=== PATIENT | female | born 1940 | race Caucasian/White ===

== ENCOUNTER → 2016-11-04 | Outpatient (CLI) | payer BC ==
[~2016-11-04] MED LIST: ACET-1138 PO; ASPEC81 PO; CARB1TAB29 PO; CHOL100010 PO; CLOP1TAB15 PO; FRS/40 PO; HMLIS SC; INSDGI SC; IPRA1AER2 INH; KETO2CRE14 TOP; LABE1TAB28 PO; LEVO88TA PO; LOSA1TAB PO; MAGN400T6 PO; METR0.754 TOP; MULT-190 PO; OMEG10007 PO; POTA10CA28 PO; SIMV10TA2 PO
[2016-11-04 14:54] LABS: HEMATOCRIT 35.7 % (37-47); MEAN CELL VOLUME 93.9 fL (80-100); MEAN CORPUSCULAR HEMOGLOBIN 29.5 pg (25-34); MEAN CORPUSCULAR HGB CONC 31.4 g/dl (32-36); PLATELET COUNT 194 K/uL (130-400); WHITE BLOOD COUNT 5.94 K/uL (4.8-10.8)
[2016-11-04 15:01] LABS: ESTIMATED AVERAGE GLUCOSE 137 mg/dl; HA1C FLAG Normal (Normal)
[2016-11-04 15:11] LABS: URINE APPEARANCE CLEAR (CLEAR); URINE BILIRUBIN NEG (NEG); URINE COLOR YELLOW; URINE EPITHELIAL CELL AUTO 20-30 /lpf (0-5); URINE NITRITE NEG (NEG); URINE PH 6.5 (4.5-7.5); URINE SPECIFIC GRAVITY 1.012 (1.000-1.030); UROBILINOGEN NEG (NEG)
[2016-11-04 15:23] LABS: MANUAL MICROSCOPIC REQUIRED? NO; REVIEW REQ? NO
[2016-11-04 15:48] LABS: URINE PROTIEN/CREAT RATIO 0.2 (0-0.2); URINE TOTAL PROTEIN 6.2 mg/dl (0-11.9)
[2016-11-04 15:50] LABS: ALT/SGPT 27 U/L (12-78); AST/SGOT 16 U/L (15-37); BLOOD UREA NITROGEN 55 mg/dl (7-18); BUN/CREATININE RATIO 32.1 (10-20); CALCIUM 8.9 mg/dl (8.5-10.1); CARBON DIOXIDE 29 mmol/L (21-32); CHLORIDE 103 mmol/L (98-107); GLUCOSE 119 mg/dl (70-99); MAGNESIUM 2.3 mg/dl (1.8-2.4); POTASSIUM 4.2 mmol/L (3.5-5.1); SODIUM 139 mmol/L (136-145)
[2016-11-04 15:54] LABS: FERRITIN 123.2 ng/ml (8.0-388.0); TOTAL IRON BINDING CAPACITY 321 mcg/dl (250-450)
== END | disposition home or self-care (01) ==
LOC: C.LABBC 10:27
PROVIDERS: ATTEND Internal Medicine Nephrology
DX: I10 Essential (primary) hypertension (principal); N18.3 Chronic kidney disease, stage 3 (moderate); R80.9 Proteinuria, unspecified; E21.3 Hyperparathyroidism, unspecified; E55.9 Vitamin D deficiency, unspecified; D64.9 Anemia, unspecified; E83.42 Hypomagnesemia; E78.5 Hyperlipidemia, unspecified; E11.9 Type 2 diabetes mellitus without complications

== ENCOUNTER → 2017-03-16 | Outpatient (CLI) | payer BC | END | disposition home or self-care (01) | LOC: C.LAB1850 15:22 | PROVIDERS: ATTEND Nurse Practitioner Adult Health | DX: I12.9 Hypertensive chronic kidney disease with stage 1 through stage 4 chronic kidney disease, or unspecified chronic kidney disease (principal); R80.9 Proteinuria, unspecified; E21.3 Hyperparathyroidism, unspecified; E55.9 Vitamin D deficiency, unspecified; D64.9 Anemia, unspecified; E83.42 Hypomagnesemia; N18.2 Chronic kidney disease, stage 2 (mild); E03.9 Hypothyroidism, unspecified ==

== ENCOUNTER → 2017-05-14 | Outpatient (CLI) | payer BC ==
[2017-05-14 10:54] LABS: HEMATOCRIT 34.6 % (37-47); MEAN CORPUSCULAR HGB CONC 31.5 g/dl (32-36); MEAN PLATELET VOLUME 9.8 fL (7.4-10.4); PLATELET COUNT 196 K/uL (130-400); RED BLOOD COUNT 3.76 M/uL (4.2-5.4); WHITE BLOOD COUNT 7.02 K/uL (4.8-10.8)
[2017-05-14 11:10] LABS: URINE APPEARANCE CLEAR (CLEAR); URINE BILIRUBIN NEG (NEG); URINE COLOR YELLOW; URINE EPITHELIAL CELL AUTO >30 /lpf (0-5); URINE NITRITE NEG (NEG); URINE PH 5.5 (4.5-7.5); URINE SPECIFIC GRAVITY 1.014 (1.000-1.030); UROBILINOGEN NEG (NEG)
[2017-05-14 11:13] LABS: MANUAL MICROSCOPIC REQUIRED? NO; REVIEW REQ? NO
[2017-05-14 11:19] LABS: BLOOD UREA NITROGEN 36 mg/dl (7-18); BUN/CREATININE RATIO 24.7 (10-20); CALCIUM 7.9 mg/dl (8.5-10.1); CARBON DIOXIDE 31 mmol/L (21-32); CHLORIDE 105 mmol/L (98-107); CREATININE 1.44 mg/dl (0.60-1.20); GLUCOSE 91 mg/dl (70-99); POTASSIUM 3.4 mmol/L (3.5-5.1); SODIUM 142 mmol/L (136-145)
[2017-05-14 11:23] LABS: PHOSPHORUS 2.6 mg/dl (2.5-4.9)
[2017-05-14 11:25] LABS: URINE PROTIEN/CREAT RATIO 0.1 (0-0.2)
== END | disposition home or self-care (01) ==
LOC: C.LABBC 08:05
PROVIDERS: ATTEND Internal Medicine Nephrology
DX: I10 Essential (primary) hypertension (principal); R80.9 Proteinuria, unspecified; D64.9 Anemia, unspecified; E21.3 Hyperparathyroidism, unspecified; E55.9 Vitamin D deficiency, unspecified; E83.42 Hypomagnesemia; N18.2 Chronic kidney disease, stage 2 (mild)

== ENCOUNTER → 2017-10-13 | Outpatient (CLI) | payer BC ==
[2017-10-13 11:00] LABS: HEMOGLOBIN 11.2 g/dL (12.0-16.0)
[2017-10-13 11:59] LABS: HEMOGLOBIN A1C 6.6 % (4.5-5.6)
== END | disposition home or self-care (01) ==
LOC: C.LABBC 07:59
PROVIDERS: ATTEND Internal Medicine
DX: E03.9 Hypothyroidism, unspecified (principal); E11.49 Type 2 diabetes mellitus with other diabetic neurological complication; E78.5 Hyperlipidemia, unspecified; I50.32 Chronic diastolic (congestive) heart failure

== ENCOUNTER → 2017-11-11 | Outpatient (CLI) | payer BC ==
[2017-11-11 11:21] LABS: HEMATOCRIT 33.6 % (37-47); HEMOGLOBIN 10.9 g/dL (12.0-16.0); MEAN CELL VOLUME 88.2 fL (80-100); MEAN CORPUSCULAR HEMOGLOBIN 28.6 pg (25-34); MEAN CORPUSCULAR HGB CONC 32.4 g/dl (32-36); MEAN PLATELET VOLUME 9.7 fL (7.4-10.4); PLATELET COUNT 202 K/uL (130-400); RED CELL DISTRIBUTION WIDTH CV 14.5 % (11.5-14.5); RED CELL DISTRIBUTION WIDTH SD 46.8 fL (36.4-46.3)
[2017-11-11 11:43] LABS: ALBUMIN 3.6 gm/dl (3.4-5.0); BLOOD UREA NITROGEN 43 mg/dl (7-18); CALCIUM 8.1 mg/dl (8.5-10.1); CARBON DIOXIDE 31 mmol/L (21-32); GLUCOSE 83 mg/dl (70-99); PHOSPHORUS 3.4 mg/dl (2.5-4.9); POTASSIUM 3.3 mmol/L (3.5-5.1); SODIUM 140 mmol/L (136-145); TRANSFERRIN 216 mg/dl (200-360)
== END | disposition home or self-care (01) ==
LOC: C.LABBC 07:38
PROVIDERS: ATTEND Internal Medicine Nephrology
DX: E83.52 Hypercalcemia (principal); I12.9 Hypertensive chronic kidney disease with stage 1 through stage 4 chronic kidney disease, or unspecified chronic kidney disease; D64.9 Anemia, unspecified; R80.9 Proteinuria, unspecified; E55.9 Vitamin D deficiency, unspecified; N18.2 Chronic kidney disease, stage 2 (mild)

== ENCOUNTER 2019-12-02 11:25 | Inpatient (IN) ==
[2019-12-02] MEDS ORDERED: NITROGLYCERIN 2% OINTMENT 30GM TUBE EXT STA (11:40)
[2019-12-02] MEDS ORDERED: ALBUT/IPRATROP 3MG/0.5MG NEB 3 ML VIAL NEB STA (11:40)
--- NOTE | 2019-12-02 11:54 | Emergency Department Note ---
Impression & Plan Respiratory distress, CHF (congestive heart failure), Tachycardia, Fever, Acute UTI ED Provider Note NAME: AARTI HUYNH AGE: 79 SEX: F : 1940 ARRIVES VIA: Ambulance INFORMANT: [Patient][ems, nurses] ED PROVIDER(S): [Nathan Scott MD] CHIEF COMPLAINT: Short of breath HISTORY OF PRESENT ILLNESS: The patient is an 79-year-old female who presents to the ER with shortness of breath. She presents by EMS. The patient was recently at her doctor's office and diagnosed with a UTI. She is on Macrobid. She has noticed an increased cough and some shortness of breath with a low-grade fever for the last few days. Today, she was quite short of breath. She does have underlying lung disease. No chest pain The patient has had no known coronavirus exposures. She was felt to be in respiratory distress by EMS and the nursing staff, I was called emergently into the room. No further history obtainable given her dyspnea. REVIEW OF SYSTEMS: Obtainable given her shortness of breath/dyspnea. PMHx/PSHx: See Below SOCIAL HISTORY: See Below. PHYSICAL EXAM: GENERAL: Patient is in moderate respiratory distress HEENT: No acute trauma, normocephalic atraumatic, mucous membranes moist, no nasal congestion, no scleral icterus. NECK: No stridor, no adenopathy, no meningismus, trachea is midline. LUNGS: Diminished breath sounds bilaterally, increased respiratory rate, equal breath sounds bilaterally, crackles bilaterally. No wheezing. HEART: Mildly tachycardic, no obvious murmurs, regular rhythm. ABDOMEN: Soft, nontender, bowel sounds positive, no hernias, no peritonitis. EXTREMITIES: No cyanosis, moderate bilateral pedal edema, full range of motion of all the joints without pain or difficulty, no signs for acute trauma. NEUROLOGIC: Oriented x 3, no acute motor or sensory deficits, no focal weakness. SKIN: No rash, no jaundice, no diaphoresis. DIFFERENTIAL DIAGNOSIS: Reactive airway disease, pneumonia, pneumothorax, COPD, CHF, coronavirus, bronchitis, infections, cardiac ischemia, pulmonary embolism, musculoskeletal, gastrointestinal, as well as other pathologies. EMERGENCY DEPARTMENT COURSE/PROCEDURES: ECG: Shortness of breath was the indication. The EKG shows a sinus tachycardia with a left bundle branch block. The rate is 105. The QTc is 539. There is no ST elevation, no PVCs. Compared to an ECG from 24 February 2016, the rate has increased. Continuous Cardiac Monitoring: An order was placed for continuous cardiac monitoring. The monitor shows a rate of 91 with normal sinus rhythm. Critical Care Note: I have personally spent greater than 54 minutes of critical care time in the direct management of this patient. This includes bedside care, interpretation of diagnostic studies, and testing, discussion with consultants, patient, and family members, and other required patient management activities. This 54 minutes is in excess of all separately billable procedures. MEDICAL DECISION MAKING: There is a mild leukocytosis, this could be consistent with infection. The p atient is anemic but this appears baseline looking back at previous testing. No coagulopathy. There was some renal insufficiency noted but this appears to be baseline looking back at previous testing. No concerning electrolyte abnormality. Lactic acid level was not elevated making sepsis less likely. There was no worrisome liver enzyme elevation. Urinalysis is suggestive of infection, culture is pending. EKG showed a sinus tachycardia, no acute ischemic change. Cardiac enzyme testing x1 does show a slight elevation, this could be consistent with cardiac injury and/or mismatch secondary to her respiratory difficulty. Chest film appears to show some CHF. I did not see any obvious pneumonia, no pneumothorax. BNP was elevated consistent with CHF/fluid overload. Coronavirus testing returned negative. The patient presents short of breath and in respiratory distress. She was aggre ssively managed. The patient was immediately placed on BiPAP with a DuoNeb. She was given nitroglycerin paste and IV Lasix. She received IV cefepime as empiric antibiotic coverage. With the above treatment, the patient has made significant improvement. Her tachycardia has resolved, her increased respiratory rate has resolved, she is much more comfortable. She no longer appears in distress. The patient requires a hospital stay. She appears to have CHF as a cause for her dyspnea. She may have a UTI as well. I do not find evidence for sepsis. Hospitalization is clearly warranted. I spoke to the patient and case management. The on-call hospitalist was consulted. Past Med/Surg History Medical History Acute kidney injury (Inactive) COPD with acute exacerbation (Inactive) Dyspnea Hypokalemia (Inactive) Hypomagnesemia (Inactive) Hypoxia (Inactive) Pneumonia (Inactive) Septicemia (Inactive) Spondylisthesis (Inactive) Surgical History H/O oral surgery S/P aortic valve replacement (Inactive) S/P bunionectomy S/P cataract surgery S/P dilation and curettage S/P tonsillectomy S/P total knee arthroplasty Status post hysteroscopic polypectomy Family History Father Hypertension Stroke Grandmother (Maternal) Diabetes Mother Diabetes Other COPD (chronic obstructive pulmonary disease) Social History Preferred Language: [place] Communication Ability: Effective Visual Impairment: No Limitations Hearing Ability: Normal Beliefs That Will Affect Care: Synagogue Synagogue Beliefs: RESTORATIONISM marital status: Current Living Situation: Spouse current occupational status: retired Other Information That Helps Us Care for You: No Feels Safe at Home: Yes Safety Concerns: Feels Safe At This Time Smoking Status: Former smoker Hx Alcohol Use: No Hx Substance Use: No Seatbelt Use: always Sunscreen Use: No Allergies Allergies Allergy/AdvReac Type Severity Reaction Status Date / Time Horse/Equine Containing Allergy Unknown LOCKED Verified 12/02/19 13:22 Products JOINTS codeine AdvReac Unknown REVERSED Verified 12/02/19 13:22 REACTION Home Meds Home Medications Medication Instructions Recorded Confirmed aspirin 81 mg tablet 81 mg PO PM tab 02/01/19 12/02/19 iron, carbonyl 45 mg tablet 45 mg PO DAILY tab 02/01/19 12/02/19 blood sugar diagnostic #10 ea 02/06/19 12/01/19 insulin syringe-needle U-100 1 mL #10 ea 02/06/19 12/01/19 31 gauge x 5/16" ketoconazole 2 % topical cream 1 appln TOP BID PRN 02/06/19 12/02/19 vitamin B complex 1 cap PO QAM 02/06/19 12/02/19 insulin glargine 100 unit/mL 45 units SQ PM ml 08/14/19 12/02/19 subcutaneous solution insulin lispro 100 unit/mL See Rx Instructions SQ TID ml 08/14/19 12/02/19 subcutaneous pen acetaminophen [Tylenol Extra 1,000 mg PO BID PRN 12/02/19 12/02/19 Strength] ergocalciferol (vitamin D2) 50,000 units PO MONTHLY 12/02/19 12/02/19 furosemide 20 mg PO BID PRN 12/02/19 12/02/19 furosemide 40 mg PO BID 12/02/19 12/02/19 ibuprofen [Advil Liqui-Gel] 400 mg PO BID PRN 12/02/19 12/02/19 levothyroxine [Synthroid] 88 mcg PO DAILY@0400 12/02/19 12/02/19 omega-3 fatty acids-fish oil [Fish 1 cap PO PM 12/02/19 12/02/19 Oil] simvastatin 10 mg PO PM 12/02/19 12/02/19 vit C,E-Za-sphpm-lutein-zeaxan 1 tab PO BID 12/02/19 12/02/19 [PreserVision AREDS-2] Previous Rx's Medication Instructions Recorded ipratropium 20 mcg-albuterol 100 1 puffs INH QID #12 gm 04/17/19 mcg/actuation mist for inhalation OneTouch Delica Lancets 33 gauge #300 ea NS 07/27/19 losartan 25 mg tablet See Rx Instructions .ROUTE 08/15/19 .COMPLEX #0 tab labetalol 200 mg tablet 600 mg PO BID #540 tab 09/05/19 pen needle, diabetic 32 gauge x #360 ea 10/03/19 5/32" nitrofurantoin 100 mg PO BID 7 Days #14 cap 12/01/19 monohydrate/macrocrystals 100 mg capsule Results & Data (ED) Vital Signs Vital Signs - 24 hr 12/02/19 11:35 12/02/19 11:50 12/02/19 11:53 Temperature 36.7 C Temperature Source Oral Pulse Rate 109 H 94 H Pulse Rate [Right Finger] 94 H Pulse Rhythm Regular Pulse Rhythm [Right Finger] Pulse Strength Normal Pulse Strength [Right Finger] Respiratory Rate 50 H 35 H 35 H Respiratory Effort / Characteristics Accessory Muscle Use Labored Retracting Short of Breath Spontaneous Short of Breath Spontaneous Short of Breath Respiratory Depth Deep Respiratory Pattern Rapid/Deep Tachypnea Tachypnea Blood Pressure 136/88 Blood Pressure [Right Arm] Blood Pressure Mean 104 Blood Pressure Mean [Right Arm] Blood Pressure Position Sitting Blood Pressure Position [Right Arm] Pulse Oximetry 99 98 98 Oxygen Delivery Method Non-rebreather BiPAP Oxygen Flow Rate 15 Fraction of Inspired Oxygen 40 40 SaO2/FiO2 Ratio Sepsis Recent Fever Within 48 Hours Yes Sepsis New/Unexplained Change in Mental Status No Sepsis Action Taken by Nursing Physician Notified 12/02/19 12:30 12/02/19 13:30 Temperature Temperature Source Pulse Rate Pulse Rate [Right Finger] 82 72 Pulse Rhythm Pulse Rhythm [Right Finger] Regular Regular Pulse Strength Pulse Strength [Right Finger] Normal Normal Respiratory Rate 36 H 24 Respiratory Effort / Characteristics Accessory Muscle Use Labored Short of Breath Non-Labored Spontaneous Respiratory Depth Deep Normal Respiratory Pattern Tachypnea Regular Blood Pressure Blood Pressure [Right Arm] 101/72 128/61 Blood Pressure Mean Blood Pressure Mean [Right Arm] 81 83 Blood Pressure Position Blood Pressure Position [Right Arm] Sitting Sitting Pulse Oximetry 95 96 Oxygen Delivery Method BiPAP BiPAP Oxygen Flow Rate Fraction of Inspired Oxygen 40 40 SaO2/FiO2 Ratio 237 240 Sepsis Recent Fever Within 48 Hours Sepsis New/Unexplained Change in Mental Status Sepsis Action Taken by Long Term Medications Current Medication List: was personally reviewed by me Laboratory Data Attestation: I reviewed the patient's lab results. Result diagrams: 12/02/19 11:42 12/02/19 11:42 Lab Results 12/02/19 12/02/19 12/02/19 Range/Units 11:42 11:42 11:42 WBC 11.44 H (4.8-10.8) K/uL RBC 3.79 L (4.2-5.4) M/uL Hgb 10.5 L (12.0-16.0) g/dL Hct 33.4 L (37-47) % MCV 88.1 (80-100) fL MCH 27.7 (25-34) pg MCHC 31.4 L (32-36) g/dL RDW Std Deviation 47.1 H (36.4-46.3) fL RDW Coeff of Nella 14.6 H (11.5-14.5) % Plt Count 187 (130-400) K/uL MPV 10.1 (7.4-10.4) fL Immature Gran % (Auto) 0.4 % Neut % (Auto) 85.0 % Lymph % (Auto) 5.8 % Powell % (Auto) 8.5 % Eos % (Auto) 0.2 % Baso % (Auto) 0.1 % Immature Gran # (Auto) 0.05 H (0.00-0.02) K/uL Neut # (Auto) 9.73 H (1.4-6.5) K/uL Lymph # (Auto) 0.66 L (1.2-3.4) K/uL Powell # (Auto) 0.97 H (0.11-0.59) K/uL Eos # (Auto) 0.02 (0-0.5) K/uL Baso # (Auto) 0.01 (0-0.2) K/uL PT 11.5 (9.0-12.0) Seconds INR 1.1 (0.9-1.1) APTT 30.3 (21.0-31.0) Seconds PTT Ratio 1.1 Sodium 137 (136-145) mmol/L Potassium 3.8 (3.5-5.1) mmol/L Chloride 101 (98-107) mmol/L Carbon Dioxide 29 (21-32) mmol/L Anion Gap 7.0 (3-11) BUN 37 H (7-18) mg/dl Creatinine 1.64 H (0.6-1.2) mg/dl Est Cr Clr Drug Dosing 30.8 ml/min Est GFR ( Amer) 33.9 Est GFR (Non-Af Amer) 29.2 BUN/Creatinine Ratio 22.7 H (10-20) Glucose 178 H (70-99) mg/dl Lactate (0.4-2.0) mmol/L Calcium 8.2 L (8.5-10.1) mg/dl Total Bilirubin 0.8 (0.2-1) mg/dl AST 21 (15-37) U/L ALT 25 (12-78) U/L Alkaline Phosphatase 107 (45-117) U/L Troponin I 0.069 H* (0-0.045) ng/ml NT-Pro-B Natriuret Pep 7402 H (0-1800) pg/ml Total Protein 7.4 (6.4-8.2) gm/dl Albumin 3.3 L (3.4-5.0) gm/dl Globulin 4.1 H (2.5-4.0) gm/dl Albumin/Globulin Ratio 0.8 L (0.9-2) TSH 1.030 (0.300-4.500) uIu/ml Urine Color Urine Appearance (Clear) Urine pH (4.5-7.5) Ur Specific [place] (1.000-1.030) Urine Protein (Negative) Urine Glucose (UA) (Negative) Urine Ketones (Negative) Urine Blood (Negative) Urine Nitrite (Negative) Urine Bilirubin (Negative) Urine Urobilinogen (Negative) Ur Leukocyte Esterase (Negative) Urine WBC (Auto) (0-5) /hpf Urine RBC (Auto) (0-4) /hpf U Hyaline Cast (Auto) (0-5) /lpf U Epithel Cells (Auto) (0-5) /lpf Urine Bacteria (Auto) (Negative) COVID-19 PCR (Negative) SARS-CoV-2 RNA (RT-PCR) 12/02/19 12/02/19 12/02/19 Range/Units 11:42 12:01 12:07 WBC (4.8-10.8) K/uL RBC (4.2-5.4) M/uL Hgb (12.0-16.0) g/dL Hct (37-47) % MCV (80-100) fL MCH (25-34) pg MCHC (32-36) g/dL RDW Std Deviation (36.4-46.3) fL RDW Coeff of Nella (11.5-14.5) % Plt Count (130-400) K/uL MPV (7.4-10.4) fL Immature Gran % (Auto) % Neut % (Auto) % Lymph % (Auto) % Powell % (Auto) % Eos % (Auto) % Baso % (Auto) % Immature Gran # (Auto) (0.00-0.02) K/uL Neut # (Auto) (1.4-6.5) K/uL Lymph # (Auto) (1.2-3.4) K/uL Powell # (Auto) (0.11-0.59) K/uL Eos # (Auto) (0-0.5) K/uL Baso # (Auto) (0-0.2) K/uL PT (9.0-12.0) Seconds INR (0.9-1.1) APTT (21.0-31.0) Seconds PTT Ratio Sodium (136-145) mmol/L Potassium (3.5-5.1) mmol/L Chloride (98-107) mmol/L Carbon Dioxide (21-32) mmol/L Anion Gap (3-11) BUN (7-18) mg/dl Creatinine (0.6-1.2) mg/dl Est Cr Clr Drug Dosing ml/min Est GFR ( Amer) Est GFR (Non-Af Amer) BUN/Creatinine Ratio (10-20) Glucose (70-99) mg/dl Lactate 0.9 (0.4-2.0) mmol/L Calcium (8.5-10.1) mg/dl Total Bilirubin (0.2-1) mg/dl AST (15-37) U/L ALT (12-78) U/L Alkaline Phosphatase (45-117) U/L Troponin I (0-0.045) ng/ml NT-Pro-B Natriuret Pep (0-1800) pg/ml Total Protein (6.4-8.2) gm/dl Albumin (3.4-5.0) gm/dl Globulin (2.5-4.0) gm/dl Albumin/Globulin Ratio (0.9-2) TSH (0.300-4.500) uIu/ml Urine Color Yellow Urine Appearance Cloudy A (Clear) Urine pH 5.0 (4.5-7.5) Ur Specific [place] 1.014 (1.000-1.030) Urine Protein 1+ H (Negative) Urine Glucose (UA) Negative (Negative) Urine Ketones Negative (Negative) Urine Blood Trace H (Negative) Urine Nitrite Negative (Negative) Urine Bilirubin Negative (Negative) Urine Urobilinogen Negative (Negative) Ur Leukocyte Esterase 2+ H (Negative) Urine WBC (Auto) >30 H (0-5) /hpf Urine RBC (Auto) 0-4 (0-4) /hpf U Hyaline Cast (Auto) 5-10 H (0-5) /lpf U Epithel Cells (Auto) 5-10 H (0-5) /lpf Urine Bacteria (Auto) Negative (Negative) COVID-19 PCR (Negative) SARS-CoV-2 RNA (RT-PCR) Cancelled 12/02/19 Range/Units 12:15 WBC (4.8-10.8) K/uL RBC (4.2-5.4) M/uL Hgb (12.0-16.0) g/dL Hct (37-47) % MCV (80-100) fL MCH (25-34) pg MCHC (32-36) g/dL RDW Std Deviation (36.4-46.3) fL RDW Coeff of Nella (11.5-14.5) % Plt Count (130-400) K/uL MPV (7.4-10.4) fL Immature Gran % (Auto) % Neut % (Auto) % Lymph % (Auto) % Powell % (Auto) % Eos % (Auto) % Baso % (Auto) % Immature Gran # (Auto) (0.00-0.02) K/uL Neut # (Auto) (1.4-6.5) K/uL Lymph # (Auto) (1.2-3.4) K/uL Powell # (Auto) (0.11-0.59) K/uL Eos # (Auto) (0-0.5) K/uL Baso # (Auto) (0-0.2) K/uL PT (9.0-12.0) Seconds INR (0.9-1.1) APTT (21.0-31.0) Seconds PTT Ratio Sodium (136-145) mmol/L Potassium (3.5-5.1) mmol/L Chloride (98-107) mmol/L Carbon Dioxide (21-32) mmol/L Anion Gap (3-11) BUN (7-18) mg/dl Creatinine (0.6-1.2) mg/dl Est Cr Clr Drug Dosing ml/min Est GFR ( Amer) Est GFR (Non-Af Amer) BUN/Creatinine Ratio (10-20) Glucose (70-99) mg/dl Lactate (0.4-2.0) mmol/L Calcium (8.5-10.1) mg/dl Total Bilirubin (0.2-1) mg/dl AST (15-37) U/L ALT (12-78) U/L Alkaline Phosphatase (45-117) U/L Troponin I (0-0.045) ng/ml NT-Pro-B Natriuret Pep (0-1800) pg/ml Total Protein (6.4-8.2) gm/dl Albumin (3.4-5.0) gm/dl Globulin (2.5-4.0) gm/dl Albumin/Globulin Ratio (0.9-2) TSH (0.300-4.500) uIu/ml Urine Color Urine Appearance (Clear) Urine pH (4.5-7.5) Ur Specific [place] (1.000-1.030) Urine Protein (Negative) Urine Glucose (UA) (Negative) Urine Ketones (Negative) Urine Blood (Negative) Urine Nitrite (Negative) Urine Bilirubin (Negative) Urine Urobilinogen (Negative) Ur Leukocyte Esterase (Negative) Urine WBC (Auto) (0-5) /hpf Urine RBC (Auto) (0-4) /hpf U Hyaline Cast (Auto) (0-5) /lpf U Epithel Cells (Auto) (0-5) /lpf Urine Bacteria (Auto) (Negative) COVID-19 PCR NEGATIVE (Negative) SARS-CoV-2 RNA (RT-PCR) Administered Medications Furosemide (Lasix) 40 mg PO [id number] JIMBO Stop: 01/01/20 16:59 Last Admin: 12/02/19 17:41 Dose: 40 mg Documented by: [id number] Insulin Aspart (Novolog Flexpen) 0 units SC ACHS JIMBO Stop: 01/01/20 16:29 Last Admin: 12/02/19 17:40 Dose: 7 units Documented by: [id number] Cosigned by: [id number] Discontinued Medications Albuterol (Duoneb) 3 ml NEB NOW STA Stop: 12/02/19 11:41 Last Admin: 12/02/19 11:49 Dose: 3 ml Documented by: [id number] Furosemide (Lasix) 40 mg IV NOW STA Stop: 12/02/19 12:27 Last Admin: 12/02/19 13:34 Dose: 40 mg Documented by: [id number] Cefepime HCl (Maxipime) 2,000 mg in 20 mls @ 5 mls/min IV NOW STA; Protocol Stop: 12/02/19 12:45 Last Admin: 12/02/19 13:35 Dose: 5 mls/min Documented by: [id number] Nitroglycerin (Nitro-Bid 2%) 1 inch EXT NOW STA Stop: 12/02/19 11:41 Last Admin: 12/02/19 11:53 Dose: 1 inch Documented by: [id number] Imaging Data Radiologist's Impression: SINGLE VIEW CHEST CLINICAL HISTORY: Dyspnea. FINDINGS: An AP, portable, upright chest radiograph is compared to study dated 02/22/2016. Correlation is made with chest CT dated 12/28/2014. The examination is degraded by portable technique and patient rotation. The heart is enlarged noting atherosclerotic calcification of the thoracic aorta. There is pulmonary vascular congestion. Volume loss in the right lung is similar to previous. Dependent airspace opacities are seen at the lung bases. Suspect trace pleural effusions. No pneumothorax is seen. The skeletal structures are osteopenic. The bony thorax is grossly intact. IMPRESSION: 1. Cardiomegaly with evidence of congestive failure. 2. Suspect trace pleural effusions. 3. Airspace opacities are present both lung bases and likely represent atelectasis. Correlate clinically for evidence of a superimposed infectious/inflammatory pneumonitis Blood Pressure Blood Pressure Findings: Elevated blood pressure Blood Pressure Disposition: further management by hospitalist Discharge Plan Visit Data *Final* Discharge Date/Time: 12/02/19 15:52 Chief Complaint: Respiratory Distress Stated Complaint: respiratory distress ED Provider: Nathan Scott Discharge Problem: Respiratory distress, CHF (congestive heart failure), Tachycardia, Fever, Acute UTI Patient Disposition: Admitted As Inpatient Condition: Fair Discharge Instructions Interventions: ED Discharge Assessment Last Done: 12/02/19 15:52 Discharge Problem: CHF (congestive heart failure) Qualifiers: Heart failure type: unspecified Heart failure chronicity: acute Qualified Code(s): I50.9 - Heart failure, unspecified Fever Qualifiers: Fever type: unspecified Qualified Code(s): R50.9 - Fever, unspecified
[2019-12-02 12:16] LABS: Basophils # (auto) 0.01 K/uL (0-0.2); Basophils % (auto) 0.1 %; Eosinophils # (auto) 0.02 K/uL (0-0.5); Eosinophils % (auto) 0.2 %; Hematocrit (blood only) 33.4 % (37-47); Hemoglobin 10.5 g/dL (12.0-16.0); Immature Granulocytes # (auto) 0.05 K/uL (0.00-0.02); Immature Granulocytes % (auto) 0.4 %; Lymphocytes # (auto) 0.66 K/uL (1.2-3.4); Lymphocytes % (auto) 5.8 %; Mean Corpuscular Hemoglobin 27.7 pg (25-34); Mean Corpuscular Hgb Conc 31.4 g/dL (32-36); Mean Corpuscular Volume 88.1 fL (80-100); Mean Platelet Volume 10.1 fL (7.4-10.4); Monocytes # (auto) 0.97 K/uL (0.11-0.59); Monocytes % (auto) 8.5 %; Neutrophils # (auto) 9.73 K/uL (1.4-6.5); Platelet Count 187 K/uL (130-400); RDW Coefficient of Variation 14.6 % (11.5-14.5); RDW Standard Deviation 47.1 fL (36.4-46.3); Red Blood Count 3.79 M/uL (4.2-5.4); White Blood Count 11.44 K/uL (4.8-10.8)
[2019-12-02] MEDS ORDERED: FUROSEMIDE 40 MG/4 ML VIAL IV STA (12:26)
[2019-12-02 12:36] LABS: INR 1.1 (0.9-1.1); Partial Thromboplastin Ratio 1.1; Partial Thromboplastin Time 30.3 Seconds (21.0-31.0); Prothrombin Time 11.5 Seconds (9.0-12.0)
[2019-12-02] MEDS ORDERED: CEFEPIME 2,000 MG/20 ML VIAL IV STA (12:42)
--- NOTE | 2019-12-02 12:51 | XRay Report ---
SINGLE VIEW CHEST CLINICAL HISTORY: Dyspnea. FINDINGS: An AP, portable, upright chest radiograph is compared to study dated 02/22/2016. Correlation is made with chest CT dated 12/28/2014. The examination is degraded by portable technique and patient rotation. The heart is enlarged noting atherosclerotic calcification of the thoracic aorta. There is pulmonary vascular congestion. Volume loss in the right lung is similar to previous. Dependent airspa ce opacities are seen at the lung bases. Suspect trace pleural effusions. No pneumothorax is seen. Th e skeletal structures are osteopenic. The bony thorax is grossly intact. IMPRESSION: 1. Cardiomegaly with evidence of congestive failure. 2. Suspect trace pleural effusions. 3. Airspace opacities are present both lung bases and likely represent atelectasis. Correlate clinica lly for evidence of a superimposed infectious/inflammatory pneumonitis ACT 112: Negative or not required by law. Electronically signed by: Nathan Mittal M.D. 12/02/2019 12:50 PM
[2019-12-02 12:59] LABS: Albumin Level 3.3 gm/dl (3.4-5.0); BUN Creatinine Ratio 22.7 (10-20); Calcium 8.2 mg/dl (8.5-10.1); Creatinine Clr Calc Pharmacy 30.8 ml/min; Est GFR (African American) 33.9; Est GFR (Non-African American) 29.2; Potassium 3.8 mmol/L (3.5-5.1)
[2019-12-02 13:06] LABS: Albumin Globulin Ratio 0.8 (0.9-2); Bilirubin,Total 0.8 mg/dl (0.2-1); Globulin 4.1 gm/dl (2.5-4.0); Total Protein 7.4 gm/dl (6.4-8.2); Troponin I 0.069 ng/ml (0-0.045)
[2019-12-02 13:46] LABS: Appearance Urine Cloudy (Clear); Bacteria Urine Automated Negative (Negative); Bilirubin Urine Negative (Negative); Blood Urine Trace (Negative); Color Urine Yellow; Glucose Urine UA Negative (Negative); Ketones Urine Negative (Negative); Leukocyte Esterase Urine 2+ (Negative); Nitrite Urine Negative (Negative); Protein Urine 1+ (Negative); RBC Urine Automated 0-4 /hpf (0-4); Specific Gravity Urine 1.014 (1.000-1.030); Urobilinogen Urine Negative (Negative); WBC Urine Automated >30 /hpf (0-5)
[2019-12-02] MEDS ORDERED: ONDANSETRON INJ 2 MG/ML 2 ML VIAL IV PRN (14:12)
[2019-12-02] MEDS ORDERED: DEXTROSE 50% 50 ML SYRINGE IV PRN (14:12)
[2019-12-02] MEDS ORDERED: GLUCOSE 40% GEL 15 GM TUBE PO PRN (14:12)
[2019-12-02] MEDS ORDERED: GLUCAGON FOR INJ 1 MG VIAL SQ PRN (14:12)
[2019-12-02] MEDS ORDERED: GLUCOSE 10 TABS/TUBE PO PRN (14:12)
--- NOTE | 2019-12-02 14:12 | History & Physical Report ---
Date of Service December 02, 2019 Assessment & Plan (1) Acute respiratory failure with hypoxia: - Admit to PCU - Hypoxic with O2 sat of 73% on room air, work of breathing, use of accessory muscles in the ER, requiring placement on BIPAP. - Does not appear to have had an ABG drawn at that time -- will check one now - CXR reviewed showing pulmonary edema, exacerbation of CHF - Continue Bipap for now, intermittent breaks, wait 30 min after food to replace it. (2) Acute on chronic diastolic (congestive) heart failure: -Acute exacerbation, worsening the above. -Consult cardiology, follows with Dr. Wolf as an outpatient -Daily weights, strict I's and O's, dry weight of 248 per patient 's report -Continue ASA 81 mg every afternoon, -Troponin mildly elevated, 0.069, trends x2 more sets, no chest pain, EKG showing RBBB, no ST wave changes or signs of ischemia, unlikely ACS -Pro NT BNP = 7402, continued aggressive diuresis -Continue IV Lasix 40 mg twice daily -at home takes 40 mg p.o. BID with an additional 20 to 40 mg twice daily for weight. -Check 2D echo -Heart healthy/DM diet, fluid restriction of 1500 mL daily -Delaney catheter placed in the ER (3) Hypertension: -BP well controlled currently, continue labetalol 600 mg twice daily, losartan 25 mg, aggressive diuresis as above (4) Dyslipidemia: -Continue simvastatin 10 mg daily (5) Arteriosclerosis of coronary artery: -Continue medication as above (6) S/P AVR (aortic valve replacement): -History of such in 2015, last echo revealed well functioning AV valve in June 2019, follow repeat echo (7) Controlled type 2 diabetes mellitus with neurologic complication, with long- term current use of insulin: -Continue Lantus 45 units QPM -ISS with Accu-Cheks AC at bedtime -A1c was last 6.7 on 06/15/2019, recheck with a.m. labs (8) Diabetic peripheral neuropathy: -Stable (9) Hypothyroidism: -Continue levothyroxine 88 mcg daily - Recheck TSH and T4 (10) Chronic kidney disease, stage 3: -BUN = 37, Cr=1.64, appears that her baseline is closer to 1.4-1.5 -Follow a.m. BMP -Follows with Dr. Grace as an outpatient, nephrology consulted at request the patient (11) Obstructive sleep apnea: -Wears CPAP at night routinely (12) Vitamin D deficiency: -Continue monthly supplementation (13) Secondary hyperparathyroidism: -Noted, checking TSH and free T4 as above (14) Obesity: -BMI = 47.4, diet and exercise to be encouraged upon discharge (15) Iron deficiency anemia: -History of such, continue iron daily (16) DVT prophylaxis: - teds, heparin subcu CODE: Full code Dispo: From home, likely to remain in the hospital x 1-2 days History of Present Illness Primary Care Provider: Raheem Butcher MD This is an 79-year-old female with past medical history of nonobstructive CAD, chronic diastolic CHF, HTN, HLD, history of aortic valve replacement,-(s/p TAVR June 2015), DM type II, CKD stage III, hyperparathyroidism, vitamin D deficiency, anemia, history of UTI, morbid obesity with BMI of 47.4. She presents with worsening shortness of breath times a few days, found to have respiratory rate 40-50 and was placed on BiPAP in the ER. Patient was given Nitropaste for an elevated troponin of 0.069, DuoNeb treatment, IV Lasix, IV cefepime for possible urinary tract infection. The patient was tested for COVID-19 which is negative. She denies any chest pain, palpitations, flutter, but admits to a dry cough. Per her her weight is normally around 238- 243, and has been there fore the past 3 days. Per cardiology note pt was instructed to take Lasix 60 mg PO in morning, then an additional 40 to 60 mg in the afternoon for weight gain as needed, however has only been taking 40 mg PO in morning and afternoon, last dose yesterday. Last echo was completed in Jun, normal LV function and properly functioning bioprosthetic aortic valve, getting a repeat without contrast. She denies any changes in diet, maintaining low-sodium intake, not drinking excess fluids, unable to tell me what her weight has been recently. She does not typically require supplemental O2, but does use a CPAP at night. She lives at home with her which helps to take care of her. Allergies Allergy/AdvReac Type Severity Reaction Status Date / Time Horse/Equine Containing Allergy Unknown LOCKED Verified 12/02/19 13:22 Products JOINTS codeine AdvReac Unknown REVERSED Verified 12/02/19 13:22 REACTION Home Medications Home Medications Medication Instructions Recorded Confirmed Type aspirin 81 mg tablet 81 mg PO PM tab 02/01/19 12/02/19 History iron, carbonyl 45 mg tablet 45 mg PO DAILY tab 02/01/19 12/02/19 History blood sugar diagnostic #10 ea 02/06/19 12/01/19 History insulin syringe-needle U-100 1 mL #10 ea 02/06/19 12/01/19 History 31 gauge x 5/16" ketoconazole 2 % topical cream 1 appln TOP BID PRN 02/06/19 12/02/19 History vitamin B complex 1 cap PO QAM 02/06/19 12/02/19 History ipratropium 20 mcg-albuterol 100 1 puffs INH QID #12 gm 04/17/19 12/02/19 Rx mcg/actuation mist for inhalation OneTouch Delica Lancets 33 gauge #300 ea NS 07/27/19 12/01/19 Rx insulin glargine 100 unit/mL 45 units SQ PM ml 08/14/19 12/02/19 History subcutaneous solution insulin lispro 100 unit/mL See Rx Instructions SQ TID ml 08/14/19 12/02/19 History subcutaneous pen losartan 25 mg tablet See Rx Instructions .ROUTE 08/15/19 12/02/19 Rx .COMPLEX #0 tab labetalol 200 mg tablet 600 mg PO BID #540 tab 09/05/19 12/02/19 Rx pen needle, diabetic 32 gauge x #360 ea 10/03/19 12/01/19 Rx 5/32" nitrofurantoin 100 mg PO BID 7 Days #14 cap 12/01/19 12/02/19 Rx monohydrate/macrocrystals 100 mg capsule acetaminophen [Tylenol Extra 1,000 mg PO BID PRN 12/02/19 12/02/19 History Strength] ergocalciferol (vitamin D2) 50,000 units PO MONTHLY 12/02/19 12/02/19 History furosemide 20 mg PO BID PRN 12/02/19 12/02/19 History furosemide 40 mg PO BID 12/02/19 12/02/19 History ibuprofen [Advil Liqui-Gel] 400 mg PO BID PRN 12/02/19 12/02/19 History levothyroxine [Synthroid] 88 mcg PO DAILY@0400 12/02/19 12/02/19 History omega-3 fatty acids-fish oil [Fish 1 cap PO PM 12/02/19 12/02/19 History Oil] simvastatin 10 mg PO PM 12/02/19 12/02/19 History vit C,G-Ab-eirfs-lutein-zeaxan 1 tab PO BID 12/02/19 12/02/19 History [PreserVision AREDS-2] Past Med/Surg History Medical History (Updated 12/02/19 @ 15:03 by Michaela Ferreira PA-C) Acute kidney injury (Inactive) COPD with acute exacerbation (Inactive) Dyspnea Hypokalemia (Inactive) Hypomagnesemia (Inactive) Hypoxia (Inactive) Pneumonia (Inactive) Septicemia (Inactive) Spondylisthesis (Inactive) Surgical History (Updated 12/02/19 @ 15:03 by Michaela Ferreira PA-C) H/O oral surgery S/P aortic valve replacement (Inactive) S/P bunionectomy S/P cataract surgery S/P dilation and curettage S/P tonsillectomy S/P total knee arthroplasty Status post hysteroscopic polypectomy Social History Preferred Language: Ukrainian Communication Ability: Effective Visual Impairment: No Limitations Hearing Ability: Normal Beliefs That Will Affect Care: Caodaism Caodaism Beliefs: HINDU marital status: Current Living Situation: Spouse current occupational status: retired Other Information That Helps Us Care for You: No Feels Safe at Home: Yes Safety Concerns: Feels Safe At This Time Smoking Status: Former smoker Hx Alcohol Use: No Hx Substance Use: No Seatbelt Use: always Sunscreen Use: No Review of Systems Review of Systems: Constitutional: No fever, sweats or chills Eyes: No diplopia, no worsening or blurred vision ENT: normal hearing, no trouble swallowing Respiratory: + Shortness of breath, + dry cough, no sputum Cardiovascular: No chest pain, tightness or palpitations Abdomen: No pain, nausea, vomiting, diarrhea or constipation Musculoskeletal: No joint pain, calf pain, swelling Neurologic: No weakness, numbness/tingling, or balance problems Psychiatric: No anxiety or depression Skin: No rash or itch Physical Exam Physical Exam: General: awake, alert, no apparent distress Head: Normocephalic, atraumatic ENT: PERRL, EOMI, pharynx not examined due to being on bipap, mucous membranes moist Chest: + on Bipap, + crackles at bases bilaterally Cardiac: Regular rate and rhythm, unable to assess JVD due to body habitus, normal peripheral pulses, good capillary refill Abdominal: NABS x 4 quadrants, soft, nondistended, nontender to palpation, no rebound, guarding or tenderness Extremities: Normal inspection, + trace edema BLE, no erythema, calfs nontender to palpation Psych: Normal mood and affect Neuro: AAO x 3, no gross motor deficits, speech is clear, no peripheral sensory deficits Results & Data Results & Data ([facility]) Vital Signs (Past 12 Hours) Vital Signs Temp Pulse Pulse Resp BP BP Pulse Ox 12/02/19 13:30 72 24 128/61 96 12/02/19 12:30 82 36 H 101/72 95 12/02/19 11:53 94 H 35 H 98 12/02/19 11:50 94 H 35 H 98 12/02/19 11:35 36.7 C 109 H 50 H 136/88 99 Diagnostic Findings SINGLE VIEW CHEST CLINICAL HISTORY: Dyspnea. FINDINGS: An AP, portable, upright chest radiograph is compared to study dated 02/22/2016. Correlation is made with chest CT dated 12/28/2014. The examination is degraded by portable technique and patient rotation. The heart is enlarged noting atherosclerotic calcification of the thoracic aorta. There is pulmonary vascular congestion. Volume loss in the right lung is similar to previous. Dependent airspace opacities are seen at the lung bases. Suspect trace pleural effusions. No pneumothorax is seen. The skeletal structures are osteopenic. The bony thorax is grossly intact. IMPRESSION: 1. Cardiomegaly with evidence of congestive failure. 2. Suspect trace pleural effusions. 3. Airspace opacities are present both lung bases and likely represent atelectasis. Correlate clinically for evidence of a superimposed in fectious/inflammatory pneumonitis ECG Additional Comments: 02-DEC-2019 11:36:54 [facility]-EDSTAT ROUTINE RETRIEVAL Sinus tachycardia Left axis deviation Left bundle branch block Abnormal ECG When compared with ECG of 24-FEB-2016 06:50, Vent. rate has increased BY 36 BPM 25mm/s 10mm/mV 150Hz 9.0.9 12SL 241 SHARRI: 3 Referred by: SELF Unconfirmed Vent. rate 105 BPM WV interval 152 ms QRS duration 160 ms QT/QTc 408/539 ms P-R-T axes * -30 110 Code Status & VTE Plan Code Status Full code- discussed with the pt at bedside and her over the phone Supervising Physician Co-Signing Physician Notes Patient was seen and examined independently I discussed the case with No Nayak PAC I reviewed pertinent past medical social family history and also the plan of care and agree with the plan of care. Any exceptions will be noted below no exceptions Pt with a known history of HFpEF and TAVR presentes with respiratory distress and findings of heart failure on CXR, rescued with NIPPV in ER given lasix and nitro paste improved by when I saw her, denies dietary and medical indiscretion car is regular with murmur, lungs with rales B/L continue diuresis , NTP check Echo, taper NIPPV when able PG Care Time/CCT Total # of Minutes Spent Total Time Spent with Patient: Total time spent is greater than 50% in coordination of care (as documented) at patient's floor/unit and/or counseling patient: Coding Level of Care Code 22251 Initial Inpt Care Lvl 3 Diagnoses Acute respiratory failure with hypoxia J96.01 Acute on chronic diastolic (congestive) heart failure I50.33 Hypertension I10 Dyslipidemia E78.5 Arteriosclerosis of coronary artery I25.10 S/P AVR (aortic valve replacement) Z95.2 Controlled type 2 diabetes mellitus with neurologic complication, with long-term current use of insulin E11.49; Z79.4 Diabetic peripheral neuropathy E11.42 Hypothyroidism E03.9 Chronic kidney disease, stage 3 N18.3 Obstructive sleep apnea G47.33 Vitamin D deficiency E55.9 Secondary hyperparathyroidism N25.81 Obesity E66.9 Iron deficiency anemia D50.9 DVT prophylaxis Z29.9
[2019-12-02 15:36] LABS: Base Excess ABG 4.6 mEq/L (-9-1.8); HCO3 ABG 30 mmol/L (19-24); Oxygen Saturation ABG 98.8 % (90-95); PCO2 ABG 48 mmHg (35-46); PO2 ABG 136 mmHg (80-95); pH ABG 7.41 (7.35-7.45)
[2019-12-02 15:39] LABS: Allen Test POS (Pos)
[2019-12-02 15:58] LABS: Thyroid Stimulating Hormone 1.03 uIu/ml (0.300-4.500)
[2019-12-02] MEDS ORDERED: KETOCONAZOLE 2% CR 15 GM TUBE EXT PRN (16:23)
[2019-12-02] MEDS: INSULIN ASPART 100 UNITS/ML 3 ML PEN SC SCH ×2 (17:40→20:39)
[2019-12-02] MEDS: FUROSEMIDE 40 MG TAB PO SCH (17:41)
[2019-12-02] MEDS: ALBUTEROL HFA 8 GM INHALER INH SCH ×2 (19:48)
[2019-12-02] MEDS: IPRATROPIUM BROMIDE HFA INHALER INH SCH (20:09)
[2019-12-02] MEDS: SIMVASTATIN 10 MG TAB PO SCH (20:21)
[2019-12-02] MEDS: LABETALOL HCL 300 MG TAB PO SCH (20:21)
[2019-12-02] MEDS: ASPIRIN 81 MG ECTAB PO SCH (20:22)
[2019-12-02] MEDS: HEPARIN SOD 5,000 UNIT/0.5 ML VIAL SQ SCH (20:23)
[2019-12-02] MEDS: LOSARTAN POTASSIUM 25 MG TAB PO SCH (20:23)
[2019-12-02] MEDS: INSULIN GLARGINE SOLOSTAR 100 UNITS/ML 3 ML PEN SC SCH (20:39)
--- NOTE | 2019-12-02 23:03 | Electrocardiogram Report ---
Test Reason : Blood Pressure : / mmHG Vent. Rate : 105 BPM Atrial Rate : 105 BPM P-R Int : 152 ms QRS Dur : 160 ms QT Int : 408 ms P-R-T Axes : 000 -30 110 degrees QTc Int : 539 ms Sinus tachycardia Left axis deviation Left bundle branch block Abnormal ECG When compared with ECG of 24-FEB-2016 06:50, Vent. rate has increased BY 36 BPM Confirmed by Perez Valdivia ([id number]) on 12/02/2019 11:03:17 PM Referred By: SELF Confirmed By:Perez Valdivia
[2019-12-03] MEDS: LEVOTHYROXINE SODIUM 88 MCG TABLET PO SCH (03:52)
[2019-12-03] MEDS: ACETAMINOPHEN 325 MG TAB PO PRN (03:54)
[2019-12-03] MEDS ORDERED: ALBUT/IPRATROP 3MG/0.5MG NEB 3 ML VIAL NEB STA (04:14)
[2019-12-03 04:54] LABS: Hematocrit (blood only) 28.1 % (37-47); Hemoglobin 8.8 g/dL (12.0-16.0); Mean Corpuscular Hemoglobin 27.4 pg (25-34); Mean Corpuscular Hgb Conc 31.3 g/dL (32-36); Mean Corpuscular Volume 87.5 fL (80-100); Mean Platelet Volume 9.5 fL (7.4-10.4); Platelet Count 168 K/uL (130-400); RDW Coefficient of Variation 14.5 % (11.5-14.5); RDW Standard Deviation 46.5 fL (36.4-46.3); Red Blood Count 3.21 M/uL (4.2-5.4); White Blood Count 9.49 K/uL (4.8-10.8)
[2019-12-03 05:19] LABS: Albumin Level 2.8 gm/dl (3.4-5.0); BUN Creatinine Ratio 25.3 (10-20); Calcium 7.4 mg/dl (8.5-10.1); Creatinine Clr Calc Pharmacy 30.8 ml/min; Est GFR (African American) 33.9; Est GFR (Non-African American) 29.2; Potassium 3.2 mmol/L (3.5-5.1)
[2019-12-03] MEDS: HEPARIN SOD 5,000 UNIT/0.5 ML VIAL SQ SCH ×3 (05:21→21:18)
[2019-12-03 05:30] LABS: Albumin Globulin Ratio 0.7 (0.9-2); Bilirubin,Total 0.7 mg/dl (0.2-1); Globulin 3.8 gm/dl (2.5-4.0); Total Protein 6.6 gm/dl (6.4-8.2); Troponin I 0.188 ng/ml (0-0.045)
[2019-12-03] MEDS: IPRATROPIUM BROMIDE HFA INHALER INH SCH ×4 (07:09→19:04)
[2019-12-03] MEDS: ALBUTEROL HFA 8 GM INHALER INH SCH ×4 (07:10→19:04)
[2019-12-03] MEDS ORDERED: POTASSIUM CHLORIDE 20 MEQ TABCR PO STA ×2 (08:07→09:03)
[2019-12-03] MEDS: LABETALOL HCL 300 MG TAB PO SCH ×2 (08:37→20:14)
[2019-12-03] MEDS: FERROUS SULFATE 325 MG TAB PO SCH (08:38)
[2019-12-03] MEDS: INSULIN ASPART 100 UNITS/ML 3 ML PEN SC SCH ×4 (08:42→21:19)
--- NOTE | 2019-12-03 08:51 | XCELERA ---
[id number]
[2019-12-03] MEDS: cefTRIAXone SODIUM 2,000 MG in DEXTROSE 5% 50 ML IV SCH (09:12)
[2019-12-03] MEDS: LOSARTAN POTASSIUM 50 MG TAB PO SCH (09:13)
[2019-12-03] MEDS: FUROSEMIDE 40 MG TAB PO SCH (09:13)
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
[2019-12-03] MEDS: ALBUTEROL 0.083% NEBU SOLN 3 ML VIAL NEB PRN (12:47)
--- NOTE | 2019-12-03 12:54 | Nephrology Consultation ---
Date of Consultation December 03, 2019 Assessment & Plan (1) Acute on chronic diastolic (congestive) heart failure: Agree with continued diuresis. Diuretics per cardiology. Overall there seems to be significant improvement within the past 24 hours. Currently maintained on furosemide 40 mg twice daily which appears to be working well. Tolerating an adequate dose of losartan. (2) Chronic kidney disease, stage 3: Creatinine stable at baseline. Electrolytes acceptable. Volume status improving. Good response to diuretics. Document I/O's. Repeat metabolic profile tomorrow AM. (3) Secondary hyperparathyroidism: May ultimately benefit for increased vitamin D therapy. Defer any additional treatment pending outpatient follow up. (4) Iron deficiency anemia: Chronic, stable. No current need for RAMU therapy. History of Present Illness Reason for Consultation: CKD Requesting Physician: Ar Currie MD Attending Physician: Ar Currie MD History of Present Illness Mrs. Cinthya Summers is an 79-year-old female with CKD III A1. Baseline creatinine 1.6. Cinthya follows in the outpatient nephrology clinic with Dr. Grace. CKD attributed to diabetic nephropathy and microvascular disease. Medical history is notable for coronary artery disease, diabetes mellitus II, hypertension, obesity, as well as a history of TAVR in 2016. Complications of CKD include secondary hyperparathyroidism as well as mild chronic anemia not requiring RAMU therapy. Cinthya presented to the ER at [facility] yesterday with shortness of breath. On , she was diagnosed with a urinary tract infection and started on treatment with nitrofurantoin. She notes that difficulty breathing started after she started taking the medication. Symptoms of the UTI included frequency and discomfort. These symptoms improved. She has not had fevers or chills. She had one other UTI in the past and it was severe associated with sepsis requiring hospitalization. This scares her. She was found to be in notable respiratory distress requiring BIPAP on presentation to the ER yesterday. Evaluation suggestive of acute on chronic HFpEF. Treatment has included diuretics. Cinthya had reportedly been taking furosemide 40 mg daily at home (though Rx had been for twice daily). She has received furosemide 40 mg x 2 since admission and been in a negative fluid balance ~1 L. Dyspnea has significantly improved. She denies chest pain, palpitations, or shortness of breath. TTE quality not ideal but suggestive of possible reduction in LV systolic function. No evidence to support ACS. No significant valvular pathology. CXR supportive of interstitial edema with notable pulmonary vascular congestion. Allergies Allergy/AdvReac Type Severity Reaction Status Date / Time Horse/Equine Containing Allergy Unknown LOCKED Verified 12/02/19 13:22 Products JOINTS codeine AdvReac Unknown REVERSED Verified 12/02/19 13:22 REACTION Home Medications Home Medications Medication Instructions Recorded Confirmed Type aspirin 81 mg tablet 81 mg PO PM tab 02/01/19 12/02/19 History iron, carbonyl 45 mg tablet 45 mg PO DAILY tab 02/01/19 12/02/19 History blood sugar diagnostic #10 ea 02/06/19 12/01/19 History insulin syringe-needle U-100 1 mL #10 ea 02/06/19 12/01/19 History 31 gauge x 5/16" ketoconazole 2 % topical cream 1 appln TOP BID PRN 02/06/19 12/02/19 History vitamin B complex 1 cap PO QAM 02/06/19 12/02/19 History ipratropium 20 mcg-albuterol 100 1 puffs INH QID #12 gm 04/17/19 12/02/19 Rx mcg/actuation mist for inhalation OneTouch Delica Lancets 33 gauge #300 ea NS 07/27/19 12/01/19 Rx insulin glargine 100 unit/mL 45 units SQ PM ml 08/14/19 12/02/19 History subcutaneous solution insulin lispro 100 unit/mL See Rx Instructions SQ TID ml 08/14/19 12/02/19 History subcutaneous pen losartan 25 mg tablet See Rx Instructions .ROUTE 08/15/19 12/02/19 Rx .COMPLEX #0 tab labetalol 200 mg tablet 600 mg PO BID #540 tab 09/05/19 12/02/19 Rx pen needle, diabetic 32 gauge x #360 ea 10/03/19 12/01/19 Rx 5/32" nitrofurantoin 100 mg PO BID 7 Days #14 cap 12/01/19 12/02/19 Rx monohydrate/macrocrystals 100 mg capsule acetaminophen [Tylenol Extra 1,000 mg PO BID PRN 12/02/19 12/02/19 History Strength] ergocalciferol (vitamin D2) 50,000 units PO MONTHLY 12/02/19 12/02/19 History furosemide 20 mg PO BID PRN 12/02/19 12/02/19 History furosemide 40 mg PO BID 12/02/19 12/02/19 History ibuprofen [Advil Liqui-Gel] 400 mg PO BID PRN 12/02/19 12/02/19 History levothyroxine [Synthroid] 88 mcg PO DAILY@0400 12/02/19 12/02/19 History omega-3 fatty acids-fish oil [Fish 1 cap PO PM 12/02/19 12/02/19 History Oil] simvastatin 10 mg PO PM 12/02/19 12/02/19 History vit C,W-Xr-oywtb-lutein-zeaxan 1 tab PO BID 12/02/19 12/02/19 History [PreserVision AREDS-2] Patient History Medical History Acute kidney injury (Inactive) COPD with acute exacerbation (Inactive) Dyspnea Hypokalemia (Inactive) Hypomagnesemia (Inactive) Hypoxia (Inactive) Pneumonia (Inactive) Septicemia (Inactive) Spondylisthesis (Inactive) Surgical History H/O oral surgery S/P aortic valve replacement (Inactive) S/P bunionectomy S/P cataract surgery S/P dilation and curettage S/P tonsillectomy S/P total knee arthroplasty Status post hysteroscopic polypectomy Family History Father Hypertension Stroke Grandmother (Maternal) Diabetes Mother Diabetes Other COPD (chronic obstructive pulmonary disease) Social History Preferred Language: [place] Communication Ability: Effective Visual Impairment: No Limitations Hearing Ability: Normal Beliefs That Will Affect Care: L[employer] L[employer] Day Beliefs: [employer] marital status: Current Living Situation: Spouse current occupational status: retired Other Information That Helps Us Care for You: No Feels Safe at Home: Yes Safety Concerns: Feels Safe At This Time Smoking Status: Former smoker Hx Alcohol Use: No Hx Substance Use: No Seatbelt Use: always Sunscreen Use: No Review of Systems Review of Systems: All systems reviewed & are unremarkable except as noted in HPI & below Physical Exam Constitutional: well developed and + obese; no acute distress Eyes: no scleral abnormality and no corneal abnormality ENMT: Mouth: no oral mucosal abnormality and oral mucous membranes not dry Neck: normal visual inspection, trachea midline and + thick neck Respiratory: normal respiratory effort Auscultation: + diminished lung sounds and + rales (few at the right base) Cardiovascular: Rate/Rhythm: regular rate Heart Sounds: normal S1 and normal S2 Extremities: normal capillary refill and + edema Musculoskeletal: Extremities: no cyanosis and no clubbing Skin: normal turgor; no lesions Neurologic: Motor/Sensory: no tremor and no asterixis Psychiatric: Orientation: alert and oriented x 3 Results & Data Vital Signs (Past 12 Hours) Vital Signs Temp Pulse Pulse Resp BP BP Pulse Ox 12/03/19 12:47 91 H 20 89 L 12/03/19 11:47 36.8 C 84 18 121/71 96 12/03/19 11:05 72 18 96 12/03/19 07:59 36.4 C L 65 18 135/60 93 12/03/19 07:10 72 18 96 12/03/19 04:53 88 22 94 12/03/19 04:14 36.9 C 83 24 150/68 H 96 12/03/19 03:04 86 31 H 94 Laboratory Results Laboratory Results - last 24 hr 12/02/19 12/02/19 12/02/19 11:42 12:01 12:15 WBC RBC Hgb Hct MCV MCH MCHC RDW Std Deviation RDW Coeff of Nella Plt Count MPV ABG pH ABG pCO2 ABG pO2 ABG HCO3 ABG O2 Saturation ABG Base Excess [place] Test Barometric Pressure Oxygen Given Sodium Potassium Chloride Carbon Dioxide Anion Gap BUN Creatinine Est Cr Clr Drug Dosing Est GFR ( Amer) Est GFR (Non-Af Amer) BUN/Creatinine Ratio Glucose POC Glucose Estimat Average Glucose Hemoglobin A1c Calcium Magnesium Total Bilirubin AST ALT Alkaline Phosphatase Troponin I Total Protein Albumin Globulin Albumin/Globulin Ratio Triglycerides Cholesterol LDL Cholesterol, Calc VLDL Cholesterol, Calc HDL Cholesterol Cholesterol/HDL Ratio TSH 1.030 Urine Color Yellow Urine Appearance Cloudy A Urine pH 5.0 Ur Specific [place] 1.014 Urine Protein 1+ H Urine Glucose (UA) Negative Urine Ketones Negative Urine Blood Trace H Urine Nitrite Negative Urine Bilirubin Negative Urine Urobilinogen Negative Ur Leukocyte Esterase 2+ H Urine WBC (Auto) >30 H Urine RBC (Auto) 0-4 U Hyaline Cast (Auto) 5-10 H U Epithel Cells (Auto) 5-10 H Urine Bacteria (Auto) Negative COVID-19 PCR NEGATIVE 12/02/19 12/02/19 12/02/19 15:16 16:23 19:56 WBC RBC Hgb Hct MCV MCH MCHC RDW Std Deviation RDW Coeff of Nella Plt Count MPV ABG pH 7.41 ABG pCO2 48 H ABG pO2 136 H ABG HCO3 30 H ABG O2 Saturation 98.8 H ABG Base Excess 4.6 H [place] Test POS Barometric Pressure 728.3 Oxygen Given Oxygen Flow Rate 15 Sodium Potassium Chloride Carbon Dioxide Anion Gap BUN Creatinine Est Cr Clr Drug Dosing Est GFR ( Amer) Est GFR (Non-Af Amer) BUN/Creatinine Ratio Glucose POC Glucose 168 H Estimat Average Glucose Hemoglobin A1c Calcium Magnesium Total Bilirubin AST ALT Alkaline Phosphatase Troponin I 0.258 H* Total Protein Albumin Globulin Albumin/Globulin Ratio Triglycerides Cholesterol LDL Cholesterol, Calc VLDL Cholesterol, Calc HDL Cholesterol Cholesterol/HDL Ratio TSH Urine Color Urine Appearance Urine pH Ur Specific [place] Urine Protein Urine Glucose (UA) Urine Ketones Urine Blood Urine Nitrite Urine Bilirubin Urine Urobilinogen Ur Leukocyte Esterase Urine WBC (Auto) Urine RBC (Auto) U Hyaline Cast (Auto) U Epithel Cells (Auto) Urine Bacteria (Auto) COVID-19 PCR 12/02/19 12/03/19 12/03/19 20:35 04:24 04:24 WBC 9.49 RBC 3.21 L Hgb 8.8 L Hct 28.1 L MCV 87.5 MCH 27.4 MCHC 31.3 L RDW Std Deviation 46.5 H RDW Coeff of Nella 14.5 Plt Count 168 MPV 9.5 ABG pH ABG pCO2 ABG pO2 ABG HCO3 ABG O2 Saturation ABG Base Excess [place] Test Barometric Pressure Oxygen Given Sodium 139 Potassium 3.2 L D Chloride 101 Carbon Dioxide 32 Anion Gap 6.0 BUN 42 H Creatinine 1.64 H Est Cr Clr Drug Dosing 30.8 Est GFR ( Amer) 33.9 Est GFR (Non-Af Amer) 29.2 BUN/Creatinine Ratio 25.3 H Glucose 104 H POC Glucose 192 H Estimat Average Glucose Hemoglobin A1c Calcium 7.4 L Magnesium Total Bilirubin 0.7 AST 12 L ALT 22 Alkaline Phosphatase 84 Troponin I 0.188 H* Total Protein 6.6 Albumin 2.8 L Globulin 3.8 Albumin/Globulin Ratio 0.7 L Triglycerides 93 Cholesterol 89 LDL Cholesterol, Calc 34 VLDL Cholesterol, Calc 19 HDL Cholesterol 36 Cholesterol/HDL Ratio 3 TSH Urine Color Urine Appearance Urine pH Ur Specific [place] Urine Protein Urine Glucose (UA) Urine Ketones Urine Blood Urine Nitrite Urine Bilirubin Urine Urobilinogen Ur Leukocyte Esterase Urine WBC (Auto) Urine RBC (Auto) U Hyaline Cast (Auto) U Epithel Cells (Auto) Urine Bacteria (Auto) COVID-19 PCR 12/03/19 12/03/19 12/03/19 04:24 07:11 08:07 WBC RBC Hgb Hct MCV MCH MCHC RDW Std Deviation RDW Coeff of Nella Plt Count MPV ABG pH ABG pCO2 ABG pO2 ABG HCO3 ABG O2 Saturation ABG Base Excess [place] Test Barometric Pressure Oxygen Given Sodium Potassium Chloride Carbon Dioxide Anion Gap BUN Creatinine Est Cr Clr Drug Dosing Est GFR ( Amer) Est GFR (Non-Af Amer) BUN/Creatinine Ratio Glucose POC Glucose 96 Estimat Average Glucose Pending Hemoglobin A1c Pending Calcium Magnesium 2.0 Total Bilirubin AST ALT Alkaline Phosphatase Troponin I Total Protein Albumin Globulin Albumin/Globulin Ratio Triglycerides Cholesterol LDL Cholesterol, Calc VLDL Cholesterol, Calc HDL Cholesterol Cholesterol/HDL Ratio TSH Urine Color Urine Appearance Urine pH Ur Specific [place] Urine Protein Urine Glucose (UA) Urine Ketones Urine Blood Urine Nitrite Urine Bilirubin Urine Urobilinogen Ur Leukocyte Esterase Urine WBC (Auto) Urine RBC (Auto) U Hyaline Cast (Auto) U Epithel Cells (Auto) Urine Bacteria (Auto) COVID-19 PCR 12/03/19 11:01 WBC RBC Hgb Hct MCV MCH MCHC RDW Std Deviation RDW Coeff of Nella Plt Count MPV ABG pH ABG pCO2 ABG pO2 ABG HCO3 ABG O2 Saturation ABG Base Excess [place] Test Barometric Pressure Oxygen Given Sodium Potassium Chloride Carbon Dioxide Anion Gap BUN Creatinine Est Cr Clr Drug Dosing Est GFR ( Amer) Est GFR (Non-Af Amer) BUN/Creatinine Ratio Glucose POC Glucose 195 H Estimat Average Glucose Hemoglobin A1c Calcium Magnesium Total Bilirubin AST ALT Alkaline Phosphatase Troponin I Total Protein Albumin Globulin Albumin/Globulin Ratio Triglycerides Cholesterol LDL Cholesterol, Calc VLDL Cholesterol, Calc HDL Cholesterol Cholesterol/HDL Ratio TSH Urine Color Urine Appearance Urine pH Ur Specific [place] Urine Protein Urine Glucose (UA) Urine Ketones Urine Blood Urine Nitrite Urine Bilirubin Urine Urobilinogen Ur Leukocyte Esterase Urine WBC (Auto) Urine RBC (Auto) U Hyaline Cast (Auto) U Epithel Cells (Auto) Urine Bacteria (Auto) COVID-19 PCR PG Care Time/CCT Total # of Minutes Spent Total Time Spent with Patient: Total time spent is greater than 50% in coordination of care (as documented) at patient's floor/unit and/or counseling patient: Coding Level of Care Code 91956 Inpt Consult Level 4 Diagnoses Acute on chronic diastolic (congestive) heart failure I50.33 Chronic kidney disease, stage 3 N18.3 Secondary hyperparathyroidism N25.81 Iron deficiency anemia D50.9
--- NOTE | 2019-12-03 13:33 | Cardiology Consultation ---
Date of Consultation December 03, 2019 Assessment & Plan (1) Acute on chronic diastolic (congestive) heart failure: (2) Hypertension: (3) S/P AVR (aortic valve replacement): (4) Fever: ASSESSMENT/PLAN: 1. Acute on chronic systolic CHF: EF greater than 40% estimated however poor image quality. She appears hypervolemic but much improved based on description on presentation. Continue diuresis. If she is not diuresing approximately 1 L negative today, would recommend another dose of intravenous diuretic such as Lasix 40 mg IV. Low-sodium diet. Strict I&Os. Daily weights. Heart failure program recommended. 2. Reduced EF: Poor image quality. Would recommend repeating echo in the future when she is able to be positioned appropriate as she was in distress when checked and sitting upright. 3. Hypertension: Blood pressure mostly normotensive. Continue current regimen. 4. s/p TAVR: Acceptable transvalvular gradient/velocity on echo. SBE prophylaxis for dental procedures. 5. Mitral annular calcification with possible mild stenosis: Can be followed over time. 6. Fever: As per primary service. 7. Anemia: Hemoglobin has significantly dropped from 10.5 to 8.8. No obvious bleeding. Will defer to primary hospitalist service. Patient care discussed with Dr. Geronimo of Nephrology and Dr. Currie of the primary hospitalist service. 8. Disposition: Cardiology will continue to follow. Her primary dipper fish, Dr. Wolf, will resume her cardiology care tomorrow. Thank you for allowing me to participate in the care of your patient. Please call for any other questions or concerns. Sincerely, Roque Valdivia M.D. History of Present Illness Reason for Consultation: CHF Requesting Physician: Renetta Ferreira Attending Physician: Ar Currie MD History of Present Illness Ms. Summers is a pleasant 79-year-old female with a history significant for diastolic CHF, aortic stenosis s/p TAVR (June 2015), type 2 diabetes, CKD, hypertension, anemia, and dyslipidemia. Dr. Wolf is her primary dipper fish. She typically takes Lasix 40 mg p.o. twice daily and then additional Lasix as needed for weight gain or shortness of breath/edema. She has not taking any additional dose but has been compliant with her usual dose. She admits that she adds salt to her food and does not maintain a low-sodium diet because she craves salt. She has been more short of breath since 09/04/2019, when her had a stroke. She reports recently having a low-grade temperature of 100.4 F over the past couple of days and became more tired/fatigued. With this, she also noted worsening shortness of breath and orthopnea. She had noted increased edema left greater than right. She was unable to weigh herself as she was unable to stand safely on the scale due to the worsening weakness. Up until that point however she reports that her weight has been stable. While here, she was placed on BiPAP and given diuretics. She diuresed approximately 875 mL negative and has since been weaned from BiPAP. Her breathing has improved and she denies shortness of breath while in the room however she was wearing supplemental oxygen. She admits that she remains tired but overall feels better. Labs have demonstrated a drop in her hemoglobin from 10.5-8.8. She did have elevated troponin, peaking at 0.25 a but denies any chest discomfort. She denies syncope, near-syncope, palpitations, or bleeding such as melena, hematochezia, or hematuria. Review of systems: As above review of systems otherwise negative/unremarkable. Family history: She states that her parents had heart disease. Social history: She quit smoking greater than 50 years ago. No alcohol. No drugs. She is lives at home with her . They have 7 children. She is unaccompanied today. Allergies Allergy/AdvReac Type Severity Reaction Status Date / Time Horse/Equine Containing Allergy Unknown LOCKED Verified 12/02/19 13:22 Products JOINTS codeine AdvReac Unknown REVERSED Verified 12/02/19 13:22 REACTION Home Medications Home Medications Medication Instructions Recorded Confirmed Type aspirin 81 mg tablet 81 mg PO PM tab 02/01/19 12/02/19 History iron, carbonyl 45 mg tablet 45 mg PO DAILY tab 02/01/19 12/02/19 History blood sugar diagnostic #10 ea 02/06/19 12/01/19 History insulin syringe-needle U-100 1 mL #10 ea 02/06/19 12/01/19 History 31 gauge x 5/16" ketoconazole 2 % topical cream 1 appln TOP BID PRN 02/06/19 12/02/19 History vitamin B complex 1 cap PO QAM 02/06/19 12/02/19 History ipratropium 20 mcg-albuterol 100 1 puffs INH QID #12 gm 04/17/19 12/02/19 Rx mcg/actuation mist for inhalation OneTouch Delica Lancets 33 gauge #300 ea NS 07/27/19 12/01/19 Rx insulin glargine 100 unit/mL 45 units SQ PM ml 08/14/19 12/02/19 History subcutaneous solution insulin lispro 100 unit/mL See Rx Instructions SQ TID ml 08/14/19 12/02/19 History subcutaneous pen losartan 25 mg tablet See Rx Instructions .ROUTE 08/15/19 12/02/19 Rx .COMPLEX #0 tab labetalol 200 mg tablet 600 mg PO BID #540 tab 09/05/19 12/02/19 Rx pen needle, diabetic 32 gauge x #360 ea 10/03/19 12/01/19 Rx 532" nitrofurantoin 100 mg PO BID 7 Days #14 cap 12/01/19 12/02/19 Rx monohydrate/macrocrystals 100 mg capsule acetaminophen [Tylenol Extra 1,000 mg PO BID PRN 12/02/19 12/02/19 History Strength] ergocalciferol (vitamin D2) 50,000 units PO MONTHLY 12/02/19 12/02/19 History furosemide 20 mg PO BID PRN 12/02/19 12/02/19 History furosemide 40 mg PO BID 12/02/19 12/02/19 History ibuprofen [Advil Liqui-Gel] 400 mg PO BID PRN 12/02/19 12/02/19 History levothyroxine [Synthroid] 88 mcg PO DAILY@0400 12/02/19 12/02/19 History omega-3 fatty acids-fish oil [Fish 1 cap PO PM 12/02/19 12/02/19 History Oil] simvastatin 10 mg PO PM 12/02/19 12/02/19 History vit C,N-Sh-zpegc-lutein-zeaxan 1 tab PO BID 12/02/19 12/02/19 History [PreserVision AREDS-2] Patient History Medical History Acute kidney injury (Inactive) Chronic diastolic CHF (congestive heart failure) COPD with acute exacerbation (Inactive) Dyspnea Hypokalemia (Inactive) Hypomagnesemia (Inactive) Hypoxia (Inactive) Pneumonia (Inactive) Septicemia (Inactive) Spondylisthesis (Inactive) Surgical History H/O oral surgery S/P aortic valve replacement (Inactive) S/P bunionectomy S/P cataract surgery S/P dilation and curettage S/P tonsillectomy S/P total knee arthroplasty Status post hysteroscopic polypectomy Family History Father Hypertension Stroke Grandmother (Maternal) Diabetes Mother Diabetes Other COPD (chronic obstructive pulmonary disease) Social History Preferred Language: Tunisian Communication Ability: Effective Visual Impairment: No Limitations Hearing Ability: Normal Beliefs That Will Affect Care: Yarsanism Yarsanism Beliefs: JEWISH marital status: Current Living Situation: Spouse current occupational status: retired Other Information That Helps Us Care for You: No Feels Safe at Home: Yes Safety Concerns: Feels Safe At This Time Smoking Status: Former smoker Hx Alcohol Use: No Hx Substance Use: No Seatbelt Use: always Sunscreen Use: No Physical Exam Physical Exam: Gen.: No acute distress. Alert and oriented. HEENT: Anicteric sclera. Neck: Mild JVD and hepatic jugular reflux. No bruits. Normal carotid upstrokes bilaterally. Cardiac: PMI was nonpalpable. No ventricular heave. Regular rate and rhythm. Normal S1-S2. 1/6 systolic murmur. No rubs or gallops. Pulmonary: Decreased breath sounds bilaterally with mild expiratory wheezing. No rales. Abdomen: Soft, nontender, nondistended, with normoactive bowel sounds. No bruits noted. Extremities: 2+ radial pulses bilaterally. 2+ posterior tibialis pulses bilaterally. No cyanosis. Psychiatric: Affect appears appropriate. Results & Data ([facility]) Vital Signs (Past 12 Hours) Vital Signs Temp Pulse Pulse Resp BP BP Pulse Ox 12/03/19 12:47 91 H 20 89 L 12/03/19 11:47 36.8 C 84 18 121/71 96 12/03/19 11:05 72 18 96 12/03/19 07:59 36.4 C L 65 18 135/60 93 12/03/19 07:10 72 18 96 12/03/19 04:53 88 22 94 12/03/19 04:14 36.9 C 83 24 150/68 H 96 12/03/19 03:04 86 31 H 94 Intake & Output 12/01/19 12/02/19 12/03/19 12/04/19 06:59 06:59 06:59 06:59 Intake Total 200 / 200 70 / 70 Output Total 1075 / 1075 Balance -875 / -875 70 / 70 Weight 112.1 kg Laboratory Results Laboratory Results - last 24 hr 12/02/19 12/02/19 12/02/19 11:42 12:01 15:16 WBC RBC Hgb Hct MCV MCH MCHC RDW Std Deviation RDW Coeff of Nella Plt Count MPV ABG pH 7.41 ABG pCO2 48 H ABG pO2 136 H ABG HCO3 30 H ABG O2 Saturation 98.8 H ABG Base Excess 4.6 H Celestine Test POS Barometric Pressure 728.3 Oxygen Given Oxygen Flow Rate 15 Sodium Potassium Chloride Carbon Dioxide Anion Gap BUN Creatinine Est Cr Clr Drug Dosing Est GFR ( Amer) Est GFR (Non-Af Amer) BUN/Creatinine Ratio Glucose POC Glucose Estimat Average Glucose Hemoglobin A1c Calcium Magnesium Total Bilirubin AST ALT Alkaline Phosphatase Troponin I Total Protein Albumin Globulin Albumin/Globulin Ratio Triglycerides Cholesterol LDL Cholesterol, Calc VLDL Cholesterol, Calc HDL Cholesterol Cholesterol/HDL Ratio TSH 1.030 Urine Color Yellow Urine Appearance Cloudy A Urine pH 5.0 Ur Specific [place] 1.014 Urine Protein 1+ H Urine Glucose (UA) Negative Urine Ketones Negative Urine Blood Trace H Urine Nitrite Negative Urine Bilirubin Negative Urine Urobilinogen Negative Ur Leukocyte Esterase 2+ H Urine WBC (Auto) >30 H Urine RBC (Auto) 0-4 U Hyaline Cast (Auto) 5-10 H U Epithel Cells (Auto) 5-10 H Urine Bacteria (Auto) Negative 12/02/19 12/02/19 12/02/19 16:23 19:56 20:35 WBC RBC Hgb Hct MCV MCH MCHC RDW Std Deviation RDW Coeff of Nella Plt Count MPV ABG pH ABG pCO2 ABG pO2 ABG HCO3 ABG O2 Saturation ABG Base Excess [place] Test Barometric Pressure Oxygen Given Sodium Potassium Chloride Carbon Dioxide Anion Gap BUN Creatinine Est Cr Clr Drug Dosing Est GFR ( Amer) Est GFR (Non-Af Amer) BUN/Creatinine Ratio Glucose POC Glucose 168 H 192 H Estimat Average Glucose Hemoglobin A1c Calcium Magnesium Total Bilirubin AST ALT Alkaline Phosphatase Troponin I 0.258 H* Total Protein Albumin Globulin Albumin/Globulin Ratio Triglycerides Cholesterol LDL Cholesterol, Calc VLDL Cholesterol, Calc HDL Cholesterol Cholesterol/HDL Ratio TSH Urine Color Urine Appearance Urine pH Ur Specific [place] Urine Protein Urine Glucose (UA) Urine Ketones Urine Blood Urine Nitrite Urine Bilirubin Urine Urobilinogen Ur Leukocyte Esterase Urine WBC (Auto) Urine RBC (Auto) U Hyaline Cast (Auto) U Epithel Cells (Auto) Urine Bacteria (Auto) 12/03/19 12/03/19 12/03/19 04:24 04:24 04:24 WBC 9.49 RBC 3.21 L Hgb 8.8 L Hct 28.1 L MCV 87.5 MCH 27.4 MCHC 31.3 L RDW Std Deviation 46.5 H RDW Coeff of Nella 14.5 Plt Count 168 MPV 9.5 ABG pH ABG pCO2 ABG pO2 ABG HCO3 ABG O2 Saturation ABG Base Excess Celestine Test Barometric Pressure Oxygen Given Sodium 139 Potassium 3.2 L D Chloride 101 Carbon Dioxide 32 Anion Gap 6.0 BUN 42 H Creatinine 1.64 H Est Cr Clr Drug Dosing 30.8 Est GFR ( Amer) 33.9 Est GFR (Non-Af Amer) 29.2 BUN/Creatinine Ratio 25.3 H Glucose 104 H POC Glucose Estimat Average Glucose Pending Hemoglobin A1c Pending Calcium 7.4 L Magnesium Total Bilirubin 0.7 AST 12 L ALT 22 Alkaline Phosphatase 84 Troponin I 0.188 H* Total Protein 6.6 Albumin 2.8 L Globulin 3.8 Albumin/Globulin Ratio 0.7 L Triglycerides 93 Cholesterol 89 LDL Cholesterol, Calc 34 VLDL Cholesterol, Calc 19 HDL Cholesterol 36 Cholesterol/HDL Ratio 3 TSH Urine Color Urine Appearance Urine pH Ur Specific [place] Urine Protein Urine Glucose (UA) Urine Ketones Urine Blood Urine Nitrite Urine Bilirubin Urine Urobilinogen Ur Leukocyte Esterase Urine WBC (Auto) Urine RBC (Auto) U Hyaline Cast (Auto) U Epithel Cells (Auto) Urine Bacteria (Auto) 12/03/19 12/03/19 12/03/19 07:11 08:07 11:01 WBC RBC Hgb Hct MCV MCH MCHC RDW Std Deviation RDW Coeff of Nella Plt Count MPV ABG pH ABG pCO2 ABG pO2 ABG HCO3 ABG O2 Saturation ABG Base Excess [place] Test Barometric Pressure Oxygen Given Sodium Potassium Chloride Carbon Dioxide Anion Gap BUN Creatinine Est Cr Clr Drug Dosing Est GFR ( Amer) Est GFR (Non-Af Amer) BUN/Creatinine Ratio Glucose POC Glucose 96 195 H Estimat Average Glucose Hemoglobin A1c Calcium Magnesium 2.0 Total Bilirubin AST ALT Alkaline Phosphatase Troponin I Total Protein Albumin Globulin Albumin/Globulin Ratio Triglycerides Cholesterol LDL Cholesterol, Calc VLDL Cholesterol, Calc HDL Cholesterol Cholesterol/HDL Ratio TSH Urine Color Urine Appearance Urine pH Ur Specific [place] Urine Protein Urine Glucose (UA) Urine Ketones Urine Blood Urine Nitrite Urine Bilirubin Urine Urobilinogen Ur Leukocyte Esterase Urine WBC (Auto) Urine RBC (Auto) U Hyaline Cast (Auto) U Epithel Cells (Auto) Urine Bacteria (Auto) Diagnostic Findings ECG personally reviewed: ECG 12/02/2019: Sinus tachycardia at 105 bpm. LBBB (old). Telemetry personally reviewed: Sinus rhythm. No arrhythmia. Echo personally reviewed from 12/03/2019: Poor image quality as patient had echo done while sitting upright on BiPAP. LV systolic function appeared to be mildly reduced with estimated EF 45-50%. Global hypokinesis. Septal motion consistent with bundle-branch block. Mild left atrial dilation. Monitor severe MAC with mild stenosis. Acceptable transvalvular aortic gradient/velocity. Chest x-ray 12/02/2019: Increased vascular markings. PG Care Time/CCT Total # of Minutes Spent Total Time Spent with Patient: Total time spent is greater than 50% in coordination of care (as documented) at patient's floor/unit and/or counseling patient: Coding Level of Care Code 55938 Initial Inpt Care Lvl 3 Diagnoses Acute on chronic diastolic (congestive) heart failure I50.33 Hypertension I10 S/P AVR (aortic valve replacement) Z95.2 Fever R50.9 Fever type: unspecified (1) Fever Fever type: unspecified Qualified Code(s): R50.9 - Fever, unspecified
[2019-12-03 14:36] LABS: BUN Creatinine Ratio 24.7 (10-20); Calcium 7.6 mg/dl (8.5-10.1); Creatinine Clr Calc Pharmacy 27.3 ml/min; Est GFR (African American) 28.9; Est GFR (Non-African American) 24.9; Potassium 3.9 mmol/L (3.5-5.1)
[2019-12-03 15:38] LABS: Reticulocyte % 1.3 % (0.5-2.0); Reticulocytes # 0.04 10^6/uL (0.02-0.10)
[2019-12-03] MEDS: FUROSEMIDE 40 MG in SYRINGE 0 ML IV SCH (15:50)
[2019-12-03] MEDS ORDERED: IBUPROFEN 200 MG/10 ML UDC PO STA (19:42)
[2019-12-03] MEDS ORDERED: IBUPROFEN 200 MG TAB PO STA (20:05)
[2019-12-03] MEDS: ASPIRIN 81 MG ECTAB PO SCH (20:15)
[2019-12-03] MEDS: LOSARTAN POTASSIUM 25 MG TAB PO SCH (20:15)
[2019-12-03] MEDS: SIMVASTATIN 10 MG TAB PO SCH (20:15)
[2019-12-03] MEDS: INSULIN GLARGINE SOLOSTAR 100 UNITS/ML 3 ML PEN SC SCH (21:19)
[2019-12-04] MEDS: ACETAMINOPHEN 325 MG TAB PO PRN (00:59)
[2019-12-04] MEDS: LEVOTHYROXINE SODIUM 88 MCG TABLET PO SCH (03:04)
[2019-12-04] MEDS: HEPARIN SOD 5,000 UNIT/0.5 ML VIAL SQ SCH ×3 (05:08→21:06)
[2019-12-04 06:58] LABS: Estimated Average Glucose 143 mg/dl; Hemoglobin A1C 6.6 % (4.5-5.6)
[2019-12-04 06:59] LABS: Hematocrit (blood only) 27.8 % (37-47); Hemoglobin 8.7 g/dL (12.0-16.0); Mean Corpuscular Hemoglobin 27.2 pg (25-34); Mean Corpuscular Hgb Conc 31.3 g/dL (32-36); Mean Corpuscular Volume 86.9 fL (80-100); Platelet Count 168 K/uL (130-400); RDW Coefficient of Variation 14.4 % (11.5-14.5); RDW Standard Deviation 45.9 fL (36.4-46.3); White Blood Count 9.52 K/uL (4.8-10.8)
[2019-12-04] MEDS: IPRATROPIUM BROMIDE HFA INHALER INH SCH ×4 (07:28→18:59)
[2019-12-04] MEDS: ALBUTEROL HFA 8 GM INHALER INH SCH ×4 (07:28→19:00)
[2019-12-04 07:38] LABS: Albumin Level 2.6 gm/dl (3.4-5.0); Calcium 7.7 mg/dl (8.5-10.1); Creatinine Clr Calc Pharmacy 30.8 ml/min; Est GFR (African American) 34.9; Est GFR (Non-African American) 30.1; Potassium 3.7 mmol/L (3.5-5.1)
[2019-12-04 07:41] LABS: Albumin Globulin Ratio 0.6 (0.9-2); Bilirubin,Total 0.7 mg/dl (0.2-1); Ferritin 146.8 ng/ml (8-388); Globulin 4.2 gm/dl (2.5-4.0); Total Protein 6.8 gm/dl (6.4-8.2)
[2019-12-04] MEDS: INSULIN ASPART 100 UNITS/ML 3 ML PEN SC SCH ×4 (08:02→21:07)
[2019-12-04] MEDS ORDERED: IRON SUCROSE 200 MG in 0.9 % SODIUM CHLORIDE 100 ML IV ONE (08:30)
[2019-12-04] MEDS: IBUPROFEN 200 MG TAB PO SCH ×2 (09:07→20:00)
[2019-12-04] MEDS: FERROUS SULFATE 325 MG TAB PO SCH (09:08)
[2019-12-04] MEDS: LOSARTAN POTASSIUM 50 MG TAB PO SCH (09:08)
[2019-12-04] MEDS: LABETALOL HCL 300 MG TAB PO SCH ×2 (09:09→20:00)
[2019-12-04] MEDS: FUROSEMIDE 40 MG in SYRINGE 0 ML IV SCH ×2 (09:09→16:57)
[2019-12-04] MEDS: cefTRIAXone SODIUM 2,000 MG in DEXTROSE 5% 50 ML IV SCH (10:19)
--- NOTE | 2019-12-04 10:21 | Nephrology Progress Note ---
Date of Service December 04, 2019 Assessment & Plan (1) Acute on chronic diastolic (congestive) heart failure: Plan of care discussed with cardiology this AM. (2) Chronic kidney disease, stage 3: Creatinine stable at baseline. Electrolytes acceptable. Adequate response to diuretics. Document I/O's. Repeat metabolic profile tomorrow AM. I will follow peripherally. Please call with questions or concerns and monitor daily labs. (3) Secondary hyperparathyroidism: Defer any additional treatment pending outpatient follow up. (4) Iron deficiency anemia: NISHA noted. Venofer 200 mg provided today and may be repeated daily to complete a goal of 1000 mg total dose. Admission and Anticipated Discharge Date Admission Date: December 02, 2019 Subjective No acute events overnight. Cinthya was experiencing acute/chronic pain in her feet. 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 She is not interested in stopping. Risks of NSAID use were discussed. She states that unless there is an alternative medication she does not want to change. Overall, she remains slightly dyspneic but feels well. Difficulty breathing is improving. No chest pain. No fevers or chills. Review of Systems Review of Systems: All systems reviewed & are unremarkable except as noted in HPI & below Physical Exam Constitutional: well developed and + obese; no acute distress Eyes: no scleral abnormality and no corneal abnormality ENMT: Mouth: no oral mucosal abnormality and oral mucous membranes not dry Neck: normal visual inspection, trachea midline and + thick neck Respiratory: normal respiratory effort Auscultation: + rales Cardiovascular: Rate/Rhythm: regular rate Heart Sounds: normal S1 and normal S2 Extremities: normal capillary refill and + edema Musculoskeletal: Extremities: no cyanosis and no clubbing Skin: normal turgor; no lesions Neurologic: Motor/Sensory: no tremor and no asterixis Psychiatric: Orientation: alert and oriented x 3 Results & Data ([facility]) Vital Signs (Past 12 Hours) Vital Signs Temp Pulse Pulse Resp BP Pulse Ox 12/04/19 08:11 36.8 C 83 20 162/83 H 97 12/04/19 05:03 36.9 C 81 20 128/72 93 12/03/19 23:47 36.7 C 77 20 126/74 95 12/03/19 23:00 77 Laboratory Results Laboratory Results - last 24 hr 12/03/19 12/03/19 12/03/19 04:24 11:01 13:59 WBC RBC Hgb Hct MCV MCH MCHC RDW Std Deviation RDW Coeff of Nella Plt Count MPV Reticulocyte % (Auto) Reticulocyte # Haptoglobin Sodium 137 Potassium 3.9 D Chloride 100 Carbon Dioxide 31 Anion Gap 6.0 BUN 46 H Creatinine 1.87 H Est Cr Clr Drug Dosing 27.3 Est GFR ( Amer) 28.9 Est GFR (Non-Af Amer) 24.9 BUN/Creatinine Ratio 24.7 H Glucose 213 H POC Glucose 195 H Estimat Average Glucose 143 Hemoglobin A1c 6.6 H Calcium 7.6 L Iron Transferrin Transferrin % Sat Ferritin Total Bilirubin AST ALT Alkaline Phosphatase Lactate Dehydrogenase Total Protein Albumin Globulin Albumin/Globulin Ratio 12/03/19 12/03/19 12/03/19 13:59 15:13 15:13 WBC RBC Hgb Hct MCV MCH MCHC RDW Std Deviation RDW Coeff of Nella Plt Count MPV Reticulocyte % (Auto) 1.3 Reticulocyte # 0.04 Haptoglobin Pending Sodium Potassium Chloride Carbon Dioxide Anion Gap BUN Creatinine Est Cr Clr Drug Dosing Est GFR ( Amer) Est GFR (Non-Af Amer) BUN/Creatinine Ratio Glucose POC Glucose Estimat Average Glucose Hemoglobin A1c Calcium Iron Transferrin Transferrin % Sat Ferritin Total Bilirubin AST ALT Alkaline Phosphatase Lactate Dehydrogenase 218 Total Protein Albumin Globulin Albumin/Globulin Ratio 12/03/19 12/03/19 12/04/19 16:10 21:01 06:26 WBC 9.52 RBC 3.20 L Hgb 8.7 L Hct 27.8 L MCV 86.9 MCH 27.2 MCHC 31.3 L RDW Std Deviation 45.9 RDW Coeff of Nella 14.4 Plt Count 168 MPV 10.0 Reticulocyte % (Auto) Reticulocyte # Haptoglobin Sodium Potassium Chloride Carbon Dioxide Anion Gap BUN Creatinine Est Cr Clr Drug Dosing Est GFR ( Amer) Est GFR (Non-Af Amer) BUN/Creatinine Ratio Glucose POC Glucose 161 H 179 H Estimat Average Glucose Hemoglobin A1c Calcium Iron Transferrin Transferrin % Sat Ferritin Total Bilirubin AST ALT Alkaline Phosphatase Lactate Dehydrogenase Total Protein Albumin Globulin Albumin/Globulin Ratio 12/04/19 12/04/19 06:26 07:01 WBC RBC Hgb Hct MCV MCH MCHC RDW Std Deviation RDW Coeff of Nella Plt Count MPV Reticulocyte % (Auto) Reticulocyte # Haptoglobin Sodium 139 Potassium 3.7 Chloride 103 Carbon Dioxide 32 Anion Gap 4.0 BUN 43 H Creatinine 1.60 H Est Cr Clr Drug Dosing 30.8 Est GFR ( Amer) 34.9 Est GFR (Non-Af Amer) 30.1 BUN/Creatinine Ratio 27.0 H Glucose 124 H POC Glucose 141 H Estimat Average Glucose Hemoglobin A1c Calcium 7.7 L Iron 11 L Transferrin 161 L Transferrin % Sat 5 L Ferritin 146.8 Total Bilirubin 0.7 AST 13 L ALT 22 Alkaline Phosphatase 93 Lactate Dehydrogenase Total Protein 6.8 Albumin 2.6 L Globulin 4.2 H Albumin/Globulin Ratio 0.6 L PG Care Time/CCT Total # of Minutes Spent Total Time Spent with Patient: Total time spent is greater than 50% in coordination of care (as documented) at patient's floor/unit and/or counseling patient: Coding Level of Care Code 29062 Subseq Hosp Care Lvl 3 Diagnoses Acute on chronic diastolic (congestive) heart failure I50.33 Chronic kidney disease, stage 3 N18.3 Secondary hyperparathyroidism N25.81 Iron deficiency anemia D50.9
--- NOTE | 2019-12-04 14:32 | Hospitalist Progress Note ---
Date of Service December 04, 2019 Assessment & Plan (1) Acute respiratory failure with hypoxia: 79 female presented with worsening shortness of breath, hypoxic with O2 sat of 73% on RA and work of breathing/use of accessory muscles in ER requiring BiPAP. Likely secondary to acute chf exacerbation. BNP elevated at 7022. * quickly titrated to nasal canula, stable on 2-3L today * CXR with pulmonary edema, exacerbation of CHF * ECHO with mildly dilated LV with mildly reduced systolic function, EF 45--50% (Jun 2019 with EF 55-60%) and mod-severe mitral annular calcification with mildly elevated transvalvular gradient suggesting mild MS. Per cardiology, patient on BiPAP and study may not be entirely accurate. repeat limited echo on 12/05/19 to re-evaluate EF now that she is off BIPAP and not in distress * continue Lasix 40mg IV BID, will give a dose of Zaroxolyn 5mg tomorrow AM to try to improve diuresis * check BMP in the morning (2) Acute on chronic diastolic (congestive) heart failure: * Acute exacerbation, worsening the above. BNP 7402 on admission * CXR with cardiomegaly with evidence of congestive failure, trace pleural effusions, airspace opacities lung bases, likely atelectassis repeat CXR on 12/05/19 to evaluate atelectasis after diuresis * Consult cardiology, follows with Dr. Wolf as an outpatient -- appreciate assistance Gloria ANGELES following now as well with the CHF clinic * Troponin mildly elevated with peak 0.25, trending down. No chest pain, EKG showing RBBB, no ST wave changes or signs of ischemia, unlikely ACS * AHA diet. Fluid restriction -- 1500mL/day * negative 2 liters, weight trending down but likely not accurate as it is a bed weight, try to get her standing, see below * check BMP in the morning (3) UTI (urinary tract infection): * Previously seen by PCP 11/30 with UA c/w infection and reported fevers, chills and was initiated on Macrobid * UA on admission with trace blood, 2+ leuk est, >30WBC, 5-10 epi * no growth on culture, stop Rocephin (4) Hypertension: * BP well controlled currently, continue labetalol 600 mg twice daily, losartan 25 mg, aggressive diuresis as above (5) Iron deficiency anemia: * History of such, continue iron daily. * H/h low today at 8.8/28.1 on admission * MCV 87.5 * Hemoccult all stools * No s/sx overt bleeding. INR 1.1 * will give Venofer as Iron saturation low (6) Dyslipidemia: * Continue simvastatin 10 mg daily (7) Arteriosclerosis of coronary artery: * Continue medication as above, ASA, simvastatin 10mg (8) S/P AVR (aortic valve replacement): * History of such in 2015, last echo revealed well functioning AV valve in June 2019. ECHO as above (9) Controlled type 2 diabetes mellitus with neurologic complication, with long- term current use of insulin: * With neuropathy * Continue Lantus 45 units QPM * ISS with Accu-Cheks AC at bedtime * A1c was last 6.7 on 06/15/2019, recheck with a.m. labs * monitor for hypoglycemia (10) Hypothyroidism: * Continue levothyroxine 88 mcg daily. TSH 1.03 (11) Chronic kidney disease, stage 3: * BUN = 37, Cr=1.64, appears that her baseline is closer to 1.4-1.5 * Continue diuresis as above * Nephrology consult -- appreciate assistance (requested per patient) * Cr remains stable with diuresis, repeat BMP in the morning (12) Obstructive sleep apnea: * Wears CPAP at night routinely (13) Vitamin D deficiency: * Continue monthly supplementation (14) Secondary hyperparathyroidism: * Noted. May benefit from increased Vit D therapy. (15) Obesity: * BMI = 47.4, diet and exercise to be encouraged upon discharge (16) DVT prophylaxis: * teds, heparin subcu CODE: Full code Dispo: consult PT/OT, ask family to bring in her shoes from home as she has difficult time standing without them Admission and Anticipated Discharge Date Admission Date: December 02, 2019 Subjective patient is breathing better her main complaint is her feet hurt, she said this has been ongoing for 2 years she does better when she has her shoes she is eating fairly well long update provided to her two daughters and over the phone they said that the food pain is definitely better with shoes, they will bring them into the front office attendant her says that she usually gets short of breath after walking about 30-40 feet but breathing was worse recently they try to check her weight every day, he thinks it has been fairly stable I talked with Gloria ANGELES with CHF clinic, she will follow the patient closely on discharge Review of Systems Review of Systems: All systems reviewed & are unremarkable except as noted in HPI & below Constitutional: + fatigue and + weakness; no fever, no chills and no sweats Respiratory: + cough (dry), + dyspnea, + dyspnea on exertion and + wheezing Cardiovascular: + edema; no chest pain Gastrointestinal: no abdominal pain, no nausea, no vomiting, no constipation and no diarrhea/loose stools Musculoskeletal: + joint pain (bilateral foot and ankle pain) Physical Exam Constitutional: well developed, + overweight and + edematous; no acute distress Eyes: PERRL, conjunctivae normal, anicteric sclerae ENMT: external ear and nose normal, oropharynx normal Neck: trachea midline, no thyromegaly Respiratory: + labored breathing, + uses accessory muscles, + cough and + audible wheezes Auscultation: + diminished lung sounds and + rales (bases); no wheezes Cardiovascular: Rate/Rhythm: regular rate and regular rhythm Heart Sounds: normal S1 and normal S2; no murmur Extremities: normal capillary refill and + edema Gastrointestinal (Abdomen): normal bowel sounds, soft, nontender, no hepatosplenomegaly Musculoskeletal: no cyanosis or clubbing, extremities motor strength 5/5 Skin: no rashes, warm and dry Neurologic: patellar DTR's 2+ bilat, sensation intact and PERRL, EOMI, accommodation nl, no face palsy, no dysarthria Psychiatric: A+Ox3, euthymic affect Lymphatic: no cervical or axillary lymphadenopathy Results & Data Results & Data ([facility]) Vital Signs (Past 12 Hours) Vital Signs Temp Pulse Pulse Resp BP Pulse Ox 12/04/19 11:21 80 20 94 12/04/19 08:11 36.8 C 83 20 162/83 H 97 12/04/19 08:00 87 12/04/19 05:03 36.9 C 81 20 128/72 93 Laboratory Results Laboratory Results - last 24 hr 12/03/19 12/03/19 12/03/19 04:24 13:59 13:59 WBC RBC Hgb Hct MCV MCH MCHC RDW Std Deviation RDW Coeff of Nella Plt Count MPV Reticulocyte % (Auto) Reticulocyte # Haptoglobin Sodium 137 Potassium 3.9 D Chloride 100 Carbon Dioxide 31 Anion Gap 6.0 BUN 46 H Creatinine 1.87 H Est Cr Clr Drug Dosing 27.3 Est GFR ( Amer) 28.9 Est GFR (Non-Af Amer) 24.9 BUN/Creatinine Ratio 24.7 H Glucose 213 H POC Glucose Estimat Average Glucose 143 Hemoglobin A1c 6.6 H Calcium 7.6 L Iron Transferrin Transferrin % Sat Ferritin Total Bilirubin AST ALT Alkaline Phosphatase Lactate Dehydrogenase 218 Total Protein Albumin Globulin Albumin/Globulin Ratio 12/03/19 12/03/19 12/03/19 15:13 15:13 16:10 WBC RBC Hgb Hct MCV MCH MCHC RDW Std Deviation RDW Coeff of Nella Plt Count MPV Reticulocyte % (Auto) 1.3 Reticulocyte # 0.04 Haptoglobin Pending Sodium Potassium Chloride Carbon Dioxide Anion Gap BUN Creatinine Est Cr Clr Drug Dosing Est GFR ( Amer) Est GFR (Non-Af Amer) BUN/Creatinine Ratio Glucose POC Glucose 161 H Estimat Average Glucose Hemoglobin A1c Calcium Iron Transferrin Transferrin % Sat Ferritin Total Bilirubin AST ALT Alkaline Phosphatase Lactate Dehydrogenase Total Protein Albumin Globulin Albumin/Globulin Ratio 12/03/19 12/04/19 12/04/19 21:01 06:26 06:26 WBC 9.52 RBC 3.20 L Hgb 8.7 L Hct 27.8 L MCV 86.9 MCH 27.2 MCHC 31.3 L RDW Std Deviation 45.9 RDW Coeff of Nella 14.4 Plt Count 168 MPV 10.0 Reticulocyte % (Auto) Reticulocyte # Haptoglobin Sodium 139 Potassium 3.7 Chloride 103 Carbon Dioxide 32 Anion Gap 4.0 BUN 43 H Creatinine 1.60 H Est Cr Clr Drug Dosing 30.8 Est GFR ( Amer) 34.9 Est GFR (Non-Af Amer) 30.1 BUN/Creatinine Ratio 27.0 H Glucose 124 H POC Glucose 179 H Estimat Average Glucose Hemoglobin A1c Calcium 7.7 L Iron 11 L Transferrin 161 L Transferrin % Sat 5 L Ferritin 146.8 Total Bilirubin 0.7 AST 13 L ALT 22 Alkaline Phosphatase 93 Lactate Dehydrogenase Total Protein 6.8 Albumin 2.6 L Globulin 4.2 H Albumin/Globulin Ratio 0.6 L 12/04/19 12/04/19 07:01 11:14 WBC RBC Hgb Hct MCV MCH MCHC RDW Std Deviation RDW Coeff of Nella Plt Count MPV Reticulocyte % (Auto) Reticulocyte # Haptoglobin Sodium Potassium Chloride Carbon Dioxide Anion Gap BUN Creatinine Est Cr Clr Drug Dosing Est GFR ( Amer) Est GFR (Non-Af Amer) BUN/Creatinine Ratio Glucose POC Glucose 141 H 284 H Estimat Average Glucose Hemoglobin A1c Calcium Iron Transferrin Transferrin % Sat Ferritin Total Bilirubin AST ALT Alkaline Phosphatase Lactate Dehydrogenase Total Protein Albumin Globulin Albumin/Globulin Ratio Medications Administered Current Inpatient Medications Acetaminophen (Tylenol) 1,000 mg PO BID@0400,1600 [facility] Stop: 01/03/20 15:59 Albuterol (Ventolin Hfa) 1 puffs INH QIDR JIMBO Stop: 01/01/20 16:59 Last Admin: 12/04/19 11:13 Dose: 1 puffs Documented by: Albuterol (Ventolin 0.083% 2.5mg/3ml) 2.5 mg NEB Q6R PRN PRN Reason: Wheezing Stop: 01/02/20 10:24 Last Admin: 12/03/19 12:47 Dose: 2.5 mg Documented by: Aspirin (Ecotrin Ectab) 81 mg PO PM JIMBO Stop: 01/01/20 20:59 Last Admin: 12/03/19 20:15 Dose: 81 mg Documented by: Dextrose (Dextrose 50%) 25 - 50 ml IV UD PRN; Protocol PRN Reason: Hypoglycemia Protocol Stop: 01/01/20 14:11 Ferrous Sulfate (Feosol) 325 mg PO DAILY JIMBO Stop: 01/02/20 08:59 Last Admin: 12/04/19 09:08 Dose: 325 mg Documented by: Glucagon (Glucagen) 1 mg SQ UD PRN; Protocol PRN Reason: Hypoglycemia Protocol Stop: 01/01/20 14:11 Glucose (Dex4 Glucose) 4 - 8 tabs PO UD PRN; Protocol PRN Reason: Hypoglycemia Protocol Stop: 01/01/20 14:11 Glucose (Glucose 40%) 15 - 30 gm PO UD PRN; Protocol PRN Reason: Hypoglycemia Protocol Stop: 01/01/20 14:11 Heparin Sodium (Porcine) (Heparin Sodium (Porcine)) 5,000 units SQ Q8 JIMBO Stop: 01/01/20 21:59 Last Admin: 12/04/19 05:08 Dose: 5,000 units Documented by: Ceftriaxone Sodium 2,000 mg/ (Dextrose) 70 mls @ 100 mls/hr IV DAILY JIMBO; Pro tocol Stop: 12/08/19 08:59 Last Infusion: 12/04/19 11:05 Dose: Infused Documented by: Furosemide 40 mg/ Syringe 4 mls @ 4 mls/min IV BID17 [facility] Stop: 01/02/20 15:09 Last Admin: 12/04/19 09:09 Dose: 4 mls/min Documented by: Ibuprofen (Advil) 400 mg PO BID [facility] Stop: 01/03/20 08:59 Last Admin: 12/04/19 09:07 Dose: 400 mg Documented by: Insulin Aspart (Novolog Flexpen) 0 units SC ACHS [facility] Stop: 01/01/20 16:29 Last Admin: 12/04/19 12:00 Dose: 9 units Documented by: Insulin Glargine (Lantus Solostar Pen) 45 units SC PM [facility] Stop: 01/01/20 20:59 Last Admin: 12/03/19 21:19 Dose: 45 units Documented by: Ipratropium Agra (Atrovent Hfa) 1 puffs INH QIDR [facility] Stop: 01/01/20 18:59 Last Admin: 12/04/19 11:13 Dose: 1 puffs Documented by: Ketoconazole (Nizoral 2%) 1 appln EXT BID PRN PRN Reason: antifungal Stop: 12/12/19 16:22 Labetalol HCl (Normodyne) 600 mg PO BID [facility] Stop: 01/01/20 20:59 Last Admin: 12/04/19 09:09 Dose: 600 mg Documented by: Levothyroxine Sodium (Synthroid) 88 mcg PO DAILY@0400 [facility] Stop: 01/02/20 03:59 Last Admin: 12/04/19 03:04 Dose: 88 mcg Documented by: Losartan Potassium (Cozaar) 25 mg PO QPM [facility] Stop: 01/01/20 20:59 Last Admin: 12/03/19 20:15 Dose: 25 mg Documented by: Losartan Potassium (Cozaar) 50 mg PO QAM [facility] Stop: 01/02/20 08:59 Last Admin: 12/04/19 09:08 Dose: 50 mg Documented by: Miscellaneous (Carbohydrates For Hypoglycemia) 15 - 30 gm PO UD PRN PRN Reason: Hypoglycemia Protocol Stop: 01/01/20 14:11 Ondansetron HCl (Zofran) 4 mg IV Q4H PRN PRN Reason: Nausea And Vomiting Stop: 01/01/20 14:11 Simvastatin (Zocor) 10 mg PO PM JIMBO Stop: 01/01/20 20:59 Last Admin: 12/03/19 20:15 Dose: 10 mg Documented by: PG Care Time/CCT Total # of Minutes Spent Total Time Spent with Patient: Total time spent is greater than 50% in coordination of care (as documented) at patient's floor/unit and/or counseling patient: Coding Level of Care Code 32944 Subseq Hosp Care Lvl 3 Diagnoses Acute respiratory failure with hypoxia J96.01 Acute on chronic diastolic (congestive) heart failure I50.33 UTI (urinary tract infection) N39.0 Hypertension I10 Iron deficiency anemia D50.9 Dyslipidemia E78.5 Arteriosclerosis of coronary artery I25.10 S/P AVR (aortic valve replacement) Z95.2 Controlled type 2 diabetes mellitus with neurologic complication, with long-term current use of insulin E11.49; Z79.4 Hypothyroidism E03.9 Chronic kidney disease, stage 3 N18.3 Obstructive sleep apnea G47.33 Vitamin D deficiency E55.9 Secondary hyperparathyroidism N25.81 Obesity E66.9 DVT prophylaxis Z29.9
[2019-12-04] MEDS: ACETAMINOPHEN 500 MG TAB PO SCH (15:46)
--- NOTE | 2019-12-04 17:05 | Cardiology Progress Note ---
Date of Service December 04, 2019 Assessment & Plan (1) Acute on chronic diastolic (congestive) heart failure: -improving on Lasix 40 mg IV b.i.d.. -current echocardiogram technically limited. -study performed in June noted normal left ventricular systolic function at properly functioning bioprosthetic aortic valve. (2) Hypertension: -adequate control on current regimen. (3) S/P AVR (aortic valve replacement): -acceptable gradients across the prosthetic valve on current study. Admission and Anticipated Discharge Date Admission Date: December 02, 2019 Subjective The patient is resting comfortably in bed without complaints of chest pain or dyspnea. Physical Exam Physical Exam: In general this is a well-developed well-nourished white female in no acute distress. HEENT exam is negative. Neck is supple with full carotid upstrokes. There are no carotid bruits. No JVD. There is no thyromegaly. Cardiovascular exam reveals a regular rhythm with distant heart sounds. S1 and S2 were normal. A 1/6 basal systolic ejection murmur is noted. Lungs are clear without rales, rhonchi, or wheezes. Abdomen is obese without bruits. Extremities reveal intact radial artery pulses bilaterally. Trace pretibial edema is noted. Right knee shows a well-healed scar. Results & Data ([facility]) Vital Signs (Past 12 Hours) Vital Signs Temp Pulse Pulse Resp BP BP Pulse Ox 12/04/19 15:36 36.8 C 82 21 122/76 93 12/04/19 15:15 94 H 20 94 12/04/19 14:20 71 12/04/19 11:21 80 20 94 12/04/19 08:11 36.8 C 83 20 162/83 H 97 12/04/19 08:00 87 12/04/19 05:03 36.9 C 81 20 128/72 93 PG Care Time/CCT Total # of Minutes Spent Total Time Spent with Patient: Total time spent is greater than 50% in coordination of care (as documented) at patient's floor/unit and/or counseling patient: Coding Level of Care Code 39838 Subseq Hosp Care Lvl 3 Diagnoses Acute on chronic diastolic (congestive) heart failure I50.33 Hypertension I10 S/P AVR (aortic valve replacement) Z95.2
[2019-12-04] MEDS: ASPIRIN 81 MG ECTAB PO SCH (20:00)
[2019-12-04] MEDS: LOSARTAN POTASSIUM 25 MG TAB PO SCH (20:00)
[2019-12-04] MEDS: SIMVASTATIN 10 MG TAB PO SCH (20:01)
[2019-12-04] MEDS: INSULIN GLARGINE SOLOSTAR 100 UNITS/ML 3 ML PEN SC SCH (21:06)
[2019-12-05] MEDS: LEVOTHYROXINE SODIUM 88 MCG TABLET PO SCH (03:16)
[2019-12-05] MEDS: ACETAMINOPHEN 500 MG TAB PO SCH ×2 (03:16→15:54)
[2019-12-05] MEDS: HEPARIN SOD 5,000 UNIT/0.5 ML VIAL SQ SCH ×3 (05:53→20:33)
[2019-12-05] MEDS: IPRATROPIUM BROMIDE HFA INHALER INH SCH ×4 (07:00→19:09)
[2019-12-05] MEDS: ALBUTEROL HFA 8 GM INHALER INH SCH ×4 (07:00→19:09)
[2019-12-05 07:15] LABS: Hematocrit (blood only) 26.6 % (37-47); Hemoglobin 8.3 g/dL (12.0-16.0); Mean Corpuscular Hemoglobin 27.5 pg (25-34); Mean Corpuscular Hgb Conc 31.2 g/dL (32-36); Mean Corpuscular Volume 88.1 fL (80-100); Platelet Count 205 K/uL (130-400); RDW Coefficient of Variation 14.6 % (11.5-14.5); RDW Standard Deviation 47.3 fL (36.4-46.3); Red Blood Count 3.02 M/uL (4.2-5.4); White Blood Count 10.28 K/uL (4.8-10.8)
[2019-12-05 07:41] LABS: Albumin Level 2.4 gm/dl (3.4-5.0); BUN Creatinine Ratio 27.4 (10-20); Calcium 7.8 mg/dl (8.5-10.1); Creatinine Clr Calc Pharmacy 24.5 ml/min; Est GFR (African American) 27.7; Est GFR (Non-African American) 23.9; Potassium 3.7 mmol/L (3.5-5.1)
[2019-12-05 07:44] LABS: Albumin Globulin Ratio 0.6 (0.9-2); Bilirubin,Total 0.4 mg/dl (0.2-1); Globulin 4.1 gm/dl (2.5-4.0); Total Protein 6.5 gm/dl (6.4-8.2)
[2019-12-05] MEDS: FERROUS SULFATE 325 MG TAB PO SCH (08:23)
[2019-12-05] MEDS: LABETALOL HCL 300 MG TAB PO SCH ×2 (08:24→20:33)
[2019-12-05] MEDS: LOSARTAN POTASSIUM 50 MG TAB PO SCH (08:24)
[2019-12-05] MEDS ORDERED: metOLazone 5 MG TABLET PO SCH (08:30)
[2019-12-05] MEDS: INSULIN ASPART 100 UNITS/ML 3 ML PEN SC SCH ×4 (08:32→20:36)
[2019-12-05] MEDS: FUROSEMIDE 40 MG in SYRINGE 0 ML IV SCH ×2 (08:51→16:53)
[2019-12-05] MEDS: ALBUTEROL 0.083% NEBU SOLN 3 ML VIAL NEB PRN (08:54)
--- NOTE | 2019-12-05 09:20 | Nephrology Progress Note ---
Date of Service December 05, 2019 Assessment & Plan (1) Acute on chronic diastolic (congestive) heart failure: Plan of care discussed with Dr. Wolf this AM. Volume status improving. I expect that combination diuretic therapy could be weaned in the near future. (2) Chronic kidney disease, stage 3: Creatinine slightly elevated today at 1.9 mg/dL. I strongly advised Cinthya to stop Ibuprofen and she expressed understanding. Losartan continued. Electrolytes acceptable. Adequate response to diuretics. Document I/O's. Repeat metabolic profile tomorrow AM. (3) Iron deficiency anemia: Venofer 200 mg daily started 12/04/19 Admission and Anticipated Discharge Date Admission Date: December 02, 2019 Subjective No acute events overnight. Resting comfortably in bed. Denies significant pain. Dyspnea improved. Denies significant dyspnea at this time. No chest pain. Review of Systems Review of Systems: All systems reviewed & are unremarkable except as noted in HPI & below Physical Exam Constitutional: well developed and + obese Eyes: no scleral abnormality and no corneal abnormality ENMT: Mouth: no oral mucosal abnormality and oral mucous membranes not dry Neck: normal visual inspection, trachea midline and + thick neck Respiratory: + tachypneic Auscultation: + wheezes Cardiovascular: Rate/Rhythm: regular rate Heart Sounds: normal S1 and normal S2 Extremities: normal capillary refill and + edema Musculoskeletal: Extremities: no cyanosis and no clubbing Skin: normal turgor; no lesions Neurologic: Motor/Sensory: no tremor and no asterixis Psychiatric: Orientation: alert and oriented x 3 Results & Data ([facility]) Vital Signs (Past 12 Hours) Vital Signs Temp Pulse Resp BP Pulse Ox 12/05/19 08:56 76 18 93 12/05/19 07:04 71 18 95 12/05/19 07:02 36.7 C 68 22 131/76 93 12/05/19 04:25 36.6 C 75 20 126/75 97 12/04/19 23:27 70 20 119/69 92 Laboratory Results Laboratory Results - last 24 hr 12/04/19 12/04/19 12/04/19 11:14 16:12 20:16 WBC RBC Hgb Hct MCV MCH MCHC RDW Std Deviation RDW Coeff of Nella Plt Count MPV Sodium Potassium Chloride Carbon Dioxide Anion Gap BUN Creatinine Est Cr Clr Drug Dosing Est GFR ( Amer) Est GFR (Non-Af Amer) BUN/Creatinine Ratio Glucose POC Glucose 284 H 179 H 183 H Calcium Total Bilirubin AST ALT Alkaline Phosphatase Total Protein Albumin Globulin Albumin/Globulin Ratio 12/05/19 12/05/19 12/05/19 06:21 06:21 07:09 WBC 10.28 RBC 3.02 L Hgb 8.3 L Hct 26.6 L MCV 88.1 MCH 27.5 MCHC 31.2 L RDW Std Deviation 47.3 H RDW Coeff of Nella 14.6 H Plt Count 205 MPV 10.0 Sodium 138 Potassium 3.7 Chloride 102 Carbon Dioxide 29 Anion Gap 7.0 BUN 53 H Creatinine 1.94 H D Est Cr Clr Drug Dosing 24.5 Est GFR ( Amer) 27.7 Est GFR (Non-Af Amer) 23.9 BUN/Creatinine Ratio 27.4 H Glucose 107 H POC Glucose 117 H Calcium 7.8 L Total Bilirubin 0.4 AST 11 L ALT 24 Alkaline Phosphatase 104 Total Protein 6.5 Albumin 2.4 L Globulin 4.1 H Albumin/Globulin Ratio 0.6 L PG Care Time/CCT Total # of Minutes Spent Total Time Spent with Patient: Total time spent is greater than 50% in coordination of care (as documented) at patient's floor/unit and/or counseling patient: Coding Level of Care Code 37216 Subseq Hosp Care Lvl 3 Diagnoses Acute on chronic diastolic (congestive) heart failure I50.33 Chronic kidney disease, stage 3 N18.3 Iron deficiency anemia D50.9
--- NOTE | 2019-12-05 10:09 | Cardiology Progress Note ---
Date of Service December 05, 2019 Assessment & Plan (1) Acute on chronic diastolic (congestive) heart failure: -continues on Lasix 40 mg IV b.i.d.. -current echocardiogram technically limited. -study performed in June noted normal left ventricular systolic function and a properly functioning bioprosthetic aortic valve. (2) Hypertension: -adequate control on current medical regimen. (3) S/P AVR (aortic valve replacement): -acceptable gradients across the prosthetic valve on current echocardiogram. Admission and Anticipated Discharge Date Admission Date: December 02, 2019 Subjective Resting comfortably in bed without complaints of chest pain. Currently taking a nebulizer treatment. Physical Exam Physical Exam: In general this is a well-developed well-nourished white female in no acute distress. HEENT exam is negative. Neck is supple with full carotid upstrokes. There are no carotid bruits. No JVD. There is no thyromegaly. Cardiovascular exam reveals a regular rhythm with distant heart sounds. S1 and S2 were normal. A 1/6 basal systolic ejection murmur is noted. Lungs are clear without rales, rhonchi, or wheezes. Abdomen is obese without bruits. Extremities reveal intact radial artery pulses bilaterally. Trace pretibial edema is noted. Right knee shows a well-healed scar. Results & Data ([facility]) Vital Signs (Past 12 Hours) Vital Signs Temp Pulse Resp BP Pulse Ox 12/05/19 08:56 76 18 93 12/05/19 07:04 71 18 95 12/05/19 07:02 36.7 C 68 22 131/76 93 12/05/19 04:25 36.6 C 75 20 126/75 97 12/04/19 23:27 70 20 119/69 92 PG Care Time/CCT Total # of Minutes Spent Total Time Spent with Patient: Total time spent is greater than 50% in coordination of care (as documented) at patient's floor/unit and/or counseling patient: Coding Level of Care Code 54637 Subseq Hosp Care Lvl 3 Diagnoses Acute on chronic diastolic (congestive) heart failure I50.33 Hypertension I10 S/P AVR (aortic valve replacement) Z95.2
--- NOTE | 2019-12-05 13:44 | XCELERA ---
[id number]
--- NOTE | 2019-12-05 16:34 | Hospitalist Progress Note ---
Date of Service December 05, 2019 Assessment & Plan (1) Acute respiratory failure with hypoxia: 79 female presented with worsening shortness of breath, hypoxic with O2 sat of 73% on RA and work of breathing/use of accessory muscles in ER requiring BiPAP. Likely secondary to acute chf exacerbation. BNP elevated at 7022. * quickly titrated to nasal canula, stable on 2L today * CXR with pulmonary edema, exacerbation of CHF * ECHO with mildly dilated LV with mildly reduced systolic function, EF 45--50% (Jun 2019 with EF 55-60%) and mod-severe mitral annular calcification with mildly elevated transvalvular gradient suggesting mild MS. Per cardiology, patient on BiPAP and study may not be entirely accurate. repeat limited echo on 12/05/19: EF is 45-50% * continue Lasix but decrease dose to 40mg IV daily, less UO today * weight going down considerably but it is not accurate * check BMP in the morning (2) Acute on chronic diastolic (congestive) heart failure: * Acute exacerbation, worsening the above. BNP 7402 on admission * CXR with cardiomegaly with evidence of congestive failure, trace pleural effusions, airspace opacities lung bases, likely atelectassis repeat CXR on 12/06/19 to evaluate atelectasis after diuresis * Consult cardiology, follows with Dr. Wolf as an outpatient -- appreciate assistance Gloria ANGELES following now as well with the CHF clinic * Troponin mildly elevated with peak 0.25, trending down. No chest pain, EKG showing RBBB, no ST wave changes or signs of ischemia, unlikely ACS * AHA diet. Fluid restriction -- 1500mL/day * negative 2.8 liters, weight trending down but likely not accurate as it is a bed weight, try to get her standing, see below * check BMP in the morning, hold Lasix until BMP is checked, may decrease dose or frequency tomorrow (3) UTI (urinary tract infection): * Previously seen by PCP 11/30 with UA c/w infection and reported fevers, chills and was initiated on Macrobid * UA on admission with trace blood, 2+ leuk est, >30WBC, 5-10 epi * no growth on culture, stop Rocephin (4) Hypertension: * BP well controlled currently, continue labetalol 600 mg twice daily, losartan 25 mg, aggressive diuresis as above (5) Iron deficiency anemia: * History of such, continue iron daily. * H/h low today at 8.8/28.1 on admission * MCV 87.5 * Hemoccult all stools * No s/sx overt bleeding. INR 1.1 * will give Venofer as Iron saturation low (6) Dyslipidemia: * Continue simvastatin 10 mg daily (7) Arteriosclerosis of coronary artery: * Continue medication as above, ASA, simvastatin 10mg (8) S/P AVR (aortic valve replacement): * History of such in 2015, last echo revealed well functioning AV valve in June 2019. ECHO as above (9) Controlled type 2 diabetes mellitus with neurologic complication, with long- term current use of insulin: * With neuropathy * Continue Lantus 45 units QPM * ISS with Accu-Cheks AC at bedtime * A1c was last 6.7 on 06/15/2019, recheck with a.m. labs * monitor for hypoglycemia (10) Hypothyroidism: * Continue levothyroxine 88 mcg daily. TSH 1.03 (11) Chronic kidney disease, stage 3: * Cr up slightly to 1.9 with Lasix use, this is expected * Continue diuresis as above * Nephrology consult -- appreciate assistance (requested per patient) * repeat BMP in the morning (12) Obstructive sleep apnea: * Wears CPAP at night routinely (13) Vitamin D deficiency: * Continue monthly supplementation (14) Secondary hyperparathyroidism: * Noted. May benefit from increased Vit D therapy. (15) Obesity: * BMI = 47.4, diet and exercise to be encouraged upon discharge (16) Foot pain, bilateral: difficult to determine etiology not much pain on palpation, pain is described as being on the bottom of her feet cannot use NSAIDs due to renal function would not use Prednisone as she is already trending with hyperglycemic episodes does not sound like neuropathic pain but perhaps a trial of Neurontin could benefit as other options limited will start on Neurontin 100mg BID (17) DVT prophylaxis: * teds, heparin subcu CODE: Full code Dispo: consult PT/OT, ask family to bring in her shoes from home as she has difficult time standing without them Admission and Anticipated Discharge Date Admission Date: December 02, 2019 Subjective patient says she feels better today, breathing easier, less cough she did not do well with therapy, extremely weak, could barely sit at the edge of the bed she tried to stand with her shoes on, but she said it hurt her feet too much she is eating well, no fever or chills, no chest pressure reviewed labs, Cr up to 1.9, electrolytes stable Hb down to 8.3, WBC normal discussed with Dr. Geroinmo, appreciate his input she had a BM today Review of Systems Review of Systems: All systems reviewed & are unremarkable except as noted in HPI & below Constitutional: + fatigue and + weakness; no fever Respiratory: + dyspnea on exertion and + wheezing; no cough Cardiovascular: + edema; no chest pain Gastrointestinal: no abdominal pain, no nausea, no vomiting, no constipation and no diarrhea/loose stools Physical Exam Constitutional: well developed, + overweight and + edematous; no acute distres s Eyes: PERRL, conjunctivae normal, anicteric sclerae ENMT: external ear and nose normal, oropharynx normal Neck: trachea midline, no thyromegaly Respiratory: normal respiratory effort, + cough and + audible wheezes Auscultation: + diminished lung sounds and + rales (bases); no wheezes Cardiovascular: Rate/Rhythm: regular rhythm and + tachycardic Heart Sounds: normal S1 and normal S2; no murmur Extremities: normal capillary refill and + edema Gastrointestinal (Abdomen): normal bowel sounds, soft, nontender, no hepatosplenomegaly Musculoskeletal: no cyanosis or clubbing, extremities motor strength 5/5 Skin: no rashes, warm and dry Neurologic: patellar DTR's 2+ bilat, sensation intact and PERRL, EOMI, accommodation nl, no face palsy, no dysarthria Psychiatric: A+Ox3, euthymic affect Lymphatic: no cervical or axillary lymphadenopathy Results & Data Results & Data ([facility]) Vital Signs (Past 12 Hours) Vital Signs Temp Pulse Pulse Resp BP BP Pulse Ox 12/05/19 15:37 107 H 12/05/19 15:35 91 H 20 94 12/05/19 15:30 37.7 C H 112 H 20 169/72 H 91 12/05/19 11:55 36.5 C 91 H 21 156/85 H 93 12/05/19 11:04 88 20 90 12/05/19 08:56 76 18 93 12/05/19 07:04 71 18 95 06/09/20 07:02 36.7 C 68 22 131/76 93 Laboratory Results Laboratory Results - last 24 hr 12/03/19 12/04/19 12/05/19 15:13 20:16 06:21 WBC 10.28 RBC 3.02 L Hgb 8.3 L Hct 26.6 L MCV 88.1 MCH 27.5 MCHC 31.2 L RDW Std Deviation 47.3 H RDW Coeff of Nella 14.6 H Plt Count 205 MPV 10.0 Haptoglobin 328 H Sodium Potassium Chloride Carbon Dioxide Anion Gap BUN Creatinine Est Cr Clr Drug Dosing Est GFR ( Amer) Est GFR (Non-Af Amer) BUN/Creatinine Ratio Glucose POC Glucose 183 H Calcium Total Bilirubin AST ALT Alkaline Phosphatase Total Protein Albumin Globulin Albumin/Globulin Ratio 12/05/19 12/05/19 12/05/19 06:21 07:09 11:30 WBC RBC Hgb Hct MCV MCH MCHC RDW Std Deviation RDW Coeff of Nella Plt Count MPV Haptoglobin Sodium 138 Potassium 3.7 Chloride 102 Carbon Dioxide 29 Anion Gap 7.0 BUN 53 H Creatinine 1.94 H D Est Cr Clr Drug Dosing 24.5 Est GFR ( Amer) 27.7 Est GFR (Non-Af Amer) 23.9 BUN/Creatinine Ratio 27.4 H Glucose 107 H POC Glucose 117 H 233 H Calcium 7.8 L Total Bilirubin 0.4 AST 11 L ALT 24 Alkaline Phosphatase 104 Total Protein 6.5 Albumin 2.4 L Globulin 4.1 H Albumin/Globulin Ratio 0.6 L 12/05/19 16:04 WBC RBC Hgb Hct MCV MCH MCHC RDW Std Deviation RDW Coeff of Nella Plt Count MPV Haptoglobin Sodium Potassium Chloride Carbon Dioxide Anion Gap BUN Creatinine Est Cr Clr Drug Dosing Est GFR ( Amer) Est GFR (Non-Af Amer) BUN/Creatinine Ratio Glucose POC Glucose 197 H Calcium Total Bilirubin AST ALT Alkaline Phosphatase Total Protein Albumin Globulin Albumin/Globulin Ratio Medications Administered Current Inpatient Medications Acetaminophen (Tylenol) 1,000 mg PO BID@0400,1600 [facility] Stop: 01/03/20 15:59 Last Admin: 12/05/19 15:54 Dose: 1,000 mg Documented by: Albuterol (Ventolin Hfa) 1 puffs INH QIDR JIM[facility] Stop: 01/01/20 16:59 Last Admin: 12/05/19 15:28 Dose: 1 puffs Documented by: Albuterol (Ventolin 0.083% 2.5mg/3ml) 2.5 mg NEB Q6R PRN PRN Reason: Wheezing Stop: 01/02/20 10:24 Last Admin: 12/05/19 08:54 Dose: 2.5 mg Documented by: Aspirin (Ecotrin Ectab) 81 mg PO PM JIM[facility] Stop: 01/01/20 20:59 Last Admin: 12/04/19 20:00 Dose: 81 mg Documented by: Dextrose (Dextrose 50%) 25 - 50 ml IV UD PRN; Protocol PRN Reason: Hypoglycemia Protocol Stop: 01/01/20 14:11 Ferrous Sulfate (Feosol) 325 mg PO DAILY JIMBO Stop: 01/02/20 08:59 Last Admin: 12/05/19 08:23 Dose: 325 mg Documented by: Glucagon (Glucagen) 1 mg SQ UD PRN; Protocol PRN Reason: Hypoglycemia Protocol Stop: 01/01/20 14:11 Glucose (Dex4 Glucose) 4 - 8 tabs PO UD PRN; Protocol PRN Reason: Hypoglycemia Protocol Stop: 01/01/20 14:11 Glucose (Glucose 40%) 15 - 30 gm PO UD PRN; Protocol PRN Reason: Hypoglycemia Protocol Stop: 01/01/20 14:11 Heparin Sodium (Porcine) (Heparin Sodium (Porcine)) 5,000 units SQ Q8 [facility] Stop: 01/01/20 21:59 Last Admin: 12/05/19 14:07 Dose: 5,000 units Documented by: Furosemide 40 mg/ Syringe 4 mls @ 4 mls/min IV BID17 JIMBO Stop: 01/02/20 15:09 Last Admin: 12/05/19 08:51 Dose: 4 mls/min Documented by: Insulin Aspart (Novolog Flexpen) 0 units SC ACHS [facility] Stop: 01/01/20 16:29 Last Admin: 12/05/19 12:02 Dose: 7 units Documented by: Insulin Glargine (Lantus Solostar Pen) 45 units SC PM [facility] Stop: 01/01/20 20:59 Last Admin: 12/04/19 21:06 Dose: 45 units Documented by: Ipratropium [place] (Atrovent Hfa) 1 puffs INH QIDR [facility] Stop: 01/01/20 18:59 Last Admin: 12/05/19 15:28 Dose: 1 puffs Documented by: Ketoconazole (Nizoral 2%) 1 appln EXT BID PRN PRN Reason: antifungal Stop: 12/12/19 16:22 Labetalol HCl (Normodyne) 600 mg PO BID [facility] Stop: 01/01/20 20:59 Last Admin: 12/05/19 08:24 Dose: 600 mg Documented by: Levothyroxine Sodium (Synthroid) 88 mcg PO DAILY@0400 [facility] Stop: 01/02/20 03:59 Last Admin: 12/05/19 03:16 Dose: 88 mcg Documented by: Losartan Potassium (Cozaar) 25 mg PO QPM [facility] Stop: 01/01/20 20:59 Last Admin: 12/04/19 20:00 Dose: 25 mg Documented by: Losartan Potassium (Cozaar) 50 mg PO QAM [facility] Stop: 01/02/20 08:59 Last Admin: 12/05/19 08:24 Dose: 50 mg Documented by: Miscellaneous (Carbohydrates For Hypoglycemia) 15 - 30 gm PO UD PRN PRN Reason: Hypoglycemia Protocol Stop: 01/01/20 14:11 Ondansetron HCl (Zofran) 4 mg IV Q4H PRN PRN Reason: Nausea And Vomiting Stop: 01/01/20 14:11 Simvastatin (Zocor) 10 mg PO PM [facility] Stop: 01/01/20 20:59 Last Admin: 12/04/19 20:01 Dose: 10 mg Documented by: PG Care Time/CCT Total # of Minutes Spent Total Time Spent with Patient: Total time spent is greater than 50% in coordination of care (as documented) at patient's floor/unit and/or counseling patient: Coding Level of Care Code 46944 Subseq Hosp Care Lvl 3 Diagnoses Acute respiratory failure with hypoxia J96.01 Acute on chronic diastolic (congestive) heart failure I50.33 UTI (urinary tract infection) N39.0 Hypertension I10 Iron deficiency anemia D50.9 Dyslipidemia E78.5 Arteriosclerosis of coronary artery I25.10 S/P AVR (aortic valve replacement) Z95.2 Controlled type 2 diabetes mellitus with neurologic complication, with long-term current use of insulin E11.49; Z79.4 Hypothyroidism E03.9 Chronic kidney disease, stage 3 N18.3 Obstructive sleep apnea G47.33 Vitamin D deficiency E55.9 Secondary hyperparathyroidism N25.81 Obesity E66.9 Foot pain, bilateral M79.671; M79.672 DVT prophylaxis Z29.9
[2019-12-05] MEDS: INSULIN GLARGINE SOLOSTAR 100 UNITS/ML 3 ML PEN SC SCH (20:32)
[2019-12-05] MEDS: ASPIRIN 81 MG ECTAB PO SCH (20:33)
[2019-12-05] MEDS: LOSARTAN POTASSIUM 25 MG TAB PO SCH (20:34)
[2019-12-05] MEDS: SIMVASTATIN 10 MG TAB PO SCH (20:36)
[2019-12-06] MEDS: ACETAMINOPHEN 500 MG TAB PO SCH ×2 (03:49→16:41)
[2019-12-06] MEDS: LEVOTHYROXINE SODIUM 88 MCG TABLET PO SCH (03:49)
[2019-12-06] MEDS: HEPARIN SOD 5,000 UNIT/0.5 ML VIAL SQ SCH ×3 (05:06→21:06)
[2019-12-06] MEDS: ALBUTEROL HFA 8 GM INHALER INH SCH ×4 (07:01→19:30)
[2019-12-06] MEDS: IPRATROPIUM BROMIDE HFA INHALER INH SCH ×4 (07:01→19:30)
[2019-12-06 07:40] LABS: Hematocrit (blood only) 28.4 % (37-47); Hemoglobin 8.5 g/dL (12.0-16.0); Mean Corpuscular Hemoglobin 26.6 pg (25-34); Mean Corpuscular Hgb Conc 29.9 g/dL (32-36); Mean Corpuscular Volume 88.8 fL (80-100); Mean Platelet Volume 9.3 fL (7.4-10.4); Platelet Count 236 K/uL (130-400); RDW Coefficient of Variation 14.6 % (11.5-14.5); RDW Standard Deviation 47.2 fL (36.4-46.3); White Blood Count 9.83 K/uL (4.8-10.8)
[2019-12-06 08:06] LABS: Albumin Level 2.4 gm/dl (3.4-5.0); BUN Creatinine Ratio 32.4 (10-20); Calcium 8.3 mg/dl (8.5-10.1); Creatinine Clr Calc Pharmacy 33.2 ml/min; Est GFR (African American) 39.7; Est GFR (Non-African American) 34.2; Potassium 3.4 mmol/L (3.5-5.1)
[2019-12-06 08:07] LABS: Phosphorus 3.8 mg/dl (2.5-4.9)
[2019-12-06] MEDS: IRON SUCROSE 200 MG in 0.9 % SODIUM CHLORIDE 100 ML IV SCH (08:22)
[2019-12-06] MEDS: GABAPENTIN 100 MG CAP PO SCH ×2 (08:23→21:09)
[2019-12-06] MEDS: LOSARTAN POTASSIUM 50 MG TAB PO SCH (08:23)
[2019-12-06] MEDS: LABETALOL HCL 300 MG TAB PO SCH ×2 (08:23→21:09)
--- NOTE | 2019-12-06 09:22 | Nephrology Progress Note ---
Date of Service December 06, 2019 Assessment & Plan (1) Acute on chronic diastolic (congestive) heart failure: Diuretics per cardiology. Combination diuretic therapy held yesterday. (2) Chronic kidney disease, stage 3: Creatinine at baseline. Adequate urine output. Hold NSAIDS as tolerated. Document I/O's. Will follow peripherally. Please call with questions or concerns. (3) Iron deficiency anemia: Venofer 200 mg daily while inpatient, started 12/04/19 Admission and Anticipated Discharge Date Admission Date: December 02, 2019 Subjective No acute events overnight. Weakness and decreased activity tolerance persist but Cinthya states that she is feeling significantly improved. Notable discomfort in both legs but she feels that she is tolerating holding ibuprofen. Requesting discharge home today. No fevers. Review of Systems Review of Systems: All systems reviewed & are unremarkable except as noted in HPI & below Physical Exam Constitutional: well developed and + obese Eyes: no scleral abnormality and no corneal abnormality ENMT: Mouth: no oral mucosal abnormality and oral mucous membranes not dry Neck: normal visual inspection, trachea midline and + thick neck Respiratory: + tachypneic Auscultation: + wheezes Cardiovascular: Rate/Rhythm: regular rate Heart Sounds: normal S1 and normal S2 Extremities: normal capillary refill and + edema Musculoskeletal: Extremities: no cyanosis and no clubbing Skin: normal turgor; no lesions Neurologic: Motor/Sensory: no tremor and no asterixis Psychiatric: Orientation: alert and oriented x 3 Results & Data ([facility]) Vital Signs (Past 12 Hours) Vital Signs Temp Pulse Pulse Resp BP BP Pulse Ox 12/06/19 08:16 36.8 C 93 H 21 163/84 H 91 12/06/19 07:03 74 18 95 12/06/19 03:51 36.6 C 86 24 159/76 H 96 12/06/19 00:00 36.6 C 88 79 22 134/45 L 95 Laboratory Results Laboratory Results - last 24 hr 12/03/19 12/05/19 12/05/19 15:13 11:30 16:04 WBC RBC Hgb Hct MCV MCH MCHC RDW Std Deviation RDW Coeff of Nella Plt Count MPV Haptoglobin 328 H Sodium Potassium Chloride Carbon Dioxide Anion Gap BUN Creatinine Est Cr Clr Drug Dosing Est GFR ( Amer) Est GFR (Non-Af Amer) BUN/Creatinine Ratio Glucose POC Glucose 233 H 197 H Calcium Phosphorus Albumin 12/05/19 12/06/19 12/06/19 20:27 07:14 07:14 WBC 9.83 RBC 3.20 L Hgb 8.5 L Hct 28.4 L MCV 88.8 MCH 26.6 MCHC 29.9 L RDW Std Deviation 47.2 H RDW Coeff of Nella 14.6 H Plt Count 236 MPV 9.3 Haptoglobin Sodium 139 Potassium 3.4 L Chloride 102 Carbon Dioxide 31 Anion Gap 7.0 BUN 47 H Creatinine 1.44 H D Est Cr Clr Drug Dosing 33.2 Est GFR ( Amer) 39.7 Est GFR (Non-Af Amer) 34.2 BUN/Creatinine Ratio 32.4 H Glucose 59 L POC Glucose 86 Calcium 8.3 L Phosphorus 3.8 Albumin 2.4 L 12/06/19 12/06/19 07:30 07:31 WBC RBC Hgb Hct MCV MCH MCHC RDW Std Deviation RDW Coeff of Nella Plt Count MPV Haptoglobin Sodium Potassium Chloride Carbon Dioxide Anion Gap BUN Creatinine Est Cr Clr Drug Dosing Est GFR ( Amer) Est GFR (Non-Af Amer) BUN/Creatinine Ratio Glucose POC Glucose 67 L* 73 Calcium Phosphorus Albumin PG Care Time/CCT Total # of Minutes Spent Total Time Spent with Patient: Total time spent is greater than 50% in coordination of care (as documented) at patient's floor/unit and/or counseling patient: Coding Level of Care Code 82933 Subseq Hosp Care Lvl 3 Diagnoses Acute on chronic diastolic (congestive) heart failure I50.33 Chronic kidney disease, stage 3 N18.3 Iron deficiency anemia D50.9
[2019-12-06] MEDS ORDERED: FUROSEMIDE 40 MG TAB PO ONE (10:45)
--- NOTE | 2019-12-06 11:11 | Hospitalist Progress Note ---
Date of Service December 06, 2019 Assessment & Plan (1) Acute respiratory failure with hypoxia: 79 female presented with worsening shortness of breath, hypoxic with O2 sat of 73% on RA and work of breathing/use of accessory muscles in ER requiring BiPAP. Likely secondary to acute chf exacerbation. BNP elevated at 7022. * quickly titrated to nasal canula, stable on 2L today, tried her on room air, saturations 80% * cannot perform two step yet as she is not walking * CXR with pulmonary edema, exacerbation of CHF on admission repeat CXR today * ECHO with mildly dilated LV with mildly reduced systolic function, EF 45--50% (Jun 2019 with EF 55-60%) and mod-severe mitral annular calcification with mildly elevated transvalvular gradient suggesting mild MS. Per cardiology, patient on BiPAP and study may not be entirely accurate. repeat limited echo on 12/05/19: EF is 45-50% * weight going down, less edema * Cr is 1.4, resume Lasix 40mg PO BID (2) Acute on chronic diastolic (congestive) heart failure: * Acute exacerbation, worsening the above. BNP 7402 on admission * CXR with cardiomegaly with evidence of congestive failure, trace pleural effusions, airspace opacities lung bases, likely atelectassis repeat CXR on 12/06/19 to evaluate atelectasis after diuresis * Consult cardiology, follows with Dr. Wolf as an outpatient -- appreciate assistance Gloria ANGELES following now as well with the CHF clinic * Troponin mildly elevated with peak 0.25, trending down. No chest pain, EKG showing RBBB, no ST wave changes or signs of ischemia, unlikely ACS * AHA diet. Fluid restriction -- 1500mL/day * negative 3.7 liters, weight trending down but likely not accurate as it is a bed weight, still cannot stand for weight * Cr is 1.4, will change Lasix to 40mg PO BID, follow UO and renal function * K is low at 3.3, will start on Potassium 20 BID, repeat BMP in the morning (3) UTI (urinary tract infection): * Previously seen by PCP 11/30 with UA c/w infection and reported fevers, chills and was initiated on Macrobid * UA on admission with trace blood, 2+ leuk est, >30WBC, 5-10 epi * no growth on culture, stop Rocephin, no fever (4) Hypertension: * BP well controlled currently, continue labetalol 600 mg twice daily, losartan 25 and 50 mg, aggressive diuresis as above\ * Lasix 40mg PO BID (5) Iron deficiency anemia: * History of such, continue iron daily. * H/h low today at 8.5 but stable * MCV 87.5 * Hemoccult all stools * No s/sx overt bleeding. INR 1.1 * will give Venofer as Iron saturation low (6) Dyslipidemia: * Continue simvastatin 10 mg daily (7) Arteriosclerosis of coronary artery: * Continue medication as above, ASA, simvastatin 10mg (8) S/P AVR (aortic valve replacement): * History of such in 2015, last echo revealed well functioning AV valve in June 2019. ECHO as above (9) Controlled type 2 diabetes mellitus with neurologic complication, with long- term current use of insulin: * With neuropathy * Continue Lantus 45 units QPM * ISS with Accu-Cheks AC at bedtime * A1c was last 6.7 on 06/15/2019, recheck with a.m. labs * monitor for hypoglycemia, no episodes (10) Hypothyroidism: * Continue levothyroxine 88 mcg daily. TSH 1.03 (11) Chronic kidney disease, stage 3: * Cr stable at 1.4 * Continue diuresis as above * Nephrology consult -- appreciate assistance (requested per patient) * repeat BMP in the morning (12) Obstructive sleep apnea: * Wears CPAP at night routinely, she is refusing to wear out mask here (13) Vitamin D deficiency: * Continue monthly supplementation (14) Secondary hyperparathyroidism: * Noted. May benefit from increased Vit D therapy. (15) Obesity: * BMI = 47.4, diet and exercise to be encouraged upon discharge (16) Foot pain, bilateral: difficult to determine etiology not much pain on palpation, pain is described as being on the bottom of her feet cannot use NSAIDs due to renal function would not use Prednisone as she is already trending with hyperglycemic episodes does not sound like neuropathic pain but perhaps a trial of Neurontin could benefit as other options limited will start on Neurontin 100mg BID, will increase this to TID tomorrow check foot x-ray, will attempt to reach out to podiatry to see if they want to see her in hospital or in office on follow up (17) DVT prophylaxis: * teds, heparin subcu CODE: Full code Dispo: consult PT/OT, ask family to bring in her shoes from home as she has difficult time standing without them Admission and Anticipated Discharge Date Admission Date: December 02, 2019 Subjective patient breathing well, feels like she is at baseline tried to remove oxygen, saturations down to low 80's off of oxygen sats up to 90% immediately with 2L NC again, urged patient to participate with therapy, told her she needs to prove that she is safe to return home she reluctantly said that she would comply updated family over the phone, discussed getting foot x-ray of both feet as she has not had them before, this issue is 2 years old she was seeing a covering machine operator but she left the area, unsure of what the working diagnosis was at that time reviewed labs, Cr down to 1.4, K is a little low, will replace Hb is 8.5 today, up slightly, WBC is normal Review of Systems Review of Systems: All systems reviewed & are unremarkable except as noted in HPI & below Respiratory: + dyspnea on exertion and + wheezing Musculoskeletal: + joint pain (bilateral foot pain, with standing) Physical Exam Constitutional: well developed, + overweight and + edematous; no acute distress Eyes: PERRL, conjunctivae normal, anicteric sclerae ENMT: external ear and nose normal, oropharynx normal Neck: trachea midline, no thyromegaly Respiratory: normal respiratory effort, + cough and + audible wheezes Auscultation: + diminished lung sounds; no wheezes Cardiovascular: Rate/Rhythm: regular rhythm and + tachycardic Heart Sounds: normal S1 and normal S2; no murmur Extremities: normal capillary refill and + edema Gastrointestinal (Abdomen): normal bowel sounds, soft, nontender, no hepatosplenomegaly Musculoskeletal: no cyanosis or clubbing, extremities motor strength 5/5 (no pain in feet with palpation) Skin: no rashes, warm and dry Neurologic: patellar DTR's 2+ bilat, sensation intact and PERRL, EOMI, accommodation nl, no face palsy, no dysarthria Psychiatric: A+Ox3, euthymic affect Lymphatic: no cervical or axillary lymphadenopathy Results & Data Results & Data ([facility]) Vital Signs (Past 12 Hours) Vital Signs Temp Pulse Pulse Resp BP BP Pulse Ox 12/06/19 08:16 36.8 C 93 H 21 163/84 H 91 12/06/19 07:03 74 18 95 12/06/19 03:51 36.6 C 86 24 159/76 H 96 12/06/19 00:00 36.6 C 88 79 22 134/45 L 95 Laboratory Results Laboratory Results - last 24 hr 12/03/19 12/05/19 12/05/19 15:13 11:30 16:04 WBC RBC Hgb Hct MCV MCH MCHC RDW Std Deviation RDW Coeff of Nella Plt Count MPV Haptoglobin 328 H Sodium Potassium Chloride Carbon Dioxide Anion Gap BUN Creatinine Est Cr Clr Drug Dosing Est GFR ( Amer) Est GFR (Non-Af Amer) BUN/Creatinine Ratio Glucose POC Glucose 233 H 197 H Calcium Phosphorus Albumin 12/05/19 12/06/19 12/06/19 20:27 07:14 07:14 WBC 9.83 RBC 3.20 L Hgb 8.5 L Hct 28.4 L MCV 88.8 MCH 26.6 MCHC 29.9 L RDW Std Deviation 47.2 H RDW Coeff of Nella 14.6 H Plt Count 236 MPV 9.3 Haptoglobin Sodium 139 Potassium 3.4 L Chloride 102 Carbon Dioxide 31 Anion Gap 7.0 BUN 47 H Creatinine 1.44 H D Est Cr Clr Drug Dosing 33.2 Est GFR ( Amer) 39.7 Est GFR (Non-Af Amer) 34.2 BUN/Creatinine Ratio 32.4 H Glucose 59 L POC Glucose 86 Calcium 8.3 L Phosphorus 3.8 Albumin 2.4 L 12/06/19 12/06/19 07:30 07:31 WBC RBC Hgb Hct MCV MCH MCHC RDW Std Deviation RDW Coeff of Nella Plt Count MPV Haptoglobin Sodium Potassium Chloride Carbon Dioxide Anion Gap BUN Creatinine Est Cr Clr Drug Dosing Est GFR ( Amer) Est GFR (Non-Af Amer) BUN/Creatinine Ratio Glucose POC Glucose 67 L* 73 Calcium Phosphorus Albumin Medications Administered Current Inpatient Medications Acetaminophen (Tylenol) 1,000 mg PO BID@0400,1600 JIMBO Stop: 01/03/20 15:59 Last Admin: 12/06/19 03:49 Dose: 1,000 mg Documented by: Albuterol (Ventolin Hfa) 1 puffs INH QIDR JIMBO Stop: 01/01/20 16:59 Last Admin: 12/06/19 07:01 Dose: 1 puffs Documented by: Albuterol (Ventolin 0.083% 2.5mg/3ml) 2.5 mg NEB Q6R PRN PRN Reason: Wheezing Stop: 01/02/20 10:24 Last Admin: 12/05/19 08:54 Dose: 2.5 mg Documented by: Aspirin (Ecotrin Ectab) 81 mg PO PM JIMBO Stop: 01/01/20 20:59 Last Admin: 12/05/19 20:33 Dose: 81 mg Documented by: Dextrose (Dextrose 50%) 25 - 50 ml IV UD PRN; Protocol PRN Reason: Hypoglycemia Protocol Stop: 01/01/20 14:11 Ferrous Sulfate (Feosol) 325 mg PO DAILY JIMBO Stop: 01/02/20 08:59 Last Admin: 12/05/19 08:23 Dose: 325 mg Documented by: Furosemide (Lasix) 40 mg PO BID17 JIMBO Stop: 01/05/20 16:59 Gabapentin (Neurontin) 100 mg PO BID JIMBO Stop: 01/05/20 08:59 Last Admin: 12/06/19 08:23 Dose: 100 mg Documented by: Glucagon (Glucagen) 1 mg SQ UD PRN; Protocol PRN Reason: Hypoglycemia Protocol Stop: 01/01/20 14:11 Glucose (Dex4 Glucose) 4 - 8 tabs PO UD PRN; Protocol PRN Reason: Hypoglycemia Protocol Stop: 01/01/20 14:11 Glucose (Glucose 40%) 15 - 30 gm PO UD PRN; Protocol PRN Reason: Hypoglycemia Protocol Stop: 01/01/20 14:11 Heparin Sodium (Porcine) (Heparin Sodium (Porcine)) 5,000 units SQ Q8 JIMBO Stop: 01/01/20 21:59 Last Admin: 12/06/19 05:06 Dose: 5,000 units Documented by: Furosemide 40 mg/ Syringe 4 mls @ 4 mls/min IV BID17 [facility] Stop: 01/02/20 15:09 Last Admin: 12/05/19 16:53 Dose: 4 mls/min Documented by: Iron Sucrose 200 mg/ Sodium (Chloride) 110 mls @ 220 mls/hr IV DAILY JIMBO Stop: 12/09/19 09:29 Last Infusion: 12/06/19 08:52 Dose: Infused Documented by: Insulin Aspart (Novolog Flexpen) 0 units SC ACHS [facility] Stop: 01/01/20 16:29 Last Admin: 12/05/19 20:36 Dose: Not Given Documented by: Insulin Glargine (Lantus Solostar Pen) 45 units SC PM [facility] Stop: 01/01/20 20:59 Last Admin: 12/05/19 20:32 Dose: 45 units Documented by: Ipratropium [place] (Atrovent Hfa) 1 puffs INH QIDR [facility] Stop: 01/01/20 18:59 Last Admin: 12/06/19 07:01 Dose: 1 puffs Documented by: Ketoconazole (Nizoral 2%) 1 appln EXT BID PRN PRN Reason: antifungal Stop: 12/12/19 16:22 Labetalol HCl (Normodyne) 600 mg PO BID [facility] Stop: 01/01/20 20:59 Last Admin: 12/06/19 08:23 Dose: 600 mg Documented by: Levothyroxine Sodium (Synthroid) 88 mcg PO DAILY@0400 [facility] Stop: 01/02/20 03:59 Last Admin: 12/06/19 03:49 Dose: 88 mcg Documented by: Losartan Potassium (Cozaar) 25 mg PO QPM [facility] Stop: 01/01/20 20:59 Last Admin: 12/05/19 20:34 Dose: 25 mg Documented by: Losartan Potassium (Cozaar) 50 mg PO QAM [facility] Stop: 01/02/20 08:59 Last Admin: 12/06/19 08:23 Dose: 50 mg Documented by: Miscellaneous (Carbohydrates For Hypoglycemia) 15 - 30 gm PO UD PRN PRN Reason: Hypoglycemia Protocol Stop: 01/01/20 14:11 Ondansetron HCl (Zofran) 4 mg IV Q4H PRN PRN Reason: Nausea And Vomiting Stop: 01/01/20 14:11 Simvastatin (Zocor) 10 mg PO PM [facility] Stop: 01/01/20 20:59 Last Admin: 12/05/19 20:36 Dose: 10 mg Documented by: PG Care Time/CCT Total # of Minutes Spent Total Time Spent with Patient: Total time spent is greater than 50% in coordination of care (as documented) at patient's floor/unit and/or counseling patient: Coding Level of Care Code 03270 Subseq Hosp Care Lvl 3 Diagnoses Acute respiratory failure with hypoxia J96.01 Acute on chronic diastolic (congestive) heart failure I50.33 UTI (urinary tract infection) N39.0 Hypertension I10 Iron deficiency anemia D50.9 Dyslipidemia E78.5 Arteriosclerosis of coronary artery I25.10 S/P AVR (aortic valve replacement) Z95.2 Controlled type 2 diabetes mellitus with neurologic complication, with long-term current use of insulin E11.49; Z79.4 Hypothyroidism E03.9 Chronic kidney disease, stage 3 N18.3 Obstructive sleep apnea G47.33 Vitamin D deficiency E55.9 Secondary hyperparathyroidism N25.81 Obesity E66.9 Foot pain, bilateral M79.671; M79.672 DVT prophylaxis Z29.9
[2019-12-06] MEDS: INSULIN ASPART 100 UNITS/ML 3 ML PEN SC SCH ×4 (11:51→21:06)
[2019-12-06] MEDS: FUROSEMIDE 40 MG TAB PO SCH (16:41)
--- NOTE | 2019-12-06 17:29 | XRay Report ---
XR chest 1V portable CLINICAL HISTORY: follow up CHF, atelectasis COMPARISON STUDY: 12/02/2019 FINDINGS: The heart remains enlarged. There is no focal pulmonary consolidation. There is improving c ongestive failure. There is improving aeration at the lung bases. There is no lobar consolidation. Tr vineet pleural effusions cannot be excluded. IMPRESSION: Cardiomegaly and resolving congestive failure. No evidence of lobar consolidation ACT 112: Negative or not required by law. Electronically signed by: Andrae Clements M.D. 12/06/2019 5:27 PM
--- NOTE | 2019-12-06 17:30 | XRay Report ---
XR foot LT 2V CLINICAL HISTORY: severe pain when standing COMPARISON: None. DISCUSSION: The examination is limited from a positioning standpoint secondary to the toes being in f lexion and the metacarpal phalangeal joints being in extension. There are postsurgical changes involv ing the first metatarsal. There are no acute fractures. There are moderate arthritic changes within t he midfoot as well as within the tibiotalar joint. IMPRESSION: 1. 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 No acute fractures identified. ACT 112: Negative or not required by law. Electronically signed by: Andrae Clements M.D. 12/06/2019 5:29 PM
--- NOTE | 2019-12-06 17:31 | XRay Report ---
XR foot RT 2V CLINICAL HISTORY: severe pain when standing COMPARISON: None. DISCUSSION: The study is limited from positioning standpoint. The toes are in flexion the Viroprotech ta rsal phalangeal joints are in extension. There are moderate arthritic changes present within the midf oot. There are mild degenerative changes within the tibiotalar joint. There is a small plantar calcan eal spur. No acute fractures are visualized. IMPRESSION: 1. No acute fractures 2. Moderate arthritic change ACT 112: Negative or not required by law. Electronically signed by: Andrae Clements M.D. 12/06/2019 5:30 PM
[2019-12-06] MEDS: INSULIN GLARGINE SOLOSTAR 100 UNITS/ML 3 ML PEN SC SCH (21:05)
[2019-12-06] MEDS: POTASSIUM CHLORIDE 20 MEQ TABCR PO SCH (21:09)
[2019-12-06] MEDS: SIMVASTATIN 10 MG TAB PO SCH (21:09)
[2019-12-06] MEDS: ASPIRIN 81 MG ECTAB PO SCH (21:11)
[2019-12-06] MEDS: LOSARTAN POTASSIUM 25 MG TAB PO SCH (21:11)
[2019-12-07] MEDS: LEVOTHYROXINE SODIUM 88 MCG TABLET PO SCH (03:21)
[2019-12-07] MEDS: ACETAMINOPHEN 500 MG TAB PO SCH ×2 (03:21→15:48)
[2019-12-07] MEDS: HEPARIN SOD 5,000 UNIT/0.5 ML VIAL SQ SCH ×3 (05:01→21:22)
[2019-12-07] MEDS: IPRATROPIUM BROMIDE HFA INHALER INH SCH ×4 (07:02→19:06)
[2019-12-07] MEDS: ALBUTEROL HFA 8 GM INHALER INH SCH ×4 (07:02→19:06)
[2019-12-07 07:45] LABS: Hematocrit (blood only) 27.8 % (37-47); Hemoglobin 8.2 g/dL (12.0-16.0); Mean Corpuscular Hemoglobin 26.8 pg (25-34); Mean Corpuscular Hgb Conc 29.5 g/dL (32-36); Mean Corpuscular Volume 90.8 fL (80-100); Mean Platelet Volume 9.7 fL (7.4-10.4); Platelet Count 244 K/uL (130-400); RDW Coefficient of Variation 14.9 % (11.5-14.5); RDW Standard Deviation 49.5 fL (36.4-46.3); Red Blood Count 3.06 M/uL (4.2-5.4); White Blood Count 8.79 K/uL (4.8-10.8)
[2019-12-07 08:24] LABS: Albumin Level 2.2 gm/dl (3.4-5.0); BUN Creatinine Ratio 32.5 (10-20); Calcium 8.4 mg/dl (8.5-10.1); Creatinine Clr Calc Pharmacy 31.9 ml/min; Est GFR (African American) 37.7; Est GFR (Non-African American) 32.6; Phosphorus 4.7 mg/dl (2.5-4.9); Potassium 4.2 mmol/L (3.5-5.1)
[2019-12-07] MEDS: INSULIN ASPART 100 UNITS/ML 3 ML PEN SC SCH ×4 (09:22→21:25)
[2019-12-07] MEDS: IRON SUCROSE 200 MG in 0.9 % SODIUM CHLORIDE 100 ML IV SCH (09:25)
[2019-12-07] MEDS: GABAPENTIN 100 MG CAP PO SCH ×4 (09:25→21:15)
[2019-12-07] MEDS: FUROSEMIDE 40 MG TAB PO SCH ×2 (09:25→17:15)
[2019-12-07] MEDS: POTASSIUM CHLORIDE 20 MEQ TABCR PO SCH ×2 (09:25→21:15)
[2019-12-07] MEDS: LOSARTAN POTASSIUM 50 MG TAB PO SCH (09:25)
[2019-12-07] MEDS: LABETALOL HCL 300 MG TAB PO SCH ×2 (09:25→21:16)
--- NOTE | 2019-12-07 11:31 | Nephrology Progress Note ---
Date of Service December 07, 2019 Assessment & Plan (1) Acute on chronic diastolic (congestive) heart failure: Diuretics per cardiology. Clinically improving. (2) Chronic kidney disease, stage 3: Creatinine at baseline. Adequate urine output. Hold NSAIDS as tolerated. Document I/O's. Will follow peripherally. Please call with questions or concerns. (3) Iron deficiency anemia: Venofer 200 mg daily while inpatient, started 12/04/19 Admission and Anticipated Discharge Date Admission Date: December 02, 2019 Subjective No acute events overnight. No fevers or chills. Breathing reasonably comfortably. Foot and ankle pain persist but reasonable control with ibuprofen. Frustrated with fluid restriction.l Review of Systems Review of Systems: All systems reviewed & are unremarkable except as noted in HPI & below Physical Exam Constitutional: well developed and + obese Eyes: no scleral abnormality and no corneal abnormality ENMT: Mouth: no oral mucosal abnormality and oral mucous membranes not dry Neck: normal visual inspection, trachea midline and + thick neck Respiratory: + tachypneic Auscultation: + wheezes Cardiovascular: Rate/Rhythm: regular rate Heart Sounds: normal S1 and normal S2 Extremities: normal capillary refill and + edema Musculoskeletal: Extremities: no cyanosis and no clubbing Skin: normal turgor; no lesions Neurologic: Motor/Sensory: no tremor and no asterixis Psychiatric: Orientation: alert and oriented x 3 Results & Data ([facility]) Vital Signs (Past 12 Hours) Vital Signs Temp Pulse Resp BP BP Pulse Ox 12/07/19 11:10 79 18 95 12/07/19 10:14 36.5 C 72 18 147/74 H 95 12/07/19 09:33 36.4 C L 80 18 153/77 H 96 12/07/19 07:09 68 20 95 12/07/19 07:05 36.3 C L 65 20 138/73 95 12/07/19 06:43 36.5 C 68 20 122/70 95 PG Care Time/CCT Total # of Minutes Spent Total Time Spent with Patient: Total time spent is greater than 50% in coordination of care (as documented) at patient's floor/unit and/or counseling patient: Coding Level of Care Code 55179 Subseq Hosp Care Lvl 3 Diagnoses Acute on chronic diastolic (congestive) heart failure I50.33 Chronic kidney disease, stage 3 N18.3 Iron deficiency anemia D50.9
--- NOTE | 2019-12-07 13:03 | Cardiology Progress Note ---
Date of Service December 07, 2019 Assessment & Plan (1) Acute on chronic diastolic (congestive) heart failure: -now on Lasix 40 mg po b.i.d.. -current echocardiogram limited. -study in June noted normal left ventricular systolic function and a properly functioning bioprosthetic aortic valve. (2) Hypertension: -adequate control. (3) S/P AVR (aortic valve replacement): -acceptable gradient across the prosthetic valve on current echocardiogram. Admission and Anticipated Discharge Date Admission Date: December 02, 2019 Subjective The patient is resting comfortably in bed without complaints of chest pain or dyspnea. Physical Exam Physical Exam: In general this is a well-developed well-nourished white female in no acute distress. HEENT exam is negative. Neck is supple with full carotid upstrokes. There are no carotid bruits. No JVD. There is no thyromegaly. Cardiovascular exam reveals a regular rhythm with distant heart sounds. S1 and S2 were normal. A 1/6 basal systolic ejection murmur is noted. Lungs are clear without rales, rhonchi, or wheezes. Abdomen is obese without bruits. Extremities reveal intact radial artery pulses bilaterally. Trace pretibial edema is noted. Right knee shows a well-healed scar. Results & Data ([facility]) Vital Signs (Past 12 Hours) Vital Signs Temp Pulse Resp BP BP Pulse Ox 12/07/19 11:10 79 18 95 12/07/19 10:14 36.5 C 72 18 147/74 H 95 12/07/19 09:33 36.4 C L 80 18 153/77 H 96 12/07/19 07:09 68 20 95 12/07/19 07:05 36.3 C L 65 20 138/73 95 12/07/19 06:43 36.5 C 68 20 122/70 95 PG Care Time/CCT Total # of Minutes Spent Total Time Spent with Patient: Total time spent is greater than 50% in coordination of care (as documented) at patient's floor/unit and/or counseling patient: Coding Level of Care Code 67460 Subseq Hosp Care Lvl 3 Diagnoses Acute on chronic diastolic (congestive) heart failure I50.33 Hypertension I10 S/P AVR (aortic valve replacement) Z95.2
--- NOTE | 2019-12-07 13:42 | Hospitalist Progress Note ---
Date of Service December 07, 2019 Assessment & Plan (1) Acute respiratory failure with hypoxia: 79 female presented with worsening shortness of breath, hypoxic with O2 sat of 73% on RA and work of breathing/use of accessory muscles in ER requiring BiPAP. Likely secondary to acute chf exacerbation. BNP elevated at 7022. * quickly titrated to nasal canula, stable on 2L today, again tried to titrate down on oxygen, not successful * cannot perform two step yet as she is not walking * CXR with pulmonary edema, exacerbation of CHF on admission repeat CXR on 12/05 with resolving edema, no pneumonia * ECHO with mildly dilated LV with mildly reduced systolic function, EF 45--50% (Jun 2019 with EF 55-60%) and mod-severe mitral annular calcification with mildly elevated transvalvular gradient suggesting mild MS. Per cardiology, patient on BiPAP and study may not be entirely accurate. repeat limited echo on 12/05/19: EF is 45-50% * weight going down, less edema every day * Cr is 1.5, continue Lasix 40mg PO BID (2) Acute on chronic diastolic (congestive) heart failure: * Acute exacerbation * CXR with cardiomegaly with evidence of congestive failure, trace pleural effusions, airspace opacities lung bases, likely atelectassis repeat CXR on 12/06/19 - less edema, no pneumonia * Consult cardiology, follows with Dr. Wolf as an outpatient -- appreciate assistance Gloria ANGELES following now as well with the CHF clinic * Troponin mildly elevated with peak 0.25, trending down. No chest pain, EKG showing RBBB, no ST wave changes or signs of ischemia, unlikely ACS * AHA diet. Fluid restriction -- 1500mL/day * negative 3.9 liters, weight trending down but likely not accurate as it is a bed weight, still cannot stand for weight * Cr is 1.5, will change Lasix to 40mg PO BID, follow UO and renal function * K is normal * will give a one time dose of Zaroxolyn 5mg again tomorrow to see if she has any further diuresis (3) UTI (urinary tract infection): * Previously seen by PCP 11/30 with UA c/w infection and reported fevers, chills and was initiated on Macrobid * UA on admission with trace blood, 2+ leuk est, >30WBC, 5-10 epi * no growth on culture, stop Rocephin, no fever (4) Hypertension: * BP well controlled currently, continue labetalol 600 mg twice daily, losartan 25 and 50 mg, aggressive diuresis as above\ * Lasix 40mg PO BID (5) Iron deficiency anemia: * History of such, continue iron daily. * H/h low today at 8.2 but stable * MCV 87.5 * Hemoccult all stools * No s/sx overt bleeding. INR 1.1 * will give Venofer as Iron saturation low, give daily, started on 12/03, today is 4th dose (6) Dyslipidemia: * Continue simvastatin 10 mg daily (7) Arteriosclerosis of coronary artery: * Continue medication as above, ASA, simvastatin 10mg (8) S/P AVR (aortic valve replacement): * History of such in 2015, last echo revealed well functioning AV valve in June 2019. ECHO as above (9) Controlled type 2 diabetes mellitus with neurologic complication, with long- term current use of insulin: * With neuropathy * Continue Lantus 45 units QPM * ISS with Accu-Cheks AC at bedtime * A1c was last 6.7 on 06/15/2019, recheck with a.m. labs * monitor for hypoglycemia, no episodes (10) Hypothyroidism: * Continue levothyroxine 88 mcg daily. TSH 1.03 (11) Chronic kidney disease, stage 3: * Cr stable at 1.5 * Continue diuresis as above * Nephrology consult -- appreciate assistance (requested per patient) * repeat BMP in the morning (12) Obstructive sleep apnea: * Wears CPAP at night routinely, she is refusing to wear out mask here (13) Vitamin D deficiency: * Continue monthly supplementation (14) Secondary hyperparathyroidism: * Noted. May benefit from increased Vit D therapy. (15) Obesity: * BMI = 47.4, diet and exercise to be encouraged upon discharge (16) Foot pain, bilateral: difficult to determine etiology not much pain on palpation, pain is described as being on the bottom of her feet cannot use NSAIDs due to renal function would not use Prednisone as she is already trending with hyperglycemic episodes does not sound like neuropathic pain but perhaps a trial of Neurontin could benefit as other options limited will start on Neurontin 100mg BID, will increase this to TID today, she says it is helping bilateral foot x-ray show no fractures, mild arthritis, no role for inpatient podiatry consult, will recommend she see them in office (17) DVT prophylaxis: * teds, heparin subcu CODE: Full code Dispo: consult PT/OT, ask family to bring in her shoes from home as she has difficult time standing without them still encouraging her to work more with therapy, working towards getting her home she may need rehab, see how she does today will likely need a two step prior to discharge Admission and Anticipated Discharge Date Admission Date: December 02, 2019 Subjective patient says she is having less pain in her feet, can move them easier today reviewed foot x-ray, no fractures, some mild arthritic changes CXR reviewed, no pneumonia, less congestive changes yesterday breathing is at baseline according to the patient explained that she still needs to get moving better, cannot send her home safely at this point will update her family later today labs show Hb 8.2, Cr stable at 1.5 on the Lasix BID Review of Systems 2 Review of Systems: All systems reviewed & are unremarkable except as noted in HPI & below Respiratory: + dyspnea on exertion and + wheezing (chronic); no cough and no dyspnea Cardiovascular: + edema; no chest pain Musculoskeletal: + joint pain (foot pain, less intense) Physical Exam Constitutional: well developed, + overweight and + edematous; no acute distress Eyes: PERRL, conjunctivae normal, anicteric sclerae ENMT: external ear and nose normal, oropharynx normal Neck: trachea midline, no thyromegaly Respiratory: normal respiratory effort, + cough and + audible wheezes Auscultation: + diminished lung sounds; no wheezes Cardiovascular: Rate/Rhythm: regular rhythm and + tachycardic Heart Sounds: normal S1 and normal S2; no murmur Extremities: normal capillary refill and + edema Gastrointestinal (Abdomen): normal bowel sounds, soft, nontender, no hepatosplenomegaly Musculoskeletal: no cyanosis or clubbing, extremities motor strength 5/5 (no pain in feet with palpation) Skin: no rashes, warm and dry Neurologic: patellar DTR's 2+ bilat, sensation intact and PERRL, EOMI, accommodation nl, no face palsy, no dysarthria Psychiatric: A+Ox3, euthymic affect Lymphatic: no cervical or axillary lymphadenopathy Results & Data Results & Data ([facility]) Vital Signs (Past 12 Hours) Vital Signs Temp Pulse Resp BP BP Pulse Ox 12/07/19 11:10 79 18 95 12/07/19 10:14 36.5 C 72 18 147/74 H 95 12/07/19 09:33 36.4 C L 80 18 153/77 H 96 12/07/19 07:09 68 20 95 12/07/19 07:05 36.3 C L 65 20 138/73 95 12/07/19 06:43 36.5 C 68 20 122/70 95 Laboratory Results Laboratory Results - last 24 hr 12/06/19 12/06/19 12/07/19 16:28 20:12 06:02 WBC RBC Hgb Hct MCV MCH MCHC RDW Std Deviation RDW Coeff of Nella Plt Count MPV Sodium 142 Potassium 4.2 D Chloride 103 Carbon Dioxide 33 H Anion Gap 6.0 BUN 49 H Creatinine 1.50 H Est Cr Clr Drug Dosing 31.9 Est GFR ( Amer) 37.7 Est GFR (Non-Af Amer) 32.6 BUN/Creatinine Ratio 32.5 H Glucose 112 H POC Glucose 141 H 174 H Calcium 8.4 L Phosphorus 4.7 Albumin 2.2 L 12/07/19 12/07/19 12/07/19 06:02 08:18 12:20 WBC 8.79 RBC 3.06 L Hgb 8.2 L Hct 27.8 L MCV 90.8 MCH 26.8 MCHC 29.5 L RDW Std Deviation 49.5 H RDW Coeff of Nella 14.9 H Plt Count 244 MPV 9.7 Sodium Potassium Chloride Carbon Dioxide Anion Gap BUN Creatinine Est Cr Clr Drug Dosing Est GFR ( Amer) Est GFR (Non-Af Amer) BUN/Creatinine Ratio Glucose POC Glucose 128 H 194 H Calcium Phosphorus Albumin Medications Administered Current Inpatient Medications Acetaminophen (Tylenol) 1,000 mg PO BID@0400,1600 [facility] Stop: 01/03/20 15:59 Last Admin: 12/07/19 03:21 Dose: 1,000 mg Documented by: Albuterol (Ventolin Hfa) 1 puffs INH QIDR [facility] Stop: 01/01/20 16:59 Last Admin: 12/07/19 11:08 Dose: 1 puffs Documented by: Albuterol (Ventolin 0.083% 2.5mg/3ml) 2.5 mg NEB Q6R PRN PRN Reason: Wheezing Stop: 01/02/20 10:24 Last Admin: 12/05/19 08:54 Dose: 2.5 mg Documented by: Aspirin (Ecotrin Ectab) 81 mg PO PM JIM[facility] Stop: 01/01/20 20:59 Last Admin: 12/06/19 21:11 Dose: 81 mg Documented by: Dextrose (Dextrose 50%) 25 - 50 ml IV UD PRN; Protocol PRN Reason: Hypoglycemia Protocol Stop: 01/01/20 14:11 Ferrous Sulfate (Feosol) 325 mg PO DAILY JIMBO Stop: 01/02/20 08:59 Last Admin: 12/05/19 08:23 Dose: 325 mg Documented by: Furosemide (Lasix) 40 mg PO BID17 [facility] Stop: 01/05/20 16:59 Last Admin: 12/07/19 09:25 Dose: 40 mg Documented by: Gabapentin (Neurontin) 100 mg PO TID [facility] Stop: 01/06/20 13:59 Glucagon (Glucagen) 1 mg SQ UD PRN; Protocol PRN Reason: Hypoglycemia Protocol Stop: 01/01/20 14:11 Glucose (Dex4 Glucose) 4 - 8 tabs PO UD PRN; Protocol PRN Reason: Hypoglycemia Protocol Stop: 01/01/20 14:11 Glucose (Glucose 40%) 15 - 30 gm PO UD PRN; Protocol PRN Reason: Hypoglycemia Protocol Stop: 01/01/20 14:11 Heparin Sodium (Porcine) (Heparin Sodium (Porcine)) 5,000 units SQ Q8 [facility] Stop: 01/01/20 21:59 Last Admin: 12/07/19 13:28 Dose: 5,000 units Documented by: Iron Sucrose 200 mg/ Sodium (Chloride) 110 mls @ 220 mls/hr IV DAILY JIM[facility] Stop: 12/09/19 09:29 Last Infusion: 12/07/19 10:15 Dose: Infused Documented by: Insulin Aspart (Novolog Flexpen) 0 units SC ACHS JIM[facility] Stop: 01/01/20 16:29 Last Admin: 12/07/19 13:28 Dose: 4 units Documented by: Insulin Glargine (Lantus Solostar Pen) 45 units SC PM [facility] Stop: 01/01/20 20:59 Last Admin: 12/06/19 21:05 Dose: 45 units Documented by: Ipratropium [place] (Atrovent Hfa) 1 puffs INH QIDR [facility] Stop: 01/01/20 18:59 Last Admin: 12/07/19 11:08 Dose: 1 puffs Documented by: Ketoconazole (Nizoral 2%) 1 appln EXT BID PRN PRN Reason: antifungal Stop: 12/12/19 16:22 Labetalol HCl (Normodyne) 600 mg PO BID [facility] Stop: 01/01/20 20:59 Last Admin: 12/07/19 09:25 Dose: 600 mg Documented by: Levothyroxine Sodium (Synthroid) 88 mcg PO DAILY@0400 [facility] Stop: 01/02/20 03:59 Last Admin: 12/07/19 03:21 Dose: 88 mcg Documented by: Losartan Potassium (Cozaar) 25 mg PO QPM [facility] Stop: 01/01/20 20:59 Last Admin: 12/06/19 21:11 Dose: 25 mg Documented by: Losartan Potassium (Cozaar) 50 mg PO QAM [facility] Stop: 01/02/20 08:59 Last Admin: 12/07/19 09:25 Dose: 50 mg Documented by: Metolazone (Zaroxolyn) 5 mg PO QAM [facility] Stop: 01/07/20 08:59 Miscellaneous (Carbohydrates For Hypoglycemia) 15 - 30 gm PO UD PRN PRN Reason: Hypoglycemia Protocol Stop: 01/01/20 14:11 Ondansetron HCl (Zofran) 4 mg IV Q4H PRN PRN Reason: Nausea And Vomiting Stop: 01/01/20 14:11 Potassium Chloride (Klor-Con M20) 20 meq PO BID [facility] Stop: 01/05/20 20:59 Last Admin: 12/07/19 09:25 Dose: 20 meq Documented by: Simvastatin (Zocor) 10 mg PO PM [facility] Stop: 01/01/20 20:59 Last Admin: 12/06/19 21:09 Dose: 10 mg Documented by: PG Care Time/CCT Total # of Minutes Spent Total Time Spent with Patient: Total time spent is greater than 50% in coordination of care (as documented) at patient's floor/unit and/or counseling patient: Coding Level of Care Code 61965 Subseq Hosp Care Lvl 2 Diagnoses Acute respiratory failure with hypoxia J96.01 Acute on chronic diastolic (congestive) heart failure I50.33 UTI (urinary tract infection) N39.0 Hypertension I10 Iron deficiency anemia D50.9 Dyslipidemia E78.5 Arteriosclerosis of coronary artery I25.10 S/P AVR (aortic valve replacement) Z95.2 Controlled type 2 diabetes mellitus with neurologic complication, with long-term current use of insulin E11.49; Z79.4 Hypothyroidism E03.9 Chronic kidney disease, stage 3 N18.3 Obstructive sleep apnea G47.33 Vitamin D deficiency E55.9 Secondary hyperparathyroidism N25.81 Obesity E66.9 Foot pain, bilateral M79.671; M79.672 DVT prophylaxis Z29.9
[2019-12-07] MEDS ORDERED: FLUTICASONE/SALMETEROL 250/50 (ADVAIR) 14 PUFF/1 INHALER INH SCH (21:00)
[2019-12-07] MEDS: LOSARTAN POTASSIUM 25 MG TAB PO SCH (21:14)
[2019-12-07] MEDS: ASPIRIN 81 MG ECTAB PO SCH (21:14)
[2019-12-07] MEDS: SIMVASTATIN 10 MG TAB PO SCH (21:22)
[2019-12-07] MEDS: INSULIN GLARGINE SOLOSTAR 100 UNITS/ML 3 ML PEN SC SCH (21:23)
[2019-12-08] MEDS: HEPARIN SOD 5,000 UNIT/0.5 ML VIAL SQ SCH ×3 (04:25→20:56)
[2019-12-08] MEDS: LEVOTHYROXINE SODIUM 88 MCG TABLET PO SCH (04:26)
[2019-12-08] MEDS: ACETAMINOPHEN 500 MG TAB PO SCH ×2 (04:26→15:46)
[2019-12-08 05:34] LABS: Hematocrit (blood only) 27.4 % (37-47); Hemoglobin 8.3 g/dL (12.0-16.0); Mean Corpuscular Hemoglobin 27.1 pg (25-34); Mean Corpuscular Hgb Conc 30.3 g/dL (32-36); Mean Corpuscular Volume 89.5 fL (80-100); Mean Platelet Volume 9.2 fL (7.4-10.4); Platelet Count 266 K/uL (130-400); RDW Standard Deviation 48.8 fL (36.4-46.3); Red Blood Count 3.06 M/uL (4.2-5.4); White Blood Count 9.09 K/uL (4.8-10.8)
[2019-12-08 06:00] LABS: Albumin Level 2.2 gm/dl (3.4-5.0); BUN Creatinine Ratio 33.2 (10-20); Calcium 8.5 mg/dl (8.5-10.1); Est GFR (African American) 36.6; Est GFR (Non-African American) 31.5; Potassium 4.7 mmol/L (3.5-5.1)
[2019-12-08 06:01] LABS: Phosphorus 3.9 mg/dl (2.5-4.9)
[2019-12-08] MEDS: IPRATROPIUM BROMIDE HFA INHALER INH SCH ×4 (07:11→19:22)
[2019-12-08] MEDS: ALBUTEROL HFA 8 GM INHALER INH SCH ×4 (07:11→19:22)
[2019-12-08] MEDS ORDERED: metOLazone 5 MG TABLET PO SCH (08:30)
[2019-12-08] MEDS: FLUTICASONE/VILANTEROL 100/25MCG 14 PUFFS/INHALER INH SCH (08:53)
[2019-12-08] MEDS: UMECLIDINIUM BROMIDE 62.5MCG/BLISTER 7 PUFFS/INHALER INH SCH (08:53)
[2019-12-08] MEDS: LABETALOL HCL 300 MG TAB PO SCH ×2 (08:53→20:51)
[2019-12-08] MEDS: POTASSIUM CHLORIDE 20 MEQ TABCR PO SCH ×2 (08:54→20:50)
[2019-12-08] MEDS: FUROSEMIDE 40 MG TAB PO SCH ×2 (08:54→17:10)
[2019-12-08] MEDS: LOSARTAN POTASSIUM 50 MG TAB PO SCH (08:54)
[2019-12-08] MEDS ORDERED: TIOTROPIUM BROMIDE 5 PUFF/90 MCG INH INH SCH (09:00)
[2019-12-08] MEDS ORDERED: GABAPENTIN 100 MG CAP PO SCH (09:00)
[2019-12-08] MEDS: INSULIN ASPART 100 UNITS/ML 3 ML PEN SC SCH ×4 (09:01→21:00)
[2019-12-08] MEDS: IRON SUCROSE 200 MG in 0.9 % SODIUM CHLORIDE 100 ML IV SCH (09:32)
--- NOTE | 2019-12-08 09:36 | Nephrology Progress Note ---
Date of Service December 08, 2019 Assessment & Plan (1) Acute on chronic diastolic (congestive) heart failure: Diuretics per cardiology. Clinically improving. (2) Chronic kidney disease, stage 3: Creatinine at baseline. Adequate urine output. Hold NSAIDS as tolerated. Document I/O's. Will follow peripherally. Please call with questions or concerns. (3) Iron deficiency anemia: Venofer 200 mg daily while inpatient, started 12/04/19 Admission and Anticipated Discharge Date Admission Date: December 02, 2019 Subjective No acute events overnight. Resting in bedside chair this morning. Pain in her feet improved with gabapentin. Tolerating the medication well. Overall, she feels well and hopes to be discharged home soon. Feels her breathing is at baseline. Review of Systems Review of Systems: All systems reviewed & are unremarkable except as noted in HPI & below Physical Exam Physical Exam: Deferred due to COVID 19 pandemic Results & Data ([place]) Vital Signs (Past 12 Hours) Vital Signs Temp Pulse Resp BP Pulse Ox 12/08/19 07:20 36.7 C 67 26 H 161/74 H 95 12/08/19 07:12 68 30 H 95 12/07/19 23:11 36.6 C 75 28 H 115/72 97 Laboratory Results Laboratory Results - last 24 hr 12/07/19 12/07/19 12/07/19 12:20 16:54 20:40 WBC RBC Hgb Hct MCV MCH MCHC RDW Std Deviation RDW Coeff of Nella Plt Count MPV Sodium Potassium Chloride Carbon Dioxide Anion Gap BUN Creatinine Est Cr Clr Drug Dosing Est GFR ( Amer) Est GFR (Non-Af Amer) BUN/Creatinine Ratio Glucose POC Glucose 194 H 142 H 409 H* Calcium Phosphorus Albumin 12/07/19 12/07/19 12/08/19 20:41 20:43 04:58 WBC RBC Hgb Hct MCV MCH MCHC RDW Std Deviation RDW Coeff of Nella Plt Count MPV Sodium 141 Potassium 4.7 Chloride 104 Carbon Dioxide 35 H Anion Gap 2.0 L BUN 51 H Creatinine 1.54 H Est Cr Clr Drug Dosing 31.0 Est GFR ( Amer) 36.6 Est GFR (Non-Af Amer) 31.5 BUN/Creatinine Ratio 33.2 H Glucose 106 H POC Glucose 180 H 169 H Calcium 8.5 Phosphorus 3.9 Albumin 2.2 L 12/08/19 12/08/19 04:58 08:20 WBC 9.09 RBC 3.06 L Hgb 8.3 L Hct 27.4 L MCV 89.5 MCH 27.1 MCHC 30.3 L RDW Std Deviation 48.8 H RDW Coeff of Nella 15.0 H Plt Count 266 MPV 9.2 Sodium Potassium Chloride Carbon Dioxide Anion Gap BUN Creatinine Est Cr Clr Drug Dosing Est GFR ( Amer) Est GFR (Non-Af Amer) BUN/Creatinine Ratio Glucose POC Glucose 124 H Calcium Phosphorus Albumin PG Care Time/CCT Total # of Minutes Spent Total Time Spent with Patient: Total time spent is greater than 50% in coordination of care (as documented) at patient's floor/unit and/or counseling patient: Coding Level of Care Code 32257 Subseq Hosp Care Lvl 3 Diagnoses Acute on chronic diastolic (congestive) heart failure I50.33 Chronic kidney disease, stage 3 N18.3 Iron deficiency anemia D50.9
--- NOTE | 2019-12-08 16:04 | Hospitalist Progress Note ---
Date of Service December 08, 2019 Assessment & Plan (1) Acute respiratory failure with hypoxia: 79 female presented with worsening shortness of breath, hypoxic with O2 sat of 73% on RA and work of breathing/use of accessory muscles in ER requiring BiPAP. Likely secondary to acute chf exacerbation. BNP elevated at 7022. * quickly titrated to nasal canula, stable on 2L today * cannot perform two step yet as she is not walking, benefit of going to rehab is that she would have oxygen, try to titrate off as she is more mobilie * suspect that she may have been requiring oxygen at baseline as she was not in distress with saturation in low 80's * if she goes to rehab then keep oxygen, if no rehab then will need a two step and get qualified for home oxygen * CXR with pulmonary edema, exacerbation of CHF on admission repeat CXR on 12/05 with resolving edema, no pneumonia * ECHO with mildly dilated LV with mildly reduced systolic function, EF 45--50% (Jun 2019 with EF 55-60%) and mod-severe mitral annular calcification with mildly elevated transvalvular gradient suggesting mild MS. Per cardiology, patient on BiPAP and study may not be entirely accurate. repeat limited echo on 12/05/19: EF is 45-50% * weight going down, less edema every day * Cr is 1.54, continue Lasix 40mg PO BID (2) Acute on chronic diastolic (congestive) heart failure: * Acute exacerbation * CXR with cardiomegaly with evidence of congestive failure, trace pleural effusions, airspace opacities lung bases, likely atelectassis repeat CXR on 12/06/19 - less edema, no pneumonia * Consult cardiology, follows with Dr. Wolf as an outpatient -- appreciate assistance Gloria ANGELES following now as well with the CHF clinic * Troponin mildly elevated with peak 0.25, trending down. No chest pain, EKG showing RBBB, no ST wave changes or signs of ischemia, unlikely ACS * AHA diet. Fluid restriction -- 1500mL/day * negative 5.2 liters, weight trending down but likely not accurate as it is a bed weight, still cannot stand for weight * Cr is 1.54, will continue Lasix 40mg PO BID, follow UO and renal function * K is normal (3) UTI (urinary tract infection): * Previously seen by PCP 11/30 with UA c/w infection and reported fevers, chills and was initiated on Macrobid * UA on admission with trace blood, 2+ leuk est, >30WBC, 5-10 epi * no growth on culture, stop Rocephin, no fever (4) Hypertension: * BP well controlled currently, continue labetalol 600 mg twice daily, losartan 25 and 50 mg, aggressive diuresis as above\ * Lasix 40mg PO BID (5) Iron deficiency anemia: * History of such, continue iron daily. * H/h low today at 8.2 but stable * MCV 87.5 * Hemoccult all stools * No s/sx overt bleeding. INR 1.1 * will give Venofer as Iron saturation low, give daily, started on 12/03, today is 5th dose (6) Dyslipidemia: * Continue simvastatin 10 mg daily (7) Arteriosclerosis of coronary artery: * Continue medication as above, ASA, simvastatin 10mg (8) S/P AVR (aortic valve replacement): * History of such in 2015, last echo revealed well functioning AV valve in June 2019. ECHO as above (9) Controlled type 2 diabetes mellitus with neurologic complication, with long- term current use of insulin: * With neuropathy * Continue Lantus 45 units QPM * ISS with Accu-Cheks AC at bedtime * A1c was last 6.7 on 06/15/2019, recheck with a.m. labs * monitor for hypoglycemia, no episodes (10) Hypothyroidism: * Continue levothyroxine 88 mcg daily. TSH 1.03 (11) Chronic kidney disease, stage 3: * Cr stable at 1.54 * Continue diuresis as above * Nephrology consult -- appreciate assistance (requested per patient) * repeat BMP in the morning (12) Obstructive sleep apnea: * Wears CPAP at night routinely, she is refusing to wear our mask here (13) Vitamin D deficiency: * Continue monthly supplementation (14) Secondary hyperparathyroidism: * Noted. May benefit from increased Vit D therapy. (15) Obesity: * BMI = 47.4, diet and exercise to be encouraged upon discharge (16) Foot pain, bilateral: difficult to determine etiology not much pain on palpation, pain is described as being on the bottom of her feet cannot use NSAIDs due to renal function would not use Prednisone as she is already trending with hyperglycemic episodes does not sound like neuropathic pain but perhaps a trial of Neurontin could benefit as other options limited will start on Neurontin 100mg BID, when dose increased yesterday she c/o some diplopia, reduce back to 100mg BID bilateral foot x-ray show no fractures, mild arthritis, no role for inpatient podiatry consult, will recommend she see them in office (17) COPD (chronic obstructive pulmonary disease): suspect she has COPD, has audible wheezing, family says she has been doing this for years cannot find any PFT in the outpatient records spoke with her daughter, would recommend she get PFT she uses Combivent at home start on Spiriva daily and Advair BID on 12/06, she is tolerating well recommend follow up visit with pulmonary once she is back home, get PFT (18) DVT prophylaxis: * teds, heparin subcu CODE: Full code Dispo: consult PT/OT, ask family to bring in her shoes from home as she has difficult time standing without them still encouraging her to work more with therapy, working towards getting her home she may need rehab, see how she does today will likely need a two step prior to discharge Admission and Anticipated Discharge Date Admission Date: December 02, 2019 Subjective patient sitting up in chair today, the best I have seen her all admission breathing is stable, minimal audible wheezing she is eating well less pain in feet but now she admits to some numbness she had some diplopia last night, told her family about it but failed to mention it to me discussed with her daughter, could be side effect of neurontin, will cut dose back to 100mg BID reviewed labs, Cr is 1.5, K stable, hb 8.3 spoke with CM, awaiting insurance approval for [facility], may need peer to peer review patient is now thinking that she could go home explained at length that she cannot go home, she is no where close to her baseline mobility she admits this explained that she has several new medical issues such as hypoxia, neuropathy, treating COPD, acute on chronic heart failure, worsening anemia she needs to have these followed closely Review of Systems Review of Systems: All systems reviewed & are unremarkable except as noted in HPI & below Constitutional: + fatigue and + weakness; no fever Respiratory: + dyspnea on exertion; no cough, no dyspnea and no wheezing Cardiovascular: + edema; no chest pain Gastrointestinal: no abdominal pain, no nausea, no vomiting, no constipation and no diarrhea/loose stools Musculoskeletal: + joint pain (foot pain) Physical Exam Constitutional: well developed, + overweight and + edematous; no acute distress Eyes: PERRL, conjunctivae normal, anicteric sclerae ENMT: external ear and nose normal, oropharynx normal Neck: trachea midline, no thyromegaly Respiratory: normal respiratory effort Auscultation: + diminished lung sounds; no wheezes Cardiovascular: Rate/Rhythm: regular rate and regular rhythm Heart Sounds: normal S1 and normal S2; no murmur Extremities: normal capillary refill and + edema Gastrointestinal (Abdomen): normal bowel sounds, soft, nontender, no hepatosplenomegaly Musculoskeletal: no cyanosis or clubbing, extremities motor strength 5/5 (no pain in feet with palpation) Skin: no rashes, warm and dry Neurologic: patellar DTR's 2+ bilat, sensation intact and PERRL, EOMI, accommodation nl, no face palsy, no dysarthria Psychiatric: A+Ox3, euthymic affect Lymphatic: no cervical or axillary lymphadenopathy Results & Data Results & Data ([facility]) Vital Signs (Past 12 Hours) Vital Signs Temp Pulse Resp BP BP Pulse Ox 12/08/19 15:13 76 24 98 12/08/19 15:08 36.3 C L 67 28 H 145/84 H 98 12/08/19 11:43 96 12/08/19 10:59 64 14 98 12/08/19 07:20 36.7 C 67 26 H 161/74 H 95 12/08/19 07:12 68 30 H 95 Laboratory Results Laboratory Results - last 24 hr 12/07/19 12/07/19 12/07/19 16:54 20:40 20:41 WBC RBC Hgb Hct MCV MCH MCHC RDW Std Deviation RDW Coeff of Nella Plt Count MPV Sodium Potassium Chloride Carbon Dioxide Anion Gap BUN Creatinine Est Cr Clr Drug Dosing Est GFR ( Amer) Est GFR (Non-Af Amer) BUN/Creatinine Ratio Glucose POC Glucose 142 H 409 H* 180 H Calcium Phosphorus Albumin 12/07/19 12/08/19 12/08/19 20:43 04:58 04:58 WBC 9.09 RBC 3.06 L Hgb 8.3 L Hct 27.4 L MCV 89.5 MCH 27.1 MCHC 30.3 L RDW Std Deviation 48.8 H RDW Coeff of Nella 15.0 H Plt Count 266 MPV 9.2 Sodium 141 Potassium 4.7 Chloride 104 Carbon Dioxide 35 H Anion Gap 2.0 L BUN 51 H Creatinine 1.54 H Est Cr Clr Drug Dosing 31.0 Est GFR ( Amer) 36.6 Est GFR (Non-Af Amer) 31.5 BUN/Creatinine Ratio 33.2 H Glucose 106 H POC Glucose 169 H Calcium 8.5 Phosphorus 3.9 Albumin 2.2 L 12/08/19 12/08/19 08:20 11:52 WBC RBC Hgb Hct MCV MCH MCHC RDW Std Deviation RDW Coeff of Nella Plt Count MPV Sodium Potassium Chloride Carbon Dioxide Anion Gap BUN Creatinine Est Cr Clr Drug Dosing Est GFR ( Amer) Est GFR (Non-Af Amer) BUN/Creatinine Ratio Glucose POC Glucose 124 H 201 H Calcium Phosphorus Albumin Medications Administered Current Inpatient Medications Acetaminophen (Tylenol) 1,000 mg PO BID@0400,1600 [facility] Stop: 01/03/20 15:59 Last Admin: 12/08/19 15:46 Dose: 1,000 mg Documented by: Albuterol (Ventolin Hfa) 1 puffs INH QIDR JIMBO Stop: 01/01/20 16:59 Last Admin: 12/08/19 15:12 Dose: 1 puffs Documented by: Albuterol (Ventolin 0.083% 2.5mg/3ml) 2.5 mg NEB Q6R PRN PRN Reason: Wheezing Stop: 01/02/20 10:24 Last Admin: 12/05/19 08:54 Dose: 2.5 mg Documented by: Aspirin (Ecotrin Ectab) 81 mg PO PM JIMBO Stop: 01/01/20 20:59 Last Admin: 12/07/19 21:14 Dose: 81 mg Documented by: Dextrose (Dextrose 50%) 25 - 50 ml IV UD PRN; Protocol PRN Reason: Hypoglycemia Protocol Stop: 01/01/20 14:11 Ferrous Sulfate (Feosol) 325 mg PO DAILY JIMBO Stop: 01/02/20 08:59 Last Admin: 12/05/19 08:23 Dose: 325 mg Documented by: Fluticasone/Vilanterol (Breo Ellipta 100/25 Mcg Inh) 1 puffs INH DAILY [facility] Stop: 01/07/20 08:59 Last Admin: 12/08/19 08:53 Dose: 1 puffs Documented by: Furosemide (Lasix) 40 mg PO BID17 JIMBO Stop: 01/05/20 16:59 Last Admin: 12/08/19 08:54 Dose: 40 mg Documented by: Gabapentin (Neurontin) 100 mg PO BID JIMBO Stop: 01/07/20 20:59 Glucagon (Glucagen) 1 mg SQ UD PRN; Protocol PRN Reason: Hypoglycemia Protocol Stop: 01/01/20 14:11 Glucose (Dex4 Glucose) 4 - 8 tabs PO UD PRN; Protocol PRN Reason: Hypoglycemia Protocol Stop: 01/01/20 14:11 Glucose (Glucose 40%) 15 - 30 gm PO UD PRN; Protocol PRN Reason: Hypoglycemia Protocol Stop: 01/01/20 14:11 Heparin Sodium (Porcine) (Heparin Sodium (Porcine)) 5,000 units SQ Q8 JIMBO Stop: 01/01/20 21:59 Last Admin: 12/08/19 13:50 Dose: 5,000 units Documented by: Iron Sucrose 200 mg/ Sodium (Chloride) 110 mls @ 220 mls/hr IV DAILY JIMBO Stop: 12/09/19 09:29 Last Infusion: 12/08/19 10:15 Dose: Infused Documented by: Insulin Aspart (Novolog Flexpen) 0 units SC ACHS JIMBO Stop: 01/01/20 16:29 Last Admin: 12/08/19 13:04 Dose: 7 units Documented by: Insulin Glargine (Lantus Solostar Pen) 45 units SC PM JIMBO Stop: 01/01/20 20:59 Last Admin: 12/07/19 21:23 Dose: 45 units Documented by: Ipratropium [place] (Atrovent Hfa) 1 puffs INH QIDR JIMBO Stop: 01/01/20 18:59 Last Admin: 12/08/19 15:13 Dose: 1 puffs Documented by: Ketoconazole (Nizoral 2%) 1 appln EXT BID PRN PRN Reason: antifungal Stop: 12/12/19 16:22 Labetalol HCl (Normodyne) 600 mg PO BID [facility] Stop: 01/01/20 20:59 Last Admin: 12/08/19 08:53 Dose: 600 mg Documented by: Levothyroxine Sodium (Synthroid) 88 mcg PO DAILY@0400 JIM[facility] Stop: 07/07/20 03:59 Last Admin: 12/08/19 04:26 Dose: 88 mcg Documented by: Losartan Potassium (Cozaar) 25 mg PO QPM JIMBO Stop: 01/01/20 20:59 Last Admin: 12/07/19 21:14 Dose: 25 mg Documented by: Losartan Potassium (Cozaar) 50 mg PO QAM JIMBO Stop: 01/02/20 08:59 Last Admin: 12/08/19 08:54 Dose: 50 mg Documented by: Miscellaneous (Carbohydrates For Hypoglycemia) 15 - 30 gm PO UD PRN PRN Reason: Hypoglycemia Protocol Stop: 01/01/20 14:11 Ondansetron HCl (Zofran) 4 mg IV Q4H PRN PRN Reason: Nausea And Vomiting Stop: 01/01/20 14:11 Potassium Chloride (Klor-Con M20) 20 meq PO BID JIMBO Stop: 01/05/20 20:59 Last Admin: 12/08/19 08:54 Dose: 20 meq Documented by: Simvastatin (Zocor) 10 mg PO PM JIMBO Stop: 01/01/20 20:59 Last Admin: 12/07/19 21:22 Dose: 10 mg Documented by: Umeclidinium [place] (Incruse Ellipta) 1 puffs INH DAILY JIMBO Stop: 01/07/20 08:59 Last Admin: 12/08/19 08:53 Dose: 1 puffs Documented by: PG Care Time/CCT Total # of Minutes Spent Total Time Spent: 45 Total Time Spent with Patient: Total time spent is greater than 50% in coordination of care (as documented) at patient's floor/unit and/or counseling patient: spent 25 minutes at the bedside with patient, examination then prolonged discussion about rehab spent 10 minutes on phone with her daughter spent 10 minutes on chart review, planning, speaking with Dr Geronimo Coding Level of Care Code 24676 Subseq Hosp Care Lvl 3 Diagnoses Acute respiratory failure with hypoxia J96.01 Acute on chronic diastolic (congestive) heart failure I50.33 UTI (urinary tract infection) N39.0 Hypertension I10 Iron deficiency anemia D50.9 Dyslipidemia E78.5 Arteriosclerosis of coronary artery I25.10 S/P AVR (aortic valve replacement) Z95.2 Controlled type 2 diabetes mellitus with neurologic complication, with long-term current use of insulin E11.49; Z79.4 Hypothyroidism E03.9 Chronic kidney disease, stage 3 N18.3 Obstructive sleep apnea G47.33 Vitamin D deficiency E55.9 Secondary hyperparathyroidism N25.81 Obesity E66.9 Foot pain, bilateral M79.671; M79.672 COPD (chronic obstructive pulmonary disease) J44.9 DVT prophylaxis Z29.9
[2019-12-08] MEDS: SIMVASTATIN 10 MG TAB PO SCH (20:49)
[2019-12-08] MEDS: LOSARTAN POTASSIUM 25 MG TAB PO SCH (20:49)
[2019-12-08] MEDS: ASPIRIN 81 MG ECTAB PO SCH (20:50)
[2019-12-08] MEDS: GABAPENTIN 100 MG CAP PO SCH (20:50)
[2019-12-08] MEDS: INSULIN GLARGINE SOLOSTAR 100 UNITS/ML 3 ML PEN SC SCH (20:58)
[2019-12-09] MEDS: HEPARIN SOD 5,000 UNIT/0.5 ML VIAL SQ SCH ×3 (04:59→21:17)
[2019-12-09] MEDS: ACETAMINOPHEN 500 MG TAB PO SCH ×2 (05:01→16:20)
[2019-12-09] MEDS: LEVOTHYROXINE SODIUM 88 MCG TABLET PO SCH (05:01)
[2019-12-09 05:56] LABS: Hematocrit (blood only) 28.9 % (37-47); Hemoglobin 8.5 g/dL (12.0-16.0); Mean Corpuscular Hemoglobin 26.9 pg (25-34); Mean Corpuscular Hgb Conc 29.4 g/dL (32-36); Mean Corpuscular Volume 91.5 fL (80-100); Platelet Count 310 K/uL (130-400); RDW Coefficient of Variation 14.9 % (11.5-14.5); RDW Standard Deviation 49.9 fL (36.4-46.3); Red Blood Count 3.16 M/uL (4.2-5.4); White Blood Count 8.14 K/uL (4.8-10.8)
[2019-12-09 06:28] LABS: Albumin Level 2.3 gm/dl (3.4-5.0); BUN Creatinine Ratio 36.8 (10-20); Calcium 8.8 mg/dl (8.5-10.1); Creatinine Clr Calc Pharmacy 32.1 ml/min; Est GFR (African American) 38.1; Est GFR (Non-African American) 32.8; Phosphorus 3.9 mg/dl (2.5-4.9); Potassium 4.9 mmol/L (3.5-5.1)
[2019-12-09] MEDS: IPRATROPIUM BROMIDE HFA INHALER INH SCH ×4 (07:34→19:36)
[2019-12-09] MEDS: ALBUTEROL HFA 8 GM INHALER INH SCH ×4 (07:35→19:36)
[2019-12-09] MEDS: INSULIN ASPART 100 UNITS/ML 3 ML PEN SC SCH ×4 (09:00→21:17)
[2019-12-09] MEDS: FLUTICASONE/VILANTEROL 100/25MCG 14 PUFFS/INHALER INH SCH (09:02)
[2019-12-09] MEDS: UMECLIDINIUM BROMIDE 62.5MCG/BLISTER 7 PUFFS/INHALER INH SCH (09:02)
[2019-12-09] MEDS: LOSARTAN POTASSIUM 50 MG TAB PO SCH ×2 (09:03→21:15)
[2019-12-09] MEDS: POTASSIUM CHLORIDE 20 MEQ TABCR PO SCH ×2 (09:03→21:15)
[2019-12-09] MEDS: FUROSEMIDE 40 MG TAB PO SCH ×2 (09:03→17:45)
[2019-12-09] MEDS: GABAPENTIN 100 MG CAP PO SCH ×2 (09:03→21:14)
[2019-12-09] MEDS: LABETALOL HCL 300 MG TAB PO SCH ×2 (09:03→21:18)
--- NOTE | 2019-12-09 10:21 | Nephrology Progress Note ---
Date of Service December 09, 2019 Assessment & Plan (1) Acute on chronic diastolic (congestive) heart failure: * Diuretics per cardiology. Clinically improving. (2) Chronic kidney disease, stage 3: * Baseline Cr 1.6 * Hold NSAIDS as tolerated. Document I/O's (3) Iron deficiency anemia: * Day 5 of 5 IV Venofer * Resume oral FeSO4 in am Admission and Anticipated Discharge Date Admission Date: December 02, 2019 Subjective Mrs. Summers was seen & examined in her hospital room this morning. She c/o mild dyspnea and wheezing. She reports brisk UO Review of Systems Constitutional: no fever and no weakness Eyes: no problem reported Ear, Nose, Mouth, Throat: no problem reported Respiratory: + dyspnea and + wheezing; no cough Cardiovascular: + edema; no chest pain and no palpitations Gastrointestinal: no abdominal pain, no nausea, no vomiting and no diarrhea/loose stools Genitourinary: no dysuria and no hematuria Musculoskeletal: no back pain Integumentary: no rash Neurologic: no falls and no confusion Physical Exam Constitutional: + overweight; not in distress Eyes: PERRL, conjunctivae normal, anicteric sclerae ENMT: external ear and nose normal, oropharynx normal Neck: trachea midline, no thyromegaly Respiratory: normal respiratory effort Auscultation: + wheezes Cardiovascular: Rate/Rhythm: regular rate and regular rhythm Extremities: + edema (2+ pretibial pitting edema) Gastrointestinal (Abdomen): normal bowel sounds, soft, nontender, no hepatosplenomegaly Musculoskeletal: Extremities: no cyanosis Skin: no rashes, warm and dry Neurologic: awake; not confused Results & Data ([facility]) Vital Signs (Past 12 Hours) Vital Signs Temp Pulse Resp BP BP Pulse Ox 12/09/19 07:37 88 19 96 12/09/19 07:20 36.5 C 69 28 H 171/77 H 95 12/08/19 23:05 36.4 C L 69 30 H 145/84 H 97 Laboratory Results Laboratory Tests 12/09/19 12/09/19 05:30 05:30 WBC 8.14 Hgb 8.5 L Hct 28.9 L Plt Count 310 Sodium 142 Potassium 4.9 Chloride 105 Carbon Dioxide 32 BUN 55 H Creatinine 1.49 H Glucose 91 Calcium 8.8 Phosphorus 3.9 Albumin 2.3 L PG Care Time/CCT Total # of Minutes Spent Total Time Spent with Patient: Total time spent is greater than 50% in coordination of care (as documented) at patient's floor/unit and/or counseling patient: Coding Level of Care Code 08548 Subseq Hosp Care Lvl 3 Diagnoses Acute on chronic diastolic (congestive) heart failure I50.33 Chronic kidney disease, stage 3 N18.3 Iron deficiency anemia D50.9
[2019-12-09] MEDS: IRON SUCROSE 200 MG in 0.9 % SODIUM CHLORIDE 100 ML IV SCH (10:30)
--- NOTE | 2019-12-09 12:25 | Hospitalist Progress Note ---
Date of Service December 09, 2019 Assessment & Plan (1) Acute respiratory failure with hypoxia: 79 female presented with worsening shortness of breath, hypoxic with O2 sat of 73% on RA and work of breathing/use of accessory muscles in ER requiring BiPAP. Likely secondary to acute chf exacerbation. BNP elevated at 7022. * quickly titrated to nasal canula, stable on 2L for several days * cannot perform two step yet as she is not walking, benefit of going to rehab is that she would have oxygen, try to titrate off as she is more mobilie * suspect that she may have been requiring oxygen at baseline as she was not in distress with saturation in low 80's * if she goes to rehab then keep oxygen, if no rehab then will need a two step and get qualified for home oxygen * CXR with pulmonary edema, exacerbation of CHF on admission repeat CXR on 12/05 with resolving edema, no pneumonia * ECHO with mildly dilated LV with mildly reduced systolic function, EF 45--50% (Jun 2019 with EF 55-60%) and mod-severe mitral annular calcification with mildly elevated transvalvular gradient suggesting mild MS. Per cardiology, patient on BiPAP and study may not be entirely accurate. repeat limited echo on 12/05/19: EF is 45-50% * weight going down, less edema every day * Cr is 1.4, continue Lasix 40mg PO BID (2) Acute on chronic diastolic (congestive) heart failure: * actually she has acute on chronic diastolic HF and acute systolic heart failure * CXR with cardiomegaly with evidence of congestive failure, trace pleural effusions, airspace opacities lung bases, likely atelectassis repeat CXR on 12/06/19 - less edema, no pneumonia * Consult cardiology, follows with Dr. Wolf as an outpatient -- appreciate assistance Gloria ANGELES following now as well with the CHF clinic * Troponin mildly elevated with peak 0.25, trending down. No chest pain, EKG s howing RBBB, no ST wave changes or signs of ischemia, unlikely ACS * AHA diet. Fluid restriction -- 1500mL/day * negative 6.1 liters for the admission, weight trending down but likely not accurate as it is a bed weight, still cannot stand for weight * Cr is 1.4, will continue Lasix 40mg PO BID, follow UO and renal function * K is normal (3) UTI (urinary tract infection): * Previously seen by PCP 11/30 with UA c/w infection and reported fevers, chills and was initiated on Macrobid * UA on admission with trace blood, 2+ leuk est, >30WBC, 5-10 epi * no growth on culture, stop Rocephin, no fever (4) Hypertension: * BP elevated at times, 170 systolic this AM, will change Losartan to 50mg twice a day * continue labetalol 600 mg twice daily, * Lasix 40mg PO BID (5) Iron deficiency anemia: * History of such, continue iron daily. * H/h low today at 8.5 but stable * MCV 87.5 * No s/sx overt bleeding. INR 1.1 * completed 5 doses of Venofer IV, will resume oral iron supplements (6) Dyslipidemia: * Continue simvastatin 10 mg daily (7) Arteriosclerosis of coronary artery: * Continue medication as above, ASA, simvastatin 10mg (8) S/P AVR (aortic valve replacement): * History of such in 2015, last echo revealed well functioning AV valve in June 2019. ECHO as above (9) Controlled type 2 diabetes mellitus with neurologic complication, with long- term current use of insulin: * With neuropathy * Continue Lantus 45 units QPM * ISS with Accu-Cheks AC at bedtime * A1c was last 6.7 on 06/15/2019, recheck with a.m. labs * monitor for hypoglycemia, no episodes (10) Hypothyroidism: * Continue levothyroxine 88 mcg daily. TSH 1.03 (11) Chronic kidney disease, stage 3: * Cr stable at 1.4 * Continue diuresis as above * Nephrology consult -- appreciate assistance (requested per patient) * repeat BMP in the morning (12) Obstructive sleep apnea: * Wears CPAP at night routinely, she is refusing to wear our mask here (13) Vitamin D deficiency: * Continue monthly supplementation (14) Secondary hyperparathyroidism: * Noted. May benefit from increased Vit D therapy. (15) Obesity: * BMI = 47.4, diet and exercise to be encouraged upon discharge (16) Foot pain, bilateral: difficult to determine etiology not much pain on palpation, pain is described as being on the bottom of her feet cannot use NSAIDs due to renal function would not use Prednisone as she is already trending with hyperglycemic episodes does not sound like neuropathic pain but perhaps a trial of Neurontin could benefit as other options limited will start on Neurontin 100mg BID, when dose increased yesterday she c/o some diplopia, reduce back to 100mg BID bilateral foot x-ray show no fractures, mild arthritis, no role for inpatient podiatry consult, will recommend she see them in office on discharge: continue Neurontin 100mg BID, refer to podiatry in clinic (17) COPD (chronic obstructive pulmonary disease): suspect she has COPD, has audible wheezing, family says she has been doing this for years cannot find any PFT in the outpatient records spoke with her daughter, would recommend she get PFT once back home she uses Combivent at home start on Spiriva daily and Advair BID on 12/06, she is tolerating well recommend follow up visit with pulmonary once she is back home, get PFT (18) DVT prophylaxis: * teds, heparin subcu CODE: Full code Dispo: patient is significantly weaker compared to her baseline typically at home she can walk independently, complete ADL, currently she requires assistance sitting up, standing she requires intense rehab (3 hours/day) to get back to her baseline functional status currently, she has several new/ongoing medical conditions that would benefit from daily physician monitoring and rehab hospital setting she has new finding of reduced EF of 45%, she is now on oxygen which is new she continues to diurese gently on Lasix BID and renal function is stable but will need monitored closely suspect she has COPD and started on Advair and Spiriva this admission she has foot pain, improved with neurontin but had some adverse effects with diplopia I feel that transfer to SNF for rehab without daily physician supervision would put patient at high risk for deterioration and re-admission Admission and Anticipated Discharge Date Admission Date: December 02, 2019 Subjective patient sitting up in bed, breathing comfortably eating well today, making a lot of urine, negative 6 liters for admission she is still very weak, too weak to go home, asking PT/OT to re-evaluate her today for insurance auth for [facility] her labs show that Hb is stable at 8.5, her Cr is stable at 1.4 and electrolytes acceptable discussed with Dr. Grace, can stop Venofer after today, she is stable from renal perspective spoke with FERMIN, awaiting insurance auth for rehab, both [facility] her this weekend discussed that she needs medical management that SNF cannot provide Review of Systems Review of Systems: All systems reviewed & are unremarkable except as noted in HPI & below Constitutional: + fatigue and + weakness; no fever Respiratory: + dyspnea on exertion; no cough and no dyspnea Cardiovascular: + dyspnea on exertion and + edema; no chest pain and no dyspnea at rest Gastrointestinal: no abdominal pain, no nausea, no vomiting, no constipation and no diarrhea/loose stools Musculoskeletal: + joint pain (foot pain) Physical Exam Constitutional: well developed, + overweight and + edematous; no acute distress Eyes: PERRL, conjunctivae normal, anicteric sclerae ENMT: external ear and nose normal, oropharynx normal Neck: trachea midline, no thyromegaly Respiratory: normal respiratory effort Auscultation: + diminished lung sounds; no wheezes Cardiovascular: Rate/Rhythm: regular rate and regular rhythm Heart Sounds: normal S1 and normal S2; no murmur Extremities: normal capillary refill and + edema Gastrointestinal (Abdomen): normal bowel sounds, soft, nontender, no hepatosplenomegaly Musculoskeletal: no cyanosis or clubbing, extremities motor strength 5/5 (no pain in feet with palpation) Skin: no rashes, warm and dry Neurologic: patellar DTR's 2+ bilat, sensation intact and PERRL, EOMI, accommodation nl, no face palsy, no dysarthria Psychiatric: A+Ox3, euthymic affect Lymphatic: no cervical or axillary lymphadenopathy Results & Data Results & Data ([facility]) Vital Signs (Past 12 Hours) Vital Signs Temp Pulse Resp BP Pulse Ox 12/09/19 11:30 139/82 12/09/19 11:27 86 16 94 12/09/19 07:37 88 19 96 12/09/19 07:20 36.5 C 69 28 H 171/77 H 95 Laboratory Results Laboratory Results - last 24 hr 12/08/19 12/08/19 12/09/19 16:57 20:54 05:30 WBC RBC Hgb Hct MCV MCH MCHC RDW Std Deviation RDW Coeff of Nella Plt Count MPV Sodium 142 Potassium 4.9 Chloride 105 Carbon Dioxide 32 Anion Gap 5.0 BUN 55 H Creatinine 1.49 H Est Cr Clr Drug Dosing 32.1 Est GFR ( Amer) 38.1 Est GFR (Non-Af Amer) 32.8 BUN/Creatinine Ratio 36.8 H Glucose 91 POC Glucose 143 H 150 H Calcium 8.8 Phosphorus 3.9 Albumin 2.3 L 12/09/19 12/09/19 05:30 08:13 WBC 8.14 RBC 3.16 L Hgb 8.5 L Hct 28.9 L MCV 91.5 MCH 26.9 MCHC 29.4 L RDW Std Deviation 49.9 H RDW Coeff of Nella 14.9 H Plt Count 310 MPV 9.0 Sodium Potassium Chloride Carbon Dioxide Anion Gap BUN Creatinine Est Cr Clr Drug Dosing Est GFR ( Amer) Est GFR (Non-Af Amer) BUN/Creatinine Ratio Glucose POC Glucose 92 Calcium Phosphorus Albumin Medications Administered Current Inpatient Medications Acetaminophen (Tylenol) 1,000 mg PO BID@0400,1600 [facility] Stop: 01/03/20 15:59 Last Admin: 12/09/19 05:01 Dose: 1,000 mg Documented by: Albuterol (Ventolin Hfa) 1 puffs INH QIDR JIMBO Stop: 01/01/20 16:59 Last Admin: 12/09/19 11:25 Dose: 1 puffs Documented by: Albuterol (Ventolin 0.083% 2.5mg/3ml) 2.5 mg NEB Q6R PRN PRN Reason: Wheezing Stop: 01/02/20 10:24 Last Admin: 12/05/19 08:54 Dose: 2.5 mg Documented by: Aspirin (Ecotrin Ectab) 81 mg PO PM JIMBO Stop: 01/01/20 20:59 Last Admin: 12/08/19 20:50 Dose: 81 mg Documented by: Dextrose (Dextrose 50%) 25 - 50 ml IV UD PRN; Protocol PRN Reason: Hypoglycemia Protocol Stop: 01/01/20 14:11 Ferrous Sulfate (Feosol) 325 mg PO DAILY JIMBO Stop: 01/02/20 08:59 Last Admin: 12/05/19 08:23 Dose: 325 mg Documented by: Fluticasone/Vilanterol (Breo Ellipta 100/25 Mcg Inh) 1 puffs INH DAILY JIMBO Stop: 01/07/20 08:59 Last Admin: 12/09/19 09:02 Dose: 1 puffs Documented by: Furosemide (Lasix) 40 mg PO BID17 [facility] Stop: 01/05/20 16:59 Last Admin: 12/09/19 09:03 Dose: 40 mg Documented by: Gabapentin (Neurontin) 100 mg PO BID JIMBO Stop: 01/07/20 20:59 Last Admin: 12/09/19 09:03 Dose: 100 mg Documented by: Glucagon (Glucagen) 1 mg SQ UD PRN; Protocol PRN Reason: Hypoglycemia Protocol Stop: 01/01/20 14:11 Glucose (Dex4 Glucose) 4 - 8 tabs PO UD PRN; Protocol PRN Reason: Hypoglycemia Protocol Stop: 01/01/20 14:11 Glucose (Glucose 40%) 15 - 30 gm PO UD PRN; Protocol PRN Reason: Hypoglycemia Protocol Stop: 01/01/20 14:11 Heparin Sodium (Porcine) (Heparin Sodium (Porcine)) 5,000 units SQ Q8 JIMBO Stop: 01/01/20 21:59 Last Admin: 12/09/19 04:59 Dose: 5,000 units Documented by: Insulin Aspart (Novolog Flexpen) 0 units SC ACHS JIMBO Stop: 01/01/20 16:29 Last Admin: 12/09/19 09:00 Dose: 2 units Documented by: Insulin Glargine (Lantus Solostar Pen) 45 units SC PM JIMBO Stop: 01/01/20 20:59 Last Admin: 12/08/19 20:58 Dose: 45 units Documented by: Ipratropium [place] (Atrovent Hfa) 1 puffs INH QIDR JIMBO Stop: 01/01/20 18:59 Last Admin: 12/09/19 11:22 Dose: 1 puffs Documented by: Ketoconazole (Nizoral 2%) 1 appln EXT BID PRN PRN Reason: antifungal Stop: 12/12/19 16:22 Labetalol HCl (Normodyne) 600 mg PO BID JIMBO Stop: 01/01/20 20:59 Last Admin: 12/09/19 09:03 Dose: 600 mg Documented by: Levothyroxine Sodium (Synthroid) 88 mcg PO DAILY@0400 [facility] Stop: 01/02/20 03:59 Last Admin: 12/09/19 05:01 Dose: 88 mcg Documented by: Losartan Potassium (Cozaar) 50 mg PO BID [facility] Stop: 01/08/20 20:59 Miscellaneous (Carbohydrates For Hypoglycemia) 15 - 30 gm PO UD PRN PRN Reason: Hypoglycemia Protocol Stop: 01/01/20 14:11 Ondansetron HCl (Zofran) 4 mg IV Q4H PRN PRN Reason: Nausea And Vomiting Stop: 01/01/20 14:11 Potassium Chloride (Klor-Con M20) 20 meq PO BID JIMBO Stop: 01/05/20 20:59 Last Admin: 12/09/19 09:03 Dose: 20 meq Documented by: Simvastatin (Zocor) 10 mg PO PM JIMBO Stop: 01/01/20 20:59 Last Admin: 12/08/19 20:49 Dose: 10 mg Documented by: Umeclidinium [place] (Incruse Ellipta) 1 puffs INH DAILY JIMBO Stop: 01/07/20 08:59 Last Admin: 12/09/19 09:02 Dose: 1 puffs Documented by: PG Care Time/CCT Total # of Minutes Spent Total Time Spent with Patient: Total time spent is greater than 50% in coordination of care (as documented) at patient's floor/unit and/or counseling patient: Coding Level of Care Code 80146 Subseq Hosp Care Lvl 3 Diagnoses Acute respiratory failure with hypoxia J96.01 Acute on chronic diastolic (congestive) heart failure I50.33 UTI (urinary tract infection) N39.0 Hypertension I10 Iron deficiency anemia D50.9 Dyslipidemia E78.5 Arteriosclerosis of coronary artery I25.10 S/P AVR (aortic valve replacement) Z95.2 Controlled type 2 diabetes mellitus with neurologic complication, with long-term current use of insulin E11.49; Z79.4 Hypothyroidism E03.9 Chronic kidney disease, stage 3 N18.3 Obstructive sleep apnea G47.33 Vitamin D deficiency E55.9 Secondary hyperparathyroidism N25.81 Obesity E66.9 Foot pain, bilateral M79.671; M79.672 COPD (chronic obstructive pulmonary disease) J44.9 DVT prophylaxis Z29.9
[2019-12-09] MEDS: INSULIN GLARGINE SOLOSTAR 100 UNITS/ML 3 ML PEN SC SCH (21:13)
[2019-12-09] MEDS: ASPIRIN 81 MG ECTAB PO SCH (21:16)
[2019-12-09] MEDS: SIMVASTATIN 10 MG TAB PO SCH (21:19)
[2019-12-10] MEDS: ACETAMINOPHEN 500 MG TAB PO SCH ×2 (04:58→16:14)
[2019-12-10] MEDS: LEVOTHYROXINE SODIUM 88 MCG TABLET PO SCH (04:59)
[2019-12-10] MEDS: HEPARIN SOD 5,000 UNIT/0.5 ML VIAL SQ SCH ×3 (05:00→21:57)
[2019-12-10 05:10] LABS: BUN Creatinine Ratio 42.1 (10-20); Creatinine Clr Calc Pharmacy 35.9 ml/min; Est GFR (African American) 43.6; Est GFR (Non-African American) 37.7
[2019-12-10 05:11] LABS: Hematocrit (blood only) 28.8 % (37-47); Hemoglobin 8.5 g/dL (12.0-16.0); Mean Corpuscular Hemoglobin 26.6 pg (25-34); Mean Corpuscular Hgb Conc 29.5 g/dL (32-36); Mean Corpuscular Volume 90.3 fL (80-100); Mean Platelet Volume 8.9 fL (7.4-10.4); Nucleated RBC # (auto) 0.02 K/uL (0-0); Nucleated RBC % (auto) 0.3 %; Platelet Count 298 K/uL (130-400); RDW Standard Deviation 49.3 fL (36.4-46.3); Red Blood Count 3.19 M/uL (4.2-5.4); White Blood Count 6.92 K/uL (4.8-10.8)
[2019-12-10] MEDS: ALBUTEROL HFA 8 GM INHALER INH SCH ×4 (07:25→19:27)
[2019-12-10] MEDS: IPRATROPIUM BROMIDE HFA INHALER INH SCH ×4 (07:26→19:27)
[2019-12-10] MEDS: CARBOHYDRATES FOR HYPOGLYCEMIA PO PRN ×2 (08:22→08:42)
[2019-12-10] MEDS: FLUTICASONE/VILANTEROL 100/25MCG 14 PUFFS/INHALER INH SCH (08:24)
[2019-12-10] MEDS: POTASSIUM CHLORIDE 20 MEQ TABCR PO SCH (08:25)
[2019-12-10] MEDS: FUROSEMIDE 40 MG TAB PO SCH ×2 (08:25→16:40)
[2019-12-10] MEDS: UMECLIDINIUM BROMIDE 62.5MCG/BLISTER 7 PUFFS/INHALER INH SCH (08:25)
[2019-12-10] MEDS: LOSARTAN POTASSIUM 50 MG TAB PO SCH ×2 (08:25→21:53)
[2019-12-10] MEDS: LABETALOL HCL 300 MG TAB PO SCH ×2 (08:26→21:55)
[2019-12-10] MEDS: GABAPENTIN 100 MG CAP PO SCH ×2 (08:26→21:56)
[2019-12-10] MEDS: INSULIN ASPART 100 UNITS/ML 3 ML PEN SC SCH ×4 (09:01→21:56)
--- NOTE | 2019-12-10 10:27 | Nephrology Progress Note ---
Date of Service December 10, 2019 Assessment & Plan (1) Acute on chronic diastolic (congestive) heart failure: * Diuretics per cardiology. Clinically improving. (2) Chronic kidney disease, stage 3: * Baseline Cr 1.6. Kidney function is stable at this time * Avoid NSAIDS. Document I/O's (3) Iron deficiency anemia: * Completed 1g Venofer * Will resume oral FeSO4 Admission and Anticipated Discharge Date Admission Date: December 02, 2019 Subjective Mrs. Summers was seen & examined in her hospital room this morning. She was sitting up in a chair breathing comfortably on O2 at 2L/min NC. Patient reports brisk diuresis in response to loop diuretics. Weight is down 9 kg. Mrs. Cristhian ramesh is anxious to return home Review of Systems Constitutional: no fever, no chills and no weakness Eyes: no worsening vision and no problem reported Ear, Nose, Mouth, Throat: no problem reported Respiratory: + dyspnea and + wheezing; no cough Cardiovascular: + edema; no chest pain and no palpitations Gastrointestinal: no abdominal pain, no nausea, no vomiting and no diarrhea/loose stools Genitourinary: no dysuria and no hematuria Musculoskeletal: no back pain Integumentary: no rash Neurologic: no falls, no dizziness and no confusion Physical Exam Constitutional: + overweight; not in distress Eyes: PERRL, conjunctivae normal, anicteric sclerae ENMT: external ear and nose normal, oropharynx normal Neck: trachea midline, no thyromegaly Respiratory: normal respiratory effort Auscultation: + wheezes Cardiovascular: Rate/Rhythm: regular rate and regular rhythm Extremities: + edema (2+ pretibial pitting edema) Gastrointestinal (Abdomen): normal bowel sounds, soft, nontender, no hepatosplenomegaly Musculoskeletal: Extremities: no cyanosis Skin: no rashes, warm and dry Neurologic: awake; not confused Results & Data ([facility]) Vital Signs (Past 12 Hours) Vital Signs Temp Pulse Resp BP BP Pulse Ox 12/10/19 07:50 36.5 C 55 L 18 165/81 H 97 12/10/19 07:29 57 L 16 95 12/09/19 23:25 36.6 C 63 28 H 113/74 94 Laboratory Results Laboratory Tests 12/10/19 12/10/19 04:15 04:15 WBC 6.92 Hgb 8.5 L Hct 28.8 L Plt Count 298 Sodium 143 Potassium 5.0 Chloride 105 Carbon Dioxide 35 H BUN 56 H Creatinine 1.33 H Glucose 58 L PG Care Time/CCT Total # of Minutes Spent Total Time Spent with Patient: Total time spent is greater than 50% in coordination of care (as documented) at patient's floor/unit and/or counseling patient: Coding Level of Care Code 53526 Subseq Hosp Care Lvl 3 Diagnoses Acute on chronic diastolic (congestive) heart failure I50.33 Chronic kidney disease, stage 3 N18.3 Iron deficiency anemia D50.9
[2019-12-10] MEDS: FERROUS SULFATE 325 MG TAB PO SCH (10:58)
--- NOTE | 2019-12-10 15:56 | Hospitalist Progress Note ---
Date of Service December 10, 2019 Assessment & Plan (1) Acute respiratory failure with hypoxia: 79 female presented with worsening shortness of breath, hypoxic with O2 sat of 73% on RA and work of breathing/use of accessory muscles in ER requiring BiPAP. Likely secondary to acute chf exacerbation. BNP elevated at 7022. * quickly titrated to nasal canula, stable on 2L for several days * cannot perform two step yet as she is not walking, benefit of going to rehab is that she would have oxygen, try to titrate off as she is more mobilie * suspect that she may have been requiring oxygen at baseline as she was not in distress with saturation in low 80's earlier in the week * if she goes to rehab then keep oxygen, if no rehab then will need a two step and get qualified for home oxygen * CXR with pulmonary edema, exacerbation of CHF on admission repeat CXR on 12/05 with resolving edema, no pneumonia * ECHO with mildly dilated LV with mildly reduced systolic function, EF 45--50% (Jun 2019 with EF 55-60%) and mod-severe mitral annular calcification with mildly elevated transvalvular gradient suggesting mild MS. Per cardiology, patient on BiPAP and study may not be entirely accurate. repeat limited echo on 12/05/19: EF is 45-50% * weight going down (down 9kg for admission) * Cr is 1.3, continue Lasix 40mg PO BID (2) Acute on chronic diastolic (congestive) heart failure: * actually she has acute on chronic diastolic HF and acute systolic heart failure * CXR with cardiomegaly with evidence of congestive failure, trace pleural effusions, airspace opacities lung bases, likely atelectassis repeat CXR on 12/06/19 - less edema, no pneumonia * Consult cardiology, follows with Dr. Wolf as an outpatient -- appreciate assistance Glroia ANGELES following now as well with the CHF clinic * Troponin mildly elevated with peak 0.25, trending down. No chest pain, EKG showing RBBB, no ST wave changes or signs of ischemia, unlikely ACS * AHA diet. Fluid restriction -- 1500mL/day, will loosen slightly to 1800mL/day and allow some ice chips in afternoon * negative 8.2 liters for the admission, weight trending down by 9kg! * Cr is 1.3, will continue Lasix 40mg PO BID, follow UO and renal function * K is normal at 5.0, stop BID replacement and follow (3) UTI (urinary tract infection): * Previously seen by PCP 11/30 with UA c/w infection and reported fevers, chills and was initiated on Macrobid * UA on admission with trace blood, 2+ leuk est, >30WBC, 5-10 epi * no growth on culture, stop Rocephin, no fever (4) Hypertension: * BP elevated at times, 170 systolic this AM, will change Losartan to 50mg twice a day * continue labetalol 600 mg twice daily, * Lasix 40mg PO BID (5) Iron deficiency anemia: * History of such, continue iron daily. * H/h low but stable at 8.5 * MCV 87.5 * No s/sx overt bleeding. INR 1.1 * completed 5 doses of Venofer IV, will resume oral iron supplements on discharge (6) Dyslipidemia: * Continue simvastatin 10 mg daily (7) Arteriosclerosis of coronary artery: * Continue medication as above, ASA, simvastatin 10mg (8) S/P AVR (aortic valve replacement): * History of such in 2015, last echo revealed well functioning AV valve in June 2019. ECHO as above (9) Controlled type 2 diabetes mellitus with neurologic complication, with long- term current use of insulin: * With neuropathy * on Lantus 45 units and Novolog * hypoglycemic the past two morning in the 60's * will reduce Lantus to 35 units, check sugar in the morning (10) Hypothyroidism: * Continue levothyroxine 88 mcg daily. TSH 1.03 (11) Chronic kidney disease, stage 3: * Cr stable at 1.3 * Continue diuresis as above, negative 8.2 liters, down 9kg * Nephrology consult -- appreciate assistance (requested per patient) * repeat BMP in the morning (12) Obstructive sleep apnea: * Wears CPAP at night routinely, she is refusing to wear our mask here (13) Vitamin D deficiency: * Continue monthly supplementation (14) Secondary hyperparathyroidism: * Noted. May benefit from increased Vit D therapy. (15) Obesity: * BMI = 47.4, diet and exercise to be encouraged upon discharge (16) Foot pain, bilateral: difficult to determine etiology not much pain on palpation, pain is described as being on the bottom of her feet cannot use NSAIDs due to renal function would not use Prednisone as she is already trending with hyperglycemic episodes started on Neurontin 100mg BID, she says it helps pain increased to 200mg BID and she had some intermittent diplopia, reduced back to 100mg BID unsure this dose will provide effective relief, but she thinks it is helping suggest titrating up slowly as outpatient, look for any further adverse effects bilateral foot x-ray show no fractures, mild arthritis, no role for inpatient podiatry consult, will recommend she see them in office on discharge: continue Neurontin 100mg BID, refer to podiatry in clinic (17) COPD (chronic obstructive pulmonary disease): suspect she has COPD, has audible wheezing, family says she has been doing this for years (auto PEEP to help with exhalation) cannot find any PFT in the outpatient records spoke with her daughter, would recommend she get PFT once back home she uses Combivent at home start on Spiriva daily and Advair BID on 12/06, she is tolerating well recommend follow up visit with pulmonary once she is back home, get PFT (18) DVT prophylaxis: * teds, heparin subcu CODE: Full code Dispo: patient is significantly weaker compared to her baseline typically at home she can walk independently, complete ADL, currently she requires assistance sitting up, standing she requires intense rehab (3 hours/day) to get back to her baseline functional status currently, she has several new/ongoing medical conditions that would benefit from daily physician monitoring and rehab hospital setting she has new finding of reduced EF of 45%, she is now on oxygen which is new she continues to diurese gently on Lasix BID and renal function is stable but will need monitored closely suspect she has COPD and started on Advair and Spiriva this admission she has foot pain, improved with neurontin but had some adverse effects with diplopia she has some hypoglycemia in the AM and just reduced Lantus from 45 units to 35 units, needs monitored I feel that transfer to SNF for rehab without daily physician supervision would put patient at high risk for deterioration and re-admission hopeful for decision on [facility] tomorrow and subsequent discharge Admission and Anticipated Discharge Date Admission Date: December 02, 2019 Subjective patient doing really well today she has used the the bedside commode 4 times already, getting up with the aide using a walker this is the most active she has been in days, she is motivated to get better, motivated for rehab she is eating well has pain in feet but not as bad as it was reviewed I/O, she is negative over 8 liters, weight down 9kg since admission breathing better, still requiring oxygen reviewed labs, Cr stable at 1.33, discussed with Dr. Grace who is following her K is 5.0, will stop the BID replacement and follow long talk with her daughter and over the phone hoping to get approval for [facility] from her insurance, no answer yet since it is nearly 4pm, doubt to get answer today, plan for tomorrow Review of Systems Review of Systems: All systems reviewed & are unremarkable except as noted in HPI & below Constitutional: + weakness (more strength today); no fever Respiratory: + dyspnea on exertion; no cough and no dyspnea Cardiovascular: no chest pain, no syncope and no edema Gastrointestinal: no abdominal pain, no nausea, no vomiting, no constipation and no diarrhea/loose stools Musculoskeletal: + joint pain (feet) and + muscle weakness Physical Exam Constitutional: well developed and + overweight; no acute distress Eyes: PERRL, conjunctivae normal, anicteric sclerae ENMT: external ear and nose normal, oropharynx normal Neck: trachea midline, no thyromegaly Respiratory: normal respiratory effort Auscultation: + diminished lung sounds; no wheezes Cardiovascular: Rate/Rhythm: regular rate and regular rhythm Heart Sounds: normal S1 and normal S2; no murmur Extremities: normal capillary refill; no edema Gastrointestinal (Abdomen): normal bowel sounds, soft, nontender, no hepatosplenomegaly Musculoskeletal: no cyanosis or clubbing, extremities motor strength 5/5 (no pain in feet with palpation) Skin: no rashes, warm and dry Neurologic: patellar DTR's 2+ bilat, sensation intact and PERRL, EOMI, accommodation nl, no face palsy, no dysarthria Psychiatric: A+Ox3, euthymic affect Lymphatic: no cervical or axillary lymphadenopathy Results & Data Results & Data ([facility]) Vital Signs (Past 12 Hours) Vital Signs Temp Pulse Resp BP Pulse Ox 12/10/19 15:33 36.4 C L 78 20 172/91 H 95 12/10/19 14:43 66 16 93 12/10/19 10:35 54 L 18 95 12/10/19 07:50 36.5 C 55 L 18 165/81 H 97 12/10/19 07:29 57 L 16 95 Laboratory Results Laboratory Results - last 24 hr 12/09/19 12/09/19 12/10/19 16:59 20:11 04:15 WBC 6.92 RBC 3.19 L Hgb 8.5 L Hct 28.8 L MCV 90.3 MCH 26.6 MCHC 29.5 L RDW Std Deviation 49.3 H RDW Coeff of Nella 15.0 H Plt Count 298 MPV 8.9 Absolute Nucleated RBC 0.02 H Nucleated RBC % (auto) 0.3 Sodium Potassium Chloride Carbon Dioxide Anion Gap BUN Creatinine Est Cr Clr Drug Dosing Est GFR ( Amer) Est GFR (Non-Af Amer) BUN/Creatinine Ratio Glucose POC Glucose 134 H 138 H Calcium 12/10/19 12/10/19 12/10/19 04:15 08:15 08:17 WBC RBC Hgb Hct MCV MCH MCHC RDW Std Deviation RDW Coeff of Nella Plt Count MPV Absolute Nucleated RBC Nucleated RBC % (auto) Sodium 143 Potassium 5.0 Chloride 105 Carbon Dioxide 35 H Anion Gap 3.0 BUN 56 H Creatinine 1.33 H Est Cr Clr Drug Dosing 35.9 Est GFR ( Amer) 43.6 Est GFR (Non-Af Amer) 37.7 BUN/Creatinine Ratio 42.1 H Glucose 58 L POC Glucose 66 L* 64 L* Calcium 9.0 12/10/19 12/10/19 12/10/19 08:37 08:38 08:58 WBC RBC Hgb Hct MCV MCH MCHC RDW Std Deviation RDW Coeff of Nella Plt Count MPV Absolute Nucleated RBC Nucleated RBC % (auto) Sodium Potassium Chloride Carbon Dioxide Anion Gap BUN Creatinine Est Cr Clr Drug Dosing Est GFR ( Amer) Est GFR (Non-Af Amer) BUN/Creatinine Ratio Glucose POC Glucose 66 L* 69 L* 93 Calcium 12/10/19 12:15 WBC RBC Hgb Hct MCV MCH MCHC RDW Std Deviation RDW Coeff of Nella Plt Count MPV Absolute Nucleated RBC Nucleated RBC % (auto) Sodium Potassium Chloride Carbon Dioxide Anion Gap BUN Creatinine Est Cr Clr Drug Dosing Est GFR ( Amer) Est GFR (Non-Af Amer) BUN/Creatinine Ratio Glucose POC Glucose 224 H Calcium Medications Administered Current Inpatient Medications Acetaminophen (Tylenol) 1,000 mg PO BID@0400,1600 JIMBO Stop: 01/03/20 15:59 Last Admin: 12/10/19 04:58 Dose: 1,000 mg Documented by: Albuterol (Ventolin Hfa) 1 puffs INH QIDR JIMBO Stop: 01/01/20 16:59 Last Admin: 12/10/19 14:42 Dose: 1 puffs Documented by: Albuterol (Ventolin 0.083% 2.5mg/3ml) 2.5 mg NEB Q6R PRN PRN Reason: Wheezing Stop: 01/02/20 10:24 Last Admin: 12/05/19 08:54 Dose: 2.5 mg Documented by: Aspirin (Ecotrin Ectab) 81 mg PO PM JIMBO Stop: 01/01/20 20:59 Last Admin: 12/09/19 21:16 Dose: 81 mg Documented by: Dextrose (Dextrose 50%) 25 - 50 ml IV UD PRN; Protocol PRN Reason: Hypoglycemia Protocol Stop: 01/01/20 14:11 Ferrous Sulfate (Feosol) 325 mg PO DAILY JIMBO Stop: 01/02/20 08:59 Last Admin: 12/10/19 10:58 Dose: 325 mg Documented by: Fluticasone/Vilanterol (Breo Ellipta 100/25 Mcg Inh) 1 puffs INH DAILY JIMBO Stop: 01/07/20 08:59 Last Admin: 12/10/19 08:24 Dose: 1 puffs Documented by: Furosemide (Lasix) 40 mg PO BID17 JIMBO Stop: 01/05/20 16:59 Last Admin: 12/10/19 08:25 Dose: 40 mg Documented by: Gabapentin (Neurontin) 100 mg PO BID JIMBO Stop: 01/07/20 20:59 Last Admin: 12/10/19 08:26 Dose: 100 mg Documented by: Glucagon (Glucagen) 1 mg SQ UD PRN; Protocol PRN Reason: Hypoglycemia Protocol Stop: 01/01/20 14:11 Glucose (Dex4 Glucose) 4 - 8 tabs PO UD PRN; Protocol PRN Reason: Hypoglycemia Protocol Stop: 01/01/20 14:11 Glucose (Glucose 40%) 15 - 30 gm PO UD PRN; Protocol PRN Reason: Hypoglycemia Protocol Stop: 01/01/20 14:11 Heparin Sodium (Porcine) (Heparin Sodium (Porcine)) 5,000 units SQ Q8 JIMBO Stop: 01/01/20 21:59 Last Admin: 12/10/19 12:45 Dose: 5,000 units Documented by: Insulin Aspart (Novolog Flexpen) 0 units SC ACHS [facility] Stop: 01/01/20 16:29 Last Admin: 12/10/19 12:44 Dose: 7 units Documented by: Insulin Glargine (Lantus Solostar Pen) 35 units SC PM [facility] Stop: 01/09/20 20:59 Ipratropium [place] (Atrovent Hfa) 1 puffs INH QIDR [facility] Stop: 01/01/20 18:59 Last Admin: 12/10/19 14:42 Dose: 1 puffs Documented by: Ketoconazole (Nizoral 2%) 1 appln EXT BID PRN PRN Reason: antifungal Stop: 12/12/19 16:22 Labetalol HCl (Normodyne) 600 mg PO BID [facility] Stop: 01/01/20 20:59 Last Admin: 12/10/19 08:26 Dose: 600 mg Documented by: Levothyroxine Sodium (Synthroid) 88 mcg PO DAILY@0400 [facility] Stop: 01/02/20 03:59 Last Admin: 12/10/19 04:59 Dose: 88 mcg Documented by: Losartan Potassium (Cozaar) 50 mg PO BID [facility] Stop: 01/08/20 20:59 Last Admin: 12/10/19 08:25 Dose: 50 mg Documented by: Miscellaneous (Carbohydrates For Hypoglycemia) 15 - 30 gm PO UD PRN PRN Reason: Hypoglycemia Protocol Stop: 01/01/20 14:11 Last Admin: 12/10/19 08:42 Dose: 15 gm Documented by: Ondansetron HCl (Zofran) 4 mg IV Q4H PRN PRN Reason: Nausea And Vomiting Stop: 01/01/20 14:11 Simvastatin (Zocor) 10 mg PO PM [facility] Stop: 01/01/20 20:59 Last Admin: 12/09/19 21:19 Dose: 10 mg Documented by: Umeclidinium [place] (Incruse Ellipta) 1 puffs INH DAILY [facility] Stop: 01/07/20 08:59 Last Admin: 12/10/19 08:25 Dose: 1 puffs Documented by: PG Care Time/CCT Total # of Minutes Spent Total Time Spent: 45 Total Time Spent with Patient: Total time spent is greater than 50% in coordination of care (as documented) at patient's floor/unit and/or counseling patient: Coding Level of Care Code 20724 Subseq Hosp Care Lvl 3 Diagnoses Acute respiratory failure with hypoxia J96.01 Acute on chronic diastolic (congestive) heart failure I50.33 UTI (urinary tract infection) N39.0 Hypertension I10 Iron deficiency anemia D50.9 Dyslipidemia E78.5 Arteriosclerosis of coronary artery I25.10 S/P AVR (aortic valve replacement) Z95.2 Controlled type 2 diabetes mellitus with neurologic complication, with long-term current use of insulin E11.49; Z79.4 Hypothyroidism E03.9 Chronic kidney disease, stage 3 N18.3 Obstructive sleep apnea G47.33 Vitamin D deficiency E55.9 Secondary hyperparathyroidism N25.81 Obesity E66.9 Foot pain, bilateral M79.671; M79.672 COPD (chronic obstructive pulmonary disease) J44.9 DVT prophylaxis Z29.9
[2019-12-10] MEDS ORDERED: INSULIN GLARGINE SOLOSTAR 100 UNITS/ML 3 ML PEN SC SCH (21:00)
[2019-12-10] MEDS: ASPIRIN 81 MG ECTAB PO SCH (21:55)
[2019-12-10] MEDS: SIMVASTATIN 10 MG TAB PO SCH (21:57)
[2019-12-11] MEDS: ACETAMINOPHEN 500 MG TAB PO SCH (05:07)
[2019-12-11] MEDS: HEPARIN SOD 5,000 UNIT/0.5 ML VIAL SQ SCH ×2 (05:07→12:43)
[2019-12-11] MEDS: LEVOTHYROXINE SODIUM 88 MCG TABLET PO SCH (05:07)
[2019-12-11] MEDS: ALBUTEROL HFA 8 GM INHALER INH SCH ×3 (07:42→15:26)
[2019-12-11] MEDS: IPRATROPIUM BROMIDE HFA INHALER INH SCH ×3 (07:42→15:25)
[2019-12-11] MEDS: LABETALOL HCL 300 MG TAB PO SCH (08:42)
[2019-12-11] MEDS: GABAPENTIN 100 MG CAP PO SCH (08:42)
[2019-12-11] MEDS: UMECLIDINIUM BROMIDE 62.5MCG/BLISTER 7 PUFFS/INHALER INH SCH (08:43)
[2019-12-11] MEDS: FLUTICASONE/VILANTEROL 100/25MCG 14 PUFFS/INHALER INH SCH (08:43)
[2019-12-11] MEDS: FERROUS SULFATE 325 MG TAB PO SCH (08:43)
[2019-12-11] MEDS: FUROSEMIDE 40 MG TAB PO SCH (08:43)
[2019-12-11] MEDS: LOSARTAN POTASSIUM 50 MG TAB PO SCH (08:43)
[2019-12-11] MEDS: INSULIN ASPART 100 UNITS/ML 3 ML PEN SC SCH ×2 (08:44→12:43)
--- NOTE | 2019-12-11 09:48 | Nephrology Progress Note ---
Date of Service December 11, 2019 Assessment & Plan (1) Acute on chronic diastolic (congestive) heart failure: * Diuretics per cardiology. Clinically improving. (2) Chronic kidney disease, stage 3: * Baseline Cr 1.6 * PRP pending this am. Await results * Avoid NSAIDS. Document I/O's * If discharge anticipated please schedule Nephrology follow up w/ Dr. Grace in 2 - 3 weeks ([phone]). Orders for nonfasting blood and urine studies have been entered into EMR. These should be completed at least 48 hours prior to OV (3) Iron deficiency anemia: * Completed 1g Venofer * Will resume oral FeSO4 Admission and Anticipated Discharge Date Admission Date: December 02, 2019 Subjective Mrs. Summers was seen & examined in her hospital room this morning. She was sitting up in a chair breathing comfortably on O2 at 2L/min NC. Patient reports brisk diuresis in response to loop diuretics. Weight is down 9 kg. Urinary catheter was removed yesterday. Patient now reports incontinence. Review of Systems Constitutional: no fever and no weakness Eyes: no problem reported Ear, Nose, Mouth, Throat: no problem reported Respiratory: no cough Cardiovascular: no chest pain and no palpitations Gastrointestinal: no abdominal pain, no nausea, no vomiting and no diarrhea/loose stools Genitourinary: no dysuria and no hematuria Musculoskeletal: no back pain Integumentary: no rash Neurologic: no falls and no confusion Physical Exam Constitutional: + overweight; not in distress Eyes: PERRL, conjunctivae normal, anicteric sclerae ENMT: external ear and nose normal, oropharynx normal Neck: trachea midline, no thyromegaly Respiratory: normal respiratory effort Auscultation: lungs clear to auscultation bilaterally Cardiovascular: Rate/Rhythm: regular rate and regular rhythm Extremities: + edema (1+ pretibial pitting edema) Gastrointestinal (Abdomen): normal bowel sounds, soft, nontender, no hepatosplenomegaly Musculoskeletal: Extremities: no cyanosis Skin: no rashes, warm and dry Neurologic: awake; not confused Results & Data ([facility]) Vital Signs (Past 12 Hours) Vital Signs Temp Pulse Resp BP Pulse Ox 12/11/19 07:43 66 14 96 12/11/19 07:14 36.8 C 63 20 156/53 H 85 L 12/10/19 23:10 36.9 C 69 18 148/78 H 99 PG Care Time/CCT Total # of Minutes Spent Total Time Spent with Patient: Total time spent is greater than 50% in coordination of care (as documented) at patient's floor/unit and/or counseling patient: Coding Level of Care Code 55241 Subseq Hosp Care Lvl 3 Diagnoses Acute on chronic diastolic (congestive) heart failure I50.33 Chronic kidney disease, stage 3 N18.3 Iron deficiency anemia D50.9
--- NOTE | 2019-12-11 10:04 | Cardiology Progress Note ---
Date of Service December 11, 2019 Assessment & Plan (1) Acute on chronic diastolic (congestive) heart failure: -now on Lasix 40 mg po b.i.d. -current echocardiogram limited. -study in June 2019 noted normal left ventricular systolic function and a properly functioning bioprosthetic aortic valve. (2) Hypertension: -adequate control on current medical regimen.. (3) S/P AVR (aortic valve replacement): -acceptable gradient across the prosthetic valve on current echo. Admission and Anticipated Discharge Date Admission Date: December 02, 2019 Subjective The patient is resting comfortably in the bedside chair without complaints of chest pain or dyspnea. Physical Exam Physical Exam: In general this is a well-developed well-nourished white female in no acute distress. HEENT exam is negative. Neck is supple with full carotid upstrokes. There are no carotid bruits. No JVD. There is no thyromegaly. Cardiovascular exam reveals a regular rhythm with distant heart sounds. S1 and S 2 were normal. A 1/6 basal systolic ejection murmur is noted. Lungs are clear without rales, rhonchi, or wheezes. Abdomen is obese without bruits. Extremities reveal intact radial artery pulses bilaterally. Trace pretibial edema is noted. Right knee shows a well-healed scar. Results & Data ([facility]) Vital Signs (Past 12 Hours) Vital Signs Temp Pulse Resp BP Pulse Ox 12/11/19 07:43 66 14 96 12/11/19 07:14 36.8 C 63 20 156/53 H 85 L 12/10/19 23:10 36.9 C 69 18 148/78 H 99 PG Care Time/CCT Total # of Minutes Spent Total Time Spent with Patient: Total time spent is greater than 50% in coordination of care (as documented) at patient's floor/unit and/or counseling patient: Coding Level of Care Code 05219 Subseq Hosp Care Lvl 3 Diagnoses Acute on chronic diastolic (congestive) heart failure I50.33 Hypertension I10 S/P AVR (aortic valve replacement) Z95.2
--- NOTE | 2019-12-11 16:12 | Discharge Summary ---
Date of Service December 11, 2019 Admission HPI Per Admitting Provider This is an 79-year-old female with past medical history of nonobstructive CAD, chronic diastolic CHF, HTN, HLD, history of aortic valve replacement,-(s/p TAVR June 2015), DM type II, CKD stage III, hyperparathyroidism, vitamin D deficiency, anemia, history of UTI, morbid obesity with BMI of 47.4. She presents with worsening shortness of breath times a few days, found to have respiratory rate 40-50 and was placed on BiPAP in the ER. Patient was given Nitropaste for an elevated troponin of 0.069, DuoNeb treatment, IV Lasix, IV cefepime for possible urinary tract infection. The patient was tested for COVID-19 which is negative. She denies any chest pain, palpitations, flutter, but admits to a dry cough. Per her her weight is normally around 238- 243, and has been there fore the past 3 days. Per cardiology note pt was instructed to take Lasix 60 mg PO in morning, then an additional 40 to 60 mg in the afternoon for weight gain as needed, however has only been taking 40 mg PO in morning and afternoon, last dose yesterday. Last echo was completed in June 2019, normal LV function and properly functioning bioprosthetic aortic valve, getting a repeat without contrast. She denies any changes in diet, maintaining low-sodium intake, not drinking excess fluids, unable to tell me what her weight has been recently. She does not typically require supplemental O2, but does use a CPAP at night. She lives at home with her which helps to take care of her. Principal Diagnosis Acute on chronic respiratory failure with hypoxia, acute on chronic diastolic CHF Discharge Exam Constitutional WD/WN, vitals as above + obese Eyes + anicteric sclerae ENMT external ear and nose normal, oropharynx normal Neck trachea midline, no thyromegaly Respiratory normal respiratory effort Auscultation: + wheezes (Occasional inspiratory and expiratory and upper airway regions); no crackles and no rhonchi Cardiovascular Rate/Rhythm: regular rate and regular rhythm Heart Sounds: no murmur Extremities: + edema (1+ pitting edema bilaterally-chronic as per patient) Chest (Breasts) Chest: normal inspection of chest Gastrointestinal (Abdomen) normal bowel sounds, soft, nontender, no hepatosplenomegaly Musculoskeletal Extremities: extremities normal to inspection; no cyanosis and no clubbing Skin no rashes, warm and dry Neurologic moves all extremities and awake; no focal motor deficits Psychiatric A+Ox3, euthymic affect Lymphatic no lymphedema Discharge Data Allergies Allergy/AdvReac Type Severity Reaction Status Date / Time Horse/Equine Containing Allergy Unknown LOCKED Verified 12/02/19 13:22 Products JOINTS codeine AdvReac Unknown REVERSED Verified 12/02/19 13:22 REACTION Consultations 12/02/19 13:57 ED Decision to Admit Stat 12/02/19 14:15 Consult Cardiology Routine 12/02/19 14:16 Consult Case Management - Discharge Planning Routine 12/02/19 16:23 Consult Nephrology Routine Ordered Studies Bilateral foot x-rays Chest x-ray x2 Hospital Course (1) Acute respiratory failure with hypoxia: 79 female presented with worsening shortness of breath, hypoxic with O2 sat of 73% on RA and work of breathing/use of accessory muscles in ER requiring BiPAP. Likely secondary to acute chf exacerbation. BNP elevated at 7022. * quickly titrated to nasal canula, stable on 2L for several days * cannot perform two step yet as she is not walking, but desaturates to the 80s when oxygen is removed on the day of discharge as per nursing * benefit of going to rehab is that she would have oxygen, try to titrate off as she is more mobile and continues to diurese * suspect that she may have been requiring oxygen at baseline as she was not in distress with saturation in low 80's earlier in the week * CXR with pulmonary edema, exacerbation of CHF on admission repeat CXR on 12/05 with resolving edema, no pneumonia * ECHO with mildly dilated LV with mildly reduced systolic function, EF 45--50% (Jun 2019 with EF 55-60%) and mod-severe mitral annular calcification with mildly elevated transvalvular gradient suggesting mild MS. Per cardiology, patient on BiPAP and study may not be entirely accurate. repeat limited echo on 12/05/19: EF is 45-50% * weight going down (down 9kg for admission) * Cr is 1.3, continue Lasix 40mg PO BID upon discharge (2) Acute on chronic diastolic (congestive) heart failure: * actually she has acute on chronic diastolic HF and acute systolic heart failure * CXR with cardiomegaly with evidence of congestive failure, trace pleural effusions, airspace opacities lung bases, likely atelectassis repeat CXR on 12/06/19 - less edema, no pneumonia * Consult cardiology, follows with Dr. Wolf as an outpatient -- appreciate assistance Gloria ANGELES following now as well with the CHF clinic * Troponin mildly elevated with peak 0.25, trending down. No chest pain, EKG showing RBBB, no ST wave changes or signs of ischemia, unlikely ACS * AHA diet. Fluid restriction -- 1800mL/day * negative 8 liters for the admission, weight trending down by 10 kg-suspect spurious weight recorded on the day of discharge it was 8 kg higher than the day before * Cr is 1.3, will continue Lasix 40mg PO BID, follow UO and renal function * K is normal at 5.0, stopped BID replacement and follow BMP at the rehab within 2 weeks (3) UTI (urinary tract infection): * Previously seen by PCP 11/30 with UA c/w infection and reported fevers, chills and was initiated on Macrobid * UA on admission with trace blood, 2+ leuk est, >30WBC, 5-10 epi * no growth on culture, stop Rocephin, no fever (4) Hypertension: * BP elevated at times here which then improved after increasing losartan to 50mg twice a day * continue labetalol 600 mg twice daily, * Continue Lasix 40mg PO BID (5) Iron deficiency anemia: * History of such, continue iron daily. * H/h low but stable at 8.5 * MCV 87.5 * No s/sx overt bleeding. INR 1.1 * completed 5 doses of Venofer IV, will resume oral iron supplements on discharge (6) Dyslipidemia: * Continue simvastatin 10 mg daily (7) Arteriosclerosis of coronary artery: * Continue medication as above, ASA, simvastatin 10mg (8) S/P AVR (aortic valve replacement): * History of such in 2015, last echo revealed well functioning AV valve in June 2019. ECHO as above (9) Controlled type 2 diabetes mellitus with neurologic complication, with long- term current use of insulin: * With neuropathy * on Lantus 45 units and Novolog at home * hypoglycemic the past two morning in the 60's * will reduce Lantus to 35 units, no further hypoglycemia with this change (10) Hypothyroidism: * Continue levothyroxine 88 mcg daily. TSH 1.03 (11) Chronic kidney disease, stage 3: * Cr stable at 1.3 * Nephrology consult -- appreciate assistance (requested per patient) * repeat BMP in 2 weeks and follow-up with nephrology in 2 to 3 weeks (12) Obstructive sleep apnea: * Wears CPAP at night routinely, she is refusing to wear our mask here (13) Vitamin D deficiency: * Continue monthly supplementation (14) Secondary hyperparathyroidism: * Noted. May benefit from increased Vit D therapy. (15) Obesity: * BMI = 47.4, diet and exercise to be encouraged upon discharge (16) Foot pain, bilateral: difficult to determine etiology but is likely diabetic peripheral neuropathy not much pain on palpation, pain is described as being on the bottom of her feet cannot use NSAIDs due to renal function would not use Prednisone as she is already trending with hyperglycemic episodes started on Neurontin 100mg BID, she says it helps pain increased to 200mg BID and she had some intermittent diplopia, reduced back to 100mg BID unsure this dose will provide effective relief, but she thinks it is helping suggest titrating up slowly as outpatient, look for any further adverse effects bilateral foot x-ray show no fractures, mild arthritis, no role for inpatient podiatry consult, will recommend she see them in office on discharge: continue Neurontin 100mg BID, refer to podiatry in clinic (17) COPD (chronic obstructive pulmonary disease): suspect she has COPD, has audible wheezing, family says she has been doing this for years (auto PEEP to help with exhalation) cannot find any PFT in the outpatient records spoke with her daughter, would recommend she get PFT once back home she uses Combivent at home start on Spiriva daily and Advair BID on 12/06, she is tolerating well recommend follow up visit with pulmonary once she is back home, get PFT (18) DVT prophylaxis: * teds, heparin subcu CODE: Full code Dispo: patient is significantly weaker compared to her baseline typically at home she can walk independently, complete ADL, currently she requires assistance sitting up, standing she requires intense rehab (3 hours/day) to get back to her baseline functional status currently, she has several new/ongoing medical conditions that would benefit from daily physician monitoring and rehab hospital setting she has new finding of reduced EF of 45%, she is now on oxygen which is new she continues to diurese gently on Lasix BID and renal function is stable but will need monitored closely suspect she has COPD and started on Advair and Spiriva this admission she has foot pain, improved with neurontin but had some adverse effects with diplopia she has some hypoglycemia in the AM and just reduced Lantus from 45 units to 35 units, needs monitored I feel that transfer to SNF for rehab without daily physician supervision would put patient at high risk for deterioration and re-admission Medically stable for discharge to rehab today Total Time Total Time Spent Total Time Spent (In Minutes): Greater than 30 minutes Total Time Includes: Examination of the Patient, Discharge Planning and Medication Reconciliation Discharge Plan Discharge Items Patient Disposition: Transfer Inpatient Rehab Fac Reason For Visit: CHF EXACERBATION Discharge Diagnosis: Acute on chronic diastolic CHF Acute respiratory failure with hypoxia Condition on Discharge: Fair Activity: As commented below Lifting: Gradually increase as tolerated Bathing: No limitations Exercise/Sports: Gradually increase as tolerated Weightbearing: Full weightbearing Non-emergency contact: Primary Care Provider, Pool Finisher and [employer] Call non-emergency contact if: you have any medication questions and your symptoms worsen Follow-up/Referrals: Osito Grace MD [Physician] - (Please follow up in 2-3 weeks with labs to be drawn 2 days prior-labs ordered in [facility] system.) Raheem Butcher MD [Primary Care Provider] - Gloria Rojo PA-C [Physician Hemotherapist] - 12/20/19 10:30 am (Congestive Heart Failure Program Appointment Information Early follow up is essential to managing your heart failure. An appointment has been scheduled for you with the [facility] Heart Failure Program within 7 days of discharge. Anticipate this visit to be 30-60 minutes long. Please expect a fur finisher seamstress phone call from one of our nurses approximately 48 hours from discharge. They will also be placing an order for lab work to be completed 1-2 days prior to your heart failure follow up appointment. Please be sure to have this done so we can go over the results when you come in. Office Location The cardiology office building is located in front of the hospital at [address] Bring the following with you to your follow-up doctor appointments: Please bring your daily weight log any discharge paperwork all of your medication bottles with you to this visit. ) Diet: Carb Consistent or DM2 and Low Sodium (2gm) Fluids: 1800ml (7 cups) Addtl Attending Provider Instructions: Call your Primary Care doctor if any of the following symptoms or problems start or get worse: * Shortness of breath or difficulty breathing * Wake up at night short of breath * Chest pain * Cough * Swelling of your hands, feet, or legs * More fatigued or tired with your normal activity * Palpitations - sudden fast heart beats WEIGHT * Weigh yourself every morning after using the bathroom. * Use the same scale. * Wear the same amount of clothing. * Write your weight down on a chart. * Call your Primary Care doctor if you gain more than 2-3 pounds in 1-2 days. MEDICATIONS * Use this discharge instruction sheet for medication instructions. * Take your medications at the time your doctor ordered. * Do not skip a dose of your medicines. * If you miss a dose of medicine, take it as soon as possible, but DO NOT DOUBLE A DOSE. * Read your medicine information when you get home. * Know all of the side effects of your medicine. If in doubt, ask your pharmacist * Call your Primary Care doctor's office if you have any side effects. * Be sure all of your doctors know what medicine and herbs you take (including cold, flu, and herbal medicine). Take the following with you to your follow-up doctor appointments: * Weight Chart * Medication List * List of questions Do not drink excessive alcohol, beer or wine. Pending Studies at Discharge: No Stand-Alone Forms: My [facility] Skilled Items Patient informed of condition?: Yes DNR: No Discharge Level of Care: Acute rehab Communicable Disease: No Discharge Prognosis: Improving Lines: None Urinary Catheter: No Medications and DC Order Prescriptions: New albuterol sulfate 2.5 mg /3 mL (0.083 %) Solution For Nebulization 2.5 mg NEB Q6R PRN (Reason: shortness of breath or wheezing) Qty: 10 RF: 0 Incruse Ellipta 62.5 mcg/actuation Blister With Device 1 inh inhalation DAILY Qty: 30 RF: 0 losartan 50 mg Tablet 50 mg PO BID Qty: 60 RF: 0 gabapentin 100 mg Capsule 100 mg PO BID Qty: 60 RF: 0 Breo Ellipta 100-25 mcg/dose Blister With Device 1 ea inhalation DAILY Qty: 28 RF: 0 Continued (DME) lancets [OneTouch Delica Lancets] 33 gauge misc See Rx Instructions .ROUTE .MEDSUPPLY Qty: 300 RF: 3 labetalol 200 mg tablet 600 mg PO BID Qty: 540 RF: 3 (DME) pen needle, diabetic [BD Ultra-Fine Caryl Pen Needle] 32 gauge x 5/32" needle See Dose Instructions .ROUTE .MEDSUPPLY Qty: 360 RF: 3 iron, carbonyl 45 mg tablet 45 mg PO DAILY RF: 0 aspirin 81 mg tablet 81 mg PO PM RF: 0 vitamin B complex capsule 1 cap PO QAM RF: 0 ketoconazole 2 % cream 1 appln TOP BID PRN (Reason: antifungal) RF: 0 (DME) OneTouch Ultra Blue Test Strip strip See Dose Instructions .ROUTE .MEDSUPPLY Qty: 10 RF: 0 (DME) insulin syringe-needle U-100 [BD Insulin Syringe Ultra-Fine] 1 mL 31 gauge x 5/16 syringe See Dose Instructions .ROUTE .MEDSUPPLY Qty: 10 RF: 0 furosemide 20 mg Tablet 20 mg PO BID PRN (Reason: Fluid Retention) RF: 0 PreserVision AREDS-2 [id number] Capsule 1 tab PO BID RF: 0 furosemide 40 mg tablet 40 mg PO BID RF: 0 ergocalciferol (vitamin D2) 50,000 unit capsule 50,000 units PO MONTHLY RF: 0 acetaminophen [Tylenol Extra Strength] 500 mg Tablet 1,000 mg PO BID PRN (Reason: Pain) RF: 0 omega-3 fatty acids-fish oil [Fish Oil] 360-1,200 mg Capsule 1 cap PO PM RF: 0 simvastatin 10 mg tablet 10 mg PO PM RF: 0 levothyroxine [Synthroid] 88 mcg tablet 88 mcg PO DAILY@0400 RF: 0 Changed Lantus U-100 Insulin 100 unit/mL solution 35 units SQ PM Qty: 0 RF: 0 Combivent Respimat 20-100 mcg/actuation mist 1 puffs INH QID PRN (Reason: shortness of breath or wheezing) Qty: 12 RF: 3 Discontinued nitrofurantoin monohyd/m-cryst [Macrobid] 100 mg capsule 100 mg PO BID 7 Days Qty: 14 RF: 0 insulin lispro [Humalog KwikPen Insulin] 100 unit/mL insulin pen See Rx Instructions SQ TID RF: 0 losartan 25 mg tablet See Rx Instructions .ROUTE .COMPLEX Qty: 0 RF: 3 ibuprofen [Advil Liqui-Gel] 200 mg Capsule 400 mg PO BID PRN (Reason: Pain) RF: 0 Discharge Orders: Discharge Order (Routine); Ordered 12/11/19 Ordered By: Elly Jimenez Admission Data Admit Date/Time: 12/02/19 14:13 Attending Provider: Elly Jimenez Admit Provider: Ar Currie Primary Care Provider: Raheem Butcher Other Providers: Elly Jimenez ; Raheem Wolf ; Osito Grace ; [facility] ; Olegario Agarwal [facility] Other Interventions: Discharge Summary Assessment (RN) Last Done: 12/11/19 14:21 DC Date/Time DO NOT enter until pt leaves facility: 12/11/19 15:56 Coding Level of Care Code D/C Day Management >30 mins Diagnoses Acute respiratory failure with hypoxia J96.01 Acute on chronic diastolic (congestive) heart failure I50.33 UTI (urinary tract infection) N39.0 Hypertension I10 Iron deficiency anemia D50.9 Dyslipidemia E78.5 Arteriosclerosis of coronary artery I25.10 S/P AVR (aortic valve replacement) Z95.2 Controlled type 2 diabetes mellitus with neurologic complication, with long-term current use of insulin E11.49; Z79.4 Hypothyroidism E03.9 Chronic kidney disease, stage 3 N18.3 Obstructive sleep apnea G47.33 Vitamin D deficiency E55.9 Secondary hyperparathyroidism N25.81 Obesity E66.9 Foot pain, bilateral M79.671; M79.672 COPD (chronic obstructive pulmonary disease) J44.9 DVT prophylaxis Z29.9
--- NOTE | 2019-12-15 08:01 | Coding Query ---
CODING QUERY To promote full compliance with coding requirements relating to patient care, provider participation is requested in all cases of statistical methods professor uncertainty. Please assist us with the question(s) below: Coding Question(s): There is Acute UTI documented in the record and toward the later Progress Notes and on the Discharge Summary it is documented as, " UTI (urinary tract infection): * Previously seen by PCP 11/30 with UA c/w infection and reported fevers, chills and was initiated on Macrobid * UA on admission with trace blood, 2+ leuk est, >30WBC, 5-10 epi * no growth on culture, stop Rocephin, no fever". It is not clear if UTI was ruled-out or if the patient was treated for possible UTI. Please clarify below, in your clinical opinion regarding UTI. ( ) Possible UTI was treated (x ) UTI was Ruled-out ( ) Other: Please Specify Physician's Response(s): Thank you Sienna Woodard Principal Diagnosis: "that condition established after study, to be chiefly responsible for occasioning the admission of the patient to the hospital for care." Co-Existing Principal Diagnosis: "when two or more diagnoses equally meet the criteria for principal diagnosis as determined by the circumstances of admission, diagnostic work up, and/or therapy provided, and the Alphabetic Index, Tabular List, or another coding guideline does not provide sequencing direction, any one of the diagnoses may be sequenced first." "When the physician has documented what appears to be a current diagnosis in the body of the record, but has not included the diagnosis in the final diagnostic statement, the physician should be asked whether the diagnosis should be added." (Source Coding Clinic 2 QTR90. p3-4) YESICAD
== END 2019-12-11 15:56 | DRG 291 ==
LOC: ED 11:25 → SUATTDRO 14:13 → 2S 14:13 → 2N 12-06 13:38 → 3N 12-07 06:31

== ENCOUNTER 2021-12-31 19:21 | Inpatient (IN) ==
[2021-12-31] MEDS ORDERED: FUROSEMIDE 40 MG/4 ML VIAL IV ONE (19:24)
--- NOTE | 2021-12-31 19:33 | Emergency Department Note ---
History of Present Illness General Chief complaint: Shortness of Breath/Dyspnea Stated complaint: SOB History of Present Illness 79-year-old female presents to the ED with a chief complaint of shortness of breath. She was sent from the [facility] office for further evaluation and care for low oxygen saturations on her home oxygen of 5 L. The patient has reportedly had a 7 pound weight gain over the past week. She has a history of congestive heart failure and chronic kidney disease. She also has a history of COPD. In addition the patient reports increased swelling in her legs as well as fatigue. No fevers or cough. She is chronically on Lasix 20 mg twice a day. She has not missed any doses. Symptoms are worse with exertion and laying flat. No other complaints at this time. EMS provided the patient with 2 nitro sublingual's for elevated blood pressure. Home Medications Medication Instructions Recorded Confirmed Type aspirin 81 mg tablet 81 mg PO PM tab 02/01/19 12/31/21 History vitamin B complex 1 cap PO QAM 02/06/19 12/31/21 History omega-3 fatty acids-fish oil 360 1 cap PO PM 12/02/19 12/31/21 History mg-1,200 mg capsule (Fish Oil) vit C 250 mg-vit E 90 mg-zinc 40 1 tab PO BID 12/02/19 12/31/21 History mg-copper 1 [id number] capsule (PreserVision AREDS-2) Humalog KwikPen Insulin 100 See Rx Instructions .ROUTE 07/02/20 12/31/21 Rx unit/mL subcutaneous (insulin .COMPLEX #120 ml NS lispro) simvastatin 10 mg tablet 10 mg PO DAILY #90 tab 12/23/20 12/31/21 Rx BD Ultra-Fine Caryl Pen Needle 32 #400 ea NS 03/14/21 12/31/21 Rx gauge x 5/32" (pen needle, diabetic) blood sugar diagnostic #400 ea 03/14/21 12/31/21 Rx insulin syringe-needle U-100 1 mL #100 ea 03/14/21 12/31/21 Rx 31 gauge x 5/16" (BD Insulin Syringe Ultra-Fine) ketoconazole 2 % topical cream 1 applic TOP BID PRN #30 g 03/19/21 12/31/21 Rx labetalol 200 mg tablet 600 mg PO BID #540 tab 03/21/21 12/31/21 Rx losartan 50 mg tablet 50 mg PO BID #180 tab 03/21/21 12/31/21 Rx OneTouch Delica Lancets 33 gauge #400 ea NS 04/23/21 12/31/21 Rx (lancets) furosemide 20 mg tablet 20 mg PO BID PRN #180 tab 04/24/21 12/31/21 Rx calcitriol 0.25 mcg capsule 0.25 mcg PO DAILY #90 cap 11/06/21 12/31/21 Rx Lantus U-100 Insulin 100 unit/mL See Rx Instructions SQ PM #40 ml NS 11/20/21 12/31/21 Rx subcutaneous solution (insulin glargine) Synthroid 88 mcg tablet 88 mcg PO DAILY@0400 #90 tab NS 11/20/21 12/31/21 Rx (levothyroxine) ipratropium 20 mcg-albuterol 100 1 puff INH QID PRN #12 gm 11/20/21 12/31/21 Rx mcg/actuation mist for inhalation (Combivent Respimat) celecoxib 200 mg capsule (Celebrex) 200 mg PO DAILY #90 cap 11/26/21 12/31/21 Rx furosemide 80 mg tablet (Lasix) 80 mg PO DAILY 12/31/21 12/31/21 History Allergies Allergy/AdvReac Type Severity Reaction Status Date / Time Horse/Equine Containing Allergy Unknown LOCKED Verified 12/31/21 18:01 Products JOINTS codeine AdvReac Unknown REVERSED Verified 12/31/21 18:01 REACTION Past Med/Surg History Medical History Acute kidney injury Acute respiratory failure with hypoxia Chronic diastolic CHF (congestive heart failure) COPD with acute exacerbation Diabetic peripheral neuropathy associated with type 2 diabetes mellitus Dyspnea Hypokalemia Hypomagnesemia Hypoxia Loss of protective sensation of skin of foot Pneumonia Septicemia Spondylisthesis Surgical History H/O oral surgery S/P aortic valve replacement S/P bunionectomy S/P cataract surgery S/P dilation and curettage S/P tonsillectomy S/P total knee arthroplasty Status post hysteroscopic polypectomy Family History Father Hypertension Stroke Myocardial infarction Grandmother (Maternal) Diabetes Mother Diabetes Other COPD (chronic obstructive pulmonary disease) Denies family history of Ovarian cancer Prostate cancer Breast cancer Colorectal cancer Social History Smoking Status: Unknown if ever smoked Hx Alcohol Use: No Hx Substance Use: No Preferred Language: Persian Communication Ability: Effective Visual Impairment: No Limitations Hearing Ability: Hard of Hearing Beliefs That Will Affect Care: Mu-Ism Mu-Ism Beliefs: CHURCH marital status: Current Living Situation: Spouse current occupational status: retired Feels Safe at Home: Yes Seatbelt Use: always Sunscreen Use: No Assistive Devices: CPAP and Walker Review of Systems A total of 10 systems reviewed and were otherwise negative Physical Exam Vital Signs Vital Signs - 24 hr 12/31/21 19:23 12/31/21 19:41 Temperature 36.8 C Temperature Source Oral Pulse Rate 93 H Pulse Rhythm Regular Pulse Strength Normal Respiratory Rate 22 Respiratory Effort / Characteristics SOB on Exertion Respiratory Depth Normal Normal Respiratory Pattern Tachypnea Regular Blood Pressure 159/100 H Blood Pressure Mean 119 Blood Pressure Position Lying Pulse Oximetry 98 Oxygen Delivery Method Nasal Cannula Nasal Cannula Oxygen Flow Rate 5 5 Sepsis Recent Fever Within 48 Hours No Sepsis New/Unexplained Change in Mental Status No Sepsis Action Taken by Nursing No Action Required CONSTITUTIONAL/VITAL SIGNS: Reviewed / noted above. GENERAL: Non-toxic in appearance. INTEGUMENTARY: Warm, dry, and [place]. HEAD: Normocephalic. EYES: without scleral icterus or trauma. ENT/OROPHARYNX: clear and moist. LYMPHADENOPATHY/NECK: Is supple without lymphadenopathy or meningismus. RESPIRATORY: Rales in the bilateral bases. No increased work of breathing. CARDIOVASCULAR: Regular rate and rhythm. GI/ABDOMEN: Soft and nontender. No organomegaly or pulsatile mass. EXTREMITIES: Warm and well perfused. Pitting pedal edema bilaterally. BACK: No CVA tenderness. NEUROLOGICAL: Intact without focal deficits. PSYCHIATRIC: normal affect. MUSCULOSKELETAL: Normally developed with good muscle tone. TRIAGE NURSING DOCUMENTATION REVIEWED. Course Administered Medications Discontinued Medications Furosemide (Furosemide 40 Mg/4 Ml Vial) 40 mg IV ONE ONE Stop: 12/31/21 19:25 Last Admin: 12/31/21 19:35 Dose: 40 mg Documented by: [id number] Medical Decision Making Differential Diagnosis The differential was considered includes acute myocardial infarction, acute coronary syndrome, myocarditis, pericarditis, pericardial effusions /tamponad, esophageal perforation, pulmonary embolism, pneumonia, pneumothorax, cardiomyopathy, congestive heart, anemia , COPD/asthma exacerbation. Medical Records Attestation: I reviewed the patient's medical records. Home Medications Current Medication List: was personally reviewed by me Laboratory Data Attestation: I reviewed the patient's lab results. Result diagrams: 12/31/21 19:27 12/31/21 19:27 Lab Results 12/31/21 12/31/21 12/31/21 Range/Units 19:27 19: 19:27 WBC 5.61 (4.8-10.8) K/ul RBC 3.32 L (3.93-5.22) M/uL Hgb 8.8 L (12.0-16.0) g/dl Hct 31.2 L (34.1-44.9) % MCV 94.0 (80.0-100.0) fL MCH 26.5 (25.0-34.0) pg MCHC 28.2 L (32.0-36.0) g/dL RDW Std Deviation 54.4 H (36.4-46.3) fL RDW Coeff of Nella 15.8 H (11.5-14.5) % Plt Count 149 (130-400) K/uL MPV 10.1 (9.4-12.3) fL Immature Gran % (Auto) 0.4 % Neut % (Auto) 78.8 % Lymph % (Auto) 10.2 % [place] % (Auto) 7.0 % Eos % (Auto) 2.9 % Baso % (Auto) 0.7 % Neut # (Auto) 4.43 (1.4-6.5) K/uL Lymph # (Auto) 0.57 L (1.2-3.4) K/uL [place] # (Auto) 0.39 (0.24-0.82) K/uL Eos # (Auto) 0.16 (0-0.50) K/uL Baso # (Auto) 0.04 (0-0.2) K/uL Immature Gran # (Auto) 0.02 (0.00-0.02) K/uL Hypochromasia Present Poikilocytosis Present PT 11.4 (9.0-12.0) Seconds INR 1.1 (0.9-1.1) APTT 27.7 (21.0-31.0) Seconds PTT Ratio 1.0 Sodium 144 (136-145) mmol/L Potassium 4.0 (3.5-5.1) mmol/L Chloride 96 L (98-107) mmol/L Carbon Dioxide 45 H* (21-32) mmol/L Anion Gap 3 (3-11) BUN 50 H (6-23) mg/dl Creatinine 1.29 H (0.6-1.2) mg/dl Est Cr Clr Drug Dosing 39.6 ml/min Est GFR ( Amer) 44.7 ml/min Est GFR (Non-Af Amer) 38.5 ml/min BUN/Creatinine Ratio 38.8 H (10-20) Glucose 166 H (70-99(Fasting)) mg/dl Calcium 8.5 (8.5-10.1) mg/dl Total Bilirubin 0.8 (0.2-1.0) mg/dl AST 14 (13-39) U/L ALT 12 (7-52) U/L Alkaline Phosphatase 67 (34-104) U/L Troponin I High Sens 27.8 H (0-14) pg/ml Total Protein 6.5 (6.0-8.3) gm/dl Albumin 3.9 (3.4-5.0) gm/dl Globulin 2.6 (2.5-4.0) gm/dl Albumin/Globulin Ratio 1.5 (0.9-2) Lipase 16 (11-82) U/L SARS-CoV-2, RNA, NAAT (NEGATIVE) 12/31/21 Range/Units 19:30 WBC (4.8-10.8) K/ul RBC (3.93-5.22) M/uL Hgb (12.0-16.0) g/dl Hct (34.1-44.9) % MCV (80.0-100.0) fL MCH (25.0-34.0) pg MCHC (32.0-36.0) g/dL RDW Std Deviation (36.4-46.3) fL RDW Coeff of Nella (11.5-14.5) % Plt Count (130-400) K/uL MPV (9.4-12.3) fL Immature Gran % (Auto) % Neut % (Auto) % Lymph % (Auto) % [place] % (Auto) % Eos % (Auto) % Baso % (Auto) % Neut # (Auto) (1.4-6.5) K/uL Lymph # (Auto) (1.2-3.4) K/uL [place] # (Auto) (0.24-0.82) K/uL Eos # (Auto) (0-0.50) K/uL Baso # (Auto) (0-0.2) K/uL Immature Gran # (Auto) (0.00-0.02) K/uL Hypochromasia Poikilocytosis PT (9.0-12.0) Seconds INR (0.9-1.1) APTT (21.0-31.0) Seconds PTT Ratio Sodium (136-145) mmol/L Potassium (3.5-5.1) mmol/L Chloride (98-107) mmol/L Carbon Dioxide (21-32) mmol/L Anion Gap (3-11) BUN (6-23) mg/dl Creatinine (0.6-1.2) mg/dl Est Cr Clr Drug Dosing ml/min Est GFR ( Amer) ml/min Est GFR (Non-Af Amer) ml/min BUN/Creatinine Ratio (10-20) Glucose (70-99(Fasting)) mg/dl Calcium (8.5-10.1) mg/dl Total Bilirubin (0.2-1.0) mg/dl AST (13-39) U/L ALT (7-52) U/L Alkaline Phosphatase (34-104) U/L Troponin I High Sens (0-14) pg/ml Total Protein (6.0-8.3) gm/dl Albumin (3.4-5.0) gm/dl Globulin (2.5-4.0) gm/dl Albumin/Globulin Ratio (0.9-2) Lipase (11-82) U/L SARS-CoV-2, RNA, NAAT NEGATIVE (NEGATIVE) Imaging Data Radiologist's Impression: Chest X-Ray 12/31/21 19:24 XR chest 1V portable CLINICAL HISTORY: Atypical chest pain. COMPARISON STUDY: Chest radiograph December 06, 2019. FINDINGS: There is no pneumothorax. Small right pleural effusion is noted with right basilar opacity. Cardiomegaly is noted. There is pulmonary vascular conge stion with possible mild pulmonary edema. There may be mild left basilar opacity. IMPRESSION: 1. Small right pleural effusion with right basilar opacity which could reflect atelectasis or less likely consolidation. Radiographic follow-up is recommended. 2. Cardiomegaly with suspected mild pulmonary edema. ACT 112: Negative or not required by law. Electronically signed by: Johnny Todd M.D. 12/31/2021 8:07 PM ECG Data Attestation: I personally reviewed and interpreted this ECG as follows: Additional Comments: Twelve-lead EKG: Per my interpretation Shows a normal sinus rhythm at a rate of 90 with a left bundle branch block. MDM Narrative 81-year-old female with a history of CHF and COPD presents to her PCPs office on her 5 L of oxygen that she uses chronically hypoxic with saturations in the 80s as well as a 7 pound weight gain in the past week. She was sent here by EMS. She does have some rales in the bases as well as increased pedal edema. EKG shows a sinus rhythm with a chronic left bundle branch block. The patient's bicarb is elevated 45. BUN is 15 creatinine is 1.29. Chest x-ray shows findings suggestive of mild pulmonary edema. COVID test was negative. Metabolic panel was unremarkable otherwise. Troponin is mildly elevated at 27. The patient was given IV Lasix here. She will be seen by the hospitalist for further evaluation and care. The patient had oxygen saturations in the low to mid 90s with her 5 L of oxygen. Impression & Plan CHF exacerbation Discharge Plan Visit Data Chief Complaint: Shortness of Breath/Dyspnea Stated Complaint: SOB ED Provider: Yannick Velasco Discharge Problem: CHF exacerbation Patient Disposition: Being Evaluated by Hospitalist Forms Stand Alone Forms: My [facility] Prescriptions Prescriptions: No Action insulin lispro [Humalog KwikPen Insulin] 100 unit/mL insulin pen See Rx Instructions .ROUTE .COMPLEX Qty: 120 RF: 1 simvastatin 10 mg tablet 10 mg PO DAILY Qty: 90 RF: 3 (DME) OneTouch Ultra Blue Test Strip Strip See Dose Instructions .ROUTE .MEDSUPPLY Qty: 400 RF: 3 (DME) insulin syringe-needle U-100 [BD Insulin Syringe Ultra-Fine] 1 mL 31 gauge x 5/16 syringe See Dose Instructions .ROUTE .MEDSUPPLY Qty: 100 RF: 3 (DME) pen needle, diabetic [BD Ultra-Fine Caryl Pen Needle] 32 gauge x 5/32" needle See Dose Instructions .ROUTE .MEDSUPPLY Qty: 400 RF: 3 ketoconazole 2 % cream 1 applic TOP BID PRN (Reason: antifungal) Qty: 30 RF: 1 labetalol 200 mg tablet 600 mg PO BID Qty: 540 RF: 3 losartan 50 mg tablet 50 mg PO BID Qty: 180 RF: 3 (DME) lancets [OneTouch Delica Lancets] 33 gauge misc See Rx Instructions .ROUTE .MEDSUPPLY Qty: 400 RF: 1 Combivent Respimat 20-100 mcg/actuation mist 1 puff INH QID PRN (Reason: shortness of breath or wheezing) Qty: 12 RF: 3 Lantus U-100 Insulin 100 unit/mL solution See Rx Instructions SQ PM Qty: 40 RF: 1 levothyroxine [Synthroid] 88 mcg tablet 88 mcg PO DAILY@0400 Qty: 90 RF: 3 celecoxib [Celebrex] 200 mg capsule 200 mg PO DAILY Qty: 90 RF: 3 aspirin 81 mg tablet 81 mg PO PM RF: 0 calcitriol 0.25 mcg capsule 0.25 mcg PO DAILY Qty: 90 RF: 3 vitamin B complex capsule 1 cap PO QAM RF: 0 furosemide 20 mg tablet 20 mg PO BID PRN (Reason: Fluid Retention) Qty: 180 RF: 0 furosemide [Lasix] 80 mg tablet 80 mg PO DAILY RF: 0 PreserVision AREDS-2 [id number] [id number] Capsule 1 tab PO BID RF: 0 omega-3 fatty acids-fish oil [Fish Oil] 360-1,200 mg Capsule 1 cap PO PM RF: 0 Referrals Referrals: Raheem Butcher MD [Primary Care Provider] -
[2021-12-31 19:59] LABS: INR 1.1 (0.9-1.1); Partial Thromboplastin Time 27.7 Seconds (21.0-31.0); Prothrombin Time 11.4 Seconds (9.0-12.0)
--- NOTE | 2021-12-31 20:08 | XRay Report ---
XR chest 1V portable CLINICAL HISTORY: Atypical chest pain. COMPARISON STUDY: Chest radiograph December 06, 2019. FINDINGS: There is no pneumothorax. Small right pleural effusion is noted with right basilar opacity. Cardiomegaly is noted. There is pulmonary vascular congestion with possible mild pulmonary edema. Th ere may be mild left basilar opacity. IMPRESSION: 1. Small right pleural effusion with right basilar opacity which could reflect atelectasis or less li cely consolidation. Radiographic follow-up is recommended. 2. Cardiomegaly with suspected mild pulmonary edema. ACT 112: Negative or not required by law. Electronically signed by: Johnny Todd M.D. 12/31/2021 8:07 PM
[2021-12-31 20:17] LABS: Albumin Globulin Ratio 1.5 (0.9-2); Albumin Level 3.9 gm/dl (3.4-5.0); BUN Creatinine Ratio 38.8 (10-20); Bilirubin,Total 0.8 mg/dl (0.2-1.0); Calcium 8.5 mg/dl (8.5-10.1); Creatinine Clr Calc Pharmacy 39.6 ml/min; Est GFR (African American) 44.7 ml/min; Est GFR (Non-African American) 38.5 ml/min; Globulin 2.6 gm/dl (2.5-4.0); Total Protein 6.5 gm/dl (6.0-8.3); Troponin I High Sensitivity 27.8 pg/ml (0-14)
[2021-12-31 20:20] LABS: Basophils # (auto) 0.04 K/uL (0-0.2); Basophils % (auto) 0.7 %; Eosinophils # (auto) 0.16 K/uL (0-0.50); Eosinophils % (auto) 2.9 %; Hematocrit (blood only) 31.2 % (34.1-44.9); Hemoglobin 8.8 g/dl (12.0-16.0); Hypochromasia Present; Immature Granulocytes # (auto) 0.02 K/uL (0.00-0.02); Immature Granulocytes % (auto) 0.4 %; Lymphocytes # (auto) 0.57 K/uL (1.2-3.4); Lymphocytes % (auto) 10.2 %; Mean Corpuscular Hemoglobin 26.5 pg (25.0-34.0); Mean Corpuscular Hgb Conc 28.2 g/dL (32.0-36.0); Mean Platelet Volume 10.1 fL (9.4-12.3); Monocytes # (auto) 0.39 K/uL (0.24-0.82); Neutrophils # (auto) 4.43 K/uL (1.4-6.5); Neutrophils % (auto) 78.8 %; Platelet Count 149 K/uL (130-400); Poikilocytosis Present; RDW Coefficient of Variation 15.8 % (11.5-14.5); RDW Standard Deviation 54.4 fL (36.4-46.3); Red Blood Count 3.32 M/uL (3.93-5.22); White Blood Count 5.61 K/ul (4.8-10.8)
--- NOTE | 2021-12-31 20:40 | History & Physical Report ---
Date of Service December 31, 2021 Assessment & Plan (1) CHF exacerbation: Plan: 81 year old female w/ PMHx of CAD, htn, IDDM, HFpEF, CKD, home 2+L O2 (obesity- restrictive lung disease), tasia on cpap, arthritis (tylenol, celebrex), and bioprosthetic aortic valve who presents w/ 2-3 months of increased dyspnea on exertion; admitting for hypoxia secondary to CHF exacerbation. - slightly hypervolemic on exam; CHF exac is leading differential of increased O2 req. Lower suspicion for pneumonia as contributory though cxr w/ opacity at base. Lower suspicion for PE at this time. No chest pain complaint, signs of infection, or confusion. - repeat echo as 10/2021 echo was technically limited and no EF estimate - continue diuresis; s/p 40mg IV Lasix in ED; will provide another 20mg - strict Is and Os - elevated bicarb; suspect chronic CO2 retainer w/ chronic kidney compensation - tachypnea to 45. HR 90s: checking ABG, procal, lactate. qhs cpap for tasia. nitro paste. will control bp w/ home regimen. can consider CT vs CTA if need further clarification of if pneumonia - trend trop - ecg w/ LBBB, not new - consider recent change from vitamin D2 to D3 as potentially contributory as D3 may contribute to fluid retention - titrate O2 goal >90% (2) Chronic diastolic CHF (congestive heart failure): Plan: - follow CHF clinic [facility] - 10/2021 echo poor quality w/ no estimable EF. 2020 echo w/ normal EF. - repeat EF in AM (3) Controlled type 2 diabetes mellitus with kidney complication, with long-term current use of insulin: Plan: - A1c 5.6 10/2021, at goal - SSI and 40mg qhs lantus - on large dose of beta charlette for HTN; note to PCP: caution against decreased hypoglycemia awareness (4) Obesity: Plan: - 2019 PFT reviewed. no obstructive airway disease. restriction from obesity? Recommend repeat PFTs as outpatient. Recommend reassess amount of supp O2 needed and reassess O2 goal range as patient appears to be aiming for 95+%. - prior chart hx of copd is incorrect. (5) Anemia: Plan: - chronic, downtrending. Hb 8.8. normocytic - check iron studies in AM (6) Secondary hyperparathyroidism: Plan: - follows nephro. recent switch from D2 to D3. (7) Chronic kidney disease, stage 3: Plan: - stable, follow bmp (8) Hypothyroidism: Plan: - continue home levothyroxine (9) Obstructive sleep apnea: Plan: - continue qhs cpap (10) Dyslipidemia: Plan: - continue home statin (11) S/P AVR (aortic valve replacement): Plan: - follows Dr. Wolf Plan: FEN/GI: DM2, low Na. No IV fluids. ppx: hold chemoppx in setting of downtrending Hb. scds. code: full dispo: med tele History of Present Illness Chief Complaint: shortness of breath Primary Care Provider: Raheem Butcher MD 81 year old female w/ PMHx of CAD, htn, IDDM, HFpEF, CKD, home 2+L O2 (obesity- restrictive? lung disease), tasia on cpap, arthritis (tylenol, celebrex), and bioprosthetic aortic valve who presents w/ 2-3 months of increased dyspnea on exertion. She does endorse 7 lb wt gain in the past week and increased ankle swelling. She was sent to the ED by her PCP this afternoon for saturating into the low 80s and upper 70s on 5L O2 while feeling essentially asymptomatic other than the WEAVER. She had similar desaturation at her sleep medicine visit yesterday. Patient states that 2 years ago at hosp discharge, was Rx'd 2L qhs home O2. In the past year, she has used 2-4L as needed, but in the past 2-3 months has needed continuous O2, up to 5L. She attributes some of the use to feeling better while on it. In these 2-3 months, she has also had increased fatigue aside from the WEAVER. Her ergocalciferol was changed to D3 cholecalciferol by nephro at approx. the same time. Currently, denies subjective complaint and states she is breathing comfortably. She denies hx of VTE, FL, or stroke. Distant 0.5 pack year hx tobacco use. ED course: Lasix 40mg x1. EMS noted sat of 82% on 5L. 2 of nitro provided relief of dyspnea. Allergies Allergy/AdvReac Type Severity Reaction Status Date / Time Horse/Equine Containing Allergy Unknown LOCKED Verified 12/31/21 18:01 Products JOINTS codeine AdvReac Unknown REVERSED Verified 12/31/21 18:01 REACTION Home Medications Medication Instructions Recorded Confirmed Type aspirin 81 mg tablet 81 mg PO PM tab 02/01/19 12/31/21 History vitamin B complex 1 cap PO QAM 02/06/19 12/31/21 History omega-3 fatty acids-fish oil 360 1 cap PO PM 12/02/19 12/31/21 History mg-1,200 mg capsule (Fish Oil) vit C 250 mg-vit E 90 mg-zinc 40 1 tab PO BID 12/02/19 12/31/21 History mg-copper 1 [id number] capsule (PreserVision AREDS-2) Humalog KwikPen Insulin 100 See Rx Instructions .ROUTE 07/02/20 12/31/21 Rx unit/mL subcutaneous (insulin .COMPLEX #120 ml NS lispro) simvastatin 10 mg tablet 10 mg PO DAILY #90 tab 12/23/20 12/31/21 Rx BD Ultra-Fine Caryl Pen Needle 32 #400 ea NS 03/14/21 12/31/21 Rx gauge x 5/32" (pen needle, diabetic) blood sugar diagnostic #400 ea 03/14/21 12/31/21 Rx insulin syringe-needle U-100 1 mL #100 ea 03/14/21 12/31/21 Rx 31 gauge x 5/16" (BD Insulin Syringe Ultra-Fine) ketoconazole 2 % topical cream 1 applic TOP BID PRN #30 g 03/19/21 12/31/21 Rx labetalol 200 mg tablet 600 mg PO BID #540 tab 03/21/21 12/31/21 Rx losartan 50 mg tablet 50 mg PO BID #180 tab 03/21/21 12/31/21 Rx OneTouch Delica Lancets 33 gauge #400 ea NS 04/23/21 12/31/21 Rx (lancets) furosemide 20 mg tablet 20 mg PO BID PRN #180 tab 04/24/21 12/31/21 Rx calcitriol 0.25 mcg capsule 0.25 mcg PO DAILY #90 cap 11/06/21 12/31/21 Rx Lantus U-100 Insulin 100 unit/mL See Rx Instructions SQ PM #40 ml NS 11/20/21 12/31/21 Rx subcutaneous solution (insulin glargine) Synthroid 88 mcg tablet 88 mcg PO DAILY@0400 #90 tab NS 11/20/21 12/31/21 Rx (levothyroxine) ipratropium 20 mcg-albuterol 100 1 puff INH QID PRN #12 gm 11/20/21 12/31/21 Rx mcg/actuation mist for inhalation (Combivent Respimat) celecoxib 200 mg capsule (Celebrex) 200 mg PO DAILY #90 cap 11/26/21 12/31/21 Rx furosemide 80 mg tablet (Lasix) 80 mg PO DAILY 12/31/21 12/31/21 History Past Med/Surg History Medical History Acute kidney injury Acute respiratory failure with hypoxia Chronic diastolic CHF (congestive heart failure) COPD with acute exacerbation Diabetic peripheral neuropathy associated with type 2 diabetes mellitus Dyspnea Hypokalemia Hypomagnesemia Hypoxia Loss of protective sensation of skin of foot Pneumonia Septicemia Spondylisthesis Surgical History H/O oral surgery S/P aortic valve replacement S/P bunionectomy S/P cataract surgery S/P dilation and curettage S/P tonsillectomy S/P total knee arthroplasty Status post hysteroscopic polypectomy Family History Father Hypertension Stroke Myocardial infarction Grandmother (Maternal) Diabetes Mother Diabetes Other COPD (chronic obstructive pulmonary disease) Denies family history of Ovarian cancer Prostate cancer Breast cancer Colorectal cancer Social History (Updated 12/31/21 @ 23:34 by Dinesh Braxton MD) Smoking Status: Never smoker Age Started Using Tobacco: 19; Age Quit Using Tobacco: 21; packs per day: 0.25; Second Hand Exposure: No; Do You Dip or Chew Tobacco: No; Tobacco Cessation Education Requested by Patient: No Hx Alcohol Use: No Hx Substance Use: No Preferred Language: Latvian Communication Ability: Effective Visual Impairment: No Limitations Hearing Ability: Hard of Hearing 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 NAD. Cooperative. HEENT: Atraumatic, normocephalic. EOMI. + mild JVD on right. Oropharynx normal. Pulm: Diminished diffusely. Faint insp crackles at bases. No acc muscle use. Cardiac: RRR, -mrg. [place] S2 consistent w/ bioprosthetic aortic valve. Radial pulses intact and symmetrical. 2+ BLE. Abdominal: Nontender, nondistended, soft. Msk: Moving all extremities. Neuro: No motor or sensory deficit of extremities. Results & Data Results & Data ([facility]) Vital Signs (Past 12 Hours) Vital Signs Temp Pulse Resp BP Pulse Ox 12/31/21 20:20 92 H 35 H 163/93 H 98 12/31/21 19:23 36.8 C 93 H 22 159/100 H 98 Laboratory Results Cardiac Enzymes 12/31/21 Range/Units 19:27 AST 14 (13-39) U/L Troponin I High Sens 27.8 H (0-14) pg/ml Coagulation 12/31/21 Range/Units 19:27 PT 11.4 (9.0-12.0) Seconds APTT 27.7 (21.0-31.0) Seconds CBC 12/31/21 Range/Units 19:27 WBC 5.61 (4.8-10.8) K/ul RBC 3.32 L (3.93-5.22) M/uL Hgb 8.8 L (12.0-16.0) g/dl Hct 31.2 L (34.1-44.9) % Plt Count 149 (130-400) K/uL Neut # (Auto) 4.43 (1.4-6.5) K/uL Lymph # (Auto) 0.57 L (1.2-3.4) K/uL [place] # (Auto) 0.39 (0.24-0.82) K/uL Eos # (Auto) 0.16 (0-0.50) K/uL Baso # (Auto) 0.04 (0-0.2) K/uL Comprehensive Metabolic Panel 12/31/21 Range/Units 19:27 Sodium 144 (136-145) mmol/L Potassium 4.0 (3.5-5.1) mmol/L Chloride 96 L (98-107) mmol/L Carbon Dioxide 45 H* (21-32) mmol/L BUN 50 H (6-23) mg/dl Creatinine 1.29 H (0.6-1.2) mg/dl Glucose 166 H (70-99(Fasting)) mg/dl Calcium 8.5 (8.5-10.1) mg/dl AST 14 (13-39) U/L ALT 12 (7-52) U/L Alkaline Phosphatase 67 (34-104) U/L Total Protein 6.5 (6.0-8.3) gm/dl Albumin 3.9 (3.4-5.0) gm/dl Intake and Output 12/31/21 12/31/21 12/31/21 06:59 14:59 22:59 Other: Weight 118.1 kg Weight Measurement Method Built in [facility] Patient Weight 01/01/22 06:59 Weight 118.1 kg Diagnostic Findings Chest X-Ray 12/31/21 19:24 XR chest 1V portable CLINICAL HISTORY: Atypical chest pain. COMPARISON STUDY: Chest radiograph December 06, 2019. FINDINGS: There is no pneumothorax. Small right pleural effusion is noted with right basilar opacity. Cardiomegaly is noted. There is pulmonary vascular congestion with possible mild pulmonary edema. There may be mild left basilar opacity. IMPRESSION: 1. Small right pleural effusion with right basilar opacity which could reflect atelectasis or less likely consolidation. Radiographic follow-up is recommended. 2. Cardiomegaly with suspected mild pulmonary edema. ACT 112: Negative or not required by law. Electronically signed by: Johnny Todd M.D. 12/31/2021 8:07 PM Code Status & VTE Plan Code Status full VTE Prophylaxis Plan VTE Prophylaxis will be ordered: Yes Supervising Physician Co-Signing Physician Notes Attending addendum: I have physically seen this patient, have supervised the medical residents activities, and agree with the H&P unless as otherwise noted. Assessment and Plan: CHF exacerbation/acute on chronic HFrEF/hypertension Received furosemide 40 mg IV in the ED, with additional 20 mg IV added Continue Lasix 60 mg IV every morning, monitoring labs for alkalosis Echo from 2019 shows ejection fraction 50-55%, but not reportable on the most recent echo The patient will be admitted to telemetry for serial cardiac enzymes, serial EKG's, cardiac rhythm monitoring and a 2-D echocardiogram with Dopplers. Continue aspirin 81 mg daily, labetalol 600 mg p.o. twice daily, losartan 50 mg p.o. twice daily. Diabetes mellitus- Continue Lantus insulin Placed on Accu-Cheks before meals and at bedtime with NovoLog coverage per scale Check hemoglobin A1c Hyperlipidemia- Continue simvastatin Check a fasting lipid panel Remaining orders and notations as noted Resident Activity Tracking Resident Involvement: Resident Care Provided Care Provided: Adult Hospital Medicine
[2021-12-31] MEDS ORDERED: LOSARTAN POTASSIUM 50 MG TAB PO STA (21:53)
[2021-12-31] MEDS ORDERED: LABETALOL HCL 300 MG TAB PO STA (21:53)
[2021-12-31] MEDS ORDERED: LANTUS PER UNIT CHARGE SQ STA (21:58)
[2021-12-31] MEDS ORDERED: FUROSEMIDE INJ 20 MG/2 ML VIAL IV STA (22:30)
[2021-12-31 23:15] LABS: Base Excess ABG 16.2 mEq/L (-9-1.8); HCO3 ABG 46 mmol/L (19-24); PCO2 ABG 86 mmHg (35-46); PO2 ABG 114 mmHg (80-95); pH ABG 7.34 (7.35-7.45)
[2021-12-31] MEDS ORDERED: NITROGLYCERIN 2% OINTMENT 30GM TUBE EXT STA (23:16)
[2021-12-31 23:30] LABS: Allen Test POS (Pos)
[2022-01-01] MEDS ORDERED: GLUCAGON FOR INJ 1 MG VIAL SQ PRN (00:41)
[2022-01-01] MEDS ORDERED: DEXTROSE 50% 50 ML SYRINGE IV PRN (00:41)
[2022-01-01] MEDS ORDERED: GLUCOSE 10 TAB/TUBE PO PRN (00:41)
[2022-01-01] MEDS ORDERED: ACETAMINOPHEN 325 MG TAB PO PRN (00:41)
[2022-01-01] MEDS ORDERED: CARBOHYDRATES FOR HYPOGLYCEMIA PO PRN (00:41)
[2022-01-01] MEDS ORDERED: GLUCOSE 40% GEL 15 GM TUBE PO PRN (00:41)
[2022-01-01] MEDS ORDERED: ONDANSETRON INJ 2 MG/ML 2 ML VIAL IV PRN (00:41)
[2022-01-01] MEDS ORDERED: FUROSEMIDE INJ 20 MG/2 ML VIAL IV ONE ×2 (01:18→01:36)
[2022-01-01] MEDS ORDERED: metOLazone 5 MG TABLET PO STA (01:34)
[2022-01-01] MEDS: NITROGLYCERIN 2% OINTMENT 30GM TUBE EXT SCH ×4 (02:00→20:16)
[2022-01-01] MEDS: LEVOTHYROXINE SODIUM 88 MCG TABLET PO SCH (03:24)
[2022-01-01 06:40] LABS: Troponin I High Sensitivity 32.8 pg/ml (0-14)
[2022-01-01 06:55] LABS: Hematocrit (blood only) 29.2 % (34.1-44.9); Hemoglobin 8.1 g/dl (12.0-16.0); Mean Corpuscular Hemoglobin 25.8 pg (25.0-34.0); Mean Corpuscular Hgb Conc 27.7 g/dL (32.0-36.0); Mean Platelet Volume 10.3 fL (9.4-12.3); Platelet Count 138 K/uL (130-400); RDW Coefficient of Variation 15.9 % (11.5-14.5); RDW Standard Deviation 54.3 fL (36.4-46.3); Red Blood Count 3.14 M/uL (3.93-5.22); White Blood Count 4.47 K/ul (4.8-10.8)
[2022-01-01 07:00] LABS: BUN Creatinine Ratio 39.3 (10-20); Blood Urea Nitrogen 44 mg/dl (6-23); Calcium 8.3 mg/dl (8.5-10.1); Chloride 96 mmol/L (98-107); Creatinine Clr Calc Pharmacy 44.7 ml/min; Est GFR (Non-African American) 45.7 ml/min; Ferritin 44.3 ng/ml (8-388); Glucose 42 mg/dl (70-99(Fasting)); Iron 34 mcg/dl (35-150); Magnesium 1.6 mg/dl (1.7-2.4); Potassium 3.3 mmol/L (3.5-5.1); Sodium 146 mmol/L (136-145); Total Iron Binding Cap Calc 303 mcg/dl (250-450); Transferrin (FE) Percent Satur 11 % (15-50); Unsaturated Iron Binding Cap 269 mcg/dl (155-355)
[2022-01-01 07:37] LABS: Carbon Dioxide > 45 mmol/L (21-32)
--- NOTE | 2022-01-01 07:57 | Hospitalist Progress Note ---
Date of Service January 01, 2022 Assessment & Plan (1) CHF exacerbation: Plan: 81 year old female w/ PMHx of CAD, htn, IDDM, HFpEF, CKD, home 2+L O2 (obesity- restrictive lung disease), tasia on cpap, arthritis (tylenol, celebrex), and bioprosthetic aortic valve who presents w/ 2-3 months of increased dyspnea on exertion; admitting for hypoxia secondary to CHF exacerbation. Acute hypoxic, hypercapnic respiratory failure, acute on chronic CHF +/- obesity hypoventilation respiratory fatigue Baseline echo 2020 with normal EF Procalcitonin negative Repeat echo pending Patient with pulmonary edema and increased oxygen requirement on admission CXR: Small right pleural effusion with right basilar opacity which could reflect atelectasis or less likely consolidation. Radiographic follow-up is recommended. Cardiomegaly with suspected mild pulmonary edema. Patient feels clinically improved, about 80% of her normal baseline but remains with hypercapnia Patient with VBG PCO2 100, pH 7.33. Chronic underlying retention, patient is mentating normally at bedside. BiPAP ordered with repeat following 4 hours of BiPAP BiPAP nightly/as needed CTchest pending EKG: LBBB consistent with prior, naf - Recieved lasix 40 on admit and additional 40mg IV - Lasix 40mg daily, lungs sound relatively clear on assessment and patient reports she does feel greatly improved from last night. - Cr at bl - Will have f/u with CHF clinic - PFT 01/24/20: No osbstructive disase. Normal TLC. ?Obesity hypovent. Mild DLCO decrease which correctts. FVC 81%, FEV1 83%, FEV1/FVC 99% Suspect her hypercapnia is acute on chronic chronic and worsened with resp iratory fatigue in the setting of acute CHF Patient does turn her oxygen levels between 2 and 5 L at home as needed for shortness of breath, did discuss that titrating her oxygen above levels of 90% could lead to suppression of respiratory drive and worsening hypercapnia. Titrate oxygen to goal 90%. -Patient reports she would not want intubation either in a code setting (DNR/DNI updated), or for declining respiratory status even if after maximizing BiPAP she were likely to pass away without it. Family at bedside for this conversation, reports that they understand her decision but would like to be kept updated should she clinically worsen. (2) Chronic diastolic CHF (congestive heart failure): Plan: As above (3) Controlled type 2 diabetes mellitus with kidney complication, with long-term current use of insulin: Plan: - A1c 5.6 10/2021, at goal - SSI. Hypoglycemic event in morning 01/01, Lantus adjusted to evening scale dosing - on large dose of beta charlette for HTN; - note to PCP: caution against decreased hypoglycemia awareness (4) Obesity: Plan: - 2019 PFT reviewed. no obstructive airway disease. restriction from obesity? - Recommend repeat PFTs as outpatient. - prior chart hx of copd is incorrect. -CPAP nightly (5) Anemia: Plan: - chronic, downtrending. Hb 8.8 -> 8.1 normocytic. No active bleeding - Iron studies consistent with iron deficiency anemia. B12/Folate pending -Fluid status improving, will start Venofer 300 mg daily infusions - FOBT pending (6) Secondary hyperparathyroidism: Plan: - follows nephro. - recent switch from D2 to D3. (7) Chronic kidney disease, stage 3: Plan: - stable, follow bmp (8) Hypothyroidism: Plan: - continue home levothyroxine (9) Obstructive sleep apnea: Plan: - continue qhs cpap (10) Dyslipidemia: Plan: - continue home statin (11) S/P AVR (aortic valve replacement): Plan: - follows Dr. Wolf Plan: FEN/GI: DM2, low Na. No IV fluids. ppx: hold chemoppx in setting of downtrending Hb. scds. code: full dispo: med tele Admission and Anticipated Discharge Date Admission Date: December 31, 2021 Subjective Seen at bedside in the morning, and again with family at bedside midday. Denies chest pain, chest pressure, lightheadedness, dizziness, difficulty breathing, and shortness of breath. On morning assessment patient is arousable, answers questions appropriately, and is oriented to name, place, and year. She does report she has had chronic fatigue for several weeks with low iron levels, has not had iron supplementation. She reports her breathing is better from last night, feels around 80% of normal for her. With very high hypercapnia, chronically compensated with a pH of 7.33. Patient amenable to BiPAP for elevated PCO2 through the morning with VBG recheck. Reassessment reports that it was uncomfortable, was able to tolerate for several hours. Recheck of her blood gases were pending at time of discussion. Did discuss CODE STATUS and potential intubation/ventilation if her respiratory status were to significantly decline with patient and with family at bedside. Patient did express that she would not want heroic measures/CPR/breathing tube in a good situation, and reports that want to maximize BiPAP but defer intubation for declining respiratory status even if continued worsening meant that she could pass without it. Review of Systems Review of Systems: All systems reviewed & are unremarkable except as noted in Subjective Physical Exam Physical Exam: General: A&Ox3. NAD. Cooperative. HEENT: Atraumatic, normocephalic. JVD not appreciated, thick neck habitus Pulm: RRR, no murmurs or rubs. Symmetrical chest rise. No increase in work of breathing. No respiratory distress. Cardiac: RRR, -mrg. Radial pulses intact and symmetrical. Abdominal: Nontender, nondistended, soft. BS present. Extremities: Bilateral pitting edema present, at/near baseline per patient Results & Data Results & Data ([facility]) Vital Signs (Past 12 Hours) Vital Signs Temp Pulse Pulse Resp BP BP Pulse Ox 01/01/22 06:59 36.5 C 78 20 160/89 H 97 01/01/22 03:54 69 27 H 96 01/01/22 03:16 36.9 C 81 24 145/81 H 95 01/01/22 00:41 74 95 01/01/22 00:35 36.7 C 83 28 H 163/87 H 95 01/01/22 00:01 80 37 H 162/79 H 95 12/31/21 23:50 79 36 H 94 12/31/21 23:31 43 H 168/90 H 93 12/31/21 23:01 94 H 34 H 177/95 H 95 12/31/21 22:30 95 H 42 H 181/120 H 96 12/31/21 22:00 96 H 45 H 197/101 H 96 12/31/21 21:30 91 H 35 H 182/100 H 96 12/31/21 21:01 90 38 H 151/94 H 97 12/31/21 20:32 93 H 28 H 178/93 H 93 12/31/21 20:29 94 H 40 H 163/93 H 94 12/31/21 20:20 92 H 35 H 163/93 H 98 PG Care Time/CCT Total # of Minutes Spent Total Time Spent with Patient: Total time spent is greater than 50% in coordination of care (as documented) at patient's floor/unit and/or counseling patient: Coding Level of Care Code 84237 Subseq Hosp Care Lvl 3 Diagnoses CHF exacerbation I50.9 Chronic diastolic CHF (congestive heart failure) I50.32 Controlled type 2 diabetes mellitus with kidney complication, with long-term current use of insulin E11.29; Z79.4 Obesity E66.9 Anemia D64.9 Secondary hyperparathyroidism N25.81 Chronic kidney disease, stage 3 N18.3 Hypothyroidism E03.9 Obstructive sleep apnea G47.33 Dyslipidemia E78.5 S/P AVR (aortic valve replacement) Z95.2
[2022-01-01] MEDS: LABETALOL HCL 300 MG TAB PO SCH ×2 (08:28→20:02)
[2022-01-01] MEDS: LOSARTAN POTASSIUM 50 MG TAB PO SCH ×2 (08:29→20:03)
[2022-01-01] MEDS: POTASSIUM CHLORIDE CRTAB 20 MEQ TABCR PO SCH ×2 (08:39→13:33)
[2022-01-01] MEDS: MAGNESIUM OXIDE 400 MG TAB PO SCH ×2 (08:39→20:16)
[2022-01-01 08:45] LABS: HCO3 VBG 53 mmol/L; Oxygen Saturation VBG 67.8 %; PCO2 VBG 100 mmHg (38-50); PO2 VBG 41 mmHg; pH VBG 7.33 (7.36-7.41)
[2022-01-01] MEDS: INSULIN ASPART PER UNIT SC SCH ×4 (08:46→20:16)
[2022-01-01] MEDS ORDERED: FUROSEMIDE 40 MG/4 ML VIAL IV SCH ×2 (09:00→17:00)
[2022-01-01 14:13] LABS: Base Excess VBG 18.8 mEq/L; HCO3 VBG 51 mmol/L; Oxygen Saturation VBG < 60.0 %; PCO2 VBG 103 mmHg (38-50); PO2 VBG 36 mmHg
[2022-01-01 14:38] LABS: Troponin I High Sensitivity 31.1 pg/ml (0-14)
[2022-01-01 14:47] LABS: BUN Creatinine Ratio 35.7 (10-20); Blood Urea Nitrogen 41 mg/dl (6-23); Calcium 8.7 mg/dl (8.5-10.1); Carbon Dioxide > 45 mmol/L (21-32); Chloride 96 mmol/L (98-107); Creatinine Clr Calc Pharmacy 43.6 ml/min; Est GFR (African American) 51.3 ml/min; Est GFR (Non-African American) 44.3 ml/min; Glucose 155 mg/dl (70-99(Fasting)); Potassium 4.3 mmol/L (3.5-5.1); Sodium 146 mmol/L (136-145)
[2022-01-01 15:04] LABS: Folate (Folic Acid) > 22.30 ng/ml (>5.38)
[2022-01-01 15:05] LABS: Vitamin B12 342 pg/ml (180-914)
--- NOTE | 2022-01-01 15:05 | XCELERA ---
[id number] \\[id number]_[id number]}___[id number]
--- NOTE | 2022-01-01 15:11 | CT Scan Report ---
CT chest diagnostic wo con CT DOSE: 667.36 mGycm HISTORY: Hypoxia. Abnormal chest x-ray. TECHNIQUE: Multiaxial CT images of the chest were performed without contrast. A dose lowering techni que was utilized adhering to the principles of ALARA. COMPARISON: Chest x-ray 12/31/2021. Chest CT 12/28/2014. FINDINGS: Mild respiratory motion artifact. The central airways appear patent. No pneumothorax. There is a 6 mm nodular density within the left upper lobe on image 62. This may represent atelectasis/sca rring. However, this is new from the prior study. Mild interlobular septal thickening with mild bilat eral perihilar groundglass airspace opacities. This is consistent with mild interstitial pulmonary ed prateek. There is a punctate calcified granuloma within the left lower lobe, unchanged. A few bibasilar l inear densities. This favors subsegmental atelectasis from the small bilateral pleural effusions. The se have slightly increased in size in the interval. No suspicious lytic or blastic osseous lesions. L imited views the upper abdomen demonstrate normal liver, spleen, adrenal glands. Normal esophagus. No mediastinal or hilar lymphadenopathy. The heart is moderately enlarged. Trace pericardial fluid is n oted. There are dense mitral anus calcifications. An aortic valve stent is noted. Normal caliber thor acic aorta demonstrating mild calcified plaque. IMPRESSION: 1. Cardiomegaly with mild interstitial pulmonary edema and small bilateral pleural effusions. 2. Bibasilar linear densities are nonspecific but favor compressive atelectasis from the pleural effu sions. 3. A 6 mm nodular density within the left upper lobe. This may represent atelectasis/scarring. Gee r, follow-up recommended to ensure stability. Please refer to below summary of Fleischner criteria recommendations for follow-up of incidental CT n odules (Jenna Abarca, Guidelines for management of small pulmonary nodules detected on CT scans: A sta tement from the Fleischner Society, Radiology 237: [phone].) SOLID NODULES Solitary nodule size: <6 mm * Low risk patients: no follow-up needed * high risk patients: optional CT at 12 months Solitary nodule size: 6-8 mm * Low risk patients: follow-up at 6-12 months, then consider further follow-up at 18-24 months * high risk patients: initial follow-up CT at 6-12 months and then at 18-24 months if no change Solitary nodule size: >8 mm * either low or high risk patients - consider follow-up CT at 3 months, and/or CT-PET, and/or biopsy Multiple nodules size: <6 mm * Low risk patients: no routine follow-up * high risk patients: optional CT at 12 months Multiple nodules size: 6-8 mm * Low risk patients: follow-up at 3-6 months, then consider further follow-up at 18-24 months * high risk patients: follow-up at 3-6 months, then at 18-24 months if no change Multiple nodules size: >8 mm * Low risk patients: follow-up at 3-6 months, then consider further follow-up at 18-24 months * high risk patients: follow-up at 3-6 months, then at 18-24 months if no change Note: newly detected indeterminate nodule in persons 35 years of age or older. * Low risk patients: minimal or absent history of smoking and/or other known risk factors * high risk patients: history of smoking or of other known risk factors (e.g. first degree relative with lung cancer, or exposure to asbestos, radon, uranium) * if a nodule up to 8 mm is partly solid or is ground glass further follow-up is required after 24 m onths to exclude possible slow growing adenocarcinoma (RONEY) SUBSOLID NODULES Solitary pure ground-glass nodule * nodule size <6 mm - no CT follow-up required * nodule size >=6 mm - follow-up CT at 6-12 months, then every 2 years until 5 years Solitary part-solid nodule * nodule size <6 mm - no CT follow-up required * nodule size >=6 mm - follow-up CT at 3-6 months. If unchanged, and solid component remains <6 mm, then annual follow-up for 5 years Multiple subsolid nodules * nodule size <6 mm - follow-up CT at 3-6 months, consider further follow-up at 2 and 4 years if sta ble * nodule size >=6 mm - follow-up CT at 3-6 months, subsequent management based on the most suspiciou s nodule(s) ACT 112: Negative or not required by law. Electronically signed by: Jerald Leigh M.D. 01/01/2022 3:09 PM
[2022-01-01] MEDS ORDERED: IRON SUCROSE 300 MG in SODIUM CHLORIDE 0.9% 250 ML IV ONE (16:00)
[2022-01-01] MEDS: SIMVASTATIN 10 MG TAB PO SCH (20:03)
[2022-01-01] MEDS: LANTUS PER UNIT CHARGE SQ SCH (20:58)
[2022-01-01] MEDS ORDERED: LANTUS PER UNIT CHARGE SQ SCH (21:00)
[2022-01-01] MEDS ORDERED: LORazepam 0.25 MG in SYRINGE 0.125 ML IV ONE (21:45)
--- NOTE | 2022-01-01 21:52 | Billing Data ---
Date of Service January 01, 2022 Coding Level of Care Code 69909 Initial Inpt Care Lvl 3
--- NOTE | 2022-01-01 23:04 | Electrocardiogram Report ---
Test Reason : Blood Pressure : / mmHG Vent. Rate : 089 BPM Atrial Rate : 089 BPM P-R Int : 156 ms QRS Dur : 154 ms QT Int : 428 ms P-R-T Axes : 099 -18 127 degrees QTc Int : 520 ms Normal sinus rhythm Left bundle branch block Abnormal ECG When compared with ECG of 02-DEC-2019 11:36, No significant change was found Confirmed by Perez Valdivia ([id number]) on 01/01/2022 11:04:00 PM Referred By: REFERRED SELF Confirmed By:Perez Valdivia
--- NOTE | 2022-01-01 23:19 | Communication Note ---
Date of Service: January 01, 2022 compliance issues w/ bipap. ordered 0.25mg IV ativan x2
[2022-01-01] MEDS ORDERED: LORazepam 0.25 MG in SYRINGE 0.125 ML IV STA (23:23)
[2022-01-02] MEDS: NITROGLYCERIN 2% OINTMENT 30GM TUBE EXT SCH ×4 (01:34→19:57)
[2022-01-02] MEDS: LEVOTHYROXINE SODIUM 88 MCG TABLET PO SCH (04:30)
--- NOTE | 2022-01-02 05:47 | Electrocardiogram Report ---
Test Reason : Blood Pressure : / mmHG Vent. Rate : 077 BPM Atrial Rate : 077 BPM P-R Int : 160 ms QRS Dur : 158 ms QT Int : 460 ms P-R-T Axes : 094 -16 131 degrees QTc Int : 520 ms Sinus rhythm with Premature atrial complexes Left bundle branch block Abnormal ECG When compared with ECG of 31-DEC-2021 19:30, Premature atrial complexes are now Present Confirmed by Perez Valdivia ([id number]) on 01/02/2022 5:47:06 AM Referred By: REFERRED SELF Confirmed By:Perez Valdivia
[2022-01-02 05:49] LABS: HCO3 ABG 51 mmol/L (19-24); Oxygen Saturation ABG 95.8 % (90-95); PCO2 ABG 92 mmHg (35-46); PO2 ABG 69 mmHg (80-95); pH ABG 7.35 (7.35-7.45)
[2022-01-02 05:51] LABS: Allen Test Pos (Pos)
[2022-01-02 06:38] LABS: Basophils # (auto) 0.02 K/uL (0-0.2); Basophils % (auto) 0.3 %; Eosinophils # (auto) 0.12 K/uL (0-0.50); Eosinophils % (auto) 2.1 %; Hemoglobin 8.8 g/dl (12.0-16.0); Hypochromasia Present; Immature Granulocytes # (auto) 0.03 K/uL (0.00-0.02); Immature Granulocytes % (auto) 0.5 %; Lymphocytes # (auto) 0.44 K/uL (1.2-3.4); Lymphocytes % (auto) 7.6 %; Mean Corpuscular Hemoglobin 25.7 pg (25.0-34.0); Mean Corpuscular Hgb Conc 27.5 g/dL (32.0-36.0); Mean Corpuscular Volume 93.6 fL (80.0-100.0); Mean Platelet Volume 9.9 fL (9.4-12.3); Monocytes # (auto) 0.56 K/uL (0.24-0.82); Monocytes % (auto) 9.6 %; Neutrophils # (auto) 4.64 K/uL (1.4-6.5); Neutrophils % (auto) 79.9 %; Platelet Count 129 K/uL (130-400); RDW Coefficient of Variation 15.9 % (11.5-14.5); RDW Standard Deviation 54.6 fL (36.4-46.3); Red Blood Count 3.42 M/uL (3.93-5.22); Stomatocytes 1+; White Blood Count 5.81 K/ul (4.8-10.8)
[2022-01-02 06:47] LABS: BUN Creatinine Ratio 36.2 (10-20); Calcium 8.7 mg/dl (8.5-10.1); Creatinine Clr Calc Pharmacy 47.3 ml/min; Est GFR (African American) 57.3 ml/min; Est GFR (Non-African American) 49.4 ml/min; Potassium 4.5 mmol/L (3.5-5.1)
[2022-01-02] MEDS: MAGNESIUM OXIDE 400 MG TAB PO SCH ×2 (08:27→21:11)
[2022-01-02] MEDS: LABETALOL HCL 300 MG TAB PO SCH ×2 (08:27→21:10)
[2022-01-02] MEDS: LOSARTAN POTASSIUM 50 MG TAB PO SCH ×2 (08:27→21:09)
[2022-01-02] MEDS: POTASSIUM CHLORIDE CRTAB 20 MEQ TABCR PO SCH (08:27)
[2022-01-02] MEDS: INSULIN ASPART PER UNIT SC SCH ×4 (08:28→21:04)
[2022-01-02] MEDS ORDERED: FUROSEMIDE 40 MG/4 ML VIAL IV SCH ×3 (09:00→17:00)
--- NOTE | 2022-01-02 09:25 | XRay Report ---
XR chest 1V portable CLINICAL HISTORY: Follow-up right pleural effusion and pulmonary edema. COMPARISON STUDY: 12/31/2021 TECHNIQUE: 1 view of the chest FINDINGS: Single frontal view of the chest demonstrates the heart to again be enlarged. Compared to the previou s examination, there is worsening of mild diffuse interstitial edema characteristic of congestive hea rt failure. The lungs are clear of alveolar opacities. There is again evidence for small bilateral pl eural effusions. There is no acute osseous pathology. IMPRESSION: 1. Interval worsening of mild diffuse interstitial edema most characteristic of congestive heart fail ure. 2. Evidence for small bilateral pleural effusions. ACT 112: Negative or not required by law. Electronically signed by: Warren Smith M.D. 01/02/2022 9:24 AM
[2022-01-02] MEDS ORDERED: FUROSEMIDE INJ 20 MG/2 ML VIAL IV ONE (12:09)
--- NOTE | 2022-01-02 12:10 | Hospitalist Progress Note ---
Date of Service January 02, 2022 Assessment & Plan (1) CHF exacerbation: Plan: 81 year old female w/ PMHx of CAD, htn, IDDM, HFpEF, CKD, home 2+L O2 (obesity- restrictive lung disease), tasia on cpap, arthritis (tylenol, celebrex), and bioprosthetic aortic valve who presents w/ 2-3 months of increased dyspnea on exertion; admitting for hypoxia secondary to CHF exacerbation. AHRF 2/2 Acute on chronic CHF, Acute on Hypercapneic RF due to underlying OHS/fatigue Dry weight approximately 109kg. Admit weight 108-118 flutuating bedweight, inaccurate, 114.7 now 113.2kg. Standing weights daily when able. - Hypervolemic on admitting exam; CHF exac is leading differential of increased O2 req. Lower suspicion for pneumonia as contributory though cxr w/ opacity at base. Lower for PE at this time. No chest pain complaint, signs of infection Repeat echo obtained, EF 35-40% with no new wall motion changes compared to prior. Mildly dilated RV with normal systolic function, LAD, RAD, bioprosthetic valve in place, mitral annular calcification with mild to moderate stenosis, mild tricuspid regurg, mild mitral regurg, moderate pulmonary hypertension -Lasix dose 80 p.o. daily, have been increased to IV dose of 40 IV twice daily with an adequate output, Lasix increased to 80 mg IV twice daily Inaccurate I&Os with purewick and some leaking, had previously refused Delaney, agreeable to Delaney for accurate I&O measurements 01/02 Patient with difficulty tolerating CPAP/BiPAP last night, did refuse and only wore for around 2 hours. Did receive Ativan with subsequent confusion and some agitation overnight. Patient is clinically somnolent and appears worse this morning 01/02 BiPAP continuous placed, reinforced, patient agreeable to this. ABG with slight improvement in PCO2, improvement in over oxygenation, and pH is compensated - BiPAP Tidal Volume Goals: ~280-370cc (6-8cc/IBWkg), currently at 250-350 on noon assessment. 06/02. RR improved to 20. Patient with significant respiratory fatigue, has expressed that does not want intubation but is agreeable to use BiPAP. Clarified with family, patient is listed as taking 80 mg daily, and 20 p.o. twice daily as needed per family takes 80 daily and up to 120 afternoon dose as needed Morning Lasix dose increased to 80 mg with improved diuresis, 500 cc in first 2-3 hours - strict Is and Os - Procal is normal -Troponin down trended, mild elevation high-sensitivity - ecg w/ LBBB, consistent with prior EKGs - Pt initially with SpO2> 97% on NCo2, downtitrated as likely to worsen respiratory drive with hyperoxygenation. Titrate to 90-94% - PFT review 12/2019: FVC 81%, FEV1 83%, FEV1/FVC ratio 99%, no obstructive lung disease appreciated. High ERV. Mild decrease in the DLCO. Concern for obesity hypoventilation History of CKD 3 Baseline creatinine previously 1.6, EGFR 30 Follows with nephrology as outpatient On sodium restriction as outpatient Had stopped iron supplementation previously Creatinine remains 1.05, without adequate UOP, Lasix as above BMP daily (2) Chronic diastolic CHF (congestive heart failure): Plan: - follow CHF clinic [facility] - 10/2021 echo poor quality w/ no estimable EF. 2020 echo w/ normal EF. -Echo as noted (3) Controlled type 2 diabetes mellitus with kidney complication, with long-term current use of insulin: Plan: - A1c 5.6 10/2021, at goal - SSI and 40mg qhs lantus - on large dose of beta charlette for HTN; note to PCP: caution against decreased hypoglycemia awareness BSG adequate 01/02 (4) Obesity: Plan: - 2019 PFT reviewed. no obstructive airway disease. restriction from obesity? Recommend repeat PFTs as outpatient. Recommend reassess amount of supp O2 needed and reassess O2 goal range as patient appears to be aiming for 95+%. - prior chart hx of copd is incorrect. (5) Anemia: Plan: - chronic,uptrending. Hb 8.8. normocytic -Patient is severely iron deficient, had received a transfusion of Venofer (6) Secondary hyperparathyroidism: Plan: - follows nephro. recent switch from D2 to D3. (7) Chronic kidney disease, stage 3: Plan: As noted (8) Hypothyroidism: Plan: - continue home levothyroxine (9) Obstructive sleep apnea: Plan: - continue qhs cpap (10) Dyslipidemia: Plan: - continue home statin (11) S/P AVR (aortic valve replacement): Plan: - follows Dr. Wolf Plan: FEN/GI: DM2, low Na. No IV fluids. ppx: chemoppx initially held in setting of downtrending Hb. scds. Hgb uptrending, heparin DVT PPx resumed. Code Status: DNR/DNI, would not want intubation/heroic measures or intubation for declining resp status per patient w/ family at bedside dispo: med tele Admission and Anticipated Discharge Date Admission Date: December 31, 2021 Subjective Seen at the bedside and throughout the day for reevaluation. Patient with difficulty tolerating BiPAP overnight, did receive a overnight dose of Ativan with subsequent increase in confusion and agitation. Somewhat more somnolent in the morning. Lasix dose clarified with family, while had been listed as 80 daily with an additional 2039, they reports she takes commonly up to 120 p.o. in the afternoon as needed. Lasix dose has been increased for poor UOP but with stable creatinineUp to 80 mg dose, patient did have brisk diuresis with escalation to 80 mg this morning and subsequent improvement in oxygen requirements. Patient had refused BiPAP and Delaney catheterization previously, was agreeable to this this morning and both were resumed denies fever/chills/sweats. No chest pain or chest pressure. Does endorse fatigue. Review of Systems Review of Systems: All systems reviewed & are unremarkable except as noted in Subjective Physical Exam Physical Exam: General: A&Ox3. NAD. Cooperative. HEENT: Atraumatic, normocephalic. JVD not appreciated, thick neck habitus Pulm: Diminished with basilar crackles, no wheezing. Symmetrical chest rise. Neck on nasal cannula in the morning, regular rate and improved midday reassessment on BiPAP Cardiac: RRR, -mrg. Radial pulses intact and symmetrical. Abdominal: Nontender, nondistended, soft. BS present. Extremities: Bilateral pitting edema present, at/near baseline per patient Results & Data Results & Data ([facility]) Vital Signs (Past 12 Hours) Vital Signs Temp Pulse Pulse Resp BP Pulse Ox Pulse Ox 01/02/22 11:41 37.0 C 83 24 126/73 94 01/02/22 08:00 69 95 01/02/22 06:23 36.9 C 88 18 164/92 H 94 01/02/22 04:05 36.7 C 91 H 18 149/82 H 91 01/02/22 00:00 36.6 C 79 30 H 142/73 H 88 L PG Care Time/CCT Total # of Minutes Spent Total Time Spent with Patient: Total time spent is greater than 50% in coordination of care (as documented) at patient's floor/unit and/or counseling patient: Coding Level of Care Code 45815 Subseq Hosp Care Lvl 3 Diagnoses CHF exacerbation I50.9 Chronic diastolic CHF (congestive heart failure) I50.32 Controlled type 2 diabetes mellitus with kidney complication, with long-term current use of insulin E11.29; Z79.4 Obesity E66.9 Anemia D64.9 Secondary hyperparathyroidism N25.81 Chronic kidney disease, stage 3 N18.3 Hypothyroidism E03.9 Obstructive sleep apnea G47.33 Dyslipidemia E78.5 S/P AVR (aortic valve replacement) Z95.2
[2022-01-02 16:31] LABS: Base Excess VBG 22.9 mEq/L; HCO3 VBG 53 mmol/L; Oxygen Saturation VBG < 60.0 %; PCO2 VBG 81 mmHg (38-50); PO2 VBG 26 mmHg; pH VBG 7.42 (7.36-7.41)
[2022-01-02] MEDS: LANTUS PER UNIT CHARGE SQ SCH (21:04)
[2022-01-02] MEDS: SIMVASTATIN 10 MG TAB PO SCH (21:09)
[2022-01-03] MEDS: NITROGLYCERIN 2% OINTMENT 30GM TUBE EXT SCH ×4 (02:05→20:12)
[2022-01-03] MEDS: LEVOTHYROXINE SODIUM 88 MCG TABLET PO SCH (04:55)
[2022-01-03 07:12] LABS: Base Excess VBG 22.4 mEq/L; HCO3 VBG 53 mmol/L; Oxygen Saturation VBG 77.5 %; PCO2 VBG 87 mmHg (38-50); PO2 VBG 45 mmHg; pH VBG 7.39 (7.36-7.41)
[2022-01-03 07:43] LABS: Alanine Aminotransferase 11 U/L (7-52); Albumin Globulin Ratio 1.3 (0.9-2); Albumin Level 3.5 gm/dl (3.4-5.0); Alkaline Phosphatase 58 U/L (34-104); Aspartate Aminotransferase 12 U/L (13-39); BUN Creatinine Ratio 36.3 (10-20); Bilirubin,Total 1.1 mg/dl (0.2-1.0); Blood Urea Nitrogen 45 mg/dl (6-23); Carbon Dioxide > 45 mmol/L (21-32); Chloride 96 mmol/L (98-107); Creatinine Clr Calc Pharmacy 39.8 ml/min; Est GFR (African American) 46.8 ml/min; Est GFR (Non-African American) 40.4 ml/min; Globulin 2.7 gm/dl (2.5-4.0); Glucose 145 mg/dl (70-99(Fasting)); Potassium 4.2 mmol/L (3.5-5.1); Sodium 148 mmol/L (136-145); Total Protein 6.2 gm/dl (6.0-8.3)
[2022-01-03 08:11] LABS: Basophils # (auto) 0.02 K/uL (0-0.2); Basophils % (auto) 0.2 %; Eosinophils # (auto) 0.01 K/uL (0-0.50); Eosinophils % (auto) 0.1 %; Hemoglobin 8.4 g/dl (12.0-16.0); Immature Granulocytes # (auto) 0.04 K/uL (0.00-0.02); Immature Granulocytes % (auto) 0.5 %; Lymphocytes # (auto) 0.51 K/uL (1.2-3.4); Mean Corpuscular Hemoglobin 25.8 pg (25.0-34.0); Mean Platelet Volume 10.5 fL (9.4-12.3); Monocytes # (auto) 0.82 K/uL (0.24-0.82); Monocytes % (auto) 9.6 %; Neutrophils # (auto) 7.16 K/uL (1.4-6.5); Neutrophils % (auto) 83.6 %; Platelet Count 133 K/uL (130-400); RDW Coefficient of Variation 16.2 % (11.5-14.5); RDW Standard Deviation 54.7 fL (36.4-46.3); Red Blood Count 3.26 M/uL (3.93-5.22); White Blood Count 8.56 K/ul (4.8-10.8)
[2022-01-03] MEDS: INSULIN ASPART PER UNIT SC SCH ×4 (09:52→20:13)
[2022-01-03] MEDS: FUROSEMIDE 40 MG/4 ML VIAL IV SCH ×2 (10:20→16:46)
[2022-01-03] MEDS: LOSARTAN POTASSIUM 50 MG TAB PO SCH (10:20)
[2022-01-03] MEDS: LABETALOL HCL 300 MG TAB PO SCH ×2 (10:20→20:12)
[2022-01-03] MEDS: POTASSIUM CHLORIDE CRTAB 20 MEQ TABCR PO SCH (10:43)
--- NOTE | 2022-01-03 11:59 | Hospitalist Progress Note ---
Date of Service January 03, 2022 Assessment & Plan (1) CHF exacerbation: Plan: 81 year old female w/ PMHx of CAD, htn, IDDM, HFpEF, CKD, home 2+L O2 (obesity- restrictive lung disease), tasia on cpap, arthritis (tylenol, celebrex), and bioprosthetic aortic valve who presents w/ 2-3 months of increased dyspnea on exertion; admitting for hypoxia secondary to CHF exacerbation. AHRF 2/2 Acute on chronic CHF, Dry weight approximately 109kg. Last weigh 111.8. Standing weight preferred if able. 1L net UOP with increased lasix dose 01/02-01/03 - Hypervolemic on admitting exam; CHF exac is leading differential of increased O2 req. Lower suspicion for pneumonia as contributory though cxr w/ opacity at base. No chest pain or signs of infection LAKESHIA: EF 35-40% with no new wall motion changes compared to prior. Mildly dilated RV with normal systolic function, LAD, RAD, bioprosthetic valve in place, mitral annular calcification with mild to moderate stenosis, mild tricuspid regurg, mild mitral regurg, moderate pulmonary hypertension Inaccurate I&Os with purewick and some leaking, had previously refused Delaney, agreeable to Delaney for accurate I&O measurements 01/02 Clarified medications with family, patient is listed as taking 80 mg daily, and 20 p.o. twice daily as needed per family takes 80 daily and up to 120 total as needed Lasix as noted - strict Is and Os - Procal is normal -Troponin down trended, mild elevation high-sensitivity - ecg w/ LBBB, consistent with prior EKGs Chest x-ray shows improving pulmonary edema but with residual pulmonary vascular congestion. W/ Worsened breathing and congestion despite improving but still present edema Lasix again given with preceding dose of Zaroxolyn for augmentation. Renal Function has risen today compared to prior, but below patient's prior history and clinically with respiratory distress and pulmonary edema Repeat EKG for intermittent discomfort without changes from prior, troponins trended. Discussed w/ cardiology, patient does have underlying heart failure with EF of 35%. As she is perfused with a normal pressure unlikely to benefit from dobutamine augmentation at this time but will maximize diuretic therapy and reevaluate Acute on Hypercapneic RF w/ restrictive dz & underlying OHS/fatigue Initially refusing BIPAP. 01/02 BiPAP continuous placed, reinforced, patient agreeable to this. ABG with slight improvement in PCO2, improvement in over oxygenation, and pH compensated - BiPAP Tidal Volume Goals: ~280-370cc (6-8cc/IBWkg) - PFT 12/2019: FVC 81%, FEV1 83%, FEV1/FVC ratio 99%, no obstructive lung disease appreciated. High ERV. Mild decrease in the DLCO. Concern for obesity hypoventilation Patient is a chronic hypercapnic retainer. ABG from 2019 shows chronic hypercapnia with PCO2 in 40, on admission compensated pH with PCO2 in 80s Patient xpressed that does not want intubation in code or progressive decline even if this were to shorten life, and does not want heroic measures or invasive/ICU care. Understands her current reasoning is poor, and with her chronic underlying hypercapnia and worsening respiratory status this is a life- threatening event - Remains uncomfortable in the BiPAP, patient removed and preferred to be on 3 L for comfort in the afternoon. Did have rapidly worsening respiratory status, for which BiPAP was replaced. Chest x-ray with improving but residual evidence of volume overload as noted above, History of CKD 3 Baseline creatinine recently 1-1.2, past review as high as 1.4-1.6, EGFR 30 at last note - Cr 1.17 on admit Follows with nephrology as outpatient On sodium restriction - Cr uptrended with 80mg lasix IV BID. With rising Cr was initially adjusted to 60 BID--> with reduced output, and clinically patient remains hypervolemic and with worsening respiratory drive back to 80 mg with adjunct Zaroxolyn for respiratory status, patient aware that this may worsen renal function Patient remains clinically volume positive, with rising creatinine in the setting of residual pulmonary edema. Nephrology consulted BMP daily, ARB held (2) Chronic diastolic CHF (congestive heart failure): Plan: - follow CHF clinic [facility] - 10/2021 echo poor quality w/ no estimable EF. 2020 echo w/ normal EF. -Echo as noted (3) Controlled type 2 diabetes mellitus with kidney complication, with long-term current use of insulin: Plan: - A1c 5.6 10/2021, at goal - SSI and 40mg qhs lantus - on large dose of beta charlette for HTN; note to PCP: caution against decreased hypoglycemia awareness BSG control remains adequate (4) Obesity: Plan: - 2020 PFT reviewed as above - prior chart hx of copd is incorrect. -Question of excess oxygen repletion for respiratory suppression, chronic hypercarbic retainer (5) Anemia: Plan: - chronic, stable in 8s -Patient is severely iron deficient, had received a transfusion of Venofer x1 -May give up to 2 additional doses of venofer volume permitting before dc (6) Secondary hyperparathyroidism: Plan: - follows nephro. recent switch from D2 to D3. (7) Chronic kidney disease, stage 3: Plan: As noted (8) Hypothyroidism: Plan: - continue home levothyroxine (9) Obstructive sleep apnea: Plan: - continue qhs cpap (10) Dyslipidemia: Plan: - continue home statin (11) S/P AVR (aortic valve replacement): Plan: - follows Dr. Wolf Plan: FEN/GI: DM2, low Na. No IV fluids. ppx: chemoppx initially held in setting of downtrending Hb. scds. Stable in 8s, +heparin if remains stable Code Status: DNR/DNI, would not want intubation/heroic measures or intubation for declining resp status per patient w/ family at bedside dispo: med tele Admission and Anticipated Discharge Date Admission Date: December 31, 2021 Subjective Seen at bedside this morning. Did have improved urine output 1 L total yester day with increase Lasix dose, about 500 cc per dose. She feels very tired and worn out today, reports the BiPAP is hard for her to tolerate. Is not short of breath and feels more comfortable on nasal cannula this morning. Denies BM/urinary pain. No chest pain/chest pressure/lightheadedness/dizziness. Is aware that her PCO2 and bicarb are improved on the BiPAP, pH has returned to normal and is gradually improving. Patient feels achy, notes she has spondylolisthesis of her back which is a case from being in hospital bed. See below for assessment Review of Systems Review of Systems: All systems reviewed & are unremarkable except as noted in Subjective Physical Exam Physical Exam: General: Somnolent, arouses easily. A&Ox3. Cooperative. HEENT: Atraumatic, normocephalic. JVD not appreciated, thick neck habitus Pulm: Distant due to habitus, remains with basilar crackles, no wheezing. Symmetrical chest rise. Regular RR in morning after bipap, tachynepic and with distress in the afternoon on reassessment Cardiac: RRR, -mrg. Radial pulses intact and symmetrical. Abdominal: Nontender, nondistended, soft. BS present. Extremities: Bilateral pitting edema present Results & Data Results & Data ([facility]) Vital Signs (Past 12 Hours) Vital Signs Temp Pulse Pulse Resp BP Pulse Ox 01/03/22 08:00 89 20 90 01/03/22 07:30 37 C 88 18 128/88 93 01/03/22 07:15 93 H 37 H 93 01/03/22 03:20 94 H 30 H 91 01/03/22 02:21 92 H 01/03/22 01:57 37 C 30 H 152/73 H 94 PG Care Time/CCT Total # of Minutes Spent Total Time Spent with Patient: Total time spent is greater than 50% in coordination of care (as documented) at patient's floor/unit and/or counseling patient: Coding Level of Care Code 52316 Subseq Hosp Care Lvl 3 Diagnoses CHF exacerbation I50.9 Chronic diastolic CHF (congestive heart failure) I50.32 Controlled type 2 diabetes mellitus with kidney complication, with long-term current use of insulin E11.29; Z79.4 Obesity E66.9 Anemia D64.9 Secondary hyperparathyroidism N25.81 Chronic kidney disease, stage 3 N18.3 Hypothyroidism E03.9 Obstructive sleep apnea G47.33 Dyslipidemia E78.5 S/P AVR (aortic valve replacement) Z95.2
[2022-01-03] MEDS: LIDOCAINE 5% 1 PATCH TD SCH (16:44)
[2022-01-03 17:40] LABS: BUN Creatinine Ratio 36.9 (10-20); Blood Urea Nitrogen 48 mg/dl (6-23); Calcium 9.1 mg/dl (8.5-10.1); Carbon Dioxide > 45 mmol/L (21-32); Chloride 93 mmol/L (98-107); Creatinine Clr Calc Pharmacy 37.9 ml/min; Est GFR (African American) 44.2 ml/min; Est GFR (Non-African American) 38.2 ml/min; Glucose 147 mg/dl (70-99(Fasting)); Potassium 4.7 mmol/L (3.5-5.1); Sodium 144 mmol/L (136-145)
[2022-01-03] MEDS ORDERED: metOLazone 2.5 MG TABLET PO ONE (17:53)
[2022-01-03] MEDS ORDERED: FUROSEMIDE INJ 20 MG/2 ML VIAL IV ONE (17:53)
--- NOTE | 2022-01-03 18:35 | XRay Report ---
XR chest 1V portable CLINICAL HISTORY: AHRF. Follow-up interstitial edema COMPARISON STUDY: 01/02/2022 TECHNIQUE: 1 view of the chest FINDINGS: Single frontal view of the chest demonstrates the heart to again be enlarged. Compared to previous ex amination, there has been interval improvement of mild diffuse interstitial edema. Only mild central vascular congestion remains present. There is again suspicion of small bilateral pleural effusion . N o confluent alveolar opacities are seen. There is no acute osseous pathology. IMPRESSION: 1. Interval improvement in interstitial edema with mild central vascular congestion remaining present . 2. There is again evidence for small bilateral pleural effusions. ACT 112: Negative or not required by law. Electronically signed by: Warren Smith M.D. 01/03/2022 6:34 PM
[2022-01-03] MEDS ORDERED: NITROGLYCERIN SL 0.4 MG/TAB TAB SL PRN (18:38)
[2022-01-03] MEDS: SIMVASTATIN 10 MG TAB PO SCH (20:13)
[2022-01-03] MEDS: LANTUS PER UNIT CHARGE SQ SCH (20:14)
[2022-01-04] MEDS: NITROGLYCERIN 2% OINTMENT 30GM TUBE EXT SCH ×4 (00:45→17:33)
[2022-01-04 03:39] LABS: Base Excess VBG 23.3 mEq/L; HCO3 VBG 52 mmol/L; Oxygen Saturation VBG 93.2 %; PCO2 VBG 73 mmHg (38-50); PO2 VBG 63 mmHg; pH VBG 7.46 (7.36-7.41)
[2022-01-04 03:51] LABS: Hematocrit (blood only) 29.9 % (34.1-44.9); Hemoglobin 8.5 g/dl (12.0-16.0); Mean Corpuscular Hemoglobin 25.9 pg (25.0-34.0); Mean Corpuscular Hgb Conc 28.4 g/dL (32.0-36.0); Mean Corpuscular Volume 91.2 fL (80.0-100.0); Mean Platelet Volume 10.9 fL (9.4-12.3); Platelet Count 149 K/uL (130-400); RDW Standard Deviation 53.5 fL (36.4-46.3); Red Blood Count 3.28 M/uL (3.93-5.22); White Blood Count 9.48 K/ul (4.8-10.8)
[2022-01-04 04:04] LABS: BUN Creatinine Ratio 42.3 (10-20); Blood Urea Nitrogen 55 mg/dl (6-23); Calcium 9.1 mg/dl (8.5-10.1); Carbon Dioxide > 45 mmol/L (21-32); Chloride 93 mmol/L (98-107); Creatinine Clr Calc Pharmacy 37.9 ml/min; Est GFR (African American) 44.2 ml/min; Est GFR (Non-African American) 38.2 ml/min; Glucose 147 mg/dl (70-99(Fasting)); Potassium 3.8 mmol/L (3.5-5.1)
[2022-01-04 04:08] LABS: Basophils # (auto) 0.01 K/uL (0-0.2); Basophils % (auto) 0.1 %; Eosinophils # (auto) 0.01 K/uL (0-0.50); Eosinophils % (auto) 0.1 %; Hypochromasia Present; Immature Granulocytes # (auto) 0.05 K/uL (0.00-0.02); Immature Granulocytes % (auto) 0.5 %; Lymphocytes # (auto) 0.48 K/uL (1.2-3.4); Lymphocytes % (auto) 5.1 %; Monocytes # (auto) 0.77 K/uL (0.24-0.82); Monocytes % (auto) 8.1 %; Neutrophils # (auto) 8.16 K/uL (1.4-6.5); Neutrophils % (auto) 86.1 %; Stomatocytes 1+
[2022-01-04 04:20] LABS: Sodium 144 mmol/L (136-145)
[2022-01-04] MEDS: LEVOTHYROXINE SODIUM 88 MCG TABLET PO SCH (04:59)
[2022-01-04 07:12] LABS: D Dimer 880 ug/L FEU (0-500)
[2022-01-04] MEDS ORDERED: OPTIRAY 320 125ml IV ONE (08:31)
--- NOTE | 2022-01-04 08:55 | CT Scan Report ---
CT angio chest PE protocol CLINICAL HISTORY: PE TECHNIQUE: Multidetector row helical CT of the chest was performed with angiographic protocol. Greene l and sagittal reformations were obtained. Coronal and sagittal MIPS were obtained from the axial syed a set and were submitted for review. Automated dose lowering techniques and/or adjustment according to patient size were utilized for this exam. CT DOSE: 856.97 mGy.cm Comparison: Comparison is made to CT chest 01/01/2022 FINDINGS: Exam is highly limited by patient motion. Lungs and pleura: Atelectasis is seen. There are small bilateral pleural effusions. Heart and pericardium: There is cardiomegaly without evidence of pericardial effusion. Mitral annular calcifications and aortic valve prosthesis are noted. Vessels: The pulmonary trunk is enlarged measuring 40 mm. Within the limits of a motion degraded exam , no central or lobar pulmonary embolus is seen. Mediastinum and tabatha: Unremarkable. Chest wall and lower neck: Unremarkable. Abdomen: Partial visualization of thickening of the bilateral adrenal glands, unchanged from prior ex am. Bones: Degenerative changes in the thoracic spine. IMPRESSION: 1. Motion degraded exam with no evidence of large central pulmonary embolus. 2. Bilateral pleural effusions are stable. 3. Pulmonary hypertension. Likely mild pulmonary edema. 4. No definite consolidations are noted. 5. Previously noted 6 mm left upper lobe nodule is not well seen, likely due to patient motion. ACT 112: Negative or not required by law. Electronically signed by: Richard Peña M.D. 01/04/2022 8:53 AM
[2022-01-04] MEDS: INSULIN ASPART PER UNIT SC SCH ×4 (09:07→21:35)
[2022-01-04] MEDS: LABETALOL HCL 300 MG TAB PO SCH ×2 (09:14→21:10)
[2022-01-04] MEDS: FUROSEMIDE 40 MG/4 ML VIAL IV SCH (09:14)
[2022-01-04] MEDS: POTASSIUM CHLORIDE CRTAB 20 MEQ TABCR PO SCH (09:15)
[2022-01-04] MEDS: LIDOCAINE 5% 1 PATCH TD SCH (09:15)
--- NOTE | 2022-01-04 10:13 | Nephrology Consultation ---
Date of Consultation January 04, 2022 Assessment & Plan (1) Chronic kidney disease, stage 3: * CKD stage G3b/A2 (moderate impairment) Her baseline Cr has been 1.6 w/ EGFR 30 cc/min. Outpatient evaluation has revealed a benign urine sediment. UPCR has been only 0.2 while on ARB therapy. Mrs. Summers's renal impairment is due to DKD * Kidney function is stable at this time. Patient is nonoliguric. Electrolyte balance is acceptable noting that elevated serum bicarbonate is in response to pulmonary CO2 retention * Volume status is difficult to assess clinically. CXR shows only mild congestion. LE swelling is likely a manifestation of pulmonary HTN and R heart failure * Recommend gentle diuresis with target of net 1- 1.5L UO per day to avoid dehydration/intravascular volume contraction * Monitor PRP. Watch for possible contrast induced nephropathy related to recent CTA (2) Hypercapnic respiratory failure: * On NIPPV but working to breathe and lethargic * Prognosis is guarded * Patient is DNR/DNI * Recommend consultation w/ Pulmonology (3) Hypertension: * Hold Losartan due to acute illness * Agree w/ Labetalol therapy History of Present Illness Reason for Consultation: CKD, CHF Attending Physician: Mirza Funk MD History of Present Illness Mrs. Summers is an 81 year old white female who is seen at the request of Dr. Funk for evaluation of CKD, CHF. Medical records in the EMR were reviewed today and are summarized as follows: Mrs. Summers has CKD stage G3b/A2 (moderate impairment) Her baseline Cr has been 1.6 w/ EGFR 30 cc/min. Outpatient evaluation has revealed a benign urine sediment. UPCR has been only 0.2 while on ARB therapy. Mrs. Summers's renal impairment is due to DKD. 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 Mrs. Summers presented to [facility] 12/31/21 with hypercarbic respiratory failure. ABG at the time of admission revealed respiratory acidosis w/ partial metabolic compensation (pH 7.34, PCO2 86, HCO3 46). CXR 12/31/21 revealed CMG w/ mild pulmonary vascular congestion. Echocardiogram 01/01/22 revealed LVEF 35 - 40%, mod-severe LVH, mod pulmonary HTN w/ RVSP 56 mm Hg. 01/04/22 chest CTA was negative for PE. IV furosemide has been administered. Patient has diuresed net 2.3L. Cr is stable at 1.3. Allergies Allergy/AdvReac Type Severity Reaction Status Date / Time Horse/Equine Containing Allergy Unknown LOCKED Verified 12/31/21 18:01 Products JOINTS codeine AdvReac Unknown REVERSED Verified 12/31/21 18:01 REACTION Home Medications Medication Instructions Recorded Confirmed Type aspirin 81 mg tablet 81 mg PO PM tab 02/01/19 12/31/21 History vitamin B complex 1 cap PO QAM 02/06/19 12/31/21 History omega-3 fatty acids-fish oil 360 1 cap PO PM 12/02/19 12/31/21 History mg-1,200 mg capsule (Fish Oil) vit C 250 mg-vit E 90 mg-zinc 40 1 tab PO BID 12/02/19 12/31/21 History mg-copper 1 [id number]-[id number] capsule (PreserVision AREDS-2) Humalog KwikPen Insulin 100 See Rx Instructions .ROUTE 07/02/20 12/31/21 Rx unit/mL subcutaneous (insulin .COMPLEX #120 ml NS lispro) simvastatin 10 mg tablet 10 mg PO DAILY #90 tab 12/23/20 12/31/21 Rx BD Ultra-Fine Caryl Pen Needle 32 #400 ea NS 03/14/21 12/31/21 Rx gauge x 5/32" (pen needle, diabetic) blood sugar diagnostic #400 ea 03/14/21 12/31/21 Rx insulin syringe-needle U-100 1 mL #100 ea 03/14/21 12/31/21 Rx 31 gauge x 5/16" (BD Insulin Syringe Ultra-Fine) ketoconazole 2 % topical cream 1 applic TOP BID PRN #30 g 03/19/21 12/31/21 Rx labetalol 200 mg tablet 600 mg PO BID #540 tab 03/21/21 12/31/21 Rx losartan 50 mg tablet 50 mg PO BID #180 tab 03/21/21 12/31/21 Rx OneTouch Delica Lancets 33 gauge #400 ea NS 04/23/21 12/31/21 Rx (lancets) furosemide 20 mg tablet 20 mg PO BID PRN #180 tab 04/24/21 12/31/21 Rx calcitriol 0.25 mcg capsule 0.25 mcg PO DAILY #90 cap 11/06/21 12/31/21 Rx Lantus U-100 Insulin 100 unit/mL See Rx Instructions SQ PM #40 ml NS 11/20/21 12/31/21 Rx subcutaneous solution (insulin glargine) Synthroid 88 mcg tablet 88 mcg PO DAILY@0400 #90 tab NS 11/20/21 12/31/21 Rx (levothyroxine) ipratropium 20 mcg-albuterol 100 1 puff INH QID PRN #12 gm 11/20/21 12/31/21 Rx mcg/actuation mist for inhalation (Combivent Respimat) celecoxib 200 mg capsule (Celebrex) 200 mg PO DAILY #90 cap 11/26/21 12/31/21 Rx furosemide 80 mg tablet (Lasix) 80 mg PO DAILY 12/31/21 12/31/21 History Patient History Medical History Acute kidney injury Acute respiratory failure with hypoxia Chronic diastolic CHF (congestive heart failure) COPD with acute exacerbation Diabetic peripheral neuropathy associated with type 2 diabetes mellitus Dyspnea Hypokalemia Hypomagnesemia Hypoxia Loss of protective sensation of skin of foot Pneumonia Septicemia Spondylisthesis Surgical History H/O oral surgery S/P aortic valve replacement S/P bunionectomy S/P cataract surgery S/P dilation and curettage S/P tonsillectomy S/P total knee arthroplasty Status post hysteroscopic polypectomy Family History Father Hypertension Stroke Myocardial infarction Grandmother (Maternal) Diabetes Mother Diabetes Other COPD (chronic obstructive pulmonary disease) Denies family history of Ovarian cancer Prostate cancer Breast cancer Colorectal cancer Social History (Updated 12/31/21 @ 23:34 by Dinesh Braxton MD) Smoking Status: Never smoker Age Started Using Tobacco: 19; Age Quit Using Tobacco: 21; packs per day: 0.25; Second Hand Exposure: No; Do You Dip or Chew Tobacco: No; Tobacco Cessation Education Requested by Patient: No Hx Alcohol Use: No Hx Substance Use: No Preferred Language: Serbian Communication Ability: Effective Visual Impairment: No Limitations Hearing Ability: Hard of Hearing Web Content Executive Required: No Beliefs That Will Affect Care: None marital status: Current Living Situation: Spouse current occupational status: retired Other Information That Helps Us Care for You: No Feels Safe at Home: Yes Safety Concerns: Feels Safe At This Time Seatbelt Use: always Sunscreen Use: No Assistive Devices: CPAP, Oxygen - Continuous and Walker Review of Systems Review of Systems: Unobtainable due to reduced consciousness Physical Exam Constitutional: + ill appearing working to breath despite NIPPV Eyes: PERRL, conjunctivae normal, anicteric sclerae ENMT: Not examined due to NIPPV Neck: + JVD Respiratory: Coarse BS bilaterally Cardiovascular: Rate/Rhythm: + tachycardic poor skin turgor of the arms, 2+ LE pitting edema Gastrointestinal (Abdomen): Inspection/Auscultation: normal bowel sounds Neurologic: lethargic Results & Data ([facility]) Vital Signs (Past 12 Hours) Vital Signs Temp Pulse Pulse Resp BP Pulse Ox 01/04/22 08:07 37.6 C H 95 H 24 178/94 H 95 01/04/22 07:25 96 H 35 H 93 01/04/22 06:37 90 154/79 H 01/04/22 02:56 37.2 C 91 H 31 H 155/74 H 93 01/04/22 02:54 90 26 H 92 01/04/22 00:44 97 H 170/97 H 95 01/04/22 00:08 92 H 01/03/22 22:53 92 H 37 H 92 01/03/22 22:23 37.9 C H 91 H 28 H 167/60 H 95 Laboratory Results Laboratory Tests 01/04/22 01/04/22 01/04/22 03:22 03:27 03:27 WBC 9.48 Hgb 8.5 L Hct 29.9 L Plt Count 149 VBG pH 7.46 H VBG pCO2 73 H VBG pO2 63 VBG HCO3 52 VBG O2 Saturation 93.2 Sodium 144 Potassium 3.8 Chloride 93 L Carbon Dioxide > 45 H* BUN 55 H Creatinine 1.30 H Glucose 147 H Laboratory Tests 01/02/22 05:30 ABG pH 7.35 ABG pCO2 92 H ABG pO2 69 L ABG HCO3 51 H ABG O2 Saturation 95.8 H Laboratory Tests 12/31/21 19:30 SARS-CoV-2, RNA, NAAT NEGATIVE Diagnostic Findings 01/04/22 CXR: Mild residual central vascular congestion with no diffuse interstitial edema Small bilateral pleural effusions and bibasilar atelectasis. 01/04/22 Chest CTA: IMPRESSION: 1. Motion degraded exam with no evidence of large central pulmonary embolus. 2. Bilateral pleural effusions are stable. 3. Pulmonary hypertension. Likely mild pulmonary edema. 4. No definite consolidations are noted. 5. Previously noted 6 mm left upper lobe nodule is not well seen, likely due to patient motion. PG Care Time/CCT Total # of Minutes Spent Total Time Spent with Patient: Total time spent is greater than 50% in coordination of care (as documented) at patient's floor/unit and/or counseling patient: Coding Level of Care Code 28409 Inpt Consult Level 5 Diagnoses Chronic kidney disease, stage 3 N18.3 Hypercapnic respiratory failure J96.92 Hypertension I10
--- NOTE | 2022-01-04 10:29 | XRay Report ---
XR chest 1V portable CLINICAL HISTORY: CHF. Follow-up vascular congestion COMPARISON STUDY: 01/03/2022 TECHNIQUE: 1 view of the chest FINDINGS: Single frontal view of the chest demonstrates the heart to again be enlarged. There is again evidence for mild central vascular congestion with no peripheral interstitial edema on the current study. The re are again small bilateral pleural effusions with bibasal atelectasis. No confluent alveolar opacit ies are seen. There is no acute osseous pathology. IMPRESSION: 1. Mild residual central vascular congestion with no diffuse interstitial edema. 2. Small bilateral pleural effusions and bibasilar atelectasis. ACT 112: Negative or not required by law. Electronically signed by: Warren Smith M.D. 01/04/2022 10:28 AM
[2022-01-04] MEDS ORDERED: methylPREDNISolone 125 MG in SYRINGE 0 ML IV ONE (10:30)
--- NOTE | 2022-01-04 11:46 | Cardiology Consultation ---
Date of Consultation January 04, 2022 Assessment & Plan (1) CHF exacerbation: (2) S/P AVR (aortic valve replacement): (3) Arteriosclerosis of coronary artery: (4) Left bundle branch block: 1. Acute congestive heart failure: She is known to have an element of heart failure with preserved ejection fraction but her echocardiogram during this admission also reveals left ventricular systolic dysfunction. likely had an element of pulmonary vascular congestion at the time of her admission. She has affected a good diuresis with very mild increases in serum creatinine and BUN. Objectively improved. I think if her hypoxia were solely related to pulmonary edema clinically she would be feeling better. Instead, it seems that her clinical condition has deteriorated and her hypoxemia is persistent. This would suggest an additional etiology for her low oxygen. She is known to have an element of chronic hypoventilation syndrome. No evidence of pulmonary embolus or infectious etiology on her CT scan. He would seem reasonable to continue her usual outpatient regimen of diuretic while monitoring her renal function and electrolytes closely. Further increase since in creatinine and BUN may suggest an element of intravascular depletion and require reduction in her diuresis. I would agree with continuing the nitrate therapy. Improved blood pressure control may also help reduce recurrent edema. Hydralazine could be used in this setting as her ARB has been held due to concerns of renal dysfunction. 2. Valvular heart disease: Normally functioning bioprosthetic aortic valve. Only mild mitral regurgitation. 3. Nonobstructive coronary disease: She has mildly elevated biomarkers consistent with her clinical condition. I do not believe this is indicative of a recent or current acute coronary syndrome. 4. Left ventricular systolic failure: This appears to be a new finding. Her last echocardiogram was of poor quality and may have been an element of LV dysfunction at that time. He is known to have nonobstructive coronary disease. She did not present with symptoms consistent with an acute coronary syndrome. Biomarkers are not suggestive of a recent or acute coronary syndrome. The possibility of an ischemic cardiomyopathy could be readdressed once her clinical condition improves. She is continuing diuresis. An ARB can be restarted once her clinical condition improves and her renal function is stable. A change from labetalol to metoprolol succinate or carvedilol could be entertained. Jardiance and spironolactone can also be added once her clinical condition improves. History of Present Illness Reason for Consultation: Continued hypoxia Requesting Physician: Good Attending Physician: Mirza Funk MD History of Present Illness The patient is an 81-year-old woman with an extensive history of cardiovascular disease to include heart failure with preserved ejection fraction, nonobstructive coronary disease, left bundle branch block, aortic stenosis status post TAVR and hypertension was referred to the emergency room by her primary care physician for persistent hypoxemia. Unfortunately, minimal history could be obtained from the patient. I did perform a chart review and spoke with her attending physician. It seems that the patient had been experiencing some element of dyspnea for a few weeks leading up to her admission. She uses supplemental oxygen all of the time but required higher flow rates of supplemental oxygen recently. She presented for an outpatient sleep evaluation was noted to be hypoxic at that time. Following day she presented to her primary care physician and was also noted to be hypoxic. She was referred to the emergency room which was felt to have an element of pulmonary vascular congestion. There has been some reports of weight gain leading up to her admission. She was administered diuretics and started on BiPAP. However, her clinical condition failed to improve despite diuresis. She was notably hypercapnic which appears to be chronic in nature. Despite a diuresis, objective improvements in her pulmonary vascular congestion and improvement in her hyper cap knee, she continues to be dyspneic and hypoxic. Allergies Allergy/AdvReac Type Severity Reaction Status Date / Time Horse/Equine Containing Allergy Unknown LOCKED Verified 12/31/21 18:01 Products JOINTS codeine AdvReac Unknown REVERSED Verified 12/31/21 18:01 REACTION Home Medications Medication Instructions Recorded Confirmed Type aspirin 81 mg tablet 81 mg PO PM tab 02/01/19 12/31/21 History vitamin B complex 1 cap PO QAM 02/06/19 12/31/21 History omega-3 fatty acids-fish oil 360 1 cap PO PM 12/02/19 12/31/21 History mg-1,200 mg capsule (Fish Oil) vit C 250 mg-vit E 90 mg-zinc 40 1 tab PO BID 12/02/19 12/31/21 History mg-copper 1 [id number] capsule (PreserVision AREDS-2) Humalog KwikPen Insulin 100 See Rx Instructions .ROUTE 07/02/20 12/31/21 Rx unit/mL subcutaneous (insulin .COMPLEX #120 ml NS lispro) simvastatin 10 mg tablet 10 mg PO DAILY #90 tab 12/23/20 12/31/21 Rx BD Ultra-Fine Caryl Pen Needle 32 #400 ea NS 03/14/21 12/31/21 Rx gauge x 5/32" (pen needle, diabetic) blood sugar diagnostic #400 ea 03/14/21 12/31/21 Rx insulin syringe-needle U-100 1 mL #100 ea 03/14/21 12/31/21 Rx 31 gauge x 5/16" (BD Insulin Syringe Ultra-Fine) ketoconazole 2 % topical cream 1 applic TOP BID PRN #30 g 03/19/21 12/31/21 Rx labetalol 200 mg tablet 600 mg PO BID #540 tab 03/21/21 12/31/21 Rx losartan 50 mg tablet 50 mg PO BID #180 tab 03/21/21 12/31/21 Rx OneTouch Delica Lancets 33 gauge #400 ea NS 04/23/21 12/31/21 Rx (lancets) furosemide 20 mg tablet 20 mg PO BID PRN #180 tab 04/24/21 12/31/21 Rx calcitriol 0.25 mcg capsule 0.25 mcg PO DAILY #90 cap 11/06/21 12/31/21 Rx Lantus U-100 Insulin 100 unit/mL See Rx Instructions SQ PM #40 ml NS 11/20/21 12/31/21 Rx subcutaneous solution (insulin glargine) Synthroid 88 mcg tablet 88 mcg PO DAILY@0400 #90 tab NS 11/20/21 12/31/21 Rx (levothyroxine) ipratropium 20 mcg-albuterol 100 1 puff INH QID PRN #12 gm 11/20/21 12/31/21 Rx mcg/actuation mist for inhalation (Combivent Respimat) celecoxib 200 mg capsule (Celebrex) 200 mg PO DAILY #90 cap 11/26/21 12/31/21 Rx furosemide 80 mg tablet (Lasix) 80 mg PO DAILY 12/31/21 12/31/21 History Patient History Medical History Acute kidney injury Acute respiratory failure with hypoxia Chronic diastolic CHF (congestive heart failure) COPD with acute exacerbation Diabetic peripheral neuropathy associated with type 2 diabetes mellitus Dyspnea Hypokalemia Hypomagnesemia Hypoxia Loss of protective sensation of skin of foot Pneumonia Septicemia Spondylisthesis Surgical History H/O oral surgery S/P aortic valve replacement S/P bunionectomy S/P cataract surgery S/P dilation and curettage S/P tonsillectomy S/P total knee arthroplasty Status post hysteroscopic polypectomy Family History Father Hypertension Stroke Myocardial infarction Grandmother (Maternal) Diabetes Mother Diabetes Other COPD (chronic obstructive pulmonary disease) Denies family history of Ovarian cancer Prostate cancer Breast cancer Colorectal cancer Social History (Updated 12/31/21 @ 23:34 by Dinesh Braxton MD) Smoking Status: Never smoker Age Started Using Tobacco: 19; Age Quit Using Tobacco: 21; packs per day: 0.25; Second Hand Exposure: No; Do You Dip or Chew Tobacco: No; Tobacco Cessation Education Requested by Patient: No Hx Alcohol Use: No Hx Substance Use: No Preferred Language: Luxembourgish Communication Ability: Effective Visual Impairment: No Limitations Hearing Ability: Hard of Hearing Chassis Wirer Required: No Beliefs That Will Affect Care: None marital status: Current Living Situation: Spouse current occupational status: retired Other Information That Helps Us Care for You: No Feels Safe at Home: Yes Safety Concerns: Feels Safe At This Time Seatbelt Use: always Sunscreen Use: No Assistive Devices: CPAP, Oxygen - Continuous and Walker Review of Systems Review of Systems: Other Obtainable due to her dyspnea and declining clinical status. Physical Exam Physical Exam: She was arousable and appear to answer questions at times. However, she was also very somnolent. She followed some commands. Using BiPAP. HEENT: Sclerae are anicteric. Lungs: Tachypneic. Apices were clear. No expiratory wheezing. Cardiac: The rhythm was regular. Tachycardic. Occasional ectopy. Very soft crescendo systolic murmur. Abdomen: Obese Results & Data ([facility]) Vital Signs (Past 12 Hours) Vital Signs Temp Pulse Pulse Resp BP Pulse Ox 01/04/22 08:07 37.6 C H 95 H 24 178/94 H 95 01/04/22 07:25 96 H 35 H 93 01/04/22 06:37 90 154/79 H 01/04/22 02:56 37.2 C 91 H 31 H 155/74 H 93 01/04/22 02:54 90 26 H 92 01/04/22 00:44 97 H 170/97 H 95 01/04/22 00:08 92 H Laboratory Results Abnormal Lab Results 01/03/22 01/03/22 01/03/22 11:38 16:07 16:08 WBC RBC Hgb Hct MCV MCH MCHC RDW Std Deviation RDW Coeff of Nella Plt Count MPV Immature Gran % (Auto) Neut % (Auto) Lymph % (Auto) [place] % (Auto) Eos % (Auto) Baso % (Auto) Neut # (Auto) Lymph # (Auto) [place] # (Auto) Eos # (Auto) Baso # (Auto) Immature Gran # (Auto) Hypochromasia Stomatocytes D-Dimer VBG pH VBG pCO2 VBG pO2 VBG HCO3 VBG O2 Saturation VBG Base Excess Sodium 144 Potassium 4.7 Chloride 93 L Carbon Dioxide > 45 H* Anion Gap TNP BUN 48 H Creatinine 1.30 H Est Cr Clr Drug Dosing 37.9 Est GFR ( Amer) 44.2 Est GFR (Non-Af Amer) 38.2 BUN/Creatinine Ratio 36.9 H Glucose 147 H POC Glucose 153 H 155 H Calcium 9.1 Troponin I High Sens B-Natriuretic Peptide 01/03/22 01/03/22 01/03/22 18:40 18:40 20:13 WBC RBC Hgb Hct MCV MCH MCHC RDW Std Deviation RDW Coeff of Nella Plt Count MPV Immature Gran % (Auto) Neut % (Auto) Lymph % (Auto) [place] % (Auto) Eos % (Auto) Baso % (Auto) Neut # (Auto) Lymph # (Auto) [place] # (Auto) Eos # (Auto) Baso # (Auto) Immature Gran # (Auto) Hypochromasia Stomatocytes D-Dimer VBG pH VBG pCO2 VBG pO2 VBG HCO3 VBG O2 Saturation VBG Base Excess Sodium Potassium Chloride Carbon Dioxide Anion Gap BUN Creatinine Est Cr Clr Drug Dosing Est GFR ( Amer) Est GFR (Non-Af Amer) BUN/Creatinine Ratio Glucose POC Glucose 180 H Calcium Troponin I High Sens 72.2 H* D B-Natriuretic Peptide 1733 H 01/04/22 01/04/22 01/04/22 03:22 03:27 03:27 WBC 9.48 RBC 3.28 L Hgb 8.5 L Hct 29.9 L MCV 91.2 MCH 25.9 MCHC 28.4 L RDW Std Deviation 53.5 H RDW Coeff of Nella 16.0 H Plt Count 149 MPV 10.9 Immature Gran % (Auto) 0.5 Neut % (Auto) 86.1 Lymph % (Auto) 5.1 [place] % (Auto) 8.1 Eos % (Auto) 0.1 Baso % (Auto) 0.1 Neut # (Auto) 8.16 H Lymph # (Auto) 0.48 L [place] # (Auto) 0.77 Eos # (Auto) 0.01 Baso # (Auto) 0.01 Immature Gran # (Auto) 0.05 H Hypochromasia Present Stomatocytes 1+ D-Dimer VBG pH 7.46 H VBG pCO2 73 H VBG pO2 63 VBG HCO3 52 VBG O2 Saturation 93.2 VBG Base Excess 23.3 Sodium 144 Potassium 3.8 Chloride 93 L Carbon Dioxide > 45 H* Anion Gap TNP BUN 55 H Creatinine 1.30 H Est Cr Clr Drug Dosing 37.9 Est GFR ( Amer) 44.2 Est GFR (Non-Af Amer) 38.2 BUN/Creatinine Ratio 42.3 H Glucose 147 H POC Glucose Calcium 9.1 Troponin I High Sens B-Natriuretic Peptide 01/04/22 01/04/22 01/04/22 03:27 06:23 07:26 WBC RBC Hgb Hct MCV MCH MCHC RDW Std Deviation RDW Coeff of Nella Plt Count MPV Immature Gran % (Auto) Neut % (Auto) Lymph % (Auto) [place] % (Auto) Eos % (Auto) Baso % (Auto) Neut # (Auto) Lymph # (Auto) [place] # (Auto) Eos # (Auto) Baso # (Auto) Immature Gran # (Auto) Hypochromasia Stomatocytes D-Dimer 880 H* VBG pH VBG pCO2 VBG pO2 VBG HCO3 VBG O2 Saturation VBG Base Excess Sodium Potassium Chloride Carbon Dioxide Anion Gap BUN Creatinine Est Cr Clr Drug Dosing Est GFR ( Amer) Est GFR (Non-Af Amer) BUN/Creatinine Ratio Glucose POC Glucose 167 H Calcium Troponin I High Sens 74.6 H* B-Natriuretic Peptide 01/04/22 08:36 WBC RBC Hgb Hct MCV MCH MCHC RDW Std Deviation RDW Coeff of Nella Plt Count MPV Immature Gran % (Auto) Neut % (Auto) Lymph % (Auto) [place] % (Auto) Eos % (Auto) Baso % (Auto) Neut # (Auto) Lymph # (Auto) [place] # (Auto) Eos # (Auto) Baso # (Auto) Immature Gran # (Auto) Hypochromasia Stomatocytes D-Dimer VBG pH VBG pCO2 VBG pO2 VBG HCO3 VBG O2 Saturation VBG Base Excess Sodium Potassium Chloride Carbon Dioxide Anion Gap BUN Creatinine Est Cr Clr Drug Dosing Est GFR ( Amer) Est GFR (Non-Af Amer) BUN/Creatinine Ratio Glucose POC Glucose Calcium Troponin I High Sens 82.6 H* B-Natriuretic Peptide Diagnostic Findings Echocardiogram obtained on 01/01/2022: Moderately reduced LV systolic function with ejection fraction of 35-40%. Global hypokinesis. Moderate to severe LVH. Severe left atrial dilation. Mildly dilated right ventricle. Moderate right atrial dilation. Normally functioning bioprosthetic aortic valve. Mild mitral regurgitation. Elevated pulmonary pressures estimated at 56 mm of mercury. Chest CTA performed today revealed evidence of pulmonary hypertension and mild pulmonary edema. No consolidation. No large pulmonary embolus. Chest x-ray obtained today revealed improved vascular congestion with no diffuse interstitial edema. ECG Additional Comments: Left bundle branch block. Occasional ventricular ectopy PG Care Time/CCT Total # of Minutes Spent Total Time Spent with Patient: Total time spent is greater than 50% in coordination of care (as documented) at patient's floor/unit and/or counseling patient: Coding Diagnoses CHF exacerbation I50.9 S/P AVR (aortic valve replacement) Z95.2 Arteriosclerosis of coronary artery I25.10 Left bundle branch block I44.7
--- NOTE | 2022-01-04 12:11 | Electrocardiogram Report ---
Test Reason : Blood Pressure : / mmHG Vent. Rate : 101 BPM Atrial Rate : 101 BPM P-R Int : 142 ms QRS Dur : 150 ms QT Int : 398 ms P-R-T Axes : 033 -19 125 degrees QTc Int : 516 ms Sinus tachycardia Left bundle branch block Abnormal ECG When compared with ECG of 01-JAN-2022 03:21, Premature atrial complexes are no longer Present Confirmed by Hardeep Huston ([id number]) on 01/04/2022 12:10:58 PM Referred By: REFERRED SELF Confirmed By:Kenneth Huston
[2022-01-04] MEDS ORDERED: VANCOMYCIN CONSULT ACTIVE PRN (13:24)
[2022-01-04] MEDS ORDERED: VANCOMYCIN HCL 2,250 MG in SODIUM CHLORIDE 0.9% 500 ML IV STA (13:28)
--- NOTE | 2022-01-04 14:57 | Hospitalist Progress Note ---
Date of Service January 04, 2022 Assessment & Plan (1) CHF exacerbation: Plan: 81 year old female w/ PMHx of CAD, htn, IDDM, HFpEF, CKD, home 2+L O2 (obesity- restrictive lung disease), tasia on cpap, arthritis (tylenol, celebrex), and bioprosthetic aortic valve who presents w/ 2-3 months of increased dyspnea on exertion; admitting for hypoxia secondary to CHF exacerbation. Acute Hypoxic, Hypercapnic Resp Failure Dry weight approximately 109kg. - Hypervolemic on admitting exam; CHF exacerbation initially suspected as cause of sx LAKESHIA: EF 35-40% with no new wall motion changes compared to prior. Mildly dilated RV with normal systolic function, LAD, RAD, bioprosthetic valve in place, mitral annular calcification with mild to moderate stenosis, mild tricuspid regurg, mild mitral regurg, moderate pulmonary hypertension Inaccurate I&Os with purewick and some leaking, had previously refused Delaney, agreeable to Delaney for accurate I&O measurements 01/02 Clarified medications with family, patient is listed as taking 80 mg daily, and 20 p.o. twice daily as needed per family takes 80 daily and up to 120 total as needed - strict Is and Os - Lasix as below - Procal is normal, repeat pending -Troponin down trended, and again worsening with worsening respiratory status - ecg w/ LBBB, consistent with prior EKGs CXR --> mproving pulmonary edema but with residual pulmonary vascular congestion, CT with mild pulm edema - Trop uptrending suspicious for demand. Despite improvement in edema, likely worsening 01/04 - DD 880, CTA limited by motion but without evidence of PE Metabolic Alkalosis, chronic hypercapnea with compensation Initially acidotic with acute on chronic elevation in pCO2--> alkalotic with improved but still elevated pCo2 & compensated bicarb - PFT 12/2019: FVC 81%, FEV1 83%, FEV1/FVC ratio 99%, no obstructive lung disease appreciated. High ERV. Mild decrease in the DLCO. Concern for obesity hypoventilation Patient is a chronic hypercapnic retainer. ABG from 2019 shows chronic hypercapnia with PCO2 in 40, on admission compensated pH with PCO2 in 80s - Diamox x3 ordered by pulm, appreciate recs Encephalopathy, ?cerebral edema vs metabolic vs infectious Patient awakens and follows simple commands in AM but increasingly somnolen t/obtunded through [facility] without acute findings. Diamox x3 ordered as above - ammonia negative - Infectious eval as noted - New borderline fever overnight to 37.9. BC pending, PCT pending previously wnl, UA pending. No obvious source of infection. w/ rapid decline +empiric Cefepime + 1x dose vanc given History of CKD 3 2/2 DM Baseline creatinine recently 1-1.2, past review as high as 1.4-1.6, EGFR 30 at last note - Cr 1.17 on admit On sodium restriction - ARB held - Diuresis to goal 1.1.5L daily. if Cr stable will continue resume AM 01/05. edema improving as noted above although clinically worsening (2) Chronic diastolic CHF (congestive heart failure): Plan: - follow CHF clinic [facility] - 10/2021 echo poor quality w/ no estimable EF. 2020 echo w/ normal EF. -Echo as noted - Labetelol PO this AM w/ decline and requiring BIPAP, pt with increased tachycardia. - At risk for BB withdrawal if no improvement --> IV (3) Controlled type 2 diabetes mellitus with kidney complication, with long-term current use of insulin: Plan: - A1c 5.6 10/2021, at goal - SSI and 40mg qhs lantus - on large dose of beta charlette for HTN; note to PCP: caution against decreased hypoglycemia awareness BSG control remains adequate (4) Obesity: Plan: - 2019 PFT reviewed as above - prior chart hx of copd arevalo snot appear accurate based on review of PFTS (5) Anemia: Plan: - chronic, stable in 8s -Hx iron deficiency, had received a transfusion of Venofer x1 (6) Secondary hyperparathyroidism: Plan: - follows nephro. recent switch from D2 to D3. (7) Chronic kidney disease, stage 3: Plan: As noted (8) Hypothyroidism: Plan: - continue home levothyroxine (9) Obstructive sleep apnea: Plan: - continue qhs cpap (10) Dyslipidemia: Plan: - continue home statin (11) S/P AVR (aortic valve replacement): Plan: - follows Dr. Wolf (12) Encephalopathy: Plan: FEN/GI: DM2, low Na if awake enough to tolerate. NPO while sedate/obtunded ppx: chemoppx initially held in setting of downtrending Hb. scds. Code Status: DNR/DNI, would not want intubation/heroic measures or intubation for declining resp status per patient w/ family at bedside dispo: med tele Admission and Anticipated Discharge Date Admission Date: December 31, 2021 Subjective Is bedside this morning and multiple reassessment. Patient was easily arousable previously, and would not answer questions before falling back asleep. Progressively lethargic throughout the day. Subjective is limited by lethargy. Opens eyes and squeezes hand on command Review of Systems Review of Systems: Limited by sedation and BiPAP, nods head no to pain, chills. Physical Exam Physical Exam: General: Appears ill, somnolent/lethargic. Opens eyes and squeezes hands on command before falling back asleep HEENT: Atraumatic, normocephalic. Thick neck habitus Pulm: Distant w/ habitus,w/ basilar crackles/coarse, no wheezing. Symmetrical chest rise. Regular RR in morning after bipap, tachynepic and with distress in the afternoon on reassessment Cardiac: RRR, -mrg. Radial pulses intact and symmetrical. Abdominal: Nontender, nondistended, soft. BS present. Extremities: Bilateral pitting edema present Results & Data Results & Data ([facility]) Vital Signs (Past 12 Hours) Vital Signs Temp Pulse Pulse Resp BP Pulse Ox 01/04/22 11:55 110 H 24 159/95 H 98 01/04/22 11:35 110 H 41 H 99 01/04/22 08:07 37.6 C H 95 H 24 178/94 H 95 01/04/22 07:25 96 H 35 H 93 01/04/22 06:37 90 154/79 H 01/04/22 02:56 37.2 C 91 H 31 H 155/74 H 93 01/04/22 02:54 90 26 H 92 PG Care Time/CCT Total # of Minutes Spent Total Time Spent with Patient: Total time spent is greater than 50% in coordination of care (as documented) at patient's floor/unit and/or counseling patient: Coding Level of Care Code 57736 Subseq Hosp Care Lvl 3 Diagnoses CHF exacerbation I50.9 Chronic diastolic CHF (congestive heart failure) I50.32 Controlled type 2 diabetes mellitus with kidney complication, with long-term current use of insulin E11.29; Z79.4 Obesity E66.9 Anemia D64.9 Secondary hyperparathyroidism N25.81 Chronic kidney disease, stage 3 N18.3 Hypothyroidism E03.9 Obstructive sleep apnea G47.33 Dyslipidemia E78.5 S/P AVR (aortic valve replacement) Z95.2 Encephalopathy G93.40
[2022-01-04] MEDS: CEFEPIME 2,000 MG in SYRINGE 0 ML IV SCH (15:01)
--- NOTE | 2022-01-04 15:28 | Pulmonary Consultation ---
Date of Consultation January 04, 2022 Assessment & Plan (1) Hypercapnic respiratory failure: (2) Hypoxemia: (3) Obesity hypoventilation syndrome: (4) CHF exacerbation: Impression: 81-year-old female with likely obesity hypoventilation syndrome. Past PFTs performed 2 years ago with a normal however her bicarb is elevated. This is likely exacerbated by chronic hypercarbic respiratory failure as well as with diuresis. Her pH is actually alkalotic now so I do not think her CO2 levels can explain her altered mental status and clinical condition. Recommendations: 1. Hypoxemic and hypercarbic respiratory failure: Extensive discussions were held with the family at bedside explaining her current pathophysiology. Would not recommend [id number] BiPAP with an alkalotic pH. Given the fact that she is alkalotic, it may be reasonable to pursue a trial of Diamox and follow her bicarb serially. Continue diuresis under the direction of cardiology. She may benefit from transition to BiPAP to facilitate clearance of CO2 at night, when sleeping, and as needed with mental status changes during the day. We will try and target tidal volume around 300 cc for a minute ventilation of about 8 to 10 L/min. I did advise the patient's family that I would not recommend targeting oxygen saturations much above 85 to 90%. Her hypoxemia is likely exacerbated by her hypercarbia and pursuing hypoxemia will likely aggravate her hypercarbic respiratory failure. Consideration for repeating the patient's PFTs in the outpatient setting might be appropriate. Assessment of neuromuscular strength would also be not unreasonable but would need to be performed with the patient in a clinically stable state. She can continue to follow with her sleep medicine provider in the outpatient setting. 2. I think her obesity atelectasis and potential tracheobronchial malacia may also be contributing. Getting her upright and potentially out of bed to chair would be beneficial in improving her pulmonary mechanics. 3. Discussed with the admitting hospitalist. Would not attribute all of her mental status changes to elevated CO2 given her alkalemia pH and additional clinical work-up should be undertaken as felt to be clinically appropriate. Will follow up with the patient and assess response to the current interventions. The patient is appropriately DO NOT INTUBATE and has declined transfer to the ICU which I think is reasonable. Hopefully we can stabilize her condition. Ultimately, weight loss would be the definitive treatment of choice for these medical issues. Thanks for the opportunity participating the care of this patient. Feel free to contact us if we can be of additional assistance. We will continue to follow with you. History of Present Illness Attending Physician: Mirza Funk MD History of Present Illness Asked by hospitalist to evaluate this patient with acute on chronic hypercarbic respiratory failure and hypoxemic respiratory failure. History is obtained from discussion with the hospitalist as well as review electronic medical record and interview with family at bedside. Patient is an 81-year-old female who follows with Dr. Dixon in the outpatient setting for sleep disordered breathing and obesity hypoventilation syndrome. She has been on CPAP and supplemental oxygen for quite some time. She was admitted to the facility 12/31/2021 with 2 to 3-month history of shortness of breath. She had noted increased swelling of her lower extremities. She was admitted with a diagnosis of exacerbation of heart failure and diuresed. Echocardiogram showed an EF of 35 to 40% with global hypokinesis and severe LVH. There is a bioprosthetic aortic valve in place with acceptable gradient. Mild to moderate mitral stenosis and mild mitral regurgitation was noted. E to E prime ratio 46 consistent with diastolic dysfunction. Patient's initial blood gas showed a pH 7.34 with a PCO2 of 86. She has been on BiPAP intermittently. Apparently her clinical condition regarding mental status worsened over the last 12 to 18 hours. Repeat blood gas at 330 this morning showed a pH of 7.46 with a PCO2 of 73. This was a venous gas. She has been on noninvasive positive pressure ventilation ever since. She is on outpatient CPAP at 10 cm of water with oxygen bleed at 5 L/min The patient does have some edema. She is able to open her eyes and follow commands such as squeezing hands and moving toes. She appears weak lethargic and encephalopathic. She is apparently now febrile. Work-up including imaging ammonia level and infectious work-up is pending by the primary service. Her last pulmonary function tests were performed December 2019 and showed an FEV1 of 1.33 L or 83% predicted with an FVC of 1.77 L or 81% predicted and a ratio of 75 without bronchodilator response. Total lung capacity at that point time was normal at 88% predicted and diffusion capacity reduced at 62% predicted. Allergies Allergy/AdvReac Type Severity Reaction Status Date / Time Horse/Equine Containing Allergy Unknown LOCKED Verified 12/31/21 18:01 Products JOINTS codeine AdvReac Unknown REVERSED Verified 12/31/21 18:01 REACTION Home Medications Medication Instructions Recorded Confirmed Type aspirin 81 mg tablet 81 mg PO PM tab 02/01/19 12/31/21 History vitamin B complex 1 cap PO QAM 02/06/19 12/31/21 History omega-3 fatty acids-fish oil 360 1 cap PO PM 12/02/19 12/31/21 History mg-1,200 mg capsule (Fish Oil) vit C 250 mg-vit E 90 mg-zinc 40 1 tab PO BID 12/02/19 12/31/21 History mg-copper 1 [id number] capsule (PreserVision AREDS-2) Humalog KwikPen Insulin 100 See Rx Instructions .ROUTE 07/02/20 12/31/21 Rx unit/mL subcutaneous (insulin .COMPLEX #120 ml NS lispro) simvastatin 10 mg tablet 10 mg PO DAILY #90 tab 12/23/20 12/31/21 Rx BD Ultra-Fine Caryl Pen Needle 32 #400 ea NS 03/14/21 12/31/21 Rx gauge x 5/32" (pen needle, diabetic) blood sugar diagnostic #400 ea 03/14/21 12/31/21 Rx insulin syringe-needle U-100 1 mL #100 ea 03/14/21 12/31/21 Rx 31 gauge x 5/16" (BD Insulin Syringe Ultra-Fine) ketoconazole 2 % topical cream 1 applic TOP BID PRN #30 g 03/19/21 12/31/21 Rx labetalol 200 mg tablet 600 mg PO BID #540 tab 03/21/21 12/31/21 Rx losartan 50 mg tablet 50 mg PO BID #180 tab 03/21/21 12/31/21 Rx OneTouch Delica Lancets 33 gauge #400 ea NS 04/23/21 12/31/21 Rx (lancets) furosemide 20 mg tablet 20 mg PO BID PRN #180 tab 04/24/21 12/31/21 Rx calcitriol 0.25 mcg capsule 0.25 mcg PO DAILY #90 cap 11/06/21 12/31/21 Rx Lantus U-100 Insulin 100 unit/mL See Rx Instructions SQ PM #40 ml NS 11/20/21 12/31/21 Rx subcutaneous solution (insulin glargine) Synthroid 88 mcg tablet 88 mcg PO DAILY@0400 #90 tab NS 11/20/21 12/31/21 Rx (levothyroxine) ipratropium 20 mcg-albuterol 100 1 puff INH QID PRN #12 gm 11/20/21 12/31/21 Rx mcg/actuation mist for inhalation (Combivent Respimat) celecoxib 200 mg capsule (Celebrex) 200 mg PO DAILY #90 cap 11/26/21 12/31/21 Rx furosemide 80 mg tablet (Lasix) 80 mg PO DAILY 12/31/21 12/31/21 History Patient History Medical History Acute kidney injury Acute respiratory failure with hypoxia Chronic diastolic CHF (congestive heart failure) COPD with acute exacerbation Diabetic peripheral neuropathy associated with type 2 diabetes mellitus Dyspnea Hypokalemia Hypomagnesemia Hypoxia Loss of protective sensation of skin of foot Pneumonia Septicemia Spondylisthesis Surgical History H/O oral surgery S/P aortic valve replacement S/P bunionectomy S/P cataract surgery S/P dilation and curettage S/P tonsillectomy S/P total knee arthroplasty Status post hysteroscopic polypectomy Family History Father Hypertension Stroke Myocardial infarction Grandmother (Maternal) Diabetes Mother Diabetes Other COPD (chronic obstructive pulmonary disease) Denies family history of Ovarian cancer Prostate cancer Breast cancer Colorectal cancer Social History (Updated 12/31/21 @ 23:34 by Dinesh Braxton MD) Smoking Status: Never smoker Age Started Using Tobacco: 19; Age Quit Using Tobacco: 21; packs per day: 0.25; Second Hand Exposure: No; Do You Dip or Chew Tobacco: No; Tobacco Cessation Education Requested by Patient: No Hx Alcohol Use: No Hx Substance Use: No Preferred Language: Portuguese Communication Ability: Effective Visual Impairment: No Limitations Hearing Ability: Hard of Hearing [employer] Required: No Beliefs That Will Affect Care: None marital status: Current Living Situation: Spouse current occupational status: retired Other Information That Helps Us Care for You: No Feels Safe at Home: Yes Safety Concerns: Feels Safe At This Time Seatbelt Use: always Sunscreen Use: No Assistive Devices: CPAP, Oxygen - Continuous and Walker Review of Systems Review of Systems: Unobtainable due to reduced consciousness Physical Exam Constitutional: + ill appearing working to breath despite NIPPV Eyes: PERRL, conjunctivae normal, anicteric sclerae ENMT: Not examined due to NIPPV Neck: + JVD Respiratory: Coarse BS bilaterally Cardiovascular: Rate/Rhythm: + tachycardic poor skin turgor of the arms, 2+ LE pitting edema Gastrointestinal (Abdomen): Inspection/Auscultation: normal bowel sounds Neurologic: lethargic Results & Data Results & Data ([facility]) Vital Signs (Past 12 Hours) Vital Signs Temp Pulse Pulse Resp BP Pulse Ox 01/04/22 11:55 110 H 24 159/95 H 98 01/04/22 11:35 110 H 41 H 99 01/04/22 08:07 37.6 C H 95 H 24 178/94 H 95 01/04/22 07:25 96 H 35 H 93 01/04/22 06:37 90 154/79 H Critical Care Results & Data Vital Signs (Past 12 Hours) Vital Signs Temp Pulse Pulse Resp BP Pulse Ox 01/04/22 11:55 110 H 24 159/95 H 98 01/04/22 11:35 110 H 41 H 99 01/04/22 08:07 37.6 C H 95 H 24 178/94 H 95 01/04/22 07:25 96 H 35 H 93 01/04/22 06:37 90 154/79 H Lab & Micro Results (Past 24 Hours) RBC 3.28 M/uL (3.93-5.22) L 01/04/22 WBC 9.48 K/ul (4.8-10.8) 01/04/22 Hgb 8.5 g/dl (12.0-16.0) L 01/04/22 Hct 29.9 % (34.1-44.9) L 01/04/22 MCV 91.2 fL (80.0-100.0) 01/04/22 MCH 25.9 pg (25.0-34.0) 01/04/22 MCHC 28.4 g/dL (32.0-36.0) L 01/04/22 RDW Standard Deviation 53.5 fL (36.4-46.3) H 01/04/22 RDW Coefficient of Variation 16.0 % (11.5-14.5) H 01/04/22 Plt Count 149 K/uL (130-400) 01/04/22 MPV 10.9 fL (9.4-12.3) 01/04/22 Neutrophils (%) (Auto) 86.1 % 01/04/22 Lymphocytes (%) (Auto) 5.1 % 01/04/22 Monocytes # (Auto) 0.77 K/uL (0.24-0.82) 01/04/22 Eosinophils # (Auto) 0.01 K/uL (0-0.50) 01/04/22 Immature Granulocyte % (Auto) 0.5 % 01/04/22 Neutrophils # (Auto) 8.16 K/uL (1.4-6.5) H 01/04/22 Lymphocytes # (Auto) 0.48 K/uL (1.2-3.4) L 01/04/22 Monocytes # (Auto) 0.77 K/uL (0.24-0.82) 01/04/22 Eosinophils # (Auto) 0.01 K/uL (0-0.50) 01/04/22 Basophils # (Auto) 0.01 K/uL (0-0.2) 01/04/22 Immature Granulocyte # (Auto) 0.05 K/uL (0.00-0.02) H 01/04/22 Hypochromasia Present 01/04/22 Stomatocytes 1+ 01/04/22 Na 144 mmol/L (136-145) 01/04/22 K 3.8 mmol/L (3.5-5.1) 01/04/22 Cl 93 mmol/L (98-107) L 01/04/22 CO2 > 45 mmol/L (21-32) H* 01/04/22 Anion Gap TNP 01/04/22 BUN 55 mg/dl (6-23) H 01/04/22 Creatinine 1.30 mg/dl (0.6-1.2) H 01/04/22 Estimated GFR ( Amer) 44.2 ml/min 01/04/22 Estimated GFR (Non-Af Amer) 38.2 ml/min 01/04/22 BUN/Creatinine Ratio 42.3 (10-20) H 01/04/22 Glu 147 mg/dl (70-99(Fasting)) H 01/04/22 Ca 9.1 mg/dl (8.5-10.1) 01/04/22 Calcium Level 9.1 mg/dl (8.5-10.1) 01/04/22 03:22 01/04/22 Venous Blood pH 7.46 (7.36-7.41) H 01/04/22 03:27 01/04/22 Venous Blood Partial Pressure CO2 73 mmHg (38-50) H 01/04/22 03:27 01/04/22 Venous Blood Partial Pressure O2 63 mmHg 01/04/22 03:27 01/04/22 Venous Blood HCO3 52 mmol/L 01/04/22 03:27 01/04/22 Venous Blood Base Excess 23.3 mEq/L 01/04/22 03:01/04/22 Venous Blood Oxygen Saturation 93.2 % 01/04/22 03:01/04/22 Diagnostic Findings (Past 24 Hours) Chest X-Ray 01/03/22 17:47 XR chest 1V portable CLINICAL HISTORY: AHRF. Follow-up interstitial edema COMPARISON STUDY: 01/02/2022 TECHNIQUE: 1 view of the chest FINDINGS: Single frontal view of the chest demonstrates the heart to again be enlarged. Compared to previous examination, there has been interval improvement of mild diffuse interstitial edema. Only mild central vascular congestion remains present. There is again suspicion of small bilateral pleural effusion . No confluent alveolar opacities are seen. There is no acute osseous pathology. IMPRESSION: 1. Interval improvement in interstitial edema with mild central vascular congestion remaining present. 2. There is again evidence for small bilateral pleural effusions. ACT 112: Negative or not required by law. Electronically signed by: Warren Smith M.D. 01/03/2022 6:34 PM Chest X-Ray 01/04/22 06:00 XR chest 1V portable CLINICAL HISTORY: CHF. Follow-up vascular congestion COMPARISON STUDY: 01/03/2022 TECHNIQUE: 1 view of the chest FINDINGS: Single frontal view of the chest demonstrates the heart to again be enlarged. There is again evidence for mild central vascular congestion with no peripheral interstitial edema on the current study. There are again small bilateral pleural effusions with bibasal atelectasis. No confluent alveolar opacities are seen. There is no acute osseous pathology. IMPRESSION: 1. Mild residual central vascular congestion with no diffuse interstitial edema. 2. Small bilateral pleural effusions and bibasilar atelectasis. ACT 112: Negative or not required by law. Electronically signed by: Warren Smith M.D. 01/04/2022 10:28 AM Chest CTA 01/04/22 07:18 CT angio chest PE protocol CLINICAL HISTORY: PE TECHNIQUE: Multidetector row helical CT of the chest was performed with angiographic protocol. Coronal and sagittal reformations were obtained. Coronal and sagittal MIPS were obtained from the axial data set and were submitted for review. Automated dose lowering techniques and/or adjustment according to patient size were utilized for this exam. CT DOSE: 856.97 mGy.cm Comparison: Comparison is made to CT chest 01/01/2022 FINDINGS: Exam is highly limited by patient motion. Lungs and pleura: Atelectasis is seen. There are small bilateral pleural effusions. Heart and pericardium: There is cardiomegaly without evidence of pericardial effusion. Mitral annular calcifications and aortic valve prosthesis are noted. Vessels: The pulmonary trunk is enlarged measuring 40 mm. Within the limits of a motion degraded exam, no central or lobar pulmonary embolus is seen. Mediastinum and tabatha: Unremarkable. Chest wall and lower neck: Unremarkable. Abdomen: Partial visualization of thickening of the bilateral adrenal glands, unchanged from prior exam. Bones: Degenerative changes in the thoracic spine. IMPRESSION: 1. Motion degraded exam with no evidence of large central pulmonary embolus. 2. Bilateral pleural effusions are stable. 3. Pulmonary hypertension. Likely mild pulmonary edema. 4. No definite consolidations are noted. 5. Previously noted 6 mm left upper lobe nodule is not well seen, likely due to patient motion. ACT 112: Negative or not required by law. Electronically signed by: Richard Peña M.D. 01/04/2022 8:53 AM I & O Totals 24 Hours 01/03/22 01/04/22 01/05/22 06:59 06:59 06:59 Intake Total 0 / 0 100 / 100 Output Total 1100 / 1100 1676 / 1676 Balance -1100 / -1100 -1576 / -1576 Cumulative 12/31/21 18:55 thru 01/04/22 08:31 Intake Total 1275 Output Total 3577 Balance -2302 RT Ventilator Mngmt (Last Documented) Ventilator Ordered Settings Respiratory Rate 24 01/04/22 11:55 Fraction of Inspired Oxygen 70 01/04/22 11:35 Ventilator - PT Measurements Respiratory Rate 24 PG Care Time/CCT Total # of Minutes Spent Total Time Spent with Patient: Total time spent is greater than 50% in coordination of care (as documented) at patient's floor/unit and/or counseling patient: Coding Level of Care Code 70111 Initial Inpt Care Lvl 3 Diagnoses Hypercapnic respiratory failure J96.92 Hypoxemia R09.02 Obesity hypoventilation syndrome E66.2 CHF exacerbation I50.9
--- NOTE | 2022-01-04 16:24 | CT Scan Report ---
CT head/brain wo con CLINICAL HISTORY: AMS Technique: Contiguous axial CT images of the head were acquired from the base of the skull to the gely brad without intravenous contrast administration. Images were viewed in brain, subdural and bone [facility]. Automated dose lowering techniques and/or adjustment according to patient size were utilized for this exam. Comparison: None available at the time of this dictation. Findings: Areas of decreased attenuation are present in the periventricular and subcortical white matter bilate rally consistent with small vessel ischemic disease. Generalized cerebral atrophy with commensurate e nlargement of the ventricles, sulci, and cisterns is also present. There is no acute intracranial hem orrhage or evidence of acute territorial infarction. No shift of the midline structures, mass effect, or extra-axial abnormalities are shown. Atherosclerotic calcifications are present in the intracran ial segments of the internal carotid arteries. Incidental note is made of a partially calcified hypod ensity in the right lateral sinus occipital horn. This may represent an asymmetric choroid calcificat ion. Imaged portions of the paranasal sinuses and mastoid air cells are clear. The orbits appear normal. There are no acute fractures of the calvaria or scalp swelling. Impression: 1. No acute intracranial hemorrhage, no evidence of acute territorial infarction or other acute intr acranial disease process. 2. Appearance of asymmetric right choroid calcification. Correlation with prior imaging, if availabl e, is recommended. No ventricular asymmetry is seen. No layering hemorrhage is seen. ACT 112: Negative or not required by law. Electronically signed by: Richard Peña M.D. 01/04/2022 4:23 PM
[2022-01-04] MEDS: acetaZOLAMIDE 250 MG in DEXTROSE 5% 100 ML IV SCH (16:26)
[2022-01-04 16:44] LABS: Appearance Urine Clear (Clear); Bacteria Urine Automated Negative (Negative); Bilirubin Urine Negative (Negative); Blood Urine Trace (Negative); Color Urine Yellow; Glucose Urine UA Negative (Negative); Ketones Urine Negative (Negative); Leukocyte Esterase Urine Negative (Negative); Nitrite Urine Negative (Negative); Protein Urine 1+ (Negative); Specific Gravity Urine 1.023 (1.000-1.030); Urobilinogen Urine Negative (Negative)
[2022-01-04] MEDS: LANTUS PER UNIT CHARGE SQ SCH (21:36)
[2022-01-04] MEDS: SIMVASTATIN 10 MG TAB PO SCH (22:45)
[2022-01-05] MEDS: NITROGLYCERIN 2% OINTMENT 30GM TUBE EXT SCH ×5 (00:21→23:52)
[2022-01-05] MEDS: CEFEPIME 2,000 MG in SYRINGE 0 ML IV SCH ×2 (02:12→14:21)
[2022-01-05] MEDS: LEVOTHYROXINE SODIUM 88 MCG TABLET PO SCH (03:15)
[2022-01-05 05:01] LABS: Alanine Aminotransferase 12 U/L (7-52); Albumin Globulin Ratio 1.1 (0.9-2); Albumin Level 3.3 gm/dl (3.4-5.0); Alkaline Phosphatase 58 U/L (34-104); Aspartate Aminotransferase 11 U/L (13-39); BUN Creatinine Ratio 49.3 (10-20); Bilirubin,Total 0.7 mg/dl (0.2-1.0); Blood Urea Nitrogen 67 mg/dl (6-23); Calcium 8.9 mg/dl (8.5-10.1); Carbon Dioxide > 45 mmol/L (21-32); Chloride 93 mmol/L (98-107); Creatinine Clr Calc Pharmacy 36.2 ml/min; Est GFR (African American) 41.9 ml/min; Est GFR (Non-African American) 36.1 ml/min; Globulin 3.1 gm/dl (2.5-4.0); Glucose 148 mg/dl (70-99(Fasting)); Potassium 3.8 mmol/L (3.5-5.1); Sodium 147 mmol/L (136-145); Total Protein 6.4 gm/dl (6.0-8.3)
--- NOTE | 2022-01-05 07:05 | Hospitalist Progress Note ---
Date of Service January 05, 2022 Assessment & Plan (1) CHF exacerbation: Plan: 81 year old female w/ PMHx of CAD, htn, IDDM, HFpEF, CKD, home 2+L O2 (obesity- restrictive lung disease), tasia on cpap, arthritis (tylenol, celebrex), and bioprosthetic aortic valve who presents w/ 2-3 months of increased dyspnea on exertion; admitting for hypoxia secondary to CHF exacerbation. Acute Hypoxic, Hypercapnic Resp Failure Dry weight approximately 109kg. 109.9kg 01/05. - Hypervolemic on admitting exam; CHF exacerbation initially suspected as initial cause of sx LAKESHIA: EF 35-40% with no new wall motion changes compared to prior. Mildly dilated RV with normal systolic function, LAD, RAD, bioprosthetic valve in place, mitral annular calcification with mild to moderate stenosis, mild tricuspid regurg, mild mitral regurg, moderate pulmonary hypertension - strict Is and Os - Lasix as below - Trop downtrending consistent w demand - ecg w/ LBBB, consistent with prior EKGs CXR --> improving pulmonary edema but with residual pulmonary vascular congestion, CT with mild pulm edema - Serial XR in AM. - Trop uptrending suspicious for demand, downtrended - DD 880, CTA limited by motion but without evidence of PE Mag, Phos, CK/muscular weakness panel, pending - Calcium 8.9, corrected calcium 9.1 wnl No ptosis with sustained superior gaze. Metabolic Alkalosis, chronic hypercapnea with compensation Initially acidotic with acute on chronic elevation in pCO2--> alkalotic with improved but still elevated pCo2 & compensated bicarb - PFT 12/2019: FVC 81%, FEV1 83%, FEV1/FVC ratio 99%, no obstructive lung disease appreciated. High ERV. Mild decrease in the DLCO. Concern for obesity hypoventilation Patient is a chronic hypercapnic retainer. ABG from 2019 shows chronic hypercapnia with PCO2 in 40, on admission compensated pH with PCO2 in 80s - Diamox x3 ordered by pulm, appreciate recs Acidotic morning of 01/05 with poor volume on CPAP adjustment, switched back to BiPAP with afternoon VBG. Continue BiPAP as needed, CPAP as tolerated Encephalopathy, ?cerebral edema vs metabolic vs infectious Patient awakens and follows simple commands in AM but increasingly somnolent/obtunded through CThead without acute findings. Diamox x3 ordered as above - ammonia negative - Infectious eval as noted - New borderline fever 01/04 37.9. BC pending, PCT prev normal, repeat elevated, UA pending. No obvious source of infection. No abd sx. w/ rapid decline +empiric Cefepime + 1x dose vanc given and adjust for renal function - Alertness improved enough to take PO meds this AM, but desaturates quickly. Afternoon reassessment alert enough to turn on and watch TV/change channels History of CKD 3 2/2 DM Baseline creatinine recently 1-1.2, past review as high as 1.4-1.6, EGFR 30 at last note - Cr 1.17 on admit On sodium restriction - ARB held - Near dry weight with improved edema on imaging. Leg edema persists, MM dry with lungs clear. - Pending PPN, follow net I&Os (2) Chronic diastolic CHF (congestive heart failure): Plan: - follow CHF clinic [facility] - 10/2021 echo poor quality w/ no estimable EF. 2020 echo w/ normal EF. -Echo as noted - [employer]OR labetelol (3) Controlled type 2 diabetes mellitus with kidney complication, with long-term current use of insulin: Plan: - A1c 5.6 10/2021, at goal - SSI and 40mg qhs lantus - on large dose of beta charlette for HTN; note to PCP: caution against decreased hypoglycemia awareness BSG control remains adequate (4) Obesity: Plan: - 2019 PFT reviewed as above - prior chart hx of copd arevalo snot appear accurate based on review of PFTS (5) Anemia: Plan: - chronic, stable in 8s -Hx iron deficiency, had received a transfusion of Venofer x1 (6) Secondary hyperparathyroidism: Plan: - follows nephro. recent switch from D2 to D3. (7) Chronic kidney disease, stage 3: Plan: As noted (8) Hypothyroidism: Plan: - continue home levothyroxine (9) Obstructive sleep apnea: Plan: - continue qhs cpap (10) Dyslipidemia: Plan: - continue home statin (11) S/P AVR (aortic valve replacement): Plan: - follows Dr. Wolf (12) Encephalopathy: Plan: FEN/GI: DM2, low Na if awake enough to tolerate. ~5d without nutrition +PPN, caution w/ fluid volume although appears with improved edema and nearing baseline weight. ppx: chemoppx initially held in setting of downtrending Hb. scds. Code Status: DNR/DNI, would not want intubation/heroic measures or intubation for declining resp status per patient w/ family at bedside dispo: med tele Admission and Anticipated Discharge Date Admission Date: December 31, 2021 Subjective Much more alert this morning. Changes TV, using remote. Answers questions appropriately, although with some difficulty on PPV mask. Back is uncomfortable, otherwise no pain. . Seen at bedside with family on reassessment in afternoon. Patient's mouth is dry and would like to drink some water, but unfortunately desaturates minimally on CPAP, very quickly when it is taken off even temporarily. Review of Systems Review of Systems: All systems reviewed & are unremarkable except as noted in Subjective Physical Exam Physical Exam: General: Appears ill, somnolent/lethargic. Opens eyes and squeezes hands on command before falling back asleep HEENT: Atraumatic, normocephalic. Thick neck habitus Pulm: Distant w/ habitus,w/ basilar crackles/coarse, no wheezing. Symmetrical chest rise. Regular RR in morning after bipap, tachynepic and with distress in the afternoon on reassessment Cardiac: RRR, -mrg. Radial pulses intact and symmetrical. Abdominal: Nontender, nondistended, soft. BS present. Extremities: Bilateral pitting edema present Results & Data Results & Data ([facility]) Vital Signs (Past 12 Hours) Vital Signs Temp Pulse Pulse Resp BP Pulse Ox 01/05/22 06:11 79 148/78 H 01/05/22 03:11 36.9 C 88 33 H 139/68 94 01/05/22 02:47 84 23 94 01/05/22 00:19 37 C 85 33 H 128/82 91 01/04/22 23:20 75 34 H 92 01/04/22 23:07 83 01/04/22 20:23 37.3 C 95 H 36 H 164/80 H 93 01/04/22 19:25 94 H 36 H 95 PG Care Time/CCT Total # of Minutes Spent Total Time Spent with Patient: Total time spent is greater than 50% in coordination of care (as documented) at patient's floor/unit and/or counseling patient: Coding Level of Care Code 58953 Subseq Hosp Care Lvl 3 Diagnoses CHF exacerbation I50.9 Chronic diastolic CHF (congestive heart failure) I50.32 Controlled type 2 diabetes mellitus with kidney complication, with long-term current use of insulin E11.29; Z79.4 Obesity E66.9 Anemia D64.9 Secondary hyperparathyroidism N25.81 Chronic kidney disease, stage 3 N18.3 Hypothyroidism E03.9 Obstructive sleep apnea G47.33 Dyslipidemia E78.5 S/P AVR (aortic valve replacement) Z95.2 Encephalopathy G93.40
[2022-01-05] MEDS: INSULIN ASPART PER UNIT SC SCH ×4 (07:30→23:52)
[2022-01-05 07:50] LABS: Base Excess ABG 21.7 mEq/L (-9-1.8); HCO3 ABG 52 mmol/L (19-24); Oxygen Saturation ABG 97.1 % (90-95); PCO2 ABG 96 mmHg (35-46); PO2 ABG 84 mmHg (80-95); pH ABG 7.34 (7.35-7.45)
[2022-01-05 07:51] LABS: Allen Test Pos (Pos)
--- NOTE | 2022-01-05 08:27 | Nephrology Progress Note ---
Date of Service January 05, 2022 Assessment & Plan (1) Chronic kidney disease, stage 3: Plan: * CKD stage G3b/A2 (moderate impairment) Her baseline Cr has been 1.6 w/ EGFR 30 cc/min. Outpatient evaluation has revealed a benign urine sediment. UPCR has been only 0.2 while on ARB therapy. Mrs. Summers's renal impairment is due to DKD * Kidney function is stable at this time. Patient is nonoliguric. Electrolyte balance is acceptable noting that elevated serum bicarbonate is in response to pulmonary CO2 retention * Volume status is difficult to assess clinically. CXR shows only mild congestion. LE swelling is likely a manifestation of pulmonary HTN and R heart failure * Recommend gentle diuresis with target of net 1 L UO per day to avoid exacerbating intravascular volume contraction * Monitor PRP. Watch for possible contrast induced nephropathy related to rec ent CTA 01/04/22 (2) Hypercapnic respiratory failure: Plan: * Weaned from BiPAP to CPAP. More alert this am * Prognosis is guarded * Patient is DNR/DNI * Pulmonology has provided acetazolamide and is attempting to place patient on O2 during the day (SaO2 target 88%) and CPAP at night (3) Hypertension: Plan: * Hold Losartan due to acute illness * Agree w/ Labetalol therapy Admission and Anticipated Discharge Date Admission Date: December 31, 2021 Subjective Mrs. Summers was changed to CPAP this morning. She is alert and oriented to self. She c/o back discomfort and requests to be repositioned Review of Systems Constitutional: no fever Eyes: no problem reported Ear, Nose, Mouth, Throat: no problem reported Respiratory: + dyspnea Cardiovascular: + edema; no chest pain and no palpitations Gastrointestinal: no abdominal pain, no nausea, no vomiting and no diarrhea/loose stools Genitourinary: no dysuria and no hematuria Musculoskeletal: + back pain Physical Exam Constitutional: + ill appearing Eyes: PERRL, conjunctivae normal, anicteric sclerae ENMT: remains on NIPPV Neck: + JVD Respiratory: Auscultation: lungs clear to auscultation bilaterally Cardiovascular: Rate/Rhythm: regular rate and regular rhythm Extremities: + edema (1+ pretibial pitting edema) Gastrointestinal (Abdomen): Inspection/Auscultation: normal bowel sounds Results & Data ([facility]) Vital Signs (Past 12 Hours) Vital Signs Temp Pulse Pulse Resp BP Pulse Ox 01/05/22 07:36 36.0 C L 77 18 143/66 H 92 01/05/22 07:15 84 30 H 92 01/05/22 06:11 79 148/78 H 01/05/22 03:11 36.9 C 88 33 H 139/68 94 01/05/22 02:47 84 23 94 01/05/22 00:19 37 C 85 33 H 128/82 91 01/04/22 23:20 75 34 H 92 01/04/22 23:07 83 Laboratory Results Laboratory Tests 01/05/22 01/05/22 04:09 07:09 ABG pH 7.34 L ABG pCO2 96 H ABG pO2 84 ABG HCO3 52 H ABG O2 Saturation 97.1 H Oxygen Given 40% Sodium 147 H Potassium 3.8 Chloride 93 L Carbon Dioxide > 45 H* BUN 67 H Creatinine 1.36 H Glucose 148 H PG Care Time/CCT Total # of Minutes Spent Total Time Spent with Patient: Total time spent is greater than 50% in coordination of care (as documented) at patient's floor/unit and/or counseling patient: Coding Level of Care Code 98527 Subseq Hosp Care Lvl 3 Diagnoses Chronic kidney disease, stage 3 N18.3 Hypercapnic respiratory failure J96.92 Hypertension I10
[2022-01-05] MEDS: LABETALOL HCL 300 MG TAB PO SCH (09:05)
--- NOTE | 2022-01-05 09:13 | Pulmonology Progress Note ---
Date of Service January 05, 2022 Assessment & Plan (1) Hypercapnic respiratory failure: (2) Hypoxemia: (3) Obesity hypoventilation syndrome: (4) CHF exacerbation: Plan: Impression: 81-year-old female with likely obesity hypoventilation syndrome. Past PFTs performed 2 years ago were normal however her bicarb is elevated. This is acute on chronic hypercarbic respiratory failure. Mental status is better this morning. Recommendations: 1. Hypoxemic and hypercarbic respiratory failure: Suspect obesity hypoventilation syndrome. Would continue to manage with noninvasive positive pressure ventilation (BiPAP) on a nightly basis and as needed for mental status changes. Would try and target tidal volumes around 300 to 350 cc with a minute ventilation between 8 and 10 L/min. She may need to transition from CPAP to BiPAP with oxygen bleed at discharge. Can consider repeating outpatient evaluation including PFTs, assessment of neuromuscular strength with Dr. Dixon if clinically indicated. An additional 2 doses of Diamox will be administered given her significantly elevated bicarb but would not use additional doses 2. Avoid any potentially respiratory suppressant medications. Out of bed to chair in an upright position would also be beneficial. Ultimately, weight loss will be required 3. Management of the patient's other medical issues is deferred to the admitting service. Will continue to follow with you. Feel free to contact us with questions or concerns Admission and Anticipated Discharge Date Admission Date: December 31, 2021 Subjective Patient seen and examined. EMR reviewed. The patient is currently on BiPAP. S he is much more awake alert conversive and interactive this morning. She is requesting that the BiPAP come off. She appears alert and oriented. Review of Systems Review of Systems: All systems reviewed & are unremarkable except as noted in Subjective Physical Exam Constitutional: + morbidly obese; no acute distress and not in distress Neck: trachea midline, no thyromegaly Respiratory: normal respiratory effort, lungs clear to auscultation Breath sounds are diminished Cardiovascular: RRR, no murmur, no edema Gastrointestinal (Abdomen): normal bowel sounds, soft, nontender, no hepatosplenomegaly Musculoskeletal: Extremities: extremities normal to inspection Skin: no rashes, warm and dry Neurologic: Nonfocal exam Lymphatic: no cervical lymphadenopathy Results & Data Results & Data ([facility]) Vital Signs (Past 12 Hours) Vital Signs Temp Pulse Pulse Resp BP Pulse Ox 01/05/22 09:04 86 156/90 H 07/11/22 07:36 36.0 C L 77 18 143/66 H 92 01/05/22 07:15 84 30 H 92 01/05/22 06:11 79 148/78 H 01/05/22 03:11 36.9 C 88 33 H 139/68 94 01/05/22 02:47 84 23 94 01/05/22 00:19 37 C 85 33 H 128/82 91 01/04/22 23:20 75 34 H 92 01/04/22 23:07 83 I/O: -1.5 L Laboratory Results 01/04/22 03:27 01/05/22 04:09 12/31/21 01/01/22 01/01/22 23:05 08:32 14:05 ABG pH 7.34 L ABG pCO2 86 H ABG pO2 114 H ABG HCO3 46 H ABG O2 Saturation 99.0 H ABG Base Excess 16.2 H VBG pH 7.33 L 7.30 L VBG pCO2 100 H 103 H VBG pO2 41 36 VBG HCO3 53 51 VBG O2 Saturation 67.8 < 60.0 VBG Base Excess 21.0 18.8 01/02/22 01/02/22 01/03/22 05:30 16:19 06:51 ABG pH 7.35 ABG pCO2 92 H ABG pO2 69 L ABG HCO3 51 H ABG O2 Saturation 95.8 H ABG Base Excess 20.0 H VBG pH 7.42 H 7.39 VBG pCO2 81 H 87 H VBG pO2 26 45 VBG HCO3 53 53 VBG O2 Saturation < 60.0 77.5 VBG Base Excess 22.9 22.4 01/04/22 01/05/22 03:27 07:09 ABG pH 7.34 L ABG pCO2 96 H ABG pO2 84 ABG HCO3 52 H ABG O2 Saturation 97.1 H ABG Base Excess 21.7 H VBG pH 7.46 H VBG pCO2 73 H VBG pO2 63 VBG HCO3 52 VBG O2 Saturation 93.2 VBG Base Excess 23.3 Diagnostic Findings No new imaging PG Care Time/CCT Total # of Minutes Spent Total Time Spent with Patient: Total time spent is greater than 50% in coordination of care (as documented) at patient's floor/unit and/or counseling patient: Coding Level of Care Code 70937 Subseq Hosp Care Lvl 2 Diagnoses Hypercapnic respiratory failure J96.92 Hypoxemia R09.02 Obesity hypoventilation syndrome E66.2 CHF exacerbation I50.9
[2022-01-05] MEDS: LIDOCAINE 5% 1 PATCH TD SCH (09:26)
[2022-01-05] MEDS: POTASSIUM CHLORIDE CRTAB 20 MEQ TABCR PO SCH (09:27)
[2022-01-05 09:33] LABS: Lyme Ab IgG w/WB Rflx Negative (Negative); Lyme Ab IgM w/WB Rflx Negative (Negative)
[2022-01-05 11:49] LABS: C Reactive Protein 23.18 mg/dl (0-0.5)
[2022-01-05] MEDS: acetaZOLAMIDE 250 MG in DEXTROSE 5% 100 ML IV SCH (12:00)
[2022-01-05] MEDS ORDERED: TPN/PPN CONSULT PHARMACY PRN (13:58)
[2022-01-05 14:08] LABS: Base Excess VBG 22.2 mEq/L; HCO3 VBG 54 mmol/L; Oxygen Saturation VBG 73.7 %; PCO2 VBG 97 mmHg (38-50); PO2 VBG 45 mmHg; pH VBG 7.35 (7.36-7.41)
[2022-01-05] MEDS ORDERED: Nursing to Pharmacy Communication SCH (14:15)
[2022-01-05 14:47] LABS: Magnesium 2.2 mg/dl (1.7-2.4); Phosphorus 5.5 mg/dl (2.5-4.9)
[2022-01-05] MEDS ORDERED: LABETALOL HCL IV 5 MG/ML 20ML IV SCH (21:00)
[2022-01-05] MEDS: SIMVASTATIN 10 MG TAB PO SCH (21:56)
[2022-01-05] MEDS: LANTUS PER UNIT CHARGE SQ SCH (21:59)
[2022-01-05] MEDS: LABETALOL HCL IV 5 MG/ML 20ML IV SCH (22:00)
[2022-01-06] MEDS: CEFEPIME 2,000 MG in SYRINGE 0 ML IV SCH (02:24)
[2022-01-06] MEDS: LEVOTHYROXINE SODIUM 88 MCG TABLET PO SCH (03:29)
[2022-01-06] MEDS: LABETALOL HCL IV 5 MG/ML 20ML IV SCH ×2 (03:48→10:20)
[2022-01-06] MEDS: NITROGLYCERIN 2% OINTMENT 30GM TUBE EXT SCH ×4 (05:40→18:36)
[2022-01-06] MEDS: INSULIN ASPART PER UNIT SC SCH ×3 (05:40→18:36)
[2022-01-06 06:30] LABS: Base Excess VBG 21.7 mEq/L; HCO3 VBG 51 mmol/L; Oxygen Saturation VBG 98.3 %; PCO2 VBG 81 mmHg (38-50); PO2 VBG 80 mmHg; pH VBG 7.41 (7.36-7.41)
[2022-01-06 06:55] LABS: Alanine Aminotransferase 12 U/L (7-52); Albumin Level 3.3 gm/dl (3.4-5.0); Alkaline Phosphatase 60 U/L (34-104); Aspartate Aminotransferase 10 U/L (13-39); BUN Creatinine Ratio 54.2 (10-20); Bilirubin,Total 0.6 mg/dl (0.2-1.0); Blood Urea Nitrogen 78 mg/dl (6-23); C Reactive Protein 15.12 mg/dl (0-0.5); Carbon Dioxide > 45 mmol/L (21-32); Chloride 96 mmol/L (98-107); Creatinine Clr Calc Pharmacy 33.8 ml/min; Est GFR (African American) 39.1 ml/min; Est GFR (Non-African American) 33.7 ml/min; Globulin 3.2 gm/dl (2.5-4.0); Glucose 100 mg/dl (70-99(Fasting)); Magnesium 2.4 mg/dl (1.7-2.4); Phosphorus 4.1 mg/dl (2.5-4.9); Potassium 3.5 mmol/L (3.5-5.1); Sodium 149 mmol/L (136-145); Total Protein 6.5 gm/dl (6.0-8.3)
[2022-01-06 06:58] LABS: Mean Corpuscular Hemoglobin 25.6 pg (25.0-34.0); Mean Corpuscular Hgb Conc 27.3 g/dL (32.0-36.0); Mean Platelet Volume 10.4 fL (9.4-12.3); Platelet Count 183 K/uL (130-400); RDW Coefficient of Variation 15.6 % (11.5-14.5); RDW Standard Deviation 53.4 fL (36.4-46.3); Red Blood Count 3.51 M/uL (3.93-5.22); White Blood Count 9.01 K/ul (4.8-10.8)
[2022-01-06 07:02] LABS: Basophils # (auto) 0.01 K/uL (0-0.2); Basophils % (auto) 0.1 %; Eosinophils # (auto) 0.02 K/uL (0-0.50); Eosinophils % (auto) 0.2 %; Immature Granulocytes # (auto) 0.03 K/uL (0.00-0.02); Immature Granulocytes % (auto) 0.3 %; Lymphocytes # (auto) 0.55 K/uL (1.2-3.4); Lymphocytes % (auto) 6.1 %; Monocytes # (auto) 0.86 K/uL (0.24-0.82); Monocytes % (auto) 9.5 %; Neutrophils # (auto) 7.54 K/uL (1.4-6.5); Neutrophils % (auto) 83.8 %; RBC Morphology Unremarkable
[2022-01-06] MEDS ORDERED: LACTATED RINGER'S 250 ML IV ONE (07:52)
[2022-01-06] MEDS ORDERED: D5W AND LACTATED RINGERS 1,000 ML IV SCH (08:00)
[2022-01-06] MEDS ORDERED: LACTATED RINGER'S 1,000 ML IV SCH (08:00)
--- NOTE | 2022-01-06 08:09 | Hospitalist Progress Note ---
Date of Service January 06, 2022 Assessment & Plan (1) CHF exacerbation: Plan: 81 year old female w/ PMHx of CAD, htn, IDDM, HFpEF, CKD, home 2+L O2 (obesity- restrictive lung disease), loulou on cpap, arthritis (tylenol, celebrex), and bioprosthetic aortic valve who presents w/ 2-3 months of increased dyspnea on exertion; admitting for hypoxia secondary to CHF exacerbation. Encephalopathy, ?cerebral edema vs metabolic vs infectious Patient awakens and follows simple commands in AM but increasingly somnolent/obtunded CThead without acute findings. Diamox x3 ordered, improved after first dose - ammonia negative - New borderline fever 01/04 37.9. BC ngtd, PCT prev normal, --> elevated, now downtrending on cefepime. UA-. No recurrent fevers, BC remain negataive. No abdominal sx. Treated with empiric cefepime/vancomycin. Does have back pain worsened today, has a history of arthritis no prior staph episode/staph bacteremia. Contrast limited currently by rising creatinine, will trend PCT/CRP. If worsening or fever returns would exclude osteo with CT. Cannot tolerate MRI due to respiratory status. 01/06 patient reports she feels "much better " in the morning compared to 01/07. Feels she is less short of breath, but remains tired. Is clinically dry with rising cr&ratio, fluids given and acetazolamide stopped w/ normal AM pH. - Patient is worsened through the afternoon, and again fatigued/lethargic. Using CPAP as tolerated, BiPAP for inadequate respiration or acidosis. VBG pH 7.46, repeat improved to 7.4. Acute Hypoxic, Hypercapnic Resp Failure Dry weight approximately 109kg. 109.9kg 01/05. - Hypervolemic on admitting exam; CHF exacerbation initially suspected as initial cause of sx LAKESHIA: EF 35-40% with no new wall motion changes compared to prior. Mildly dilated RV with normal systolic function, LAD, RAD, bioprosthetic valve in [place] ce, mitral annular calcification with mild to moderate stenosis, mild tricuspid regurg, mild mitral regurg, moderate pulmonary hypertension - strict Is and Os - Recieved lasix held for improvement and subsequent KAYLA - Trop downtrended, likely demand - ecg w/ LBBB, consistent with prior EKGs - DD 880, CTA limited by motion but without evidence of PE, improved edema, PVC remains. Followup XR 01/06 with increased edema - Pt not able to toelrate NIF at this time. Calcium 8.9, corrected calcium 9.1 wnl. CK not elevated. No ptosis with sustained superior gaze. Metabolic Alkalosis, chronic hypercapnea with compensation Initially acidotic with acute on chronic elevation in pCO2--> alkalotic with improved but still elevated pCo2 & compensated bicarb - PFT 12/2019: FVC 81%, FEV1 83%, FEV1/FVC ratio 99%, no obstructive lung disease appreciated. High ERV. Mild decrease in the DLCO. Concern for obesity hypoventilation Patient is a chronic hypercapnic retainer. ABG from 2019 shows chronic hyperca pnia with PCO2 in 40, on admission compensated pH with PCO2 in 80s - Diamox given, stopped 01/06 for volume contraction and normal pH. - +fluids/PPN as above History of CKD 3 2/2 DM Baseline creatinine recently 1-1.2, past review as high as 1.4-1.6, EGFR 30 at last note - Cr 1.17 on admit - ARB held - Near dry weight with improved edema on imaging. Leg edema persists, MM dry with lungs clear. - LR added as above, pending PPN follow net I&Os Atrial fibrillation New, rates [id number]. Exacerbated by fine depletion, received LR back --> HNS1 LR with PPN scheduled BP 157/94 at bedside Previously on labetalol, will switch to metoprolol IV every 6, as needed doses for rate. Can consider amio if needed and BP doesnt tolerate after fluid status improved, dig limited by renal function, no CCB due to rEF. Patient with chronic iron deficiency anemia, no active bleeding. Discussed risks/benefits of stroke prevention, [id number]>=3. Low-dose heparin GTT for clot PPx CHF - follow CHF clinic [facility] Echo during mission 35-40% no new wall motion abnormalities ask - 10/2021 echo poor quality w/ no estimable EF. -Echo as noted - BB as noted Type II DM, with insulin - A1c 5.6 10/2021, at goal - SSI and 40mg qhs lantus - on large dose of beta charlette for HTN; note to PCP: caution against decreased hypoglycemia awareness BSG control remains adequate History of obesity - 2020 PFT reviewed as above - prior chart hx of copd arevalo snot appear accurate based on review of PFTS History of anemia - chronic, stable in 8s -Hx iron deficiency, had received a transfusion of Venofer x1 Secondary hyperparathyroidism - follows nephro. recent switch from D2 to D3. CKD stage III - Cr, fluids, lasix, diamox tx as above - No NSAIDs - Renal dosing Hypothyroidism - continue home levothyroxine LOULOU - continue qhs cpap, bipap as needed Dyslipidemia - continue home statin FEN/GI: DM2, low Na if awake enough to tolerate. Not safe to swallow and requiring PPV currently. ~5d without nutrition +PPN, caution w/ fluid volume, dry 01/06 ppx: heparin for afib ppx scds. Code Status: DNR/DNI, would not want intubation/heroic measures or intubation for declining resp status per patient w/ family at bedside dispo: med tele (2) Chronic diastolic CHF (congestive heart failure): (3) Controlled type 2 diabetes mellitus with kidney complication, with long-term current use of insulin: (4) Obesity: (5) Anemia: (6) Secondary hyperparathyroidism: (7) Chronic kidney disease, stage 3: (8) Hypothyroidism: (9) Obstructive sleep apnea: (10) Dyslipidemia: (11) S/P AVR (aortic valve replacement): Plan: - follows Dr. Wolf (12) Encephalopathy: Admission and Anticipated Discharge Date Admission Date: December 31, 2021 Subjective Fluctuating course throughout the day. On initial morning assessment reported that she felt much better than she had the previous days, subsequently agitated and pulled off BiPAP and clinically worsened throughout the day. Preferentially using CPAP, BiPAP as needed for inadequate ventilation or acidosis. Denies pain, although appears uncomfortable. Engages with family intermittently throughout the day. More sedate in afternoon. New A. fib, patient denies history of this. Denies chest pain/chest pressure/fever/chills Review of Systems Review of Systems: All systems reviewed & are unremarkable except as noted in Subjective Physical Exam Physical Exam: General: Morning at exam appears much more alert, and reports that she felt better, and afternoon much more sedate but still follows commands including wiggling toes gripping fingers and answers most questions appropriately when aroused. HEENT: Atraumatic, normocephalic. Thick neck habitus Pulm: Distant w/ habitus, continues with some basilar crackles and more coarse this morning no wheezing. Symmetrical chest rise. Cardiac: Regular rate in the morning, irregularly irregular on later morning reassessment. Radial pulses intact and symmetrical. Abdominal: Nontender, nondistended, soft. BS present. Extremities: Bilateral pitting edema present Results & Data Results & Data ([facility]) Vital Signs (Past 12 Hours) Vital Signs Temp Pulse Pulse Resp BP Pulse Ox 01/06/22 07:09 36.4 C L 93 H 22 156/82 H 92 01/06/22 07:07 85 25 H 92 01/06/22 03:28 36.4 C L 81 18 156/104 H 91 01/06/22 02:11 86 25 H 94 01/05/22 23:46 36.3 C L 75 18 148/75 H 95 01/05/22 22:25 78 30 H 90 01/05/22 22:20 97 H 01/05/22 20:36 36.5 C 78 20 160/76 H 88 L PG Care Time/CCT Total # of Minutes Spent Total Time Spent with Patient: Total time spent is greater than 50% in coordination of care (as documented) at patient's floor/unit and/or counseling patient: Coding Level of Care Code 18635 Subseq Hosp Care Lvl 3 Diagnoses CHF exacerbation I50.9 Chronic diastolic CHF (congestive heart failure) I50.32 Controlled type 2 diabetes mellitus with kidney complication, with long-term current use of insulin E11.29; Z79.4 Obesity E66.9 Anemia D64.9 Secondary hyperparathyroidism N25.81 Chronic kidney disease, stage 3 N18.3 Hypothyroidism E03.9 Obstructive sleep apnea G47.33 Dyslipidemia E78.5 S/P AVR (aortic valve replacement) Z95.2 Encephalopathy G93.40
--- NOTE | 2022-01-06 08:22 | Nephrology Progress Note ---
Date of Service January 06, 2022 Assessment & Plan (1) Chronic kidney disease, stage 3: Plan: * CKD stage G3b/A2 (moderate impairment) Her baseline Cr has been 1.6 w/ EGFR 30 cc/min. Outpatient evaluation has revealed a benign urine sediment. UPCR has been only 0.2 while on ARB therapy. Mrs. Summers's renal impairment is due to DKD * Volume status is difficult to assess clinically. CXR shows only mild congestion. LE swelling is likely a manifestation of pulmonary HTN and R heart failure * Kidney function remains relatively stable at this time, however, patient is net 3.6L volume negative since admission and is developing progressive azotemia and hypernatremia. Her LE swelling has resolved. Will stop furosemide and administer 1L 0.45 NS * Monitor PRP (2) Hypercapnic respiratory failure: Plan: * Remains on NIPPV * Prognosis is guarded * Patient is DNR/DNI * Pulmonology has provided acetazolamide and is attempting to place patient on O2 during the day (SaO2 target 88%) and CPAP at night (3) Hypertension: Plan: * Hold Losartan due to acute illness * Agree w/ Labetalol therapy Admission and Anticipated Discharge Date Admission Date: December 31, 2021 Subjective Mrs. Summers was seen in her hospital room this morning. She was agitated and repeatedly pulled off her NIPPV Review of Systems Constitutional: no fever Eyes: no problem reported Ear, Nose, Mouth, Throat: no problem reported Respiratory: + dyspnea Cardiovascular: + edema; no chest pain and no palpitations Gastrointestinal: no abdominal pain, no nausea, no vomiting and no diarrhea/loose stools Genitourinary: no dysuria and no hematuria Musculoskeletal: + back pain Physical Exam Constitutional: + ill appearing Eyes: PERRL, conjunctivae normal, anicteric sclerae Respiratory: Auscultation: lungs clear to auscultation bilaterally Cardiovascular: Rate/Rhythm: regular rate and regular rhythm Extremities: no edema Gastrointestinal (Abdomen): Inspection/Auscultation: normal bowel sounds Results & Data ([facility]) Vital Signs (Past 12 Hours) Vital Signs Temp Pulse Pulse Resp BP Pulse Ox 01/06/22 07:09 36.4 C L 93 H 22 156/82 H 92 01/06/22 07:07 85 25 H 92 01/06/22 03:28 36.4 C L 81 18 156/104 H 91 07/12/22 02:11 86 25 H 94 01/05/22 23:46 36.3 C L 75 18 148/75 H 95 01/05/22 22:25 78 30 H 90 01/05/22 22:20 97 H 01/05/22 20:36 36.5 C 78 20 160/76 H 88 L Laboratory Results Laboratory Tests 01/06/22 01/06/22 06:16 06:16 WBC 9.01 Hgb 9.0 L Hct 33.0 L Plt Count 183 Sodium 149 H Potassium 3.5 Chloride 96 L Carbon Dioxide > 45 H* BUN 78 H Creatinine 1.44 H Glucose 100 H PG Care Time/CCT Total # of Minutes Spent Total Time Spent with Patient: Total time spent is greater than 50% in coordination of care (as documented) at patient's floor/unit and/or counseling patient: Coding Level of Care Code 67004 Subseq Hosp Care Lvl 3 Diagnoses Chronic kidney disease, stage 3 N18.3 Hypercapnic respiratory failure J96.92 Hypertension I10
--- NOTE | 2022-01-06 08:31 | XRay Report ---
XR chest 1V portable HISTORY: Shortness of breath. AHRF, CHF followup COMPARISON: Chest CTA 01/04/2022. FINDINGS: There are low lung volumes. The heart remains enlarged. No pneumothorax. Small bilateral pl eural fusions and bibasilar densities persist. There is slight progression of the interstitial/vascul ar thickening consistent with pulmonary edema. IMPRESSION: 1. Slight progression of the mild interstitial pulmonary edema and small bilateral pleural effusions. 2. Bibasilar densities persist and may represent atelectasis or layering pleural effusions. ACT 112: Negative or not required by law. Electronically signed by: Jerald Leigh M.D. 01/06/2022 8:30 AM
--- NOTE | 2022-01-06 09:35 | Pulmonology Progress Note ---
Date of Service January 06, 2022 Assessment & Plan (1) Hypercapnic respiratory failure: (2) Hypoxemia: (3) Obesity hypoventilation syndrome: (4) CHF exacerbation: Plan: Impression: 81-year-old female with obesity hypoventilation syndrome. Past PFTs performed 2 years ago were normal however her bicarb is elevated. This is acute on chronic hypercarbic respiratory failure. Mental status continues to wax and wane. Review of the patient's electronic medical record does indicate decline in functional status over the last several months. Recommendations: 1. Hypoxemic and hypercarbic respiratory failure: Suspect obesity hypoventilation syndrome. Would continue to manage with noninvasive positive pressure ventilation (BiPAP) on a nightly basis and as needed for mental status changes. Would try and target tidal volumes around 300 to 350 cc with a minute ventilation between 8 and 10 L/min. She may need to transition from CPAP to BiPAP with oxygen bleed at discharge. Can consider repeating outpatient evaluation including PFTs, assessment of neuromuscular strength with Dr. Dixon if clinically indicated. No indication for additional Diamox for now. Her blood gas demonstrates compensated chronic respiratory acidosis. Would not try and target oxygen saturations above 85 to 90%. Noninvasive positive pressure ventilation must act as a bridge between definitive therapy or clinical improvement. If the patient fails to show clinical improvement and does not wish further escalation of care, palliative options would be appropriate. 2. Avoid any potentially respiratory suppressant medications. Out of bed to chair in an upright position would also be beneficial. Ultimately, weight loss will be required. The only other option for this patient at this point time would be intubation and/or tracheostomy which the patient has declined previously. See comments below regarding goals of therapy 3. Management of the patient's other medical issues is deferred to the admitting service. 4. Given the patient's functional decline and DNR/DNI status, engagement of palliative care may be appropriate and is deferred to the primary admitting service. 5. Patient is now empirically on antibiotics for an elevated procalcitonin and fevers. Will continue to follow with you. Feel free to contact us with questions or concerns Admission and Anticipated Discharge Date Admission Date: December 31, 2021 Subjective Patient seen and examined. EMR reviewed. She remains encephalopathic. She is on BiPAP. Review of Systems Review of Systems: Unobtainable due to reduced consciousness Physical Exam Constitutional: + ill appearing and + morbidly obese; no acute distress and not in distress Eyes: PERRL, conjunctivae normal, anicteric sclerae Neck: trachea midline, no thyromegaly Respiratory: normal respiratory effort, lungs clear to auscultation Cardiovascular: RRR, no murmur, no edema Rate/Rhythm: + tachycardic Gastrointestinal (Abdomen): normal bowel sounds, soft, nontender, no hepatosplenomegaly Inspection/Auscultation: normal bowel sounds Musculoskeletal: Extremities: extremities normal to inspection Skin: no rashes, warm and dry Lymphatic: no cervical lymphadenopathy Results & Data Results & Data ([facility]) Vital Signs (Past 12 Hours) Vital Signs Temp Pulse Pulse Resp BP Pulse Ox 01/06/22 07:09 36.4 C L 93 H 22 156/82 H 92 01/06/22 07:07 85 25 H 92 01/06/22 03:28 36.4 C L 81 18 156/104 H 91 01/06/22 02:11 86 25 H 94 01/05/22 23:46 36.3 C L 75 18 148/75 H 95 01/05/22 22:25 78 30 H 90 01/05/22 22:20 97 H Laboratory Results 01/06/22 06:16 01/06/22 06:16 12/31/21 01/01/22 01/01/22 23:05 08:32 14:05 ABG pH 7.34 L ABG pCO2 86 H ABG pO2 114 H ABG HCO3 46 H ABG O2 Saturation 99.0 H ABG Base Excess 16.2 H VBG pH 7.33 L 7.30 L VBG pCO2 100 H 103 H VBG pO2 41 36 VBG HCO3 53 51 VBG O2 Saturation 67.8 < 60.0 VBG Base Excess 21.0 18.8 01/02/22 01/02/22 01/03/22 05:30 16:19 06:51 ABG pH 7.35 ABG pCO2 92 H ABG pO2 69 L ABG HCO3 51 H ABG O2 Saturation 95.8 H ABG Base Excess 20.0 H VBG pH 7.42 H 7.39 VBG pCO2 81 H 87 H VBG pO2 26 45 VBG HCO3 53 53 VBG O2 Saturation < 60.0 77.5 VBG Base Excess 22.9 22.4 07/04/1801/05/22 01/05/22 03:27 07:09 13:59 ABG pH 7.34 L ABG pCO2 96 H ABG pO2 84 ABG HCO3 52 H ABG O2 Saturation 97.1 H ABG Base Excess 21.7 H VBG pH 7.46 H 7.35 L VBG pCO2 73 H 97 H VBG pO2 63 45 VBG HCO3 52 54 VBG O2 Saturation 93.2 73.7 VBG Base Excess 23.3 22.2 01/06/22 06:16 ABG pH ABG pCO2 ABG pO2 ABG HCO3 ABG O2 Saturation ABG Base Excess VBG pH 7.41 VBG pCO2 81 H VBG pO2 80 VBG HCO3 51 VBG O2 Saturation 98.3 VBG Base Excess 21.7 Diagnostic Findings New imaging PG Care Time/CCT Total # of Minutes Spent Total Time Spent with Patient: Total time spent is greater than 50% in coordination of care (as documented) at patient's floor/unit and/or counseling patient: Coding Level of Care Code 81873 Subseq Hosp Care Lvl 2 Diagnoses Hypercapnic respiratory failure J96.92 Hypoxemia R09.02 Obesity hypoventilation syndrome E66.2 CHF exacerbation I50.9
[2022-01-06] MEDS: LIDOCAINE 5% 1 PATCH TD SCH (10:27)
[2022-01-06] MEDS: POTASSIUM CHLORIDE CRTAB 20 MEQ TABCR PO SCH (10:27)
[2022-01-06] MEDS ORDERED: SODIUM CHLORIDE 0.45 % 1,000 ML IV SCH (10:30)
[2022-01-06] MEDS: acetaZOLAMIDE 250 MG in DEXTROSE 5% 100 ML IV SCH (10:51)
[2022-01-06] MEDS: ACETAMINOPHEN 1000 MG/100 ML IV IV PRN ×2 (11:10→16:42)
[2022-01-06] MEDS ORDERED: METOPROLOL TARTRATE 1 MG/ML VIAL IV ONE (12:08)
--- NOTE | 2022-01-06 12:14 | Electrocardiogram Report ---
Test Reason : Blood Pressure : / mmHG Vent. Rate : 111 BPM Atrial Rate : 049 BPM P-R Int : 000 ms QRS Dur : 154 ms QT Int : 392 ms P-R-T Axes : 000 -26 122 degrees QTc Int : 533 ms Atrial fibrillation with rapid ventricular response with a competing junctional pacemaker with premat ure ventricular or aberrantly conducted complexes Left bundle branch block Abnormal ECG When compared with ECG of 03-JAN-2022 18:37, Atrial fibrillation has replaced Sinus rhythm Confirmed by Hardeep Huston ([id number]) on 01/06/2022 12:14:14 PM Referred By: REFERRED SELF Confirmed By:Kenneth Huston
[2022-01-06] MEDS ORDERED: METOPROLOL TARTRATE 1 MG/ML VIAL IV STA ×3 (13:41→18:28)
--- NOTE | 2022-01-06 14:13 | Pharmacy Report ---
Pharmacy PN Initial Consult - Date of Service January 06, 2022 - Scope Pharmacy has been consulted to manage parenteral nutrition orders and order appropriate labs. As part of the Nutrition Support Team guidelines, pharmacy will work in conjunction with dietary when determining the patients caloric needs. - Subjective The patient is a 81 year old F admitted on 12/31/21 22:26 for CHF EXACERBATION. Patient is to receive parenteral nutrition for [INDICATION]. Pertinent PMH: - Objective Height: 5 ft Weight: 109.6 kg Diet: NPO Vascular Access:: Two peripheral sites on left arm-both evaluated and cleared for use by IV team. Intake & Output (Last 24Hrs): Intake & Output 01/04/22 01/05/22 01/06/22 01/07/22 06:59 06:59 06:59 06:59 Intake Total 100 / 100 399.167 / 399.167 102.5 / 102.5 589.583 / 589.583 Output Total 1676 / 1676 1190 / 1190 950 / 950 Balance -1576 / -1576 -790.833 / -790.833 -847.5 / -847.5 589.583 / 589.583 Weight 111.6 kg 109.9 kg 109.6 kg Additional Fluid Losses/Gains:: 1/2 NS started by nephrology today until start of PPN. Patient has also received diuretics over the past couple of days/ Laboratory Data (Last 24 Hrs):: 01/05/22 01/06/22 01/06/22 04:08 06:16 06:16 Sodium 149 H Potassium 3.5 Chloride 96 L Carbon Dioxide > 45 H* BUN 78 H Creatinine 1.44 H Glucose 100 H Calcium 9.0 Phosphorus 5.5 H 4.1 D Magnesium 2.2 2.4 Total Bilirubin 0.6 AST 10 L ALT 12 Alkaline Phosphatase 60 Albumin 3.3 L Triglycerides 114 Nutrition Assessment:: Please refer to the Notes section of the EMR for the most recent marketing financial analyst note. - Assessment Patient has many electrolyte abnormalities at baseline in addition to fluid considerations due to CHF and renal dysfunction. Nutrition goals were discussed with dietitian who advised starting at goal macros was appropriate. Baseline mag and phos were not low, in fact phos level was slightly elevated yesterday. I did discuss total volume and electrolyte contents with nephrology, who was in agreement with the current formula. Given the Clinimix 2L bag shortage, total PPN will need to be delivered using two 1L bags, with the proportionally appropriate contents. Given electrolyte abnormalities would recommend additional lab monitoring once PPN is initiated. - Plan For day 1 of PN administration, the following will be ordered: Macronutrients Amino acids 66 grams/day Dextrose 78 grams/day Lipids 50 grams/day Micronutrients Sodium chloride 120 mEq Potassium phosphate 12 mMol Potassium chloride 30 mEq Magnesium sulfate 4.06 mEq Multivitamins 10 mL Trace Elements 10 mL Additional additives: Total volume 1640 mL (plus 250 mL lipids over first 6 hours) to be infused over 24 hrs will provide 1030 kcal/day Final osmolarity 847 mOsm/L (maximum for PPN is 900 mOsm/L) Labs to be ordered per PN order protocol Pharmacy will follow and adjust parenteral nutrition orders on a daily basis. Thank you.
[2022-01-06] MEDS ORDERED: DEXTROSE 10% 1,000 ML IV PRN (16:00)
[2022-01-06] MEDS ORDERED: CLINOLIPID 20% IV FAT EMULSION 250 ML IV SCH (16:00)
[2022-01-06 16:16] LABS: HCO3 VBG 49 mmol/L; Oxygen Saturation VBG 91.9 %; PCO2 VBG 69 mmHg (38-50); PO2 VBG 60 mmHg; pH VBG 7.46 (7.36-7.41)
[2022-01-06] MEDS: D5W IV SCH (16:28)
[2022-01-06] MEDS: AMINO ACIDS 4.25% IV SCH (16:28)
[2022-01-06] MEDS: PERIPHERAL TPN IV SCH (16:28)
[2022-01-06] MEDS: METOPROLOL TARTRATE 1 MG/ML VIAL IV SCH ×2 (16:28→20:24)
[2022-01-06] MEDS ORDERED: Heparin IV Adult Wt-Based Low-Dose *NO* Bolus Protocol IV SCH (17:00)
[2022-01-06] MEDS ORDERED: HEPARIN SODIUM/DEXTROSE 25,000 UNITS/500 ML BAG IV SCH (18:15)
[2022-01-06 18:21] LABS: HCO3 VBG 48 mmol/L; Oxygen Saturation VBG 91.7 %; PCO2 VBG 78 mmHg (38-50); PO2 VBG 60 mmHg
[2022-01-06] MEDS ORDERED: STAT IV Infusion **Titration per Protocol STA (18:49)
[2022-01-06] MEDS ORDERED: AMIODARONE IV BOLUS & DRIP IV STA (18:49)
[2022-01-06] MEDS ORDERED: AMIODARONE / D5W 150 MG/100 ML BAG IV ONE (19:00)
[2022-01-06] MEDS ORDERED: 0.2 MICRON FILTER SET 1 EACH IV ONE (19:00)
[2022-01-06] MEDS ORDERED: AMIODARONE / D5W 360 MG/200 ML BAG IV ONE (19:11)
[2022-01-06 19:43] LABS: INR 1.2 (0.9-1.1); Partial Thromboplastin Ratio 1.1; Prothrombin Time 12.3 Seconds (9.0-12.0)
[2022-01-06] MEDS: SIMVASTATIN 10 MG TAB PO SCH (20:24)
[2022-01-06] MEDS: LANTUS PER UNIT CHARGE SQ SCH (21:01)
[2022-01-06] MEDS ORDERED: STOP CLINOLIPID SCH ×2 (22:00)
[2022-01-06 22:39] LABS: Base Excess VBG 17.4 mEq/L; HCO3 VBG 47 mmol/L; Oxygen Saturation VBG 90.4 %; PCO2 VBG 77 mmHg (38-50); PO2 VBG 60 mmHg; pH VBG 7.39 (7.36-7.41)
[2022-01-07] MEDS: NITROGLYCERIN 2% OINTMENT 30GM TUBE EXT SCH ×3 (00:07→12:17)
[2022-01-07] MEDS: INSULIN ASPART PER UNIT SC SCH ×3 (00:07→12:15)
[2022-01-07] MEDS: METOPROLOL TARTRATE 1 MG/ML VIAL IV SCH ×4 (00:07→12:17)
[2022-01-07] MEDS: AMIODARONE / D5W 360 MG/200 ML BAG IV SCH ×2 (01:34→12:17)
[2022-01-07] MEDS ORDERED: MoRPHine SULFATE 2 MG/ML CARP IV STA ×2 (05:13→10:30)
[2022-01-07] MEDS: LEVOTHYROXINE SODIUM 88 MCG TABLET PO SCH (05:19)
[2022-01-07 05:26] LABS: Partial Thromboplastin Ratio 1.3
[2022-01-07 05:30] LABS: Base Excess VBG 19.1 mEq/L; HCO3 VBG 50 mmol/L; Oxygen Saturation VBG < 60.0 %; PCO2 VBG 90 mmHg (38-50); PO2 VBG 32 mmHg; pH VBG 7.35 (7.36-7.41)
[2022-01-07 05:34] LABS: BUN Creatinine Ratio 51.7 (10-20); C Reactive Protein 14.66 mg/dl (0-0.5); Creatinine Clr Calc Pharmacy 28.3 ml/min; Est GFR (African American) 31.5 ml/min; Est GFR (Non-African American) 27.2 ml/min; Magnesium 2.5 mg/dl (1.7-2.4); Phosphorus 3.6 mg/dl (2.5-4.9); Potassium 3.9 mmol/L (3.5-5.1)
[2022-01-07] MEDS: D5W IV SCH (05:34)
[2022-01-07] MEDS: AMINO ACIDS 4.25% IV SCH (05:34)
[2022-01-07] MEDS: PERIPHERAL TPN IV SCH (05:34)
[2022-01-07] MEDS ORDERED: HEPARIN IV BOLUS 3,000 UNITS in SYRINGE 0 ML IV ONE (05:45)
[2022-01-07 06:49] LABS: Base Excess VBG 17.6 mEq/L; HCO3 VBG 47 mmol/L; Oxygen Saturation VBG 86.1 %; PCO2 VBG 82 mmHg (38-50); PO2 VBG 56 mmHg; pH VBG 7.37 (7.36-7.41)
--- NOTE | 2022-01-07 07:19 | Hospitalist Progress Note ---
Date of Service January 07, 2022 Assessment & Plan (1) CHF exacerbation: Plan: 81 year old female w/ PMHx of CAD, htn, IDDM, HFpEF, CKD 3, Chronic respiratory failure with hypoxia on home 2+L O2 (obesity-restrictive lung disease), loulou on cpap, arthritis (tylenol, celebrex), and bioprosthetic aortic valve who presents w/ 2-3 months of increased dyspnea on exertion; admitting for acute respiratory distress with hypoxia with evidence of chronic hypercarbic compensation Counseling for palliative care, approximately spent 90 minutes this patient today 65 minutes were spent at the bedside counseling family as they discussed entering into palliative care which she eventually decided to do. Patient was initiated on a morphine drip Ativan sublingual and palliative care consultation Dr. Milagros Scott did help assist to try to improve this patient's comfort level Acute Respiratory Failure with Hypoxia, Hypercapnia -overall net negative fluid balance LAKESHIA: EF 35-40% with no new wall motion changes compared to prior. Mildly dilated RV with normal systolic function, LAD, RAD, bioprosthetic valve in place, mitral annular calcification with mild to moderate stenosis, mild tricuspid regurg, mild mitral regurg, moderate pulmonary hypertension -lasix stopped, Nephrology given fluid - elevated Troponin downtrended, secondary to demand ischemia - CTA without evidence of PE, improved edema -Family is agreed to discontinue BiPAP and transition to oxime mask at this time as BiPAP he felt was causing discomfort to the patient Metabolic Alkalosis, chronic hypercapnia with compensation -pt is chronic C02 retainer typically in the 80's History of CKD 3 secondary to diabetic kidney disease - ARB held -with azotemia, nephrology added fluid back to comfort measures all fluid discontinued Atrial fibrillation Medications discontinued for this treatment she is unable to take p.o. Type II DM, requiring insulin A1C 5.6 -Insulin and BSG checks have been discontinued Encephalopathy, CThead without acute findings. - ammonia negative History of obesity. BMI 47 History of iron deficiency anemia - chronic, stable in 8s -Hx iron deficiency, had received a transfusion of Venofer x1 Secondary hyperparathyroidism Hypothyroidism -Typically on home levothyroxine LOULOU - Code Status: DNR/DNI, would not want intubation/heroic measures or intubation for declining resp status per patient w/ family at bedside As patient is transition to palliative care mode her is expected and short duration without significant supportive measures (2) Chronic diastolic CHF (congestive heart failure): (3) Controlled type 2 diabetes mellitus with kidney complication, with long-term current use of insulin: (4) Obesity: (5) Anemia: (6) Secondary hyperparathyroidism: (7) Chronic kidney disease, stage 3: (8) Hypothyroidism: (9) Obstructive sleep apnea: (10) Dyslipidemia: (11) S/P AVR (aortic valve replacement): Plan: - follows Dr. Wolf (12) Encephalopathy: Admission and Anticipated Discharge Date Admission Date: December 31, 2021 Subjective Upon entering the room the patient was in significant respiratory distress and surrounded by family Even with BiPAP support her volumes were low and she was fairly tachypneic Spent some time discussing her care which included pulmonary, Nathan Treadwell, with the family in the morning approximately 35 minutes were spent in the room Family left to discuss and reconvene an additional 35 minutes were spent in a counseling area with the family. Eventual decision to pursue comfort care measures were undertaken Morphine drip was initiated Review of Systems Review of Systems: Unobtainable due to cognitive status Physical Exam Physical Exam: Patient was in significant distress tachypneic She would awaken to make some sounds would not follow commands reliably Lungs air movement bilaterally with short shallow breaths which were rapid Peripheral edema was present Cardiac exam was tachycardic Abdomen was soft tympanitic appeared to be nontender to exam Neurologically as mentioned she would awaken but she was not oriented to person place or time Results & Data Results & Data ([facility]) Vital Signs (Past 12 Hours) Vital Signs Temp Pulse Pulse Resp BP BP Pulse Ox 01/06/22 22:30 101 H 01/07/22 03:54 98 H 38 H 95 01/07/22 04:09 115 H 31 H 94 01/07/22 04:00 99.3 F 106 H 40 H 137/90 96 01/06/22 20:00 01/06/22 23:13 102 H 40 H 93 01/06/22 22:20 128/89 01/06/22 19:38 108 H 39 H 91 01/06/22 22:20 99.3 F 105 H 24 91 01/06/22 19:21 99.3 F 103 H 24 131/103 H 89 L O2 Del Method FiO2 01/06/22 22:30 01/07/22 03:54 30 01/07/22 04:09 30 01/07/22 04:00 BiPAP 01/06/22 20:00 CPAP 01/06/22 23:13 30 01/06/22 22:20 01/06/22 19:38 30 01/06/22 22:20 CPAP 01/06/22 19:21 CPAP PG Care Time/CCT Total # of Minutes Spent Total Time Spent with Patient: Total time spent is greater than 50% in coordination of care (as documented) at patient's floor/unit and/or counseling patient: Coding Level of Care Code 45179 Subseq Hosp Care Lvl 3 (25 - SIGNIFICANT, SEPARATELY IDENTIFIABLE ) Diagnoses CHF exacerbation I50.9 Chronic diastolic CHF (congestive heart failure) I50.32 Controlled type 2 diabetes mellitus with kidney complication, with long-term current use of insulin E11.29; Z79.4 Obesity E66.9 Anemia D64.9 Secondary hyperparathyroidism N25.81 Chronic kidney disease, stage 3 N18.3 Hypothyroidism E03.9 Obstructive sleep apnea G47.33 Dyslipidemia E78.5 S/P AVR (aortic valve replacement) Z95.2 Encephalopathy G93.40
--- NOTE | 2022-01-07 08:16 | Nephrology Progress Note ---
Date of Service January 07, 2022 Assessment & Plan (1) Chronic kidney disease, stage 3: Plan: * CKD stage G3b/A2 (moderate impairment) Her baseline Cr has been 1.6 w/ EGFR 30 cc/min. Outpatient evaluation has revealed a benign urine sediment. UPCR has been only 0.2 while on ARB therapy. Mrs. Summers's renal impairment is due to DKD * Volume status is difficult to assess clinically. CXR shows only mild congestion. LE swelling is likely a manifestation of pulmonary HTN and R heart failure * Kidney function remains relatively stable at this time. Serum sodium is mildly improved following 0.45 NS administration. Continue to hold furosemide * Monitor PRP (2) Hypercapnic respiratory failure: Plan: * Remains on NIPPV * Prognosis is appears poor due to hypercapnic respiratory failure * Patient is DNR/DNI * Pulmonology has provided a short trial of acetazolamide and is attempting to place patient on O2 during the day (SaO2 target 88%) and CPAP at night (3) Hypertension: Plan: * Hold Losartan due to acute illness * Agree w/ Labetalol therapy Admission and Anticipated Discharge Date Admission Date: December 31, 2021 Subjective Mrs. Summers was evaluated in her hospital room this morning. Her and family were present at bedside. Mrs. Summers remains on NIPPV. She opens her eyes to voice but is nonverbal and does not follow commands Review of Systems Review of Systems: Unobtainable due to reduced consciousness Physical Exam Constitutional: + ill appearing Eyes: PERRL, conjunctivae normal, anicteric sclerae ENMT: on NIPPV Respiratory: relatively clear anteriorly. Unable to reposition patient to assess posterior lung gann Cardiovascular: Rate/Rhythm: + tachycardic Extremities: no edema Gastrointestinal (Abdomen): Inspection/Auscultation: normal bowel sounds Results & Data ([facility]) Vital Signs (Past 12 Hours) Vital Signs Temp Pulse Pulse Resp BP BP Pulse Ox 01/07/22 07:38 36.7 C 115 H 36 H 162/106 H 95 01/07/22 07:24 113 H 01/07/22 07:18 106 H 33 H 93 01/06/22 22:30 101 H 01/07/22 03:54 98 H 38 H 95 01/07/22 04:09 115 H 31 H 94 01/07/22 04:00 37.4 C 106 H 40 H 137/90 96 01/06/22 23:13 102 H 40 H 93 01/06/22 22:20 128/89 01/06/22 22:20 37.4 C 105 H 24 91 O2 Del Method FiO2 01/07/22 07:38 BiPAP 01/07/22 07:24 01/07/22 07:18 30 01/06/22 22:30 01/07/22 03:54 30 01/07/22 04:09 30 01/07/22 04:00 BiPAP 01/06/22 23:13 30 01/06/22 22:20 01/06/22 22:20 CPAP Laboratory Results Laboratory Tests 01/07/22 02:58 Sodium 146 H Potassium 3.9 Chloride 95 L Carbon Dioxide 42 H* BUN 89 H Creatinine 1.72 H Glucose 207 H PG Care Time/CCT Total # of Minutes Spent Total Time Spent with Patient: Total time spent is greater than 50% in coordination of care (as documented) at patient's floor/unit and/or counseling patient: Coding Level of Care Code 42260 Subseq Hosp Care Lvl 3 Diagnoses Chronic kidney disease, stage 3 N18.3 Hypercapnic respiratory failure J96.92 Hypertension I10
[2022-01-07] MEDS: POTASSIUM CHLORIDE CRTAB 20 MEQ TABCR PO SCH (08:44)
[2022-01-07] MEDS: LIDOCAINE 5% 1 PATCH TD SCH (08:45)
[2022-01-07] MEDS: ACETAMINOPHEN 1000 MG/100 ML IV IV PRN (08:46)
--- NOTE | 2022-01-07 11:14 | Pulmonology Progress Note ---
Date of Service January 07, 2022 Assessment & Plan (1) Hypercapnic respiratory failure: (2) Hypoxemia: (3) Obesity hypoventilation syndrome: (4) CHF exacerbation: Plan Attending: Impression: 81-year-old female with obesity hypoventilation syndrome. Past PFTs performed 2 years ago were normal however her bicarb is elevated. This is acute on chronic hypercarbic respiratory failure. Mental status continues to wax and wane. Review of the patient's electronic medical record does indicate decline in functional status over the last several months. Entire family was available for discussion during my visit. Dr. Currie was also present from the hospitalist team. Recommendations: 1. Hypoxemic and hypercarbic respiratory failure: * PFTs reviewed. Values indicate no obstruction or restriction. Flow loop shows minimal obstruction. * ABGs and VBG's this admission reveal compensated respiratory failure with normal pH and elevated PCO2. HCO3 was also elevated. Patient did receive Diamox with little effect * Target SaO2 between 85 and 90% * Target tidal volumes 300 to 350 mL with a minute ventilation between 8 and 10 L/min. Current tidal volumes are between 211 and 260 mL. * Patient has had to transition to BiPAP and is still with respiratory rate of 35 (backup rate is 14) * Long discussion with family. At this time patient would not wish to undergo mechanical ventilation. They understand that if patient is not able to be extubated that she may require tracheostomy with long-term ventilatory support * Family also states that patient would not be interested in discharge with BiPAP due to difficulty with managing mask fitting, etc. * Family given the opportunity to discuss palliative care versus comfort measures only. We will be available for any questions regarding the pulmonary issues. 2. Disposition: * Long discussion with family regarding ventilatory versus respiratory function of lung and the fact that the patient has had probable obesity hypoventilation syndrome (OHVS) for some time * CT of chest as well as chest x-ray reviewed. No no acute correctable issues such as pneumonia, pleural effusion, pneumothorax etc. Patient's procalcitonin is elevated and she has had fever. She has been treated empirically with antibiotics. All antibiotics have now been discontinued. As previously mentioned, this most likely is not related to any pulmonary issues. Other than possible atelectasis contributing to fever. * Family given the opportunity discuss goals of care. We will coordinate the pulmonary issues with the hospitalist team After discussion with Dr. Currie of the hospitalist team, pulmonary will now sign off but be available for answering questions from the family or the hospitalist team as needed. Please feel free to reconsult as desired. Admission and Anticipated Discharge Date Admission Date: December 31, 2021 Subjective Attending: Dr. Johnson Patient seen and examined in room 208. Entire family was present. Dr. Currie from the hospitalist team was also present. Patient is minimally responsive. She is currently on BiPAP with an IPAP of 18 and an EPAP of 8. Backup respiratory rate of 14. Low tidal volumes of only about 211 mL. Brief by nursing that at this point they are unable to remove the BiPAP without the patient significantly desaturating. Family states that she has some minimal re sponse this morning with one-word answers and squeezing of hands. During the course of my examination, patient would open her eyes and responded inconsistently with yes or no responses. Patient appears to be in distress. She has shallow breathing with a respiratory rate of approximately 35 breaths/min. Patient is unable to provide review of systems other than the fact that she states that she is in pain and she does feel short of breath. When asked where her pain is she is unable to clarify. Long discussion with family. Questions answered to the best of her ability and to the satisfaction of the family. Review of Systems Review of Systems: Unobtainable due to cognitive status Physical Exam Physical Exam: GENERAL : Appears to be in moderate respiratory distress with rapid shallow breathing EYES: No icterus, gaze conjugate NOSE: No evidence of epistaxis. Abrasion on bridge of nose from BiPAP mask MOUTH: No lesions or candidiasis. BiPAP mask in place. Mucosa dry NECK: Supple LUNGS: Currently on BiPAP 18/8. Rapid shallow breathing with a respiratory rate of 35. Generally clear to auscultation bilaterally. HEART: Regular, tachycardic with a rate in the low 100s ABDOMEN: Soft, NT, ND, BS Present EXTREMITIES: No LE edema, pedal pulses intact NEURO: Unable to participate in meaningful discussion. Pupils are equal and reactive to light. Patient does open eyes to command. Gently squeezes hand to command. No other meaningful movement Results & Data Results & Data ([facility]) Vital Signs (Past 12 Hours) Vital Signs Temp Pulse Pulse Resp BP BP Pulse Ox 01/07/22 07:30 01/07/22 08:46 109 H 07/13/22 07:38 36.7 C 115 H 36 H 162/106 H 95 01/07/22 07:24 113 H 01/07/22 07:18 106 H 33 H 93 01/07/22 03:54 98 H 38 H 95 01/07/22 04:09 115 H 31 H 94 01/07/22 04:00 37.4 C 106 H 40 H 137/90 96 01/06/22 23:13 102 H 40 H 93 O2 Del Method FiO2 01/07/22 07:30 BiPAP 01/07/22 08:46 01/07/22 07:38 BiPAP 01/07/22 07:24 01/07/22 07:18 30 01/07/22 03:54 30 01/07/22 04:09 30 01/07/22 04:00 BiPAP 01/06/22 23:13 30 Critical Care Results & Data Vital Signs (Past 12 Hours) Vital Signs Temp Pulse Pulse Resp BP BP Pulse Ox 01/07/22 07:30 01/07/22 08:46 109 H 01/07/22 07:38 36.7 C 115 H 36 H 162/106 H 95 01/07/22 07:24 113 H 01/07/22 07:18 106 H 33 H 93 01/07/22 03:54 98 H 38 H 95 01/07/22 04:09 115 H 31 H 94 01/07/22 04:00 37.4 C 106 H 40 H 137/90 96 01/06/22 23:13 102 H 40 H 93 O2 Del Method FiO2 01/07/22 07:30 BiPAP 01/07/22 08:46 01/07/22 07:38 BiPAP 01/07/22 07:24 01/07/22 07:18 30 01/07/22 03:54 30 01/07/22 04:09 30 01/07/22 04:00 BiPAP 01/06/22 23:13 30 Lab & Micro Results (Past 24 Hours) No Data to Display Na 146 mmol/L (136-145) H 01/07/22 K 3.9 mmol/L (3.5-5.1) 01/07/22 Cl 95 mmol/L (98-107) L 01/07/22 CO2 42 mmol/L (21-32) H* 01/07/22 Anion Gap 9 (3-11) 01/07/22 BUN 89 mg/dl (6-23) H 01/07/22 Creatinine 1.72 mg/dl (0.6-1.2) H 01/07/22 Estimated GFR ( Amer) 31.5 ml/min 01/07/22 Estimated GFR (Non-Af Amer) 27.2 ml/min 01/07/22 BUN/Creatinine Ratio 51.7 (10-20) H 01/07/22 Glu 207 mg/dl (70-99(Fasting)) H 01/07/22 Ca 9.0 mg/dl (8.5-10.1) 01/07/22 Phosphorus Level 3.6 mg/dl (2.5-4.9) 01/07/22 Mg 2.5 mg/dl (1.7-2.4) H 01/07/22 02:58 Calcium Level 9.0 mg/dl (8.5-10.1) 01/07/22 02:58 Prothromb Time International Ratio 1.2 (0.9-1.1) H 01/06/22 15 :49 Venous Blood pH 7.37 (7.36-7.41) 01/07/22 06:20 Venous Blood Partial Pressure CO2 82 mmHg (38-50) H 01/07/22 06 :20 Venous Blood Partial Pressure O2 56 mmHg 01/07/22 06:20 Venous Blood HCO3 47 mmol/L 01/07/22 06:20 Venous Blood Base Excess 17.6 mEq/L 01/07/22 06:20 Venous Blood Oxygen Saturation 86.1 % 01/07/22 06:20 Microbiology 01/04/22 14:42 Aerobic Blood Culture - Preliminary Blood No growth in Aerobic bottle after 48 hours. Anaerobic Blood Culture - Preliminary No growth in Anaerobic bottle after 48 hours. 01/04/22 14:38 Aerobic Blood Culture - Preliminary Blood No growth in Aerobic bottle after 48 hours. Anaerobic Blood Culture - Preliminary No growth in Anaerobic bottle after 48 hours. I & O Totals 24 Hours 01/06/22 01/07/22 01/08/22 06:59 06:59 06:59 Intake Total 102.5 / 102.5 2784.350 / 2784.350 35.333 / 35.333 Output Total 1150 / 1150 850 / 850 Balance -1047.5 / -1047.5 1934.350 / 1934.350 35.333 / 35.333 Cumulative 12/31/21 18:55 thru 01/07/22 07:15 Intake Total 4596.350 Output Total 6767 Balance -2170.650 RT Ventilator Mngmt (Last Documented) Ventilator Ordered Settings Respiratory Rate 36 01/07/22 07:38 Fraction of Inspired Oxygen 30 01/07/22 07:18 Ventilator - PT Measurements Respiratory Rate 36 PG Care Time/CCT Total # of Minutes Spent Total Time Spent with Patient: Total time spent is greater than 50% in coordination of care (as documented) at patient's floor/unit and/or counseling patient: 40 minutes including family discussion at bedside Coding Level of Care Code 86741 Subseq Hosp Care Lvl 2 (25 - SIGNIFICANT, SEPARATELY IDENTIFIABLE ) Diagnoses Hypercapnic respiratory failure J96.92 Hypoxemia R09.02 Obesity hypoventilation syndrome E66.2 CHF exacerbation I50.9 Time Spent (min) 40
[2022-01-07 11:50] LABS: Partial Thromboplastin Ratio 1.5; Partial Thromboplastin Time 41.6 Seconds (21.0-31.0)
[2022-01-07 11:56] LABS: Anti Nuclear Antibody Screen NEGATIVE (NEGATIVE)
[2022-01-07] MEDS ORDERED: LORazepam 0.5 MG in SYRINGE 0.25 ML IV PRN (13:14)
[2022-01-07] MEDS ORDERED: ONDANSETRON INJ 2 MG/ML 2 ML VIAL IV PRN (13:14)
[2022-01-07] MEDS ORDERED: HYOSCYAMINE SULFATE 0.125 MG TAB SL PRN (13:14)
[2022-01-07] MEDS ORDERED: ATROPINE SULFATE 1% OP SOLN 5 ML BTL SL PRN (13:14)
[2022-01-07] MEDS ORDERED: LORazepam 0.5 MG TAB PO PRN (13:14)
[2022-01-07] MEDS ORDERED: haloperidoL 1 MG TAB PO PRN (13:14)
[2022-01-07] MEDS ORDERED: ACETAMINOPHEN 650 MG SUPP PR PRN (13:14)
[2022-01-07] MEDS ORDERED: GLYCOPYRROLATE 0.2 MG/ML VIAL IV PRN (13:14)
[2022-01-07] MEDS ORDERED: STAT IV Infusion **Titration per Protocol STA (13:14)
[2022-01-07] MEDS ORDERED: ONDANSETRON 4 MG OD TAB SL PRN (13:14)
[2022-01-07] MEDS ORDERED: MoRPHine SULF/NSS 100 MG/100 ML BAG IV SCH ×2 (13:15)
[2022-01-07] MEDS ORDERED: LORazepam 1 MG TAB SL PRN (14:33)
[2022-01-07] MEDS: MoRPHine SULFATE 2 MG/ML CARP IV PRN ×2 (14:42→18:03)
[2022-01-07] MEDS ORDERED: PERIPHERAL TPN IV SCH (16:00)
[2022-01-07] MEDS ORDERED: CLINOLIPID 20% IV FAT EMULSION 250 ML IV SCH (16:00)
[2022-01-07] MEDS ORDERED: AMINO ACIDS 4.25% IV SCH (16:00)
[2022-01-07] MEDS ORDERED: D5W IV SCH (16:00)
--- NOTE | 2022-01-07 16:19 | Palliative Care Consultation ---
Date of Consultation January 07, 2022 Assessment & Plan (1) Dyspnea: On morphine infusion. She does have renal failure with creatinine of 1.72 and GFR of 27.2. She could be at risk for morphine toxicity with prolonged high doses of morphine. Discussed with RN. Infusion started about 30minutes ago. Rather than titrate basal rate, will give bolus dose and ativan with current basal rate of 1mg/hr. Monitor for opioid toxicity. Given her previous desaturation with bipap removal, prognosis may be only hours. Family does not want to remove bipap until she is more comfortable. Plan is for transition to face mask and titration of O2 flow for comfort. (2) Palliative care encounter: Talked with her , daughter and multiple other family members at bedside. Discussed transition to face mask and use of oxygen for comfort. We also discussed lack of correlation between sat and perception of air hunger. We talked about variable breathing patterns with dying process and what to expect. We discussed signs of discomfort and distress such as facial grimace, restlessness, muscle tension. Continue prn lorazepam to relieve anxiety associated with air hunger and decrease risk of opioid toxicity. She does not currently have audible tracheal secretions but glycopyrrolate is available on comfort orders if needed. (3) Hypercapnic respiratory failure: (4) Hypoxemia: History of Present Illness Reason for Consultation: comfort care Requesting Physician: Dr. Currie Attending Physician: Ar Currie MD History of Present Illness 81 yo with chronic diastolic heart failure, obesity hypoventilation syndrome and LOULOU who presented with progressive dyspnea on exertion and hypoxia. She has had persistent hypoxic, hypercarbic respiratory failure on bipap, desatting into the 50s with only brief removal of mask. After discussion with Dr. Currie, family has opted for comfort directed approach to care and we have been consulted to assist with symptom management. Mrs. Summers is in the room with her and multiple family members. She is not responsive but is restless with facial grimace. She is tachypnic and satting in the 80s on bipap. She has been started on a morphine infusion at 1mg/hr. Family is concerned that she is not comfortable. Allergies Allergy/AdvReac Type Severity Reaction Status Date / Time Horse/Equine Containing Allergy Unknown LOCKED Verified 12/31/21 18:01 Products JOINTS codeine AdvReac Unknown REVERSED Verified 12/31/21 18:01 REACTION Home Medications Medication Instructions Recorded Confirmed Type aspirin 81 mg tablet 81 mg PO PM 02/01/19 12/31/21 History vitamin B complex 1 cap PO QAM 02/06/19 12/31/21 History omega-3 fatty acids-fish oil 360 1 cap PO PM 12/02/19 12/31/21 History mg-1,200 mg capsule (Fish Oil) vit C 250 mg-vit E 90 mg-zinc 40 1 tab PO BID 12/02/19 12/31/21 History mg-copper 1 [id number] capsule (PreserVision AREDS-2) Humalog KwikPen Insulin 100 See Rx Instructions .Route 07/02/20 12/31/21 Rx unit/mL subcutaneous (insulin .COMPLEX #120 mL lispro) simvastatin 10 mg tablet 10 mg PO DAILY #90 tabs 12/23/20 12/31/21 Rx BD Ultra-Fine Caryl Pen Needle 32 #400 ea 03/14/21 12/31/21 Rx gauge x 5/32" (pen needle, diabetic) blood sugar diagnostic #400 ea 03/14/21 12/31/21 Rx insulin syringe-needle U-100 1 mL #100 ea 03/14/21 12/31/21 Rx 31 gauge x 5/16" (BD Insulin Syringe Ultra-Fine) ketoconazole 2 % topical cream 1 applic topical BID PRN 03/19/21 12/31/21 Rx antifungal #30 grams labetalol 200 mg tablet 600 mg PO BID #540 tabs 03/21/21 12/31/21 Rx losartan 50 mg tablet 50 mg PO BID #180 tabs 03/21/21 12/31/21 Rx OneTouch Delica Lancets 33 gauge #400 ea 04/23/21 12/31/21 Rx (lancets) furosemide 20 mg tablet 20 mg PO BID PRN Fluid Retention 04/24/21 12/31/21 Rx #180 tabs calcitriol 0.25 mcg capsule 0.25 mcg PO DAILY #90 caps 11/06/21 12/31/21 Rx Lantus U-100 Insulin 100 unit/mL See Rx Instructions subcut PM #40 11/20/21 12/31/21 Rx subcutaneous solution (insulin mL glargine) Synthroid 88 mcg tablet 88 mcg PO DAILY@0400 #90 tabs 11/20/21 12/31/21 Rx (levothyroxine) ipratropium 20 mcg-albuterol 100 1 puff inhalation QID PRN 11/20/21 12/31/21 Rx mcg/actuation mist for inhalation shortness of breath or wheezing (Combivent Respimat) #12 grams celecoxib 200 mg capsule (Celebrex) 200 mg PO DAILY #90 caps 11/26/21 12/31/21 Rx furosemide 80 mg tablet (Lasix) 80 mg PO DAILY 12/31/21 12/31/21 History Patient History Medical History Acute kidney injury Acute respiratory failure with hypoxia Chronic diastolic CHF (congestive heart failure) COPD with acute exacerbation Diabetic peripheral neuropathy associated with type 2 diabetes mellitus Dyspnea Hypokalemia Hypomagnesemia Hypoxia Loss of protective sensation of skin of foot Pneumonia Septicemia Spondylisthesis Surgical History H/O oral surgery S/P aortic valve replacement S/P bunionectomy S/P cataract surgery S/P dilation and curettage S/P tonsillectomy S/P total knee arthroplasty Status post hysteroscopic polypectomy Family History Father Hypertension Stroke Myocardial infarction Grandmother (Maternal) Diabetes Mother Diabetes Other COPD (chronic obstructive pulmonary disease) Denies family history of Ovarian cancer Prostate cancer Breast cancer Colorectal cancer Social History Smoking Status: Never smoker Age Started Using Tobacco: 19; Age Quit Using Tobacco: 21; packs per day: 0.25; Second Hand Exposure: No; Do You Dip or Chew Tobacco: No; Tobacco Cessation Education Requested by Patient: No Hx Alcohol Use: No Hx Substance Use: No Preferred Language: Albanian Communication Ability: Effective Visual Impairment: No Limitations Hearing Ability: Hard of Hearing Director Of Home Care Hospice Required: No Beliefs That Will Affect Care: None marital status: Current Living Situation: Spouse current occupational status: retired Other Information That Helps Us Care for You: No Feels Safe at Home: Yes Safety Concerns: Feels Safe At This Time Seatbelt Use: always Sunscreen Use: No Assistive Devices: CPAP, Oxygen - Continuous, Stair Lift and Walker Review of Systems Review of Systems: Unobtainable due to reduced consciousness ESAS Dyspnea by RDOS 2/3 Physical Exam Constitutional: restless, reaching for mask Respiratory: + uses accessory muscles and + tachypneic Cardiovascular: Rate/Rhythm: + tachycardic acrocyanosis Gastrointestinal (Abdomen): obese Neurologic: + obtunded Results & Data ([facility]) Vital Signs (Past 12 Hours) Vital Signs Temp Pulse Pulse Resp BP Pulse Ox O2 Del Method 01/07/22 14:57 104 H 01/07/22 12:17 112 H 01/07/22 11:49 96.1 F L 120 H 34 H 145/76 H 87 L BiPAP 01/07/22 11:25 119 H 37 H 93 01/07/22 07:30 BiPAP 01/07/22 08:46 109 H 01/07/22 07:38 98.1 F 115 H 36 H 162/106 H 95 BiPAP 01/07/22 07:24 113 H 01/07/22 07:18 106 H 33 H 93 01/07/22 04:09 115 H 31 H 94 FiO2 01/07/22 14:57 01/07/22 12:17 01/07/22 11:49 01/07/22 11:25 30 01/07/22 07:30 01/07/22 08:46 01/07/22 07:38 01/07/22 07:24 01/07/22 07:18 30 01/07/22 04:09 30 PG Care Time/CCT Total # of Minutes Spent Total Time Spent: 55 Total Time Spent with Patient: Total time spent is greater than 50% in coordination of care (as documented) at patient's floor/unit and/or counseling patient: symptom management, family education and support Coding Level of Care Code 02053 Inpt Consult Level 2 Diagnoses Dyspnea R06.00 Palliative care encounter Z51.5 Hypercapnic respiratory failure J96.92 Hypoxemia R09.02
--- NOTE | 2022-01-07 19:03 | Discharge Summary ---
Date of Service January 07, 2022 Admission HPI Per Admitting Provider 81 year old female w/ PMHx of CAD, htn, IDDM, HFpEF, CKD, home 2+L O2 (obesity- restrictive? lung disease), loulou on cpap, arthritis (tylenol, celebrex), and bioprosthetic aortic valve who presents w/ 2-3 months of increased dyspnea on exertion. She does endorse 7 lb wt gain in the past week and increased ankle swelling. She was sent to the ED by her PCP this afternoon for saturating into the low 80s and upper 70s on 5L O2 while feeling essentially asymptomatic other than the WEAVER. She had similar desaturation at her sleep medicine visit yesterday. Patient states that 2 years ago at hosp discharge, was Rx'd 2L qhs ho me O2. In the past year, she has used 2-4L as needed, but in the past 2-3 months has needed continuous O2, up to 5L. She attributes some of the use to feeling better while on it. In these 2-3 months, she has also had increased fatigue aside from the WEAVER. Her ergocalciferol was changed to D3 cholecalciferol by nephro at approx. the same time. Currently, denies subjective complaint and states she is breathing comfortably. She denies hx of VTE, ME, or stroke. Distant 0.5 pack year hx tobacco use. ED course: Lasix 40mg x1. EMS noted sat of 82% on 5L. 2 of nitro provided relief of dyspnea. Principal Diagnosis pt on comfort measures 01/07/22 at 1838 hours cause of is acute on chronic respiratory failure with hypoxia and hypercapnia, secondary to Obesity hypoventilation syndrome and obstructive sleep apnea Discharge Exam no spontaneous respirations or heart tones for 30 seconds Discharge Data Allergies Allergy/AdvReac Type Severity Reaction Status Date / Time Horse/Equine Containing Allergy Unknown LOCKED Verified 12/31/21 18:01 Products JOINTS codeine AdvReac Unknown REVERSED Verified 12/31/21 18:01 REACTION Consultations 12/31/21 20:23 ED Decision to Admit Stat 01/03/22 18:36 Consult Cardiology Routine 01/04/22 09:00 Consult Nephrology Routine 01/04/22 11:31 Consult Pulmonology Routine 01/07/22 13:17 Consult Palliative Care Routine Ordered Studies 01/01/22 12:21 CT chest diagnostic wo con Routine 01/04/22 07:18 CT angio chest PE protocol Stat 01/04/22 15:22 CT head/brain wo con Stat Hospital Course (1) : 01/07/22 1838 hours (2) CHF exacerbation: 81 year old female w/ PMHx of CAD, htn, IDDM, HFpEF, CKD 3, Chronic respiratory failure with hypoxia on home 2+L O2 (obesity-restrictive lung disease), loulou on cpap, arthritis (tylenol, celebrex), and bioprosthetic aortic valve who presents w/ 2-3 months of increased dyspnea on exertion; admitting for acute respiratory distress with hypoxia with evidence of chronic hypercarbic compensation Counseling for palliative care, approximately spent 90 minutes this patient today 65 minutes were spent at the bedside counseling family as they discussed entering into palliative care which she eventually decided to do. Patient was initiated on a morphine drip Ativan sublingual and palliative care consultation Dr. Milagros Scott did help assist to try to improve this patient's comfort level Acute Respiratory Failure with Hypoxia, Hypercapnia -overall net negative fluid balance LAKESHIA: EF 35-40% with no new wall motion changes compared to prior. Mildly dilated RV with normal systolic function, LAD, RAD, bioprosthetic valve in place, mitral annular calcification with mild to moderate stenosis, mild tricuspid regurg, mild mitral regurg, moderate pulmonary hypertension -lasix stopped, Nephrology given fluid - elevated Troponin downtrended, secondary to demand ischemia - CTA without evidence of PE, improved edema -Family is agreed to discontinue BiPAP and transition to oxime mask at this time as BiPAP he felt was causing discomfort to the patient Metabolic Alkalosis, chronic hypercapnia with compensation -pt is chronic C02 retainer typically in the 80's History of CKD 3 secondary to diabetic kidney disease - ARB held -with azotemia, nephrology added fluid back to comfort measures all fluid discontinued Atrial fibrillation Medications discontinued for this treatment she is unable to take p.o. Type II DM, requiring insulin A1C 5.6 -Insulin and BSG checks have been discontinued Encephalopathy, CThead without acute findings. - ammonia negative History of obesity. BMI 47 History of iron deficiency anemia - chronic, stable in 8s -Hx iron deficiency, had received a transfusion of Venofer x1 Secondary hyperparathyroidism Hypothyroidism -Typically on home levothyroxine LOULOU - Code Status: DNR/DNI, would not want intubation/heroic measures or intubation for declining resp status per patient w/ family at bedside As patient is transition to palliative care mode her is expected and short duration without significant supportive measures (3) Chronic diastolic CHF (congestive heart failure): (4) Controlled type 2 diabetes mellitus with kidney complication, with long-term current use of insulin: (5) Obesity: (6) Anemia: (7) Secondary hyperparathyroidism: (8) Chronic kidney disease, stage 3: (9) Hypothyroidism: (10) Obstructive sleep apnea: (11) Dyslipidemia: (12) S/P AVR (aortic valve replacement): - follows Dr. Wolf (13) Encephalopathy: Total Time Total Time Spent Total Time Spent (In Minutes): It required greater than 30 minutes to prepare this patient for discharge Discharge Plan Discharge Items Patient Disposition: Reason For Visit: CHF EXACERBATION Follow-up/Referrals: Raheem Butcher MD [Primary Care Provider] - Medications and DC Order Prescriptions: No Action insulin lispro [Humalog KwikPen Insulin] 100 unit/mL insulin pen See Rx Instructions .ROUTE .COMPLEX Qty: 120 1RF Rx Instructions: Inject per sliding scale up to 120 units daily; simvastatin 10 mg tablet 10 mg PO DAILY Qty: 90 3RF (DME) OneTouch Ultra Blue Test Strip Strip See Dose Instructions .ROUTE .MEDSUPPLY Qty: 400 3RF Rx Instructions: Test blood sugar 4 times daily (DME) insulin syringe-needle U-100 [BD Insulin Syringe Ultra-Fine] 1 mL 31 gauge x 5/16 syringe See Dose Instructions .ROUTE .MEDSUPPLY Qty: 100 3RF Rx Instructions: for use once daily (DME) pen needle, diabetic [BD Ultra-Fine Caryl Pen Needle] 32 gauge x 5/32" needle See Dose Instructions .ROUTE .MEDSUPPLY Qty: 400 3RF Rx Instructions: for use 4 times daily ketoconazole 2 % cream 1 applic TOP BID PRN (Reason: antifungal) Qty: 30 1RF Rx Instructions: Apply topically to abdomen and toes BID as needed labetalol 200 mg tablet 600 mg PO BID Qty: 540 3RF losartan 50 mg tablet 50 mg PO BID Qty: 180 3RF (DME) lancets [OneTouch Delica Lancets] 33 gauge misc See Rx Instructions .ROUTE .MEDSUPPLY Qty: 400 1RF Rx Instructions: check blood sugar 4x daily Combivent Respimat 20-100 mcg/actuation mist 1 puff INH QID PRN (Reason: shortness of breath or wheezing) Qty: 12 3RF Lantus U-100 Insulin 100 unit/mL solution See Rx Instructions SQ PM Qty: 40 1RF Rx Instructions: 40 units subcut evening; levothyroxine [Synthroid] 88 mcg tablet 88 mcg PO DAILY@0400 Qty: 90 3RF Rx Instructions: BRAND NECESSARY celecoxib [Celebrex] 200 mg capsule 200 mg PO DAILY Qty: 90 3RF aspirin 81 mg tablet 81 mg PO PM calcitriol 0.25 mcg capsule 0.25 mcg PO DAILY Qty: 90 3RF vitamin B complex capsule 1 cap PO QAM furosemide 20 mg tablet 20 mg PO BID PRN (Reason: Fluid Retention) Qty: 180 0RF Rx Instructions: may take along with 40mg if needed furosemide [Lasix] 80 mg tablet 80 mg PO DAILY PreserVision AREDS-2 [phone] Capsule 1 tab PO BID omega-3 fatty acids-fish oil [Fish Oil] 360-1,200 mg Capsule 1 cap PO PM Admission Data Admit Date/Time: 12/31/21 22:26 Attending Provider: Ar Currie Admit Provider: Dinesh Braxton Primary Care Provider: Raheem Butcher Other Providers: Prieto James ; Osito Grace ; Hardeep Huston ; Neil Johnson ; Milagros Scott Coding Level of Care Code D/C DAY MANAGEMENT >30 MINS Diagnoses R99 CHF exacerbation I50.9 Chronic diastolic CHF (congestive heart failure) I50.32 Controlled type 2 diabetes mellitus with kidney complication, with long-term current use of insulin E11.29; Z79.4 Obesity E66.9 Anemia D64.9 Secondary hyperparathyroidism N25.81 Chronic kidney disease, stage 3 N18.3 Hypothyroidism E03.9 Obstructive sleep apnea G47.33 Dyslipidemia E78.5 S/P AVR (aortic valve replacement) Z95.2 Encephalopathy G93.40
== END 2022-01-07 20:15 | disposition expired | DRG 291 ==
LOC: ED 19:21 → SUATTDRO 22:26 → 2E 22:26